=== PATIENT | female | born 1945 | race Caucasian/White ===

== ENCOUNTER 2018-08-25 12:33 | Inpatient (IN) ==
--- NOTE | 2018-08-25 13:16 | EKG Report ---
Test Performed on : 08/25/2018 1:00:56 PM Test Reason : ams Blood Pressure : / mmHG Vent. Rate : 096 BPM Atrial Rate : 096 BPM P-R Int : 148 ms QRS Dur : 084 ms QT Int : 348 ms P-R-T Axes : 084 055 068 degrees QTc Int : 439 ms Normal sinus rhythm. with sinus arrhythmia. Normal ECG When compared with ECG of 10-JUL-2017 10:34, No significant change was found Unconfirmed Result
[2018-08-25 13:26] LABS: INR 0.82
[2018-08-25 13:27] LABS: PTT 25.8 Seconds (22.3-41.8)
[2018-08-25 13:30] LABS: BASO# 0.04 X1000 (0.0-0.2); BASO% 0.5 % (0.0-0.8); EOS% 1.2 % (0.0-10.0); HEMATOCRIT 32.4 % (37.0-47.0); HEMOGLOBIN 9.1 g/dL (12.0-16.0); LYMPH# 1.18 X1000 (1.2-3.4); LYMPH% 13.7 % (20.5-51.1); MCH 23.8 PG (27-31); MCHC 28.1 g/dL (33-37); MCV 84.6 FL (81-99); MONO# 0.62 X1000 (0.11-0.59); MONO% 7.2 % (1.7-9.3); MPV 8.3 FL (7.4-10.4); NEUT# 6.69 X1000 (1.4-6.5); NEUT% 77.4 % (42.2-75.2); PLT 364 X1000 (130-400); RBC 3.83 XMIL (4.2-5.4); RDW 17.3 % (11.5-14.5); WBC 8.63 X1000 (4.8-10.8)
[2018-08-25 13:39] LABS: ALLEN TEST NO; BE 21.4 mmoll (-3.0-3.0); BLOOD TYPE ARTERIAL; HCO3-(ACT) 41.5 mmoll (20.0-26.0); O2(CT) 13.2 mL/dL (15.0-23.0); O2HB 92.1 % (95.0-99.0); PO2(98.6) 73 mmHg (60-100); SAMPLE BLOOD; SAO2 94.5 % (95.0-100.0); THB 10.1 g/dL (11.5-17.4); pH(98.6) 7.25 (7.35-7.45)
[2018-08-25 13:40] LABS: MODALITY CANNULA; PCO2(98.6) 121 mmHg (35-45)
[2018-08-25 13:40] LABS: ESTIMATED GFR > 60
[2018-08-25 13:41] LABS: AGAP 6; ALB/GLOB RATIO 1.4; ALBUMIN 3.4 g/dL (3.5-5.0); ALKALINE PHOSPHATASE 71 U/L (32-104); BUN 4 mg/dL (8-22); CALCIUM 9.4 mg/dL (8.8-10.2); CHLORIDE 88 mmol/L (98-107); CK PROFILE 24 U/L (24-173); COSMO 273; CREATININE 0.3 mg/dL (0.5-0.9); GLUCOSE 114 mg/dL (70-104); GOT 26 U/L (10-30); GPT 14 U/L (10-36); SODIUM 138 mmol/L (136-145); TCO2 44 mmol/L (25-35); TOTAL PROTEIN 5.9 g/dL (6.3-8.3)
[2018-08-25 13:43] LABS: BILIRUBIN URINE NEGATIVE (NEGATIVE); BLOOD URINE SMALL (NEGATIVE); COLOR ORANGE; GLUCOSE URINE NEGATIVE (NEGATIVE); KETONE URINE 10 mg/dL (NEGATIVE); LEUKOCYTES URINE SMALL (NEGATIVE); NITRITE URINE NEGATIVE (NEGATIVE); PH URINE 7.5; PROTEIN URINE TRACE mg/dL (NEGATIVE); SP GRAVITY URINE 1.002; TURBIDITY URINE HAZY (CLEAR); URINE SOURCE CATH; UROBILINOGEN URINE NORMAL (NORMAL)
[2018-08-25 13:51] LABS: UR EPITHELIAL CELLS >10 /HPF (<10); URINE BACTERIA 1+ /HPF; URINE RBC <10 /HPF (<10); URINE WBC <10 /HPF (<10)
--- NOTE | 2018-08-25 14:25 | Diag Imaging Result Doc PS360 ---
EXAM: CT HEAD W/O CONTRAST 08/25/2018 HISTORY: Head injury TECHNIQUE: This exam was performed using automated exposure control, adjustment of mA or kV according to patient size, and/or use of iterative reconstruction technique. COMMENT: There is no evidence of mass effect, bleed, or abnormal extra-axial fluid collection, and there are no previous studies available for comparison. There is persistence the metopic suture. The calvarium is intact. The visualized paranasal sinuses are clear. IMPRESSION: No evidence of acute intracranial disease. Electronically signed by Shelton Robbins 08/25/2018 2:23 PM
--- NOTE | 2018-08-25 14:44 | Diag Imaging Result Doc PS360 ---
EXAM: CHEST-PORTABLE 08/25/2018 HISTORY: ams TECHNIQUE: AP portable at 1431 COMMENT: there is blunting of the left costophrenic angle laterally which was not the case on 08/17/2017. IMPRESSION: Atelectasis versus pleural fluid on the left. Electronically signed by Shelton Robbins 08/25/2018 2:41 PM
[2018-08-25 14:47] LABS: URINE CASTS NONE SEEN; URINE CRYSTALS NONE SEEN; URINE SMALL ROUND CELLS NONE SEEN; URINE YEAST PRESENT
[2018-08-25] MEDS ORDERED: SOLU-MEDROL IV ONE (16:04)
[2018-08-25] MEDS ORDERED: ZOFRAN IV PRN (16:04)
[2018-08-25] MEDS ORDERED: TYLENOL PO PRN (16:04)
[2018-08-25] MEDS ORDERED: DUONEB (A & A) INH ONE (16:10)
[2018-08-25] MEDS ORDERED: NARCAN IV ONE (16:55)
[2018-08-25 16:56] LABS: ALLEN TEST NO; BE 27.2 mmoll (-3.0-3.0); BLOOD TYPE ARTERIAL; HCO3-(ACT) 46.1 mmoll (20.0-26.0); METHB 0.5 % (0.0-1.5); O2(CT) 12.4 mL/dL (15.0-23.0); O2HB 93.8 % (95.0-99.0); PO2(98.6) 74 mmHg (60-100); SAMPLE BLOOD; SAO2 95.8 % (95.0-100.0); SRATE 20 BPM; THB 9.3 g/dL (11.5-17.4); pH(98.6) 7.32 (7.35-7.45)
[2018-08-25 16:57] LABS: MODALITY BI PAP; PCO2(98.6) 112 mmHg (35-45)
[2018-08-25] MEDS ORDERED: LEVAQUIN 750 MG in NS 150 ML IV ONE (17:00)
--- NOTE | 2018-08-25 17:48 | PROVIDER DOCUMENTATION ---
This chart was entered by Ana Roy Scribe, acting as scribe for John Mendoza CRNP. HPI-Neurological Disorder - General Chief Complaint: Altered Mental Status Stated Complaint: AMS Time Seen by Provider: 08/25/18 13:39 Source: EMS Allergies/Adverse Reactions: Patient Allergies Allergy/AdvReac Type Severity Reaction Status Date / Time No Known Allergies Allergy Verified 07/10/17 11:05 Home Medications: Home Medication List Medication Instructions Recorded Confirmed Last Taken Type Azithromycin [Zithromax Z-Negro] 250 mg PO DIRECTED #1 pkg 07/10/17 Unknown Rx Methylprednisolone [Medrol Dosepak] 4 mg PO DIRECTED #1 pkg 07/10/17 Unknown Rx Promethazine [Phenergan] 25 mg PO Q6H PRN PRN #20 tab 08/18/17 Unknown Rx - History of Present Illness-Neuro Nature of Presenting Problem: Patient is a 73 year old female who presents to the ED via EMS with altered mental status. EMS states skilled nursing staff noticed the AMS this morning. Patient only responsive to painful stimuli. Severity: reports: mild Onset/Duration: reports: this morning Timing: reports: still present Context: reports: other (AMS) Character of Altered Mental Status: reports: decreased responsiveness Any recent trauma/injury?: reports: none New weakness or altered sensation location:: reports: none Associated Symptoms: reports: denies symptoms Similar Symptoms Previously?: No Recently seen or treated by another doctor?: No Review of Systems - Adult - REVIEW OF SYSTEMS - ADULT ROS:: unobtainable per condition Constitutional: reports: no symptoms reported Eyes: reports: no symptoms reported Ears, Nose, Mouth & Throat: reports: no symptoms reported Cardiovascular: reports: no symptoms reported Respiratory: reports: see HPI Gastrointestinal: reports: no symptoms reported Genitourinary: reports: no symptoms reported Musculoskeletal: reports: no symptoms reported Integumentary: reports: no symptoms reported Neurological: reports: see HPI, other (unresponsiveness) Psychiatric: reports: no symptoms reported Endocrine: reports: no symptoms reported Hematologic/Lymphatic: reports: no symptoms reported Allergic/Immunologic: reports: no symptoms reported All Other Systems: Reviewed and Negative Past History - Adult - PAST MEDICAL HISTORY-ADULT Review of Records: reports: Old Records Reviewed, Nursing Assessment Review, Medications Reviewed, Social history reviewed & non-contributory. Major Childhood Illnesses: reports: denies history Cardiovascular: reports: HTN Respiratory: reports: COPD Gastrointestinal: reports: denies history Obstetrical/Gynecological: reports: denies history Genitourinary: reports: kidney disease Musculoskeletal: reports: chronic pain (back) Neurological: reports: denies history Psychiatric: reports: denies history Endocrine/Immune: reports: denies history Other Conditions: reports: denies history - PRIOR SURGERIES/PROCEDURES Surgical/Procedure History: reports: hysterectomy, BTL - IMMUNIZATION STATUS Childhood Immunizations: See Nurse Assessment Flu Vaccine: See Nurse Assessment - FAMILY HISTORY Family History: reviewed, not pertinent - SOCIAL HISTORY Smoking: cigarettes, less than 1 pack/day Provider spent 3-5 mins advising pt. on dangers of tobacco.: Discussed manners to quit use, and f/u contacts for add'l counseling. Substance Use: denies Living Situation: care facility (SNF) Physical Exam- Neurological - Physical Exam-Neuro Initial Vital Signs Reviewed: Yes General Appearance: obtunded, other (response to painful stimuli) Eye Exam: bilateral eye: normal inspection, PERRL HENMT: normocephalic/atraumatic Head Injury: no evidence of injury Neck: supple, normal inspection Respiratory: chest non-tender, no accessory muscle use, decreased breath sounds (bilateral) Cardiovascular: normal peripheral pulses, regular rate, rhythm, no gallop, no murmur, other (2+ pitting edema bilateral lower extremities) Abdominal Exam: normal bowel sounds, non tender, soft Extremity: non-tender, other (pitting edema to bilateral lower extremities) 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 negative: abnormal eye position, facial asymmetry, facial droop Motor/Sensory: other (unable to assess per patient's condition) Integumentary: normal color, normal turgor, warm/dry. negative: cyanosis, diaphoresis, jaundice, mottled, pallor Psych/Mental Status: other (Pt non verbal at time of exam, only responds to painful stimuli. Pt will open eyes intermittently.) Progress - PLAN OF CARE/RESULTS Progress/Plan/Lab Results: Vital Signs - 8 hr 08/25/18 12:47 08/25/18 13:02 08/25/18 13:23 Temperature 97.5 F L Pulse Rate 102 H 99 H 104 H Respiratory Rate 18 18 Blood Pressure 155/83 144/75 140/70 O2 Sat by Pulse Oximetry 89 L 96 95 08/25/18 14:02 08/25/18 14:32 08/25/18 15:02 Temperature Pulse Rate 93 H 98 H 98 H Respiratory Rate Blood Pressure 125/62 148/59 129/72 O2 Sat by Pulse Oximetry 98 100 100 08/25/18 15:13 08/25/18 15:32 08/25/18 16:02 Temperature Pulse Rate 101 H 96 H 95 H Respiratory Rate 18 18 20 Blood Pressure 127/58 137/62 O2 Sat by Pulse Oximetry 100 100 100 08/25/18 16:40 08/25/18 17:02 Temperature Pulse Rate 95 H 99 H Respiratory Rate 20 22 Blood Pressure 130/74 O2 Sat by Pulse Oximetry 98 Laboratory Results - last 24 hr 08/25/18 08/25/18 08/25/18 12:55 12:55 12:55 WBC 8.63 RBC 3.83 L Hgb 9.1 L Hct 32.4 L MCV 84.6 MCH 23.8 L MCHC 28.1 L RDW Std Deviation 17.3 H Plt Count 364 MPV 8.3 Neut % (Auto) 77.4 H Lymph % (Auto) 13.7 L Dewitt % (Auto) 7.2 Eos % (Auto) 1.2 Baso % (Auto) 0.5 Neut # (Auto) 6.69 H Lymph # (Auto) 1.18 L Dewitt # (Auto) 0.62 H Eos # (Auto) 0.10 Baso # (Auto) 0.04 PT INR PTT (Actin FS) Specimen Type Sample Site pH pCO2 pO2 HCO3 Base Excess Oxyhemoglobin ABG O2 Sat (Calculated) ABG O2 Saturation ABG Carboxyhemoglobin ABG Methemoglobin Elvis Test A-a O2 Difference Total Hemoglobin Lactate Liter Flow Blood Gas Modality Spontaneous Rate FiO2 % Inspiratory BiPAP Expiratory BiPAP Sodium 138 Potassium 4.0 Chloride 88 L Carbon Dioxide 44 H Anion Gap 6 BUN 4 L Creatinine 0.3 L Estimated GFR/1.73 m2 > 60 BUN/Creatinine Ratio 13 Glucose 114 H Calculated Osmolality 273 Calcium 9.4 Total Bilirubin 0.20 AST 26 ALT 14 Alkaline Phosphatase 71 Ammonia Creatine Kinase 24 Troponin T Isn-E-Hepdqrdiaow Pept Total Protein 5.9 L Albumin 3.4 L Globulin 2.5 Albumin/Globulin Ratio 1.4 Plasma Lactate 0.4 L Urine Source Urine Color Urine Turbidity Urine pH Ur Specific [place] Urine Protein Ur Glucose (Stick) Ur Ketones (Stick) Urine Blood Urine Nitrite Urine Bilirubin Urobilinogen Dipstick Urine Leukocytes Urine WBC (Auto) Urine RBC (Auto) U Epithel Cells (Auto) Urine Bacteria (Auto) Urine Crystals Small Round Cells Urine Casts Urine Yeast-like Cells 08/25/18 08/25/18 08/25/18 12:55 12:55 12:55 WBC RBC Hgb Hct MCV MCH MCHC RDW Std Deviation Plt Count MPV Neut % (Auto) Lymph % (Auto) Dewitt % (Auto) Eos % (Auto) Baso % (Auto) Neut # (Auto) Lymph # (Auto) Dewitt # (Auto) Eos # (Auto) Baso # (Auto) PT 12.0 INR 0.82 PTT (Actin FS) 25.8 Specimen Type Sample Site pH pCO2 pO2 HCO3 Base Excess Oxyhemoglobin ABG O2 Sat (Calculated) ABG O2 Saturation ABG Carboxyhemoglobin ABG Methemoglobin Elvis Test A-a O2 Difference Total Hemoglobin Lactate Liter Flow Blood Gas Modality Spontaneous Rate FiO2 % Inspiratory BiPAP Expiratory BiPAP Sodium Potassium Chloride Carbon Dioxide Anion Gap BUN Creatinine Estimated GFR/1.73 m2 BUN/Creatinine Ratio Glucose Calculated Osmolality Calcium Total Bilirubin AST ALT Alkaline Phosphatase Ammonia Creatine Kinase Troponin T < 0.010 Emc-H-Qruelklnpdi Pept 298 Total Protein Albumin Globulin Albumin/Globulin Ratio Plasma Lactate Urine Source Urine Color Urine Turbidity Urine pH Ur Specific [place] Urine Protein Ur Glucose (Stick) Ur Ketones (Stick) Urine Blood Urine Nitrite Urine Bilirubin Urobilinogen Dipstick Urine Leukocytes Urine WBC (Auto) Urine RBC (Auto) U Epithel Cells (Auto) Urine Bacteria (Auto) Urine Crystals Small Round Cells Urine Casts Urine Yeast-like Cells 08/25/18 08/25/18 08/25/18 13:23 13:30 14:49 WBC RBC Hgb Hct MCV MCH MCHC RDW Std Deviation Plt Count MPV Neut % (Auto) Lymph % (Auto) Dewitt % (Auto) Eos % (Auto) Baso % (Auto) Neut # (Auto) Lymph # (Auto) Dewitt # (Auto) Eos # (Auto) Baso # (Auto) PT INR PTT (Actin FS) Specimen Type ARTERIAL Sample Site R BRACHIAL pH 7.25 L pCO2 121 H* pO2 73 HCO3 41.5 H Base Excess 21.4 H Oxyhemoglobin 92.1 L ABG O2 Sat (Calculated) 13.2 L ABG O2 Saturation 94.5 L ABG Carboxyhemoglobin 1.60 ABG Methemoglobin 1.0 Elvis Test NO A-a O2 Difference -10.0 Total Hemoglobin 10.1 L Lactate 0.60 Liter Flow 3.0 Blood Gas Modality CANNULA Spontaneous Rate FiO2 % 30.0 Inspiratory BiPAP Expiratory BiPAP Sodium Potassium Chloride Carbon Dioxide Anion Gap BUN Creatinine Estimated GFR/1.73 m2 BUN/Creatinine Ratio Glucose Calculated Osmolality Calcium Total Bilirubin AST ALT Alkaline Phosphatase Ammonia 57 H Creatine Kinase Troponin T Dcc-Z-Calperjnhga Pept Total Protein Albumin Globulin Albumin/Globulin Ratio Plasma Lactate Urine Source CATH Urine Color ORANGE Urine Turbidity HAZY Urine pH 7.5 Ur Specific [place] 1.002 Urine Protein TRACE A Ur Glucose (Stick) NEGATIVE Ur Ketones (Stick) 10 A Urine Blood SMALL A Urine Nitrite NEGATIVE Urine Bilirubin NEGATIVE Urobilinogen Dipstick NORMAL Urine Leukocytes SMALL A Urine WBC (Auto) <10 Urine RBC (Auto) <10 U Epithel Cells (Auto) >10 A Urine Bacteria (Auto) 1+ Urine Crystals NONE SEEN Small Round Cells NONE SEEN Urine Casts NONE SEEN Urine Yeast-like Cells PRESENT 08/25/18 16:50 WBC RBC Hgb Hct MCV MCH MCHC RDW Std Deviation Plt Count MPV Neut % (Auto) Lymph % (Auto) Dewitt % (Auto) Eos % (Auto) Baso % (Auto) Neut # (Auto) Lymph # (Auto) Dewitt # (Auto) Eos # (Auto) Baso # (Auto) PT INR PTT (Actin FS) Specimen Type ARTERIAL Sample Site R BRACHIAL pH 7.32 L pCO2 112 H* pO2 74 HCO3 46.1 H Base Excess 27.2 H Oxyhemoglobin 93.8 L ABG O2 Sat (Calculated) 12.4 L ABG O2 Saturation 95.8 ABG Carboxyhemoglobin 1.60 ABG Methemoglobin 0.5 Elvis Test NO A-a O2 Difference 143.0 Total Hemoglobin 9.3 L Lactate 0.50 Liter Flow 15.0 Blood Gas Modality BI PAP Spontaneous Rate 20 FiO2 % 50.0 Inspiratory BiPAP 20.0 Expiratory BiPAP 5.0 Sodium Potassium Chloride Carbon Dioxide Anion Gap BUN Creatinine Estimated GFR/1.73 m2 BUN/Creatinine Ratio Glucose Calculated Osmolality Calcium Total Bilirubin AST ALT Alkaline Phosphatase Ammonia Creatine Kinase Troponin T Jkb-H-Vjtjbrfgkjw Pept Total Protein Albumin Globulin Albumin/Globulin Ratio Plasma Lactate Urine Source Urine Color Urine Turbidity Urine pH Ur Specific [place] Urine Protein Ur Glucose (Stick) Ur Ketones (Stick) Urine Blood Urine Nitrite Urine Bilirubin Urobilinogen Dipstick Urine Leukocytes Urine WBC (Auto) Urine RBC (Auto) U Epithel Cells (Auto) Urine Bacteria (Auto) Urine Crystals Small Round Cells Urine Casts Urine Yeast-like Cells Orders Category Date Time Status Admit [facility] Routine AdmDCTranf 08/25/18 16:04 Active Activity - Up with Assistance ORDERED Care 08/25/18 17:45 Active Cardiac Monitoring DIRECTED Care 08/25/18 12:51 Active Finger Stick Blood Sugar (ED) DIRECTED Care 08/25/18 12:51 Active [place] Cath Insertion ORDERED Care 08/25/18 12:53 Active Intake and Output-Strict ORDERED Care 08/25/18 17:45 Active Nursing- Assist w/ IS as order ORDERED Care 08/25/18 17:45 Active Nursing- MD Consult Request ROUTINE Care 08/25/18 16:05 Active Oxygen Therapy- ED Nursing DIRECTED Care 08/25/18 12:51 Active Saline Loc NOW Care 08/25/18 12:51 Active Turn, Cough and Deep Breathe Q4HR.AWAKE Care 08/25/18 17:45 Active Update & Confirm Home Medicati ROUTINE Care 08/25/18 16:04 Active Vital Signs Order Q1H Care 08/25/18 17:45 Active Z-Document. for Tele Applied ORDERED Care 08/25/18 17:45 Active Palliative Care Consult [OM.CSS] Routine Cons 08/25/18 16:04 Active Physician/Provider Consults Routine Cons 08/25/18 16:04 Ordered NPO Diet 08/25/18 16:04 Active CHEST-PORTABLE [RAD] Stat Exams 08/25/18 12:[address] HEAD W/O CONTRAST [CT] Stat Exams 08/25/18 14:10 Completed ABG [RESP] Routine Lab 08/25/18 13:30 Completed ABG [RESP] Routine Lab 08/25/18 16:50 Completed ABG [RESP] Routine Lab 08/26/18 06:00 Uncollected AMMONIA [CHEM] Stat Lab 08/25/18 14:49 Completed BNP [PRO B-NATRIURETIC PEPTIDE] Stat Lab 08/25/18 12:55 Completed CBC WITH DIFF [HEME] Routine Lab 08/26/18 06:00 Ordered CBC WITH ELECTRONIC DIFF [HEME] Stat Lab 08/25/18 12:55 Completed CK PROFILE [SP CHEM] Stat Lab 08/25/18 12:55 Completed COMPREHENSIVE METABOLIC PANEL [CHEM] Routine Lab 08/26/18 06:00 Ordered COMPREHENSIVE METABOLIC PANEL [CHEM] Stat Lab 08/25/18 12:55 Completed LACTATE, PLASMA [CHEM] Stat Lab 08/25/18 12:55 Completed PROTIME WITH INR [COAG] Stat Lab 08/25/18 12:55 Completed PTT [COAG] Stat Lab 08/25/18 12:55 Completed SPUTUM CULTURE WITH GRAM STAIN [RM] Routine Lab 08/25/18 16:04 Uncollected TROPONIN T Stat Lab 08/25/18 12:55 Completed URINALYSIS [URINALYSIS] Stat Lab 08/25/18 13:23 Completed URINE MANUAL MICROSCOPIC [URINALYSIS] Stat Lab 08/25/18 13:23 Completed Acetaminophen [Tylenol] Med 08/25/18 16:04 Active 650 mg PO Q4-6H PRN PRN Albuterol 2.5MG/Ipratrop 0.5MG [Duoneb (A & A)] Med 08/25/18 16:10 Discontinued 3 ml INH NOW ONE Budesonide [Pulmicort] Med 08/25/18 19:30 Active 0.5 mg INH RTBID Enoxaparin [Lovenox] Med 08/26/18 09:00 Active 40 mg SUBQ Q24H Ipratropium Alpine Neb [Atrovent Neb] Med 08/25/18 19:30 Active 0.5 mg INH RTQ4H Levalbuterol Neb [Xopenex Neb] Med 08/25/18 19:30 Active 1.25 mg INH RTQ4H Levofloxacin 750 mg/D5w [Levaquin 750 mg/D5w] Med 08/26/18 17:00 Active 750 mg in 150 ml IV Q24H Levofloxacin [Levaquin] 750 mg Med 08/25/18 17:00 Active 0.9% Sodium Chloride Inj [Ns] 150 ml IV NOW Methylprednisolone Sod Succ [Solu-Medrol] Med 08/25/18 16:04 Discontinued 125 mg IV NOW ONE Methylprednisolone Sod Succ [Solu-Medrol] Med 08/25/18 22:00 Discontinued 60 mg IV Q6H Naloxone [Narcan] Med 08/25/18 16:55 Discontinued 1 mg IV NOW ONE Ondansetron [Zofran] Med 08/25/18 16:04 Active 4 mg IV Q4H PRN PRN Prednisone Med 08/26/18 09:00 Active 40 mg PO DAILY Aerosol Treatments Routine Ot 08/25/18 16:04 Completed Aerosol Treatments Routine Ot 08/25/18 16:11 Completed Aerosol Treatments Stat Ot 08/25/18 16:11 Completed Altered Mental Status Stat Ot 08/25/18 12:51 Ordered BIPAP Stat [facility] 08/25/18 14:12 Active Incentive Spirometer Q4HR.AWAKE Ot 08/25/18 21:00 Ordered Incentive Spirometer Q4HR.AWAKE [facility] 08/26/18 01:00 Ordered Incentive Spirometer Q4HR.AWAKE [facility] 08/26/18 05:00 Ordered Incentive Spirometer Q4HR.AWAKE [facility] 08/26/18 09:00 Ordered Incentive Spirometer Q4HR.AWAKE Ot 08/26/18 13:00 Ordered Incentive Spirometer Q4HR.AWAKE [facility] 08/26/18 17:00 Ordered Oxygen Device Routine [facility] 08/25/18 17:45 Active Peak Flow BID [facility] 08/25/18 21:00 Ordered Peak Flow BID [facility] 08/26/18 09:00 Ordered Pulse Oximetry Routine Ot 08/25/18 16:04 Completed Telemetry [OM.EQ] Routine Ot 08/25/18 17:45 Active EKG [EKG] Stat Ther 08/25/18 12:51 Draft Transfer/Admit Order [TRANSFER] Routine Transfer 08/25/18 15:50 Completed Discussed case with Dr. Mathews at 1417 who states he will evaluate pt. Instructed me to order bipap. Spoke with daughter who states pt was hospitalized at [facility] for 3 weeks for hypercapnea and discharged to [facility] with trilogy and home O2 3.5-4 L/min. Family members spoke with pt this morning and she was altered then. Since became responsive to painful stimuli only. Unable to perform NIH stroke scale due to unresponsiveness. Dr. Mathews at bedside. Spoke with ANN Jarrett NP who accepted admission. Result Diagrams: 08/25/18 12:55 08/25/18 12:55 - REASSESSMENT Reassessment #1 Status: unchanged (Pt now on bipap, mental status unchanged since previous assessment.) Reassessment #2 Time Reassessed: 16:01 Status: other (Dr. Mathews assessed the patient and agrees with John's decision to admit patient.) - EKG 1 Time of EKG reading by physician:: 13:00 EKG Read and Signed by:: Gurjit Mathews EKG Interpretation (*Must complete 3 of following elements*): Normal Rate: 96 Rhythm: normal sinus rhythm with sinus arrhythmia [place]: normal VT Interval: normal Comments: normal ECG - XRAY 1 XRAY Study: Chest Impression: See EMR Report (EXAM: CHEST-PORTABLE 08/25/2018 HISTORY: ams TECHNIQUE: AP portable at 1431 COMMENT: there is blunting of the left costophrenic angle laterally which was not the case on 08/17/2017. IMPRESSION : Atelectasis versus pleural fluid on the left. Electronically signed by Shelton Robbins 08/25/2018 2:41 PM 08/25/18 1441 Interpreting Physician: Shelton Robbins MD Dictated Date/Time: 08/25/18 1441 cc: Gurjit Mathews MD; Korina Porter) - CT/MRI 1 CT Study: Head Impression: See EMR Report ( EXAM: CT HEAD W/O CONTRAST 08/25/2018 HISTORY: Head injury TECHNIQUE: This exam was performed using automated exposure control, adjustment of mA or kV according to patient size, and/or use of iterative reconstruction technique. COMMENT: There is no evidence of mass effect, bleed, or abnormal extra-axial fluid collection, and there are no previous studies available for comparison. There is persistence the metopic suture. The calvarium is intact. The visualized paranasal sinuses are clear. IMPRESSION: No evidence of acute intracranial disease. Electronically signed by Shelton Robbins 08/25/2018 2:23 PM 08/25/18 1423 Interpreting Physician: Shelton Robbins MD Dictated Date/Time: 08/25/18 1422 cc: Gurjit Mathews MD; Korina Porter) - CONSULTS/PCP/HOSPITALIST Notification #1 *Consult/PCP/Hospitalist*: ANN Jarrett Time Discussed: 15:42 Consult Disposition: Admit Departure - Departure Date of Disposition Decision: 08/25/18 Time of Disposition Decision: 14:00 DIAGNOSIS: Hypercarbia COPD (chronic obstructive pulmonary disease) Qualifiers: COPD type: unspecified COPD Qualified Code(s): J44.9 - Chronic obstructive pulmonary disease, unspecified Anemia Qualifiers: Anemia type: unspecified type Qualified Code(s): D64.9 - Anemia, unspecified Disposition: ADMITTED INPATIENT 09 Certified Medical Emergency: Emergent Condition: Fair - Critical Care Note This patient required my direct & personal management of CC.: No Attestation - Physician/ BA Attestation Patient care was provided by Advanced Practice Provider:: Yes Advanced Practice Provider:: John Mendoza Advanced Practice Provider documentation review:: The Mid-level provider documentation, treatment plan and medical decision making was reviewed by the physician who agrees with all treatment and medical decision making by the MLP. The physician spent face to face time with patient:: Yes (Dr. Mathews) Advanced Practice Provider documentation review:: Supervising physician onsite and consulted in the evaluation and care of this patient. The physician did have a face to face encounter with the patient. - NIH Stroke Scale LOC Questions (ask month and age): 2-Both Incorrect This chart was documented by the indicated scribe, (Ana Roy Scribe) and accurately reflects the services I performed and decisions made by , John Mendoza CRNP, as attested by the provider's signature.
--- NOTE | 2018-08-25 18:29 | HISTORY AND PHYSICAL ---
PRIMARY CARE PROVIDER: Dr. Matt Alexis at [facility]. CHIEF COMPLAINT: Found unresponsive. HISTORY OF PRESENT ILLNESS: Ms. Christy Mathews is a 73-year-old female with a medical history of COPD, anxiety and hypertension, who apparently, per information obtained from the daughter by nursing staff (as no family is at the bedside, and the patient was still very lethargic) wears 3.5 to 4 L of oxygen at home, along with Trelegy. She was admitted around 3 weeks ago to [facility] for COPD exacerbation and was discharged to [facility], but they had failed to reorder BiPAP or Trelegy for her. So on Thursday when she was discharged, she had 2 L of oxygen but no CPAP, BiPAP or Trelegy. Some time today she was found unresponsive. She presented with a pH of 7.2 and a pCO2 of 121 and was immediately started on BiPAP. She has since started wakening and follows some simple commands, but is lethargic. X-ray does not show any pneumonia at this time, so we are going to go ahead and treat her for a COPD exacerbation and antibiotic coverage per COPD protocol. Will also transfer to the ICU. PAST MEDICAL HISTORY: This is information obtained through [facility]'s paperwork. 1. COPD. 2. Anxiety 3. Hypertension. 4. Osteoarthritis. 5. Recent vaginitis. PAST SURGICAL HISTORY: Unable to obtain. SOCIAL HISTORY: There is a history of tobacco use. Unknown if it is still current. No other history obtained, other than that she was recently discharged to [facility] for rehab from [facility]. Daughter is currently not at the bedside. FAMILY HISTORY: Unable to obtain. ALLERGIES: No known drug allergies. HOME MEDICATIONS: Currently unverified. REVIEW OF SYSTEMS: Unable to obtain. PHYSICAL EXAMINATION: VITAL SIGNS: Temperature 97.5, heart rate 95, respiratory rate 20, blood pressure 137/62, O2 saturation 100% on BiPAP. GENERAL: Ms. Christy Mathews is a 73-year-old female. She is currently very lethargic and only follows some very simple commands when she is stimulated enough. HEENT: Atraumatic, normocephalic. Pupils are equal and reactive but sluggish. She does not stay awake long enough to assess extraocular movements. Mucous membranes are moist NECK: Trachea midline. CARDIOVASCULAR S1 and S2, tachycardic rate and rhythm. No rubs, gallops or murmurs. She has 1+ lower extremity edema, +2 dorsalis and radial pulses. Negative for JVD or carotid bruits. PULMONARY: Very decreased in the bases. Shallow inspirations. She is not tachypneic. There is no work of breathing. Tolerating BiPAP. GI: Soft, nontender, nondistended. Positive bowel sounds x4. EXTREMITIES: Too lethargic to move all extremities. She will wiggle her feet to command, but otherwise she is just too lethargic. NEUROLOGIC: Again, lethargic. Nonverbal at this moment, and only follows some simple commands such as wiggling her toes, and she attempted to give a thumbs-up. SKIN: Warm, dry and intact but pale. LABORATORY DATA: White blood cells 8000, hemoglobin 9, hematocrit 32, platelet count 364. INR 0.82. PTT is 25.8. ABGs on 3 liters nasal cannula: pH of 7.25, pCO2 of 121, pO2 of 73, bicarb of 41, base excess of 21. Saturation 94%. Lactate 0.6. Sodium 138, potassium 4.0, BUN 4, creatinine 0.3, glucose 114. Calcium 9.4, bilirubin 0.20, AST 26, ALT 14, ammonia 57. CK 24, troponin less than 0.01, proBNP 298. Albumin 3.4. Serum lactate is 0.4. Urinalysis: Trace protein, 10 ketones, small blood, small leukocytes, 1+ bacteria, and there is some yeast present. IMAGING: Head CT: No evidence of acute findings. Chest x-ray: Atelectasis versus pleural fluid on the left. EKG: Normal sinus rhythm, rate 96, QTc 439. ASSESSMENT/PLAN: 1. Unresponsive with metabolic encephalopathy, likely secondary to extreme CO2 retention. She is starting to wake a little more with the decrease in her CO2 level since BiPAP has been added. 2. Chronic obstructive pulmonary disease exacerbation with CO2 over 100. Currently it is 121. She has been on BiPAP. Nebulizers have been added, and we will consult Dr. Puentes for assistance with management. Also started her on IV steroids and Levaquin for prophylactic coverage. 3. Anxiety. 4. Hypertension. Will just monitor it for now. Nothing by mouth at this time. 5. Osteoarthritis. 6. Recent vaginitis and was on Diflucan. It looks like per the records that were sent over from [facility] that she was on the Diflucan, and she had taken at least 1 dose. The urine does show some yeast, so we may have to add something IV possibly if she does not wake up enough for oral intake. 7. Deep venous thrombosis prophylaxis with Lovenox. 8. History of tobacco abuse. It is unclear if this is recent or current versus remote. Dictated by SINCERE Anderson for Jamarcus Kirby MD cc: SINCERE Anderson MD I agree with most components of history, physical, assessment and plan. A separate addendum has been dictated. MTDD
--- NOTE | 2018-08-25 18:37 | HISTORY AND PHYSICAL ---
ADDENDUM: This is an addendum to history and physical dictated by the nurse practitioner. I agree with most components of history, assessment, physical examination and plan. In brief, Ms Mathews is a 73-year-old lady who is admitted for acute encephalopathy. I called the patient's daughter and obtained further history. Apparently, Ms. Mathews was in [facility] for about 20 days for respiratory failure, the details of which are not known. I have requested medical records. She was discharged to rehab. At rehab she was found unresponsive today. She has not been having any fevers, chills or increasing cough as per the daughter. At the time of my evaluation, the patient was very drowsy but arousable to painful stimuli, and then would start screaming. I gave her a dose of Narcan, following which I was told that the patient perked up and started talking about taking the BiPAP mask off, and she was more alert and active. PHYSICAL EXAMINATION: VITAL SIGNS: Temperature of 97.5 degrees, pulse 106 per minute, respiratory rate 18, blood pressure 101/77. She was saturating 100% on BiPAP. Settings were changed to 14 , 8, 30%. GENERAL: She was drowsy, but arousable. She did have very low respiratory rate on my evaluation. Her air entry seemed equal bilaterally without any wheeze, rhonchi or crackles. CARDIOVASCULAR: S1, S2 was normal, without any murmur, rub or gallop. ABDOMEN: Soft and nontender. She did have bilateral lower extremity edema. LABORATORY DATA: Her labs were significant for no leukocytosis, normocytic anemia. Normal platelet count. Hypercarbic respiratory failure with pCO2 of 120, pH of 7.25 on admission, which was improving. She did have normal kidney function and hypochloremia. Her lactate was normal. Urinalysis was unremarkable. ASSESSMENT: 1. Acute hypercarbic respiratory failure. 2. H/o chronic hypercarbic respiratory failure on home Trilogy 2. Acute encephalopathy because of acute hypercarbic respiratory failure. 3. Likely opioid overdose, as the patient perked up after naloxone dose. Home medication reconciliation is pending. 4. Acute exacerbation of chronic obstructive pulmonary disease could not be ruled out due to left lower lobe pneumonia PLAN: The patient will be kept on BiPAP. She will be kept NPO. Repeat ABG will be obtained tomorrow morning. We will continue her on albuterol/ipratropium nebulization. We will give her levofloxacin for suspected left lower lobe pneumonia. I will also order procalcitonin to guide antibiotic therapy, as I do not have any recent imaging. It is possible that the effusion is since [facility]. I have requested the records. I will give her steroid for acute COPD exacerbation. DISPOSITION: Considering her altered mental status, I will admit the patient to ICU to closely monitor her respiratory status. I called the patient's daughter who I assume is a surrogate decision maker and informed her about the patient's course, and I answered all of her questions. >30 minutes of critical care time was spent in taking care of this patient. cc: Jamarcus Kirby MD MTDCristian
[2018-08-25] MEDS: ATROVENT NEB INH SCH ×2 (19:25→23:32)
[2018-08-25] MEDS: PULMICORT INH SCH (19:25)
[2018-08-25] MEDS: XOPENEX NEB INH SCH ×2 (19:25→23:32)
--- NOTE | 2018-08-25 20:56 | PULMONOLOGY CONSULTATION ---
DATE: 08/25/2018 REQUESTING PHYSICIAN: Dr. Kirby. REASON FOR CONSULTATION: Respiratory failure. HISTORY OF PRESENT ILLNESS: Ms. Mathews is a 73-year-old white female with end-stage COPD who was recently in [facility] due to breathing difficulties. By her daughter's report, she was discharged to the rehab facility with a Trilogy. Unfortunately, it was not reordered at the rehab facility by daughter's report and therefore she has not been using it. The patient was found unresponsive and brought to the emergency room. She did improve with some Narcan. But her initial arterial blood gas revealed a pH of 7.25, pCO2 of 121, and a PO2 of 73 on 3 L per nasal cannula. This is marginally improved with initiation of BiPAP. PAST MEDICAL HISTORY: Problem list: 1. 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 2. Hypertension. 3. Anxiety disorder. 4. History of osteoarthritis. SOCIAL HISTORY: Patient is currently in the rehab facility, although it is not clear how much rehab potential she will have. FAMILY HISTORY: Currently unknown. REVIEW OF SYSTEMS: Cannot be obtained. PHYSICAL EXAMINATION: General: Reveals a well-developed, well-nourished white female, whose eyes are open. She will track the examiner during the examination. She is slow to follow commands. OBJECTIVE: Vital Signs: Blood pressure 107/58, heart rate 98, respiratory rate 18, oxygen saturation 98%. HEENT: Pupils are equal and reactive. Oropharynx is clear. Neck: Supple. Chest: Reveals markedly diminished breath sounds bilaterally. Cardiac: S1, S2. Abdomen: Soft, without hepatosplenomegaly. Extremities: Without edema. LABORATORIES: Chest x-ray reveals hyperinflation with some slight blunting of the left costophrenic angle. CT scan of the brain reveals no evidence of acute injury. Arterial blood gas on BiPAP: pH 7.32, pCO2 of 112, PO2 of 74, which is probably approaching her baseline as far as the pCO2 is concerned. Sodium 138, potassium 4.0, chloride 88, bicarbonate 44, BUN 4, creatinine 0.3. IMPRESSION: A 73-year-old with apparent end-stage chronic obstructive pulmonary disease who has had acute hypoxemic respiratory failure and acute hypercapnic respiratory failure with encephalopathy after she has been without her Trilogy. I suspect that she has simply had respiratory decompensation leading to changes in mental status. She has had some limited benzodiazepine and some limited pain medication, which may have also tipped her over the edge. But if she has not had her Trilogy for several days, then it could be that she has not had an adequate sleep in the last 48 to 72 hours, further contributing to her change in mental status. The negative CT scan is encouraging. Review of her previous blood gases indicates her pCO2 in June 2017 was normal. It is a little unusual that she has progressed to this degree of CO2 retention over one year. I will check TSH tomorrow to ensure she does not have a component of hypothyroidism. Her current medications do not appear to be enough to significantly change her ventilatory drive. RECOMMENDATIONS: 1. Reinitiate Trilogy. She will definitely need this device at the time of discharge. 2. Obtain records from recent hospitalization at [facility]. 3. Check TSH level tomorrow. 4. Agree with current antibiotic/steroid dosing. cc: Phillip Puentes MD
[2018-08-25] MEDS ORDERED: SOLU-MEDROL IV SCH (22:00)
[2018-08-25] MEDS ORDERED: BLISTEX MEDICATED BERRY LIP BALM TOP PRN (23:24)
[2018-08-26 00:28] LABS: ESTIMATED GFR > 60
[2018-08-26 00:33] LABS: AGAP 8; BUN 6 mg/dL (8-22); CALCIUM 9.7 mg/dL (8.8-10.2); CHLORIDE 87 mmol/L (98-107); COSMO 276; CREATININE 0.3 mg/dL (0.5-0.9); GLUCOSE 139 mg/dL (70-104); POTASSIUM 4.1 mmol/L (3.5-5.1); SODIUM 138 mmol/L (136-145); TCO2 43 mmol/L (25-35)
[2018-08-26] MEDS: NICODERM PATCH TD SCH (02:56)
[2018-08-26] MEDS: XOPENEX NEB INH SCH ×6 (03:20→22:58)
[2018-08-26] MEDS: ATROVENT NEB INH SCH ×6 (03:20→22:58)
[2018-08-26 04:56] LABS: ALLEN TEST YES; BE 23.7 mmoll (-3.0-3.0); BLOOD TYPE ARTERIAL; HCO3-(ACT) 43.4 mmoll (20.0-26.0); METHB 0.9 % (0.0-1.5); O2(CT) 12.1 mL/dL (15.0-23.0); O2HB 97.5 % (95.0-99.0); PCO2(98.6) 35 mmHg (35-45); PO2(98.6) 177 mmHg (60-100); SAMPLE BLOOD; SAO2 99.2 % (95.0-100.0); THB 8.5 g/dL (11.5-17.4)
[2018-08-26 04:57] LABS: MODALITY BI PAP; pH(98.6) 7.72 (7.35-7.45)
[2018-08-26 05:49] LABS: ESTIMATED GFR > 60
[2018-08-26 05:53] LABS: AGAP 12; ALB/GLOB RATIO 1.1; ALBUMIN 2.9 g/dL (3.5-5.0); ALKALINE PHOSPHATASE 58 U/L (32-104); BUN 8 mg/dL (8-22); CALCIUM 9.3 mg/dL (8.8-10.2); CHLORIDE 89 mmol/L (98-107); COSMO 275; CREATININE 0.3 mg/dL (0.5-0.9); GLUCOSE 119 mg/dL (70-104); GOT 13 U/L (10-30); GPT 10 U/L (10-36); POTASSIUM 3.7 mmol/L (3.5-5.1); SODIUM 138 mmol/L (136-145); TCO2 37 mmol/L (25-35); TOTAL BILIRUBIN 0.21 mg/dL (0.20-1.00); TOTAL PROTEIN 5.6 g/dL (6.3-8.3)
[2018-08-26 05:55] LABS: BASO# 0.01 X1000 (0.0-0.2); BASO% 0.3 % (0.0-0.8); HEMATOCRIT 29.7 % (37.0-47.0); HEMOGLOBIN 8.3 g/dL (12.0-16.0); LYMPH# 0.48 X1000 (1.2-3.4); LYMPH% 12.4 % (20.5-51.1); MCHC 27.9 g/dL (33-37); MCV 82.3 FL (81-99); MONO# 0.05 X1000 (0.11-0.59); MONO% 1.3 % (1.7-9.3); MPV 8.4 FL (7.4-10.4); NEUT# 3.34 X1000 (1.4-6.5); PLT 452 X1000 (130-400); RBC 3.61 XMIL (4.2-5.4); RDW 17.3 % (11.5-14.5); WBC 3.88 X1000 (4.8-10.8)
--- NOTE | 2018-08-26 07:03 | Diag Imaging Result Doc PS360 ---
EXAM: CHEST-PORTABLE 08/26/2018 HISTORY: Acute Resp Failure TECHNIQUE: AP portable at 0233 hours COMMENT: There is improvement in the blunting of the left costophrenic angle seen on 08/25/2018. Otherwise there has been no appreciable change. IMPRESSION: Improved left lower lobe atelectasis. Electronically signed by Shelton Robbins 08/26/2018 7:01 AM
--- NOTE | 2018-08-26 07:18 | EKG Report ---
Test Performed on : 08/25/2018 11:55:09 PM Test Reason : Run of v-tach on monitor per ICU nurse Blood Pressure : / mmHG Vent. Rate : 109 BPM Atrial Rate : 109 BPM P-R Int : 128 ms QRS Dur : 078 ms QT Int : 330 ms P-R-T Axes : 083 069 081 degrees QTc Int : 444 ms Sinus tachycardia. with premature atrial complexes. Otherwise normal ECG When compared with ECG of 25-AUG-2018 13:00, (Unconfirmed) premature atrial complexes. are now present Confirmed by Loren BROWN, Lane Luna ([id number]) on 08/26/2018 7:19:45 AM
[2018-08-26] MEDS: PULMICORT INH SCH ×2 (07:32→19:54)
[2018-08-26] MEDS ORDERED: NORCO-5 PO PRN (08:24)
[2018-08-26] MEDS: LOVENOX SUBQ SCH (08:39)
[2018-08-26 08:59] LABS: HEMOGLOBIN A1C 4.9 % (4.8-6.0)
[2018-08-26] MEDS ORDERED: KLONOPIN PO SCH (09:00)
[2018-08-26] MEDS: PREDNISONE PO SCH (09:04)
--- NOTE | 2018-08-26 09:14 | PROGRESS NOTE ---
DATE: 08/26/2018 SUBJECTIVE: The patient is lying comfortably in bed. She seems to be very anxious and hungry. She is completely alert and oriented x3. She is following commands. No focal weakness. As per the patient, she stopped using the Trilogy machine because it was complicated to set up the oxygen and use the machine. I explained to her in detail that she cannot stop using the Trilogy machine. She came in with severe CO2 retention and hypoxia. That seems to be much better, and like I said, she is oriented x3. She has been asking for her pain medication and anxiety medication. I will restart dose, but a lower dose. I do not want the patient to have a benzodiazepine withdrawal. TSH level is normal. OBJECTIVE: Vital Signs: Temperature 99 degrees, pulse 113, respiratory rate on the monitor 28, blood pressure 145/90, oxygen saturation 98 on a Venturi mask. HEENT: Head normocephalic. No trauma. PERRLA. Neck: Supple. No JVD. Central trachea. Cardiovascular: RRR. Chest: Decreased breath sounds globally. She is not complaining of shortness of breath at this moment, just some discomfort. No wheezing. Extremities: No edema. No clubbing. No cyanosis. Neurological: The patient is alert. She is oriented x3. She looks really anxious. LABORATORY DATA: WBC 3.8, hemoglobin 8.3, hematocrit 29.7, platelets 452,000. Sodium 138, potassium 3.7, chloride 99, bicarbonate 37, BUN 8, creatinine 0.3, glucose 119, calcium 9.3, albumin 2.9. ASSESSMENT AND PLAN: 1. Metabolic encephalopathy upon admission, resolved, likely secondary to extreme carbon dioxide retention. Now, she is on a Ventimask and she is completely alert and oriented x3. Will continue with the same management. 2. End-stage chronic obstructive pulmonary disease exacerbation with CO2 retention and hypoxemia. As per the patient, she uses a Trilogy machine at home, but she stopped using it because it is hard for her to set up the oxygen and use the machine. I explained to the patient that she cannot stop using the machine due to her current condition. We will continue with the same management for now. Pulmonary Department on board. 3. Anxiety. I have placed this patient on a lower dose of her anxiety medication and pain medication. We will monitor. She seems to be very anxious at this moment. 4. Hypertension, stable. Continue to monitor. 5. Deep vein thrombosis prophylaxis with Lovenox. 6. History of tobacco use. As per the patient, she stopped smoking. Will continue with daily education. 7. Hypoxemic and hypercarbic respiratory failure, likely secondary to end-stage chronic obstructive pulmonary disease, aware. This seems to be getting better. Will continue with the same management. Pulmonary on board. CRITICAL CARE TIME: 35 minutes. cc: Miguel Angel Andujar MD
[2018-08-26 12:47] LABS: ALLEN TEST YES; BE 24.9 mmoll (-3.0-3.0); BLOOD TYPE ARTERIAL; O2HB 95.2 % (95.0-99.0); PO2(98.6) 74 mmHg (60-100); SAMPLE BLOOD; SAO2 97.1 % (95.0-100.0); THB 7.4 g/dL (11.5-17.4)
[2018-08-26 12:54] LABS: MODALITY VENTIMASK; PCO2(98.6) 65 mmHg (35-45)
[2018-08-26 12:55] LABS: HCO3-(ACT) 44.4 mmoll (20.0-26.0)
[2018-08-26] MEDS: NORCO-7.5 PO PRN (14:59)
--- NOTE | 2018-08-26 15:08 | PULMONOLOGY PROGRESS NOTE ---
DATE: 08/26/2018 SUBJECTIVE: The patient was awake this morning. She is more somnolent now. She was on the BiPAP last evening. She was alkalemic this morning. OBJECTIVE: Vital Signs: The patient's maximum temperature in the last 24 hours was 99.8 degrees. Blood pressure 115/57, heart rate 105, respiratory rate 26, oxygen saturation 94% on a Venturi mask. HEENT: Pupils are equal and reactive. Oropharynx appears clear. Neck: Supple. Chest: Revealed diminished breath sounds bilaterally. Cardiac Examination: S1-S2. Abdomen: Soft. Extremities: Reveal trace edema. IMPRESSION: A 73-year-old with: 1. End-stage chronic obstructive pulmonary disease. 2. Chronic hypoxemic and chronic hypercapnic respiratory failure. 3. Admission to the hospital with acute hypoxemic and acute hypercapnic respiratory failure. 4. Need for chronic ventilatory support with Trilogy. She has improved with her Trilogy overnight. RECOMMENDATION: 1. Cycle Trilogy/BiPAP device. 2. Minimize pain medicines and benzodiazepines. 3. Consider palliative care consult. The patient has end-stage disease. cc: Phillip Puentes MD
[2018-08-26] MEDS: LEVAQUIN 750 MG/D5W 750 MG/150 ML IVPB IV SCH (16:00)
[2018-08-26] MEDS: KLONOPIN PO SCH (21:56)
[2018-08-27] MEDS: NORCO-7.5 PO PRN ×4 (00:53→23:22)
[2018-08-27] MEDS: NICODERM PATCH TD SCH (02:15)
[2018-08-27] MEDS: XOPENEX NEB INH SCH ×6 (03:20→23:27)
[2018-08-27] MEDS: ATROVENT NEB INH SCH ×6 (03:20→23:27)
[2018-08-27 04:51] LABS: ALLEN TEST YES; BE 21.7 mmoll (-3.0-3.0); BLOOD TYPE ARTERIAL; HCO3-(ACT) 41.9 mmoll (20.0-26.0); METHB 0.4 % (0.0-1.5); O2(CT) 12.1 mL/dL (15.0-23.0); PCO2(98.6) 49 mmHg (35-45); PO2(98.6) 194 mmHg (60-100); SAMPLE BLOOD; SAO2 99.2 % (95.0-100.0); THB 8.4 g/dL (11.5-17.4)
[2018-08-27 04:52] LABS: MODALITY BI PAP
[2018-08-27 04:53] LABS: pH(98.6) 7.58 (7.35-7.45)
[2018-08-27 05:43] LABS: BASO# 0.01 X1000 (0.0-0.2); BASO% 0.1 % (0.0-0.8); HEMATOCRIT 28.5 % (37.0-47.0); HEMOGLOBIN 8.3 g/dL (12.0-16.0); IMM GRAN# 0.02 X1000 (0.0-0.04); IMM GRAN% 0.2 % (0.0-0.5); LYMPH# 1.71 X1000 (1.2-3.4); LYMPH% 19.1 % (20.5-51.1); MCH 23.1 PG (27-31); MCHC 29.1 g/dL (33-37); MCV 79.2 FL (81-99); MONO# 0.81 X1000 (0.11-0.59); MONO% 9.1 % (1.7-9.3); MPV 8.6 FL (7.4-10.4); NEUT# 6.39 X1000 (1.4-6.5); NEUT% 71.5 % (42.2-75.2); PLT 540 X1000 (130-400); RDW 18.2 % (11.5-14.5); WBC 8.94 X1000 (4.8-10.8)
[2018-08-27 05:46] LABS: AGAP 11; ALB/GLOB RATIO 1.2; ALBUMIN 3.2 g/dL (3.5-5.0); ALKALINE PHOSPHATASE 54 U/L (32-104); BUN 9 mg/dL (8-22); CALCIUM 9.5 mg/dL (8.8-10.2); CHLORIDE 88 mmol/L (98-107); COSMO 270; CREATININE 0.4 mg/dL (0.5-0.9); ESTIMATED GFR > 60; GLUCOSE 94 mg/dL (70-104); GOT 11 U/L (10-30); GPT 9 U/L (10-36); POTASSIUM 3.1 mmol/L (3.5-5.1); SODIUM 136 mmol/L (136-145); TCO2 37 mmol/L (25-35); TOTAL BILIRUBIN 0.25 mg/dL (0.20-1.00); TOTAL PROTEIN 5.8 g/dL (6.3-8.3)
[2018-08-27] MEDS ORDERED: KLOR-CON PO ONE (06:05)
[2018-08-27] MEDS ORDERED: MORPHINE IV PRN (06:49)
--- NOTE | 2018-08-27 07:26 | Diag Imaging Result Doc PS360 ---
CHEST-PORTABLE - 08/27/2018 INDICATION: dyspnea COMPARISON: 08/26/2018 FINDINGS: The lungs are normally expanded and clear. Heart size and mediastinal contours are normal. No pneumothorax or pleural effusion. IMPRESSION: Negative exam. Electronically signed by Nelson Chavez 08/27/2018 7:24 AM
--- NOTE | 2018-08-27 07:39 | PROGRESS NOTE ---
DATE: 08/27/2018 SUBJECTIVE: The patient is lying comfortably in bed, she is still looking a little bit anxious but compared with yesterday, she looks better. She has been placed already on a diet. She is still complaining of some pain so I will put her on morphine. Yesterday, the Palliative Care team talked to the patient and the family, it looks like this patient wants to go home with hospice and comfort measures, I talked to the patient today and she corroborated that information, so I will wait until everything is set up for this patient so I can send her home. OBJECTIVE: Vital Signs: Temperature 97.5 degrees, pulse 104, respiratory rate 36, blood pressure 153/70, oxygen saturation 90 on the BiPAP machine. HEENT: Head normocephalic. No trauma. PERRLA. Neck: Supple. No JVD. No masses. Central trachea. Cardiovascular: Regular rate and rhythm. Chest: Decreased breath sounds globally with some crepitus, mostly at the bases. Abdomen: Soft, nontender, nondistended. No hepatosplenomegaly. Extremities: No edema. No clubbing. No cyanosis. Neurological: The patient is alert. She is oriented. She looks a little bit anxious but compared with yesterday, she seems to be better. She moves all 4 extremities but she is weak. LABORATORY DATA: WBC 8.9, hemoglobin 8.3, hematocrit 28.5, platelets 540,000. pH 7.5, pCO2 49. Sodium 136, potassium 3.1, chloride 88, bicarbonate 37, BUN 9, creatinine 0.4, glucose 94, calcium 9.5. Albumin 3.2. ASSESSMENT AND PLAN: 1. Metabolic encephalopathy upon admission, resolved, likely secondary to extreme CO2 retention, now she is better. She has been cycling the BiPAP machine and the Ventimask. The plan is to send this patient home with hospice as soon as everything is set up at home. 2. End-stage chronic obstructive pulmonary disease exacerbation with CO2 retention and hypoxemia. As per the patient, she uses at Trilogy machine at home but she stopped using it because it is hard for her to set up the oxygen and use the machine. Upon discharge, she will need to continue with the Trilogy machine. 3. Anxiety. Continue with home medications. She seems to be better. 4. Hypertension, stable. 5. Deep venous thrombosis prophylaxis with Lovenox. 6. Hypoxemic and hypercapnic respiratory failure, likely secondary to end-stage chronic obstructive pulmonary disease, aware. Her lab work is better. We will continue to monitor. Pulmonary on board. 7. History of tobacco use. As per the patient, she already stopped smoking. We will continue with daily education. cc: Miguel Angel Andujar MD
[2018-08-27] MEDS: KLONOPIN PO SCH ×2 (08:06→21:29)
[2018-08-27] MEDS: LOVENOX SUBQ SCH (08:07)
[2018-08-27] MEDS: PREDNISONE PO SCH (08:07)
[2018-08-27] MEDS: PULMICORT INH SCH ×2 (09:46→19:55)
[2018-08-27] MEDS: LEVAQUIN 750 MG/D5W 750 MG/150 ML IVPB IV SCH (19:59)
[2018-08-28] MEDS: NICODERM PATCH TD SCH (03:14)
[2018-08-28] MEDS: XOPENEX NEB INH SCH ×6 (03:35→23:10)
[2018-08-28] MEDS: ATROVENT NEB INH SCH ×6 (03:35→23:10)
[2018-08-28 06:24] LABS: BASO# 0.01 X1000 (0.0-0.2); BASO% 0.1 % (0.0-0.8); HEMATOCRIT 28.9 % (37.0-47.0); HEMOGLOBIN 8.4 g/dL (12.0-16.0); LYMPH# 1.31 X1000 (1.2-3.4); LYMPH% 18.4 % (20.5-51.1); MCH 23.1 PG (27-31); MCHC 29.1 g/dL (33-37); MCV 79.4 FL (81-99); MONO# 0.61 X1000 (0.11-0.59); MONO% 8.6 % (1.7-9.3); MPV 8.6 FL (7.4-10.4); NEUT# 5.19 X1000 (1.4-6.5); NEUT% 72.9 % (42.2-75.2); PLT 547 X1000 (130-400); RBC 3.64 XMIL (4.2-5.4); RDW 18.6 % (11.5-14.5); WBC 7.12 X1000 (4.8-10.8)
[2018-08-28] MEDS: NORCO-7.5 PO PRN ×3 (06:26→20:32)
[2018-08-28 06:56] LABS: AGAP 11; BUN 5 mg/dL (8-22); CALCIUM 8.8 mg/dL (8.8-10.2); CHLORIDE 92 mmol/L (98-107); COSMO 272; CREATININE 0.4 mg/dL (0.5-0.9); ESTIMATED GFR > 60; GLUCOSE 82 mg/dL (70-104); POTASSIUM 2.8 mmol/L (3.5-5.1); SODIUM 138 mmol/L (136-145); TCO2 35 mmol/L (25-35)
[2018-08-28] MEDS: PULMICORT INH SCH ×2 (07:28→19:15)
--- NOTE | 2018-08-28 08:20 | Diag Imaging Result Doc PS360 ---
EXAM: CHEST-PORTABLE INDICATION: dyspnea TECHNIQUE: One view COMPARISON: 08/27/2018 FINDINGS: The lungs are grossly clear. There is no discrete pleural fluid collection or pneumothorax. The cardiomediastinal silhouette and central vasculature are grossly unremarkable. IMPRESSION: No evidence of acute pathology by plain radiograph. Electronically signed by Reagan Jones 08/28/2018 8:17 AM
[2018-08-28] MEDS: KLONOPIN PO SCH ×2 (09:12→20:32)
[2018-08-28] MEDS: PREDNISONE PO SCH (09:12)
[2018-08-28] MEDS: LOVENOX SUBQ SCH (09:13)
--- NOTE | 2018-08-28 12:31 | PROGRESS NOTE ---
DATE: 08/28/2018 SUBJECTIVE: This patient is lying comfortably in bed. She is not complaining of shortness of breath or anxiety today. Plan is to send this patient home with hospice. Once everything is set up, she will be discharged. They are preparing everything at home for her. As per the patient, everything is going to be better in 1 or 2 days. OBJECTIVE: Vital Signs: Temperature 99.2 degrees, pulse 103, respiratory rate 20, blood pressure 145/60, and oxygen saturation 99 on 2 L of nasal cannula. HEENT: Head normocephalic. No trauma. PERRLA. Neck: Supple. No JVD. No masses. Central trachea. Cardiovascular: RRR. Chest: Decreased breath sounds globally with some crepitus mostly at the bases. Prolonged expiratory phase. No wheezing. Abdomen: Soft, nontender, and nondistended. No hepatosplenomegaly. Extremities: No edema. No clubbing. No cyanosis. Neurological: The patient is alert. She is oriented x3. She looks better today. She moves all 4 extremities, but she is weak. LABORATORY: WBC 7.1, hemoglobin 8.4, hematocrit 28.9, and platelets 547,000. Sodium 138, potassium 2.8, chloride 190, chloride 92, bicarbonate 35, BUN 5, and creatinine 0.4. Glucose 82 and calcium 8.8. ASSESSMENT AND PLAN: 1. Metabolic encephalopathy upon admission, resolved likely secondary to CO2 retention. 2. End stage COPD exacerbation with CO2 retention and hypoxemia. As per the patient, she uses a trilogy machine at home but she stopped using it because it is hard for her to her to set up the oxygen and use the machine. Upon discharge, I have recommended to continue with the treatment. 3. Anxiety. She looks better today. Continue with same management. 4. Hypertension stable. 5. Deep vein thrombosis prophylaxis with Lovenox. 6. Hypoxemic and hypercapnic respiratory failure likely secondary to end-stage COPD. Aware. WBC is normal today. 7. History of tobacco use. I will continue with daily cessation education as per the patient, she already stopped smoking. 8. Hypokalemia, I will replace the potassium. 9. Overall, this patient looks better. Plan is to send this patient home with hospice. They are setting up everything for her. I do believe tomorrow or Thursday, she can be discharged home. I was about to remove the Johnston catheter but she refused. She states that she wants to keep it. I am not quite sure if she wants to be discharged with the Johnston catheter in place. We will discuss that with the patient later. cc: Miguel Angel Andujar MD
[2018-08-28] MEDS: KLOR-CON PO SCH ×2 (14:03→20:32)
[2018-08-28] MEDS: LEVAQUIN 750 MG/D5W 750 MG/150 ML IVPB IV SCH (17:53)
[2018-08-29] MEDS: NICODERM PATCH TD SCH (00:57)
[2018-08-29] MEDS: XOPENEX NEB INH SCH ×6 (03:10→23:00)
[2018-08-29] MEDS: ATROVENT NEB INH SCH ×6 (03:10→23:00)
[2018-08-29] MEDS: NORCO-7.5 PO PRN ×3 (06:18→23:24)
[2018-08-29 06:25] LABS: BASO# 0.01 X1000 (0.0-0.2); BASO% 0.2 % (0.0-0.8); EOS# 0.01 X1000 (0.0-0.7); EOS% 0.2 % (0.0-10.0); HEMOGLOBIN 8.2 g/dL (12.0-16.0); IMM GRAN# 0.02 X1000 (0.0-0.04); IMM GRAN% 0.3 % (0.0-0.5); LYMPH# 1.43 X1000 (1.2-3.4); LYMPH% 23.5 % (20.5-51.1); MCH 22.8 PG (27-31); MCHC 28.3 g/dL (33-37); MCV 80.8 FL (81-99); MONO% 9.9 % (1.7-9.3); MPV 8.7 FL (7.4-10.4); NEUT# 4.02 X1000 (1.4-6.5); NEUT% 65.9 % (42.2-75.2); PLT 643 X1000 (130-400); RBC 3.59 XMIL (4.2-5.4); RDW 18.7 % (11.5-14.5); WBC 6.09 X1000 (4.8-10.8)
[2018-08-29 06:42] LABS: AGAP 7; BUN 5 mg/dL (8-22); CALCIUM 9.2 mg/dL (8.8-10.2); CHLORIDE 96 mmol/L (98-107); COSMO 271; CREATININE 0.4 mg/dL (0.5-0.9); ESTIMATED GFR > 60; GLUCOSE 98 mg/dL (70-104); SODIUM 137 mmol/L (136-145); TCO2 34 mmol/L (25-35)
[2018-08-29] MEDS: PULMICORT INH SCH ×2 (07:38→19:10)
[2018-08-29] MEDS: PREDNISONE PO SCH (08:38)
[2018-08-29] MEDS: LOVENOX SUBQ SCH (08:38)
[2018-08-29] MEDS: KLONOPIN PO SCH ×2 (08:38→21:45)
[2018-08-29] MEDS: LACTULOSE PO PRN (13:46)
--- NOTE | 2018-08-29 14:12 | PROGRESS NOTE ---
DATE: 08/29/2018 SUBJECTIVE: Resting comfortable in bed. OBJECTIVE: Vital signs: Temperature 97.8 degrees, pulse 94, respiratory 18, blood pressure 125/59, oxygen saturation 94%. HEENT: She is atraumatic, normocephalic. Cardiovascular: S1, S2. Respiratory: Has evidence of good air entry bilaterally. Abdomen: Soft, nontender, no masses felt. Extremities: No evidence of edema. Central nervous system: No obvious focal deficits noted. LABS: WBC 6.09, hematocrit is 29 with a platelet count of 643,000, sodium is 137, potassium 4.0, chloride 96, bicarb is 34, BUN is 5, creatinine 0.4. ASSESSMENT AND PLAN: 1. Chronic obstructive pulmonary disease exacerbation with chronic respiratory failure. Use BiPAP as needed. Maintain patient on supplemental oxygen. Maintain patient on nebulized bronchodilators, steroids as well as antibiotics. 2. Hypokalemic corrected. 3. Anxiety disorder. Continue current treatment. Patient is on Klonopin 1 mg p.o. twice a day. 4. Hypertension. Blood pressure seem fairly controlled. Patient is not on any antihypertensive at this time, will continue to follow blood pressure closely. 5. Tobacco use history. Patient will need to quit smoking cigarettes. DISPOSITION: Plan is for patient to be sent home with hospice. cc: Manuel Ugalde MD
[2018-08-29] MEDS: LEVAQUIN 750 MG/D5W 750 MG/150 ML IVPB IV SCH (17:09)
[2018-08-30] MEDS: NICODERM PATCH TD SCH (02:00)
[2018-08-30] MEDS: XOPENEX NEB INH SCH ×4 (03:15→15:42)
[2018-08-30] MEDS: ATROVENT NEB INH SCH ×4 (03:15→15:42)
[2018-08-30] MEDS: LACTULOSE PO PRN (06:59)
[2018-08-30] MEDS: NORCO-7.5 PO PRN ×2 (06:59→16:38)
[2018-08-30] MEDS: PULMICORT INH SCH (07:35)
[2018-08-30] MEDS ORDERED: CALMOSEPTINE OINTMENT TOP PRN (09:25)
[2018-08-30] MEDS: LOVENOX SUBQ SCH (09:49)
[2018-08-30] MEDS: PREDNISONE PO SCH (09:49)
[2018-08-30] MEDS: KLONOPIN PO SCH (09:50)
--- NOTE | 2018-08-30 14:45 | PROGRESS NOTE ---
DATE: 08/30/2018 SUBJECTIVE: Patient was seen, comfortable in bed. OBJECTIVE: Vital signs: Temperature 97.9 degrees, pulse 105, respiratory rate is 20, blood pressure 151/80, oxygen saturation is 94%. HEENT: Atraumatic, normocephalic. Cardiovascular: S1, S2. Respiratory system: Has evidence of good air entry bilaterally. Abdomen: Soft, nontender. No masses felt. Extremities: No evidence of edema. Central nervous system: No obvious focal deficit noted. LABORATORY DATA: None. ASSESSMENT AND PLAN: 1. Chronic obstructive pulmonary disease (COPD) exacerbation with chronic respiratory failure. Use BiPAP as needed. Maintain patient on supplemental oxygen. Continue nebulized bronchodilators, steroids, as well as antibiotics. 2. Hypertension. Start Norvasc 5 mg p.o. once a day. 3. Anxiety disorder. Continue current treatment. 4. Tobacco use history. Continue nicotine patch. 5. Deep vein thrombosis (DVT) prophylaxis. Lovenox. 6. Gastrointestinal (GI) prophylaxis. PPI. DISPOSITION: The patient will be going home with home health services. The patient could have been discharged, but she needed some medical equipment taken care of before going back home. cc: Manuel Ugalde MD
[2018-08-30 15:26] VITALS: BP 131/87
[2018-08-30] MEDS: LEVAQUIN 750 MG/D5W 750 MG/150 ML IVPB IV SCH (16:38)
--- NOTE | 2018-08-30 18:44 | PULMONOLOGY PROGRESS NOTE ---
DATE: 08/30/2018 SUBJECTIVE: The patient is awake, alert and conversant. She has been using her BiPAP at night. She is without specific complaints. OBJECTIVE: Vital Signs: Blood pressure 151/80, heart rate 105, respiratory rate 20, oxygen saturation 94%. HEENT: Pupils are equal and reactive. Oropharynx is clear. Neck: Supple. Chest: Reveals prolonged expiratory phase. Cardiac: S1, S2. Abdomen: Soft, without hepatosplenomegaly. Extremities: Reveal trace edema. LABORATORIES: No new chemistries. No new CBC. No new arterial blood gas. No new chest x-ray. IMPRESSION: A 73-year-old with: 1. End-stage chronic obstructive pulmonary disease. 2. Chronic hypoxemic and hypercapnic respiratory failure. 3. Admission to the hospital with acute hypoxemic and hypercapnic respiratory failure, after failing to wear Trilogy. RECOMMENDATIONS: 1. The patient is a candidate for discharge home or back to the rehab facility. 2. The patient must minimize pain medicine and benzodiazepines. 3. The patient will require Trilogy each night. She should not go a single night without using a BiPAP or Trilogy device. She reports her Trilogy is at home. If the patient is discharged to the rehab facility, she must have the Trilogy available on the night of discharge. 4. Consider outpatient hospice or palliative care consult. Patient has end-stage disease. cc: Phillip Puentes MD
[2018-08-31] MEDS ORDERED: PROTONIX PO SCH (07:00)
--- NOTE | 2018-08-31 09:06 | DISCHARGE SUMMARY ---
ADMISSION DATE: 08/25/2018 DISCHARGE DATE: 08/30/2018 PRINCIPAL DIAGNOSIS: Acute hypercapnic respiratory failure. SECONDARY DIAGNOSES: 1. Chronic respiratory failure, on home Trilogy. 2. Acute encephalopathy, result of acute hypercapnic respiratory failure. 3. Chronic obstructive pulmonary disease exacerbation. 4. Tobacco use history. 5. Hypokalemia. 6. Hypertension. 7. Anxiety disorder. DISCHARGE MEDICATIONS: Include the following: Ventolin HFA 2 puffs 4 times a day, amlodipine 5 mg p.o. daily, cyclobenzaprine 10 mg p.o. every 12 hours, Cymbalta 30 mg p.o. daily, fluconazole 100 mg daily as directed, Klonopin 1 mg p.o. every 12 hours. CONSULTATIONS DONE DURING THIS HOSPITAL STAY: Dr. Phillip Puentes with pulmonology. SPECIAL PROCEDURES DONE DURING THIS HOSPITAL STAY: Head CT on 08/25/2018. HOSPITAL COURSE: Ms. Christy Mathews is a 73-year-old female who was admitted for acute encephalopathy. The patient was found to have acute hypercapnic respiratory failure and her encephalopathy was thought to be the result of the acute hypercapnic respiratory failure secondary to a COPD exacerbation. The patient was maintained on nebulized bronchodilators, steroids, as well as antibiotics. She was seen by the pulmonary team during the course of the hospital stay. She does have a history of chronic hypercapnic respiratory failure, on home Trilogy. The patient seems to have done well during the course of the hospital stay. PHYSICAL EXAMINATION: Vital Signs: During my evaluation today, vital signs as follows, temperature 97.9 degrees, pulse 105, respiratory rate is 20, blood pressure 151/80, oxygen saturation is 94%. HEENT: Atraumatic, normocephalic. Cardiovascular System: S1 and S2. Respiratory System: Has evidence of good air entry bilaterally. Abdomen: Soft, nontender. No masses felt. Extremities: No evidence of edema. Central Nervous System: No obvious focal deficit noted. PLAN: The patient will be discharged home with home health services. cc: Manuel Ugalde MD
== END 2018-08-30 19:31 | disposition hospice, home (50) | DRG 189 ==
LOC: SUPCPDRO → ED 12:33 → SUATTDRO 17:29 → EDIPHOLD 17:29 → ICU 20:08 → 4N 08-27 15:24
PROVIDERS: ATTEND Internal Medicine
CPT/HCPCS: 51702; 70450; 71010; 71045; 80048; 80053; 81001; 82140; 82550; 82805; 82948; 83036; 83605; 83735; 83880; 84145; 84443; 84484; 85025; 85610; 85730; 93005; 93010; 94640; 94660; 94761; 94799; 96365; 96366; 96375; 99285; A9270; J1650; J1956; J2310; J2930; J7506; J7512; XXXXX

== ENCOUNTER 2019-02-23 20:17 | Inpatient (IN) ==
[2019-02-23] MEDS ORDERED: SOLU-MEDROL IV ONE (21:00)
[2019-02-23] MEDS ORDERED: DUONEB (A & A) INH STA (21:00)
--- NOTE | 2019-02-23 21:09 | PROVIDER DOCUMENTATION ---
HPI-Respiratory General - General Chief Complaint: Altered Mental Status Stated Complaint: ams Time Seen by Provider: 02/23/19 20:45 Source: EMS notes reviewed, old records Allergies/Adverse Reactions: Patient Allergies Allergy/AdvReac Type Severity Reaction Status Date / Time meperidine [From Demerol] Allergy Unknown Verified 08/25/18 18:33 Home Medications: Home Medication List Medication Instructions Recorded Confirmed Last Taken Type Albuterol Sulfate Inhaler 2 puff INH [id number] 08/25/18 08/25/18 08/25/18 History [Ventolin Hfa] Amlodipine [Norvasc] 5 mg PO DAILY 08/25/18 08/25/18 08/25/18 History Cyclobenzaprine [Flexeril] 10 mg PO Q12HR PRN 08/25/18 08/25/18 08/22/18 History Duloxetine [Cymbalta] 30 mg PO DAILY 08/25/18 08/25/18 08/25/18 History Fluconazole [Diflucan] 100 mg PO DAILY 08/25/18 08/25/18 08/24/18 History Hydrocodone/Acetaminophen [[place] 1 each PO Q6HR PRN 08/25/18 08/25/18 08/25/18 History 7.5-325 Tablet] Meloxicam 15 mg PO QAM 08/25/18 08/25/18 08/25/18 History Ondansetron HCl [Zofran] 4 mg PO Q6H PRN PRN 08/25/18 08/25/18 08/25/18 History Clonazepam 1 mg PO Q12HR 30 Days #60 mg NS 08/30/18 08/25/18 08/22/18 Rx 1mg Clonazepam 1 mg PO Q8HR PRN 30 Days #30 mg NS 08/30/18 08/25/18 08/24/18 Rx - History of Present Illness-Resp Nature of Presenting Problem: [id number] presents to the ER via EMS with c/o AMS. Once placed in the room it was noted that the patient's o2 sats were 68% on 3L NC. No family is present. The patient is unable to give any history at the present time. Onset/Duration: reports: unsure Review of Systems - Adult - REVIEW OF SYSTEMS - ADULT Constitutional: reports: no symptoms reported Eyes: reports: no symptoms reported Ears, Nose, Mouth & Throat: reports: no symptoms reported Cardiovascular: reports: no symptoms reported Respiratory: reports: no symptoms reported Gastrointestinal: reports: no symptoms reported Genitourinary: reports: no symptoms reported Musculoskeletal: reports: no symptoms reported Integumentary: reports: no symptoms reported Neurological: reports: no symptoms reported Psychiatric: reports: no symptoms reported Endocrine: reports: no symptoms reported Hematologic/Lymphatic: reports: no symptoms reported Allergic/Immunologic: reports: no symptoms reported All Other Systems: Reviewed and Negative Past History - Adult - PAST MEDICAL HISTORY-ADULT Review of Records: reports: Old Records Reviewed, Nursing Assessment Review, Medications Reviewed, Social history reviewed & non-contributory. Major Childhood Illnesses: reports: denies history Cardiovascular: reports: HTN Respiratory: reports: COPD Gastrointestinal: reports: denies history Obstetrical/Gynecological: reports: denies history Genitourinary: reports: kidney disease Musculoskeletal: reports: chronic pain (back) Neurological: reports: denies history Psychiatric: reports: denies history Endocrine/Immune: reports: denies history Other Conditions: reports: denies history - PRIOR SURGERIES/PROCEDURES Surgical/Procedure History: reports: hysterectomy, BTL - IMMUNIZATION STATUS Childhood Immunizations: See Nurse Assessment Flu Vaccine: See Nurse Assessment - FAMILY HISTORY Family History: reviewed, not pertinent Physical Exam-General - PHYSICAL EXAM-ADULT Initial Vital Signs Reviewed: Yes - CONSTITUTIONAL General Appearance: moderate distress, obtunded - EYES Eyes: PERRL/EOMI, pink conjunctivae - HEAD, EARS, NOSE, MOUTH & THROAT HENMT: normocephalic/atraumatic, pharynx normal - NECK Neck: non-tender, full range of motion, supple, normal inspection - RESPIRATORY Respiratory: respiratory distress, decreased breath sounds. negative: crackles, rhonchi, wheezing - CARDIOVASCULAR Cardiovascular: normal peripheral pulses, regular rate, rhythm - GASTROINTESTINAL (ABDOMEN) Abdominal Exam: normal bowel sounds, non tender, soft - MUSCULOSKELETAL Back Exam: normal inspection Extremity: non-tender, no calf tenderness, normal capillary refill Peripheral Pulses: radial (R): 2+, radial (L): 2+, dorsalis-pedis (R): 2+, dorsalis-pedis (L): 2+ - SKIN Integumentary: normal color, normal turgor, warm/dry - NEUROLOGIC Neurologic: other (oriented to person only). negative: aphasia, facial droop - PSYCHIATRIC Psych/Mental Status: other (mostly non-verbal for exam, may be due to resp distress) Progress - PLAN OF CARE/RESULTS Progress/Plan/Lab Results: Vital Signs - 8 hr 02/23/19 20:48 02/23/19 20:49 02/23/19 20:52 Pulse Rate Respiratory Rate Blood Pressure 94/67 O2 Sat by Pulse Oximetry 72 L 71 L 02/23/19 20:55 02/23/19 21:00 02/23/19 21:10 Pulse Rate 90 89 Respiratory Rate 16 Blood Pressure O2 Sat by Pulse Oximetry 89 L 93 L 100 02/23/19 21:20 02/23/19 21:30 02/23/19 21:40 Pulse Rate Respiratory Rate Blood Pressure O2 Sat by Pulse Oximetry 100 99 100 02/23/19 21:50 02/23/19 22:00 02/23/19 22:10 Pulse Rate Respiratory Rate Blood Pressure O2 Sat by Pulse Oximetry 100 100 100 02/23/19 22:20 02/23/19 22:30 02/23/19 22:31 Pulse Rate Respiratory Rate Blood Pressure 67/42 O2 Sat by Pulse Oximetry 100 98 98 02/23/19 22:32 02/23/19 22:37 02/23/19 22:39 Pulse Rate 93 H Respiratory Rate 23 Blood Pressure 60/44 88/50 O2 Sat by Pulse Oximetry 99 99 100 02/23/19 22:40 02/23/19 22:49 02/23/19 22:50 Pulse Rate 103 H 101 H 94 H Respiratory Rate 20 21 17 Blood Pressure 138/84 O2 Sat by Pulse Oximetry 99 98 97 02/23/19 23:00 02/23/19 23:02 02/23/19 23:10 Pulse Rate 97 H 96 H 96 H Respiratory Rate 25 H 19 17 Blood Pressure 122/74 O2 Sat by Pulse Oximetry 93 L 95 93 L 02/23/19 23:16 02/23/19 23:20 02/23/19 23:21 Pulse Rate 96 H 95 H 95 H Respiratory Rate 23 16 16 Blood Pressure 97/65 113/76 O2 Sat by Pulse Oximetry 95 95 94 L 02/23/19 23:30 02/23/19 23:31 02/23/19 23:40 Pulse Rate 102 H 100 H 101 H Respiratory Rate 22 20 30 H Blood Pressure 122/74 O2 Sat by Pulse Oximetry 97 91 L 02/23/19 23:41 Pulse Rate 100 H Respiratory Rate 19 Blood Pressure 109/88 O2 Sat by Pulse Oximetry Laboratory Results - last 24 hr 02/23/19 02/23/19 02/23/19 21:09 21:09 21:09 WBC 6.92 RBC 5.45 H Hgb 13.9 Hct 46.1 MCV 84.6 MCH 25.5 L MCHC 30.2 L RDW Std Deviation 16.7 H Plt Count 426 H MPV 9.5 Immature Gran % (Auto) 0.9 H Neut % (Auto) 77.7 H Lymph % (Auto) 13.6 L [place] % (Auto) 7.7 Eos % (Auto) 0.0 Baso % (Auto) 0.1 Immature Gran # (Auto) 0.06 H Neut # (Auto) 5.38 Lymph # (Auto) 0.94 L [place] # (Auto) 0.53 Eos # (Auto) 0.00 Baso # (Auto) 0.01 D-Dimer, Quantitative Specimen Type Sample Site pH pCO2 pO2 HCO3 Base Excess Oxyhemoglobin ABG O2 Sat (Calculated) ABG O2 Saturation ABG Carboxyhemoglobin ABG Methemoglobin Elvis Test A-a O2 Difference Total Hemoglobin Lactate Liter Flow Blood Gas Modality FiO2 % Sodium 133 L Potassium 4.2 Chloride 81 L Carbon Dioxide 41 H Anion Gap 11 BUN 8 Creatinine 0.5 Estimated GFR/1.73 m2 > 60 BUN/Creatinine Ratio 16 Glucose 132 H POC Glucose Calculated Osmolality 267 Calcium 9.5 Total Bilirubin 0.21 AST 24 ALT 13 Alkaline Phosphatase 61 Creatine Kinase 53 Troponin T Total Protein 6.9 Albumin 3.8 Globulin 3.1 Albumin/Globulin Ratio 1.2 Plasma Lactate Urine Source Urine Color Urine Turbidity Urine pH Ur Specific [place] Urine Protein Ur Glucose (Stick) Ur Ketones (Stick) Urine Blood Urine Nitrite Urine Bilirubin Urobilinogen Dipstick Urine Leukocytes Urine WBC (Auto) Urine RBC (Auto) U Epithel Cells (Auto) Urine Bacteria (Auto) Urine Crystals Small Round Cells Urine Casts Urine Yeast-like Cells Urine Opiates Screen Ur Oxycodone Screen Ur Methadone, Qual Ur Barbiturates Screen Ur Phencyclidine Scrn Ur Amphetamines Screen U Benzodiazepines Scrn Urine Cocaine Screen U Cannabinoids Screen 02/23/19 02/23/19 02/23/19 21:09 21:09 21:09 WBC RBC Hgb Hct MCV MCH MCHC RDW Std Deviation Plt Count MPV Immature Gran % (Auto) Neut % (Auto) Lymph % (Auto) [place] % (Auto) Eos % (Auto) Baso % (Auto) Immature Gran # (Auto) Neut # (Auto) Lymph # (Auto) [place] # (Auto) Eos # (Auto) Baso # (Auto) D-Dimer, Quantitative < 0.27 Specimen Type Sample Site pH pCO2 pO2 HCO3 Base Excess Oxyhemoglobin ABG O2 Sat (Calculated) ABG O2 Saturation ABG Carboxyhemoglobin ABG Methemoglobin Elvis Test A-a O2 Difference Total Hemoglobin Lactate Liter Flow Blood Gas Modality FiO2 % Sodium Potassium Chloride Carbon Dioxide Anion Gap BUN Creatinine Estimated GFR/1.73 m2 BUN/Creatinine Ratio Glucose POC Glucose Calculated Osmolality Calcium Total Bilirubin AST ALT Alkaline Phosphatase Creatine Kinase Troponin T 0.174 H Total Protein Albumin Globulin Albumin/Globulin Ratio Plasma Lactate 1.0 Urine Source Urine Color Urine Turbidity Urine pH Ur Specific [place] Urine Protein Ur Glucose (Stick) Ur Ketones (Stick) Urine Blood Urine Nitrite Urine Bilirubin Urobilinogen Dipstick Urine Leukocytes Urine WBC (Auto) Urine RBC (Auto) U Epithel Cells (Auto) Urine Bacteria (Auto) Urine Crystals Small Round Cells Urine Casts Urine Yeast-like Cells Urine Opiates Screen Ur Oxycodone Screen Ur Methadone, Qual Ur Barbiturates Screen Ur Phencyclidine Scrn Ur Amphetamines Screen U Benzodiazepines Scrn Urine Cocaine Screen U Cannabinoids Screen 02/23/19 02/23/19 02/23/19 22:03 22:26 22:55 WBC RBC Hgb Hct MCV MCH MCHC RDW Std Deviation Plt Count MPV Immature Gran % (Auto) Neut % (Auto) Lymph % (Auto) [place] % (Auto) Eos % (Auto) Baso % (Auto) Immature Gran # (Auto) Neut # (Auto) Lymph # (Auto) [place] # (Auto) Eos # (Auto) Baso # (Auto) D-Dimer, Quantitative Specimen Type ARTERIAL Sample Site R RADIAL pH 7.35 pCO2 84 H* pO2 185 H HCO3 37.6 H Base Excess 16.4 H Oxyhemoglobin 92.2 L ABG O2 Sat (Calculated) 17.9 ABG O2 Saturation 98.0 ABG Carboxyhemoglobin 4.50 H ABG Methemoglobin 1.4 Elvis Test YES A-a O2 Difference 423.0 Total Hemoglobin 13.5 Lactate 0.80 Liter Flow 15.0 Blood Gas Modality NRB FiO2 % 100.0 Sodium Potassium Chloride Carbon Dioxide Anion Gap BUN Creatinine Estimated GFR/1.73 m2 BUN/Creatinine Ratio Glucose POC Glucose 129 H Calculated Osmolality Calcium Total Bilirubin AST ALT Alkaline Phosphatase Creatine Kinase Troponin T Total Protein Albumin Globulin Albumin/Globulin Ratio Plasma Lactate Urine Source CATH Urine Color YELLOW Urine Turbidity HAZY Urine pH 5.5 Ur Specific [place] 1.022 Urine Protein 50 A Ur Glucose (Stick) NEGATIVE Ur Ketones (Stick) NEGATIVE Urine Blood TRACE A Urine Nitrite NEGATIVE Urine Bilirubin NEGATIVE Urobilinogen Dipstick NORMAL Urine Leukocytes NEGATIVE Urine WBC (Auto) <10 Urine RBC (Auto) 20-40 A U Epithel Cells (Auto) <10 Urine Bacteria (Auto) NEGATIVE Urine Crystals NONE SEEN Small Round Cells NONE SEEN Urine Casts NONE SEEN Urine Yeast-like Cells PRESENT Urine Opiates Screen Ur Oxycodone Screen Ur Methadone, Qual Ur Barbiturates Screen Ur Phencyclidine Scrn Ur Amphetamines Screen U Benzodiazepines Scrn Urine Cocaine Screen U Cannabinoids Screen 02/23/19 22:55 WBC RBC Hgb Hct MCV MCH MCHC RDW Std Deviation Plt Count MPV Immature Gran % (Auto) Neut % (Auto) Lymph % (Auto) [place] % (Auto) Eos % (Auto) Baso % (Auto) Immature Gran # (Auto) Neut # (Auto) Lymph # (Auto) [place] # (Auto) Eos # (Auto) Baso # (Auto) D-Dimer, Quantitative Specimen Type Sample Site pH pCO2 pO2 HCO3 Base Excess Oxyhemoglobin ABG O2 Sat (Calculated) ABG O2 Saturation ABG Carboxyhemoglobin ABG Methemoglobin Elvis Test A-a O2 Difference Total Hemoglobin Lactate Liter Flow Blood Gas Modality FiO2 % Sodium Potassium Chloride Carbon Dioxide Anion Gap BUN Creatinine Estimated GFR/1.73 m2 BUN/Creatinine Ratio Glucose POC Glucose Calculated Osmolality Calcium Total Bilirubin AST ALT Alkaline Phosphatase Creatine Kinase Troponin T Total Protein Albumin Globulin Albumin/Globulin Ratio Plasma Lactate Urine Source Urine Color Urine Turbidity Urine pH Ur Specific [place] Urine Protein Ur Glucose (Stick) Ur Ketones (Stick) Urine Blood Urine Nitrite Urine Bilirubin Urobilinogen Dipstick Urine Leukocytes Urine WBC (Auto) Urine RBC (Auto) U Epithel Cells (Auto) Urine Bacteria (Auto) Urine Crystals Small Round Cells Urine Casts Urine Yeast-like Cells Urine Opiates Screen PRESUMPTIVE POSITIVE A Ur Oxycodone Screen NONE DETECTED Ur Methadone, Qual NONE DETECTED Ur Barbiturates Screen NONE DETECTED Ur Phencyclidine Scrn NONE DETECTED Ur Amphetamines Screen NONE DETECTED U Benzodiazepines Scrn PRESUMPTIVE POSITIVE A Urine Cocaine Screen NONE DETECTED U Cannabinoids Screen PRESUMPTIVE POSITIVE A Orders Category Date Time Status Saline Loc NOW Care 02/23/19 21:00 Active CHEST-1 VIEW [RAD] Stat Exams 02/23/19 20:46 Completed ABG [RESP] Routine Lab 02/23/19 22:03 Completed BLOOD CULTURE [BLDCUL] Stat Lab 02/23/19 21:09 Results CBC WITH ELECTRONIC DIFF [HEME] Stat Lab 02/23/19 21:09 Completed CK PROFILE [SP CHEM] Stat Lab 02/23/19 21:09 Completed COMPREHENSIVE METABOLIC PANEL [CHEM] Stat Lab 02/23/19 21:09 Completed D-DIMER [COAG] Stat Lab 02/23/19 21:09 Completed LACTATE, PLASMA [CHEM] Stat Lab 02/23/19 21:09 Completed TROPONIN T Stat Lab 02/23/19 21:09 Completed URINALYSIS W/POSS RFLX CULT [URINALYSIS] Stat Lab 02/23/19 22:55 Completed URINE DRUG SCREEN Stat Lab 02/23/19 22:55 Completed URINE MANUAL MICROSCOPIC [URINALYSIS] Stat Lab 02/23/19 22:55 Completed 0.9% Sodium Chloride Inj [Ns] 1,000 ml Med 02/23/19 22:36 Discontinued .ROUTE As directed 0.9% Sodium Chloride Inj [Ns] 1,000 ml Med 02/23/19 22:36 Discontinued IV 999 mls/hr 0.9% Sodium Chloride Inj [Ns] 1,000 ml Med 02/23/19 22:37 Discontinued IV 999 mls/hr Albuterol 2.5MG/Ipratrop 0.5MG [Duoneb (A & A)] Med 02/23/19 21:00 Discontinued 3 ml INH NOW STA Methylprednisolone Sod Succ [Solu-Medrol] Med 02/23/19 21:00 Discontinued 125 mg IV NOW ONE Naloxone [Narcan] Med 02/23/19 23:14 Discontinued 0.4 mg IV NOW ONE Aerosol Treatments Routine Oth 02/23/19 21:01 Completed Aerosol Treatments Stat Oth 02/23/19 21:01 Completed EKG [EKG] Stat Ther 02/23/19 21:04 Ordered Result Diagrams: 02/23/19 21:09 02/23/19 21:09 - REASSESSMENT Reassessment #1 Time Reassessed: 21:26 (on nebs, O2 sat improved, however patient is somnolent. ABG ordered) Reassessment #2 Time Reassessed: 22:41 Status: worsening Reassessment Comment: B/P has declined, pt is now on Bipap - XRAY 1 XRAY Study: Chest Impression: Normal (FINDINGS: The lungs are well expanded. The left hemidiaphragm is elevated. The heart is not enlarged. The vessels are not distended. There are no infiltrates. No effusion identified. IMPRESSION: Negative exam.), See EMR Report - CONSULTS/PCP/HOSPITALIST Notification #1 *Consult/PCP/Hospitalist*: Dr Fisher Time Discussed: 10:45 Reason/Comments: COPD exacerbation, resp distress Consult Disposition: Admit Departure - Departure Date of Disposition Decision: 02/23/19 Time of Disposition Decision: 23:54 DIAGNOSIS: Hypercarbia COPD (chronic obstructive pulmonary disease) Qualifiers: COPD type: unspecified COPD Qualified Code(s): J44.9 - Chronic obstructive pulmonary disease, unspecified Disposition: ADMITTED INPATIENT 09 Certified Medical Emergency: Emergent Condition: Critical Additional Freetext Instructions: ED Follow Up Instructions: You have been treated by a care provider in the Emergency Department. These instructions are being provided to you so you can have an understanding of how to care for yourself upon discharge. [facility], you are responsible for making arrangements for follow-up care by a physician of your choice. Take all prescribed medications as directed. Return to the Emergency Department immediately for any new or worsening symptoms. You may call the Physician Referral phone number at [phone] to obtain a list of Physicians who are taking new patients. Referrals and Follow-Ups: Korina Porter CRNP [Primary Care Provider] - - Critical Care Note This patient required my direct & personal management of CC.: Yes Total Time (mins): 60 Critical Care Statement: This patient required my direct personal management to treat or rule out processes, the absence of which, could potentiallly result in sudden, clinically significant life or limb threatening deterioration. Attestation - Physician/ BA Attestation Patient care was provided by Advanced Practice Provider:: Yes Advanced Practice Provider:: Louie Brock Advanced Practice Provider documentation review:: The Mid-level provider documentation, treatment plan and medical decision making was reviewed by the physician who agrees with all treatment and medical decision making by the MLP. The physician spent face to face time with patient:: Yes (Dr Ness) Advanced Practice Provider documentation review:: Supervising physician onsite and consulted in the evaluation and care of this patient. The physician did have a face to face encounter with the patient.
--- NOTE | 2019-02-23 21:42 | Diag Imaging Result Doc PS360 ---
EXAM: CHEST-1 VIEW HISTORY: AMS TECHNIQUE: Chest single view COMPARISON: 12/20/2018 FINDINGS: The lungs are well expanded. The left hemidiaphragm is elevated. The heart is not enlarged. The vessels are not distended. There are no infiltrates. No effusion identified. IMPRESSION: Negative exam. Electronically signed by Ross Ha 02/23/2019 9:40 PM
[2019-02-23 21:51] LABS: BASO# 0.01 X1000 (0.0-0.2); BASO% 0.1 % (0.0-0.8); HEMATOCRIT 46.1 % (37.0-47.0); HEMOGLOBIN 13.9 g/dL (12.0-16.0); IMM GRAN# 0.06 X1000 (0.0-0.04); IMM GRAN% 0.9 % (0.0-0.5); LYMPH# 0.94 X1000 (1.2-3.4); LYMPH% 13.6 % (20.5-51.1); MCH 25.5 PG (27-31); MCHC 30.2 g/dL (33-37); MCV 84.6 FL (81-99); MONO# 0.53 X1000 (0.11-0.59); MONO% 7.7 % (1.7-9.3); MPV 9.5 FL (7.4-10.4); NEUT# 5.38 X1000 (1.4-6.5); NEUT% 77.7 % (42.2-75.2); PLT 426 X1000 (130-400); RBC 5.45 XMIL (4.2-5.4); RDW 16.7 % (11.5-14.5); WBC 6.92 X1000 (4.8-10.8)
[2019-02-23 22:14] LABS: ALLEN TEST YES; BE 16.4 mmoll (-3.0-3.0); BLOOD TYPE ARTERIAL; HCO3-(ACT) 37.6 mmoll (20.0-26.0); METHB 1.4 % (0.0-1.5); O2(CT) 17.9 mL/dL (15.0-23.0); O2HB 92.2 % (95.0-99.0); PO2(98.6) 185 mmHg (60-100); SAMPLE BLOOD; THB 13.5 g/dL (11.5-17.4); pH(98.6) 7.35 (7.35-7.45)
[2019-02-23 22:15] LABS: MODALITY NRB; PCO2(98.6) 84 mmHg (35-45)
[2019-02-23] MEDS ORDERED: NS 1,000 ML IV ONE ×2 (22:36→22:37)
[2019-02-23] MEDS ORDERED: NS 1,000 ML ONE (22:36)
[2019-02-23 22:41] LABS: ESTIMATED GFR > 60
[2019-02-23 22:42] LABS: AGAP 11; ALB/GLOB RATIO 1.2; ALBUMIN 3.8 g/dL (3.5-5.0); ALKALINE PHOSPHATASE 61 U/L (32-104); BUN 8 mg/dL (8-22); CALCIUM 9.5 mg/dL (8.8-10.2); CHLORIDE 81 mmol/L (98-107); COSMO 267; CREATININE 0.5 mg/dL (0.5-0.9); GLUCOSE 132 mg/dL (70-104); GOT 24 U/L (10-30); GPT 13 U/L (10-36); POTASSIUM 4.2 mmol/L (3.5-5.1); SODIUM 133 mmol/L (136-145); TCO2 41 mmol/L (25-35); TOTAL BILIRUBIN 0.21 mg/dL (0.20-1.00); TOTAL PROTEIN 6.9 g/dL (6.3-8.3)
[2019-02-23 23:04] LABS: URINE SOURCE CATH
[2019-02-23] MEDS ORDERED: NARCAN IV ONE (23:14)
[2019-02-23 23:15] LABS: BILIRUBIN URINE NEGATIVE (NEGATIVE); BLOOD URINE TRACE (NEGATIVE); COLOR YELLOW; GLUCOSE URINE NEGATIVE (NEGATIVE); KETONE URINE NEGATIVE (NEGATIVE); LEUKOCYTES URINE NEGATIVE (NEGATIVE); NITRITE URINE NEGATIVE (NEGATIVE); PH URINE 5.5; PROTEIN URINE 50 mg/dL (NEGATIVE); SP GRAVITY URINE 1.022; TURBIDITY URINE HAZY (CLEAR); UROBILINOGEN URINE NORMAL (NORMAL)
[2019-02-23 23:19] LABS: UR EPITHELIAL CELLS <10 /HPF (<10); URINE BACTERIA NEGATIVE /HPF; URINE RBC 20-40 /HPF (<10); URINE WBC <10 /HPF (<10)
[2019-02-23 23:28] LABS: URINE CASTS NONE SEEN; URINE CRYSTALS NONE SEEN; URINE SMALL ROUND CELLS NONE SEEN; URINE YEAST PRESENT
[2019-02-23 23:43] LABS: UR AMPHETAMINES QUAL NONE DETECTED (NONE DETECT); UR BARBITUATES QUAL NONE DETECTED (NONE DETECT); UR BENZODIAZEPIN QUAL PRESUMPTIVE POSITIVE (NONE DETECT); UR CANNABINOIDS QUAL PRESUMPTIVE POSITIVE (NONE DETECT); UR COCAINE QUAL NONE DETECTED (NONE DETECT); UR METHADONE QUAL NONE DETECTED (NONE DETECT); UR OPIATES QUAL PRESUMPTIVE POSITIVE (NONE DETECT); UR OXYCODONE QUAL NONE DETECTED (NONE DETECT); UR PCP QUAL NONE DETECTED (NONE DETECT)
--- NOTE | 2019-02-24 00:17 | EKG Report ---
Test Performed on : 02/23/2019 10:42:26 PM Test Reason : SOB Blood Pressure : / mmHG Vent. Rate : 093 BPM Atrial Rate : 093 BPM P-R Int : 150 ms QRS Dur : 082 ms QT Int : 358 ms P-R-T Axes : 078 069 072 degrees QTc Int : 445 ms Normal sinus rhythm. Nonspecific T wave abnormality Abnormal ECG When compared with ECG of 25-AUG-2018 23:55, premature atrial complexes. are no longer present T wave inversion now evident in Anterior leads Unconfirmed Result
--- NOTE | 2019-02-24 02:24 | HISTORY AND PHYSICAL ---
PRIMARY CARE PHYSICIAN: Unknown. CHIEF COMPLAINT: Altered mental status. HISTORY OF PRESENTING ILLNESS: A 73-year-old female with a history of COPD and chronic respiratory failure, hypertension, who was brought to the emergency department due to patient being altered. She previously had similar admission due to having respiratory failure and hypercapnia. She was evaluated in the ER, she was found to be hypercapnic, and also in respiratory story failure. She was put on BiPAP. She had some improvement. The patient also seems to be on opioids, and she was given Narcan and she improved more. Due to her presenting symptoms, it was thought that she would require admission for further management. The patient cannot answer any questions due to being altered, however, she is arousable and most of the history is obtained from previous records. PAST MEDICAL HISTORY: Includes COPD, chronic respiratory failure, hypertension. PAST SURGICAL HISTORY: Unknown. ALLERGIES: Meperidine. CURRENT MEDICATIONS: Include albuterol inhaler 2 puffs 4 times daily, Norvasc 5 mg p.o. daily, clonazepam 1 mg p.o. q.8 hours, Cymbalta 30 mg p.o. daily, [place] 7.5 one p.o. q.6 hours. SOCIAL HISTORY: Suspect she is still a smoker. No history of alcohol or illicit drug use. FAMILY HISTORY: Unknown. REVIEW OF SYSTEMS: Unable to obtain. PHYSICAL EXAMINATION: The patient is currently on a BiPAP. VITAL SIGNS: Temperature 97.9 degrees, pulse 90, respirations 16, blood pressure is 138/84. HEENT: Atraumatic, normocephalic. NECK: No masses. CHEST: Rhonchi. CARDIOVASCULAR: Regular rate and rhythm. ABDOMEN: Soft. Positive bowel sounds. EXTREMITIES: No edema. NEUROLOGIC: Patient is arousable to verbal and tactile stimuli. GENITOURINARY: No bladder distention. SKIN: Warm. LABORATORIES AND STUDIES: Sodium 133, potassium 4.2, chloride 81, CO2 is 41, BUN is 8, creatinine 0.5. Glucose 132. Blood gases shows pH 7.35, pCO2 of 84. WBC 6.92, hemoglobin 13.9, hematocrit 46.1, platelets 426. Chest x-ray is negative. ASSESSMENT: A 73-year-old female with a history of chronic obstructive pulmonary disease, chronic respiratory failure, hypertension, who is, apparently, was on a Trilogy machine, was brought to the emergency department due to patient being altered. She was found to have hypercapnia and she was put on BiPAP. She will require ICU admission for further management. 1. Altered mental status/encephalopathy. 2. Acute on chronic hypercapnic respiratory failure. 3. Chronic obstructive pulmonary disease exacerbation. 4. Elevated troponin. 5. Hypertension. PLAN: 1. We will admit patient to ICU. 2. Continue with neuro checks. 3. Continue patient on BiPAP. 4. We will consult Pulmonary. 5. Continue duo nebs, IV Solu-Medrol. 6. We will continue to trend her troponin's and consult Cardiology. 7. Monitor blood pressure closely. 8. We will put patient on DVT prophylaxis with Lovenox and SCD. 9. We will continue to follow and reassess, make further recommendations based on patient's clinical course. cc: Chad Fisher MD
[2019-02-24 02:47] LABS: BASO# 0.01 X1000 (0.0-0.2); BASO% 0.1 % (0.0-0.8); EOS# 0.04 X1000 (0.0-0.7); EOS% 0.6 % (0.0-10.0); HEMATOCRIT 39.1 % (37.0-47.0); IMM GRAN# 0.05 X1000 (0.0-0.04); IMM GRAN% 0.7 % (0.0-0.5); LYMPH# 0.23 X1000 (1.2-3.4); LYMPH% 3.3 % (20.5-51.1); MCH 26.1 PG (27-31); MCHC 30.7 g/dL (33-37); MCV 85.2 FL (81-99); MONO# 0.03 X1000 (0.11-0.59); MONO% 0.4 % (1.7-9.3); MPV 9.8 FL (7.4-10.4); NEUT# 6.69 X1000 (1.4-6.5); NEUT% 94.9 % (42.2-75.2); PLT 240 X1000 (130-400); RBC 4.59 XMIL (4.2-5.4); RDW 16.7 % (11.5-14.5); WBC 7.05 X1000 (4.8-10.8)
[2019-02-24 02:49] LABS: INR 1.02; PROTIME 13.5 Seconds (11.0-16.0)
[2019-02-24 02:50] LABS: PTT 26.8 Seconds (22.3-41.8)
[2019-02-24 03:09] LABS: AGAP 8; ALB/GLOB RATIO 1.5; ALBUMIN 3.2 g/dL (3.5-5.0); ALKALINE PHOSPHATASE 51 U/L (32-104); BUN 7 mg/dL (8-22); CHLORIDE 92 mmol/L (98-107); CK PROFILE 40 U/L (24-173); COSMO 268; CREATININE 0.3 mg/dL (0.5-0.9); ESTIMATED GFR > 60; GLUCOSE 122 mg/dL (70-104); GOT 18 U/L (10-30); GPT 9 U/L (10-36); POTASSIUM 4.2 mmol/L (3.5-5.1); SODIUM 134 mmol/L (136-145); TCO2 34 mmol/L (25-35); TOTAL BILIRUBIN 0.16 mg/dL (0.20-1.00); TOTAL PROTEIN 5.4 g/dL (6.3-8.3)
[2019-02-24] MEDS: DUONEB (A & A) INH SCH ×3 (03:52→11:14)
[2019-02-24 04:52] LABS: BLOOD TYPE ARTERIAL; SAMPLE BLOOD; pH(98.6) 7.43 (7.35-7.45)
[2019-02-24 04:53] LABS: HCO3-(ACT) 36.2 mmoll (20.0-26.0); PCO2(98.6) 55 mmHg (35-45); PO2(98.6) 150 mmHg (60-100)
[2019-02-24 04:54] LABS: MODALITY BI PAP; THB 11.9 g/dL (11.5-17.4)
[2019-02-24 04:55] LABS: ALLEN TEST YES
[2019-02-24] MEDS: SOLU-MEDROL IV SCH ×3 (06:36→22:19)
[2019-02-24] MEDS: PROTONIX IV SCH (14:11)
[2019-02-24] MEDS: SODIUM CHLORIDE 0.9% INJ SCH (14:11)
--- NOTE | 2019-02-24 14:50 | EKG Report ---
Test Performed on : 02/24/2019 2:00:41 PM Test Reason : elevated trops Blood Pressure : / mmHG Vent. Rate : 121 BPM Atrial Rate : 121 BPM P-R Int : 162 ms QRS Dur : 070 ms QT Int : 296 ms P-R-T Axes : 081 079 088 degrees QTc Int : 420 ms Sinus tachycardia. Septal infarct , age undetermined Abnormal ECG When compared with ECG of 23-FEB-2019 22:42, (Unconfirmed) Septal infarct is now present Confirmed by Cat Merino MD ([id number]) on 02/25/2019 6:19:36 AM
--- NOTE | 2019-02-24 14:51 | PROGRESS NOTE ---
DATE: 02/24/2019 SUBJECTIVE: She is more awake today, but she is a bit confused still. She is very tachycardic, though. In any case, the patient overall improved. OBJECTIVE: Pulse rate 115, respiratory rate 22, blood pressure 148/80, temperature 99.3 degrees. Cardiovascular: Regular rate and rhythm. Pulmonary: Bilateral breath sounds clear to auscultation. I did not appreciate wheezing. No rales. Diminished breath sounds throughout. Gastrointestinal: Soft, nontender, nondistended. Bowel sounds are positive. LABORATORY DATA: White count is 7, hemoglobin 12, hematocrit 39, platelets 242,000. PH 7.43, pCO2 of 55, PO2 of 150. PROBLEM LIST: 1. Acute hypoxic respiratory failure, a not quite clear source. She is getting COPD treatment. There is not a clear infectious source. Her x-ray is negative. I agree with steroids, breathing treatments. I am going to change her to Xopenex just because she is tachycardic, and I am going to institute maybe some low-dose Cardizem because she is generally tachycardic. 2. Elevated troponins. May just be from demand ischemia versus a true non-STEMI. The EKG does not show any acute changes. Cardiology has been consulted. Echo has been ordered. We will continue to follow. 3. Altered mentation. May be multifactorial. Likely yesterday was due to hypercapnia, but that is improved so we will continue to follow. I am going to get a CT angiogram of the pulmonary artery since she has a troponin that is elevated. It would be more likely she has a pulmonary event/pulmonary vascular event than a [id number] DC, but we will continue to follow. Continue to monitor in the ICU. cc: Yaakov Thomas MD
[2019-02-24] MEDS: XOPENEX NEB INH SCH ×2 (15:59→21:38)
--- NOTE | 2019-02-24 16:09 | Diag Imaging Result Doc PS360 ---
EXAM: CT ANGIOGRM PULMONARY ARTERIES HISTORY: chest pain TECHNIQUE: CT chest with intravenous contrast. Pulmonary arterial protocol with MIP images. COMPARISON: None. FINDINGS: There is normal opacification of the main pulmonary arteries and their proximal branches. Questionable small filling defect within one of the branches posteriorly in the right lower lobe. No thoracic aortic aneurysm or dissection. No cardiomegaly. No enlarged lymph nodes. No pleural effusions. No consolidation. IMPRESSION: Questionable tiny filling defect in the right lower lobe which may simply be a motion artifact. There is no other evidence of pulmonary emboli. This exam was performed using automated exposure control, adjustment of mA or kV according to patient size, and/or use of iterative reconstruction technique. Electronically signed by Ross Ha 02/24/2019 4:06 PM
[2019-02-24] MEDS: ASPIRIN EC PO SCH (20:11)
[2019-02-24] MEDS: NICODERM PATCH TD SCH (23:07)
--- NOTE | 2019-02-24 23:18 | CONSULTATION ---
DATE OF CONSULTATION: 02/24/2019 IMPRESSION: 1. Very mild nonspecific elevation of troponin, without chest pain or acute change on electrocardiogram, in setting of acute hypercapnic respiratory failure. Suspect elevated troponin more likely a secondary event, possibly related to right ventricular strain. 2. Chronic obstructive pulmonary disease. 3. Substance abuse with marijuana. 4. Chronic pain disorder with patient taking hydrocodone on a regular basis for chronic back disorder. 5. Anxiety disorder, with patient taking clonazepam on a regular basis. 6. Hypertension. RECOMMENDATIONS: 1. Echocardiography. 2. Once the patient has improved from a respiratory standpoint, it would be reasonable to pursue screening for coronary disease with stress myocardial perfusion imaging (Lexiscan sestamibi study ). This would be most reasonable to pursue as an outpatient. HISTORY: This 73-year-old white female with past history of significant COPD and hypertension was brought to the emergency room with altered mental status. She has been found to have hypercapnic respiratory failure. She is not able to give much history on presentation, and is somewhat sketchy about the details leading to her hospitalization. She admits to smoking marijuana. She has little recall of what went on leading to her hospitalization. She is not aware of any previous cardiac problems. She does relate an occasional "twinge" of left chest discomfort, which she further characterizes as a fleeting left chest discomfort. She does not describe anything that sounds like angina. PAST MEDICAL HISTORY: 1. Significant COPD. 2. Hypertension. 3. Chronic cigarette use. 4. Anxiety disorder. 5. Chronic back disorder with chronic back pain. ALLERGIES: She is allergic or intolerant to meperidine. MEDICATIONS: Prior to admission as listed. SOCIAL HISTORY: She has history of chronic ongoing cigarette use. She also smokes marijuana. FAMILY HISTORY: Negative for premature coronary disease. REVIEW OF SYSTEMS: Pulmonary noteworthy for some cough and shortness of breath. Gastrointestinal noncontributory. Constitutional noncontributory. The remainder of review of systems negative/noncontributory, with 14 total systems reviewed. PHYSICAL EXAMINATION: An overweight older white female in no distress on supplemental oxygen per nasal cannula. Blood pressure 159/64, heart rate 120, with ECG showing sinus tachycardia. Oxygen saturation 95% to 98%. HEENT exam: Extraocular movements appear intact. Mucous membranes are moist. Neck is supple. No jugular venous distention. There are no carotid bruits. Chest is clear to auscultation bilaterally. Cardiac exam reveals a regular rate and rhythm without appreciable murmur or gallop. There is trace bilateral pretibial edema. Neurologic exam reveals her to be awake and responsive. Speech is fluent. She moves all 4 extremities equally well. DIAGNOSTIC DATA: Twelve-lead EKG demonstrates normal sinus rhythm and very mild nonspecific T- wave abnormality. Chest x-ray is reviewed and demonstrates no acute infiltrates. Chest CT angiography reports no new definite pulmonary emboli. There was some reported questionable tiny filling defect in the right lower lobe, which was thought to possibly be motion artifact. LABORATORY DATA: Includes white blood cell count 7.05, hematocrit 39.1, hemoglobin 12.0, platelet count 240,000. Pro time 13.5, INR 1.02, PTT 26.8. D-dimer less than 0.27. Initial arterial blood gas showed a pH of 7.35, pCO2 of 84, pO2 of 185 on 100% nonrebreather oxygen. Followup arterial blood gas pH 7.43, pCO2 of 55, pO2 of 150 on BiPAP at 40%. Sodium 134, potassium 4.2, chloride 92, carbon dioxide 34, BUN 7, creatinine 0.3, glucose 122. Initial troponin 0.174, with followup troponins 0.076, 0.073, and 0.075. Initial CPK 53, followup CPK 40. cc: Lamont Cook MD
--- NOTE | 2019-02-24 23:46 | CONSULTATION ---
DATE OF CONSULTATION: 02/24/2019 REQUESTING PROVIDER: Dr. Chad Fisher. REASON FOR CONSULTATION: Respiratory failure. HISTORY OF PRESENT ILLNESS: This is a 73-year-old female with a medical history of endstage COPD, hypertension, anxiety disorder and osteoarthritis. She presented to the ER last night via EMS with altered mental status. She was initially noted in the ER with severe hypoxia. Initial lab in the ER revealed pCO2 of 84, sodium 133, chloride 81, carbon dioxide 41. Troponin T 0.174. Drug screen showed positive to opioid, benzodiazepine and cannabinoids. She has been admitted to ICU for further evaluation and management. The patient currently is lying in bed with moderate respiratory distress. She is on Ventimask with FIO2 of 50%. She pulls the mask off at times for some cough spells. She reports she coughs up with something, but all I see on the tissue is saliva-type drainage. She has pursed-lip breathing most of the time during my assessment, with increased work of breathing but no accessory muscle use. She reported that she has some intermittent chest pain and palpitation, a little discomfort with urination, a little bit of constipation, sore throat for several days and staying in bed at home most of the time recently. She reports she has no fever or chills, noticeable weight change, diarrhea, headache or wheezing. The patient does show disoriented with time. She states that her daughter in a car accident last week, but the patient's son at the bedside states that his sister actually 3 weeks ago. PAST MEDICAL HISTORY: 1. Endstage COPD with chronic hypoxemic and hypercapnic respiratory failure. She is on Trilogy at home, but she reported she is not using Trilogy as directed. When I ask her if she tolerated the Trilogy, she says yes. 2. Hypertension. 3. Anxiety disorder. 4. Osteoarthritis. FAMILY HISTORY: Unknown. SOCIAL HISTORY: The patient is lives at home with her daughter and her son. She is able to walk with a walker, but she reported she was staying in bed most of the time recently. She is a smoker. She reported that she already cut smoking a lot recently because of her respirations, but she is still smoking occasionally. She has no history of alcohol or illicit drug use. Drug screen showed she also used marijuana. ALLERGIES: Meperidine. REVIEW OF SYSTEMS: A 10-point review of systems was conducted and the pertinence is listed within the HPI, otherwise noncontributory. PHYSICAL EXAMINATION: Vital signs: Temperature 98.4, blood pressure 132/80, pulse rate 116, respiratory rate 27. Oxygen saturation 98% on BiPAP with FIO2 of 50% and pressure 20/8.General: Well developed, well nourished, on a Ventimask with FIO2 of 50% in moderate respiratory distress. Depressed with tearful at times. HEENT: Atraumatic, normocephalic. Trachea midline. Mucosa pink and moist. Respiratory: Pursed-lip breathing with increased work of breathing, but no accessory muscle use. Symmetrical excursion. Auscultation reveals markedly diminished breathing sounds bilaterally, with mild occasional expiratory wheezing in bilateral upper lobes. Cardiovascular: Regular rate and rhythm with sinus tachycardia. Gastrointestinal: Soft, nontender, nondistended. Normoactive bowel sounds in all 4 quadrants. Extremities: No pedal edema. No cyanosis. No clubbing. Dorsalis pedis 2+ bilaterally. Neurologic: Alert and oriented x2 with disorientation to time. Anxious. Depressive. Speech fluent. Follows commands. LABORATORY DATA: White blood cells 7.05, hemoglobin 12.0, hematocrit 39.1, platelets 240,000. Sodium 134, potassium 4.2, chloride 92, carbon dioxide 34, BUN 7, creatinine 0.3, glucose 122. ABG pH 7.43, pCO2 is 55, pO2 is 150, HCO3 is 36.2, base excess 12.0. DIAGNOSTIC DATA: CT angiogram pulmonary arterials showed questionable tiny filling defect in the right lower lobe, which may simply be motion artifact. No other evidence of pulmonary emboli. ASSESSMENT: This is a 73-year-old female with a medical history of endstage chronic obstructive pulmonary disease, with chronic hypoxemic and hypercapnic respiratory failure, hypertension, anxiety and osteoarthritis. She has been admitted to the intensive care unit since yesterday with altered mental status, [id number] hypercapnic hypoxemic respiratory failure and elevated troponin. 1. Bsjwm-sv-[id number] hypoxemic and hypercapnic respiratory failure, requiring bilevel positive airway pressure initially, currently tolerates Ventimask with FIO2 of 50%. 2. Altered mental status, likely secondary to acute hypercapnic and hypoxemic respiratory failure. 3. Chronic obstructive pulmonary disease exacerbation. 4. Elevated troponin. PLAN: 1. Continue supplemental oxygen and BiPAP at bedtime and as needed. 2. Continue steroid and bronchodilators. Consider to start antibiotics. 3. Follow up with ABG, CBC, BMP, proBNP, blood culture and troponin T series. 4. Dr. Cook, the medical oncology physician, is on board. 5. Continue GI and DVT prophylaxis. 6. Further recommendations pending hospital course. Thank you for the courtesy of this consult. Dictated by SINCERE Brantley for Olya Reed MD cc: SINCERE Brantley MD [facility]
[2019-02-25] MEDS: APRESOLINE IV PRN ×2 (04:12→11:07)
[2019-02-25 04:33] LABS: ALLEN TEST YES; BE 8.7 mmoll (-3.0-3.0); BLOOD TYPE ARTERIAL; HCO3-(ACT) 31.4 mmoll (20.0-26.0); METHB 0.7 % (0.0-1.5); O2(CT) 14.8 mL/dL (15.0-23.0); SAMPLE BLOOD; SAO2 88.1 % (95.0-100.0); THB 12.3 g/dL (11.5-17.4)
[2019-02-25 04:34] LABS: PCO2(98.6) 57 mmHg (35-45)
[2019-02-25 04:35] LABS: MODALITY CANNULA; PO2(98.6) 45 mmHg (60-100)
[2019-02-25] MEDS ORDERED: ATIVAN IV ONE (05:34)
[2019-02-25 06:23] LABS: EOS# 0.07 X1000 (0.0-0.7); EOS% 1.4 % (0.0-10.0); HEMATOCRIT 39.2 % (37.0-47.0); HEMOGLOBIN 12.4 g/dL (12.0-16.0); LYMPH# 0.57 X1000 (1.2-3.4); LYMPH% 11.6 % (20.5-51.1); MCH 25.7 PG (27-31); MCHC 31.6 g/dL (33-37); MCV 81.3 FL (81-99); MONO# 0.18 X1000 (0.11-0.59); MONO% 3.7 % (1.7-9.3); MPV 11.4 FL (7.4-10.4); NEUT% 83.3 % (42.2-75.2); PLT 217 X1000 (130-400); RBC 4.82 XMIL (4.2-5.4); RDW 17.8 % (11.5-14.5); WBC 4.92 X1000 (4.8-10.8)
[2019-02-25 06:52] LABS: AGAP 14; BUN 5 mg/dL (8-22); CALCIUM 9.3 mg/dL (8.8-10.2); CHLORIDE 86 mmol/L (98-107); COSMO 257; CREATININE 0.4 mg/dL (0.5-0.9); ESTIMATED GFR > 60; GLUCOSE 110 mg/dL (70-104); SODIUM 129 mmol/L (136-145); TCO2 29 mmol/L (25-35)
[2019-02-25] MEDS ORDERED: NORVASC PO SCH (09:00)
[2019-02-25] MEDS ORDERED: CARDIZEM IV ONE (09:20)
[2019-02-25] MEDS ORDERED: NS NEB INH SCH (09:30)
[2019-02-25] MEDS: ASPIRIN EC PO SCH (09:44)
[2019-02-25] MEDS: CYMBALTA PO SCH (09:44)
[2019-02-25] MEDS: LOVENOX SUBQ SCH (09:45)
[2019-02-25] MEDS: FERROUS SULFATE PO SCH (09:45)
[2019-02-25] MEDS: CARDIZEM PO SCH ×3 (09:45→20:30)
[2019-02-25] MEDS: NICODERM PATCH TD SCH (09:46)
--- NOTE | 2019-02-25 09:49 | Diag Imaging Result Doc PS360 ---
CHEST-PORTABLE - 02/25/2019 INDICATION: interstitial edema, hypoxia COMPARISON: 02/23/2019 FINDINGS: Lung volumes are much improved. There is probably COPD. There is some patchy infiltrate or atelectasis in the lung bases. Heart size and pulmonary vascularity are grossly normal. No significant pleural effusion. IMPRESSION: Mild patchy infiltrate or atelectasis in the lung bases, nonspecific. Electronically signed by Nelson Chavez 02/25/2019 9:46 AM
[2019-02-25] MEDS ORDERED: ATROVENT NEB INH SCH (10:00)
[2019-02-25] MEDS: MORPHINE IV PRN (11:30)
[2019-02-25] MEDS ORDERED: CATAPRES PO PRN (11:43)
[2019-02-25] MEDS: XOPENEX NEB INH SCH ×4 (11:46→23:22)
--- NOTE | 2019-02-25 12:35 | PROGRESS NOTE ---
DATE: 02/25/2019 SUBJECTIVE: Patient has very increasing dyspnea, increasing shortness of breath. No major complaints. OBJECTIVE: Vital signs: Heart rate is 130, respiratory rate of 27, blood pressure 177/83, heart rate of 130s in tach. Temperature of 98.9 degrees. Cardiovascular: Regular rate and rhythm. Pulmonary: Bilateral breath sounds clear to auscultation, diminished throughout. No wheezing. Gastrointestinal: Soft, nontender, nondistended. Bowel sounds are positive. LABORATORY DATA: White count 4, hemoglobin and hematocrit 12 and 39, platelets 217,000. pH 7.4, pCO2 57, PaO2 45. Sodium is down to 129. ProBNP is 3436 with a troponin of 0.1. PROBLEM LIST: 1. Acute hypoxic and hypercapnic respiratory failure. She is progressing somewhat, ]she is decompensating, and I feel like she is at high risk for intubation. She is on BiPAP. We will continue to monitor. Pulmonary is following. IV steroids got stopped so I am going to resume them. I am also going to put her on some Lasix. She has interstitial infiltrates, so that could be related, but a CT does not show infiltrates, lungs are clear, purely a chronic obstructive pulmonary disease exacerbation, so we will continue treatment. 2. Elevated troponin which may be a demand ischemia type picture. I am still waiting on the echocardiogram and she will need myocardial perfusion imaging prior to discharge to rule out cardiac disease, but we will continue to follow. Continue DVT and GI prophylaxis. 3. Encephalopathy is multifactorial, most likely related to hypercapnia but could be hypoxia as well. We will monitor to monitor. Prognosis is guarded. I have discussed the case with Dr. Reed. We will see how things look. cc: Yaakov Thomas MD [facility]
[2019-02-25] MEDS: PROTONIX IV SCH (12:48)
[2019-02-25] MEDS: SODIUM CHLORIDE 0.9% INJ SCH (12:48)
[2019-02-25] MEDS: SOLU-MEDROL IV SCH ×2 (12:48→17:07)
[2019-02-25] MEDS: LASIX IV SCH (12:49)
[2019-02-25] MEDS: ROCEPHIN 1 GM in NS 50 ML IV SCH (12:49)
[2019-02-25] MEDS: ATROVENT NEB INH SCH ×3 (15:46→23:22)
--- NOTE | 2019-02-25 19:08 | ECHO REPORT ---
ORDER DATE: 02/25/2019 MEASUREMENTS: 1. Septal thickness 0.8/ 2. Left ventricular internal diameter diastole 4. 3. Posterior wall thickness 0.8. 4. Aortic root 3.5. 5. Left atrium 3.5. SUMMARY: 1. Technically difficult study due to limited acoustic window quality. 2. Aortic valve is trileaflet and opens normally on 2-dimensional images. Peak gradient across aortic valve is 10 to 15 mmHg. Mitral and tricuspid valves are without gross structural abnormality. Pulmonic valves not well demonstrated. Aortic root is normal size. 3. Normal left ventricle dimensions demonstrated. Estimated left ejection fraction appears to be at least 70%. No regional wall motion is evident. Left atrium is normal size. Mild to moderate right ventricular enlargement is demonstrated with reduced right ventricular systolic function. The right atrium is [id number] enlarged. 4. No pericardial effusion. 5. Appearance of inferior vena cava suggests normal central venous pressure. CONCLUSIONS: 1. Technically difficult study. 2. No significant valvular abnormality evident. 3. Estimated left ejection fraction at least 70% without wall motion abnormality evident. 4. Right-sided chamber enlargement with reduced right ventricular systolic function. cc: MD Avis Soria PA
--- NOTE | 2019-02-25 20:20 | CARDIOLOGY PROGRESS NOTE ---
DATE: 02/25/2019 SUBJECTIVE: The patient is currently on BiPAP with supplemental oxygen and has increased respiratory rate. She seems a bit confused. She denies shortness of breath, despite increased respiratory rate. OBJECTIVE: Blood pressure 136/71, heart rate 120 with ECG monitor showing sinus tachycardia. Oxygen saturation 94%. There is no significant jugular venous distention.Chest: Clear to auscultation anteriorly. Cardiac: Regular tachycardia without appreciable murmur or gallop. There is no evidence of edema. LABORATORY AND DIAGNOSTIC DATA: Includes a white blood cell count of 4.92, hematocrit 39.2, hemoglobin 12.4, platelet count 217,000. Arterial blood gas with a pH of 7.4, pCO2 of 57, PO2 of 45. Sodium 129, potassium 4.0, chloride 86, carbon dioxide 29, BUN 5, creatinine 0.4, glucose 110. Echocardiography demonstrates estimated left ejection fraction of at least 70%, without wall motion abnormality evident on a technically difficult study. Right-sided chamber enlargement demonstrated. IMPRESSION: 1. Mild nonspecific elevation of troponin without angina or acute change on ECG. I suspect given clinical picture, this is most likely related to respiratory failure. 2. Hypercapnic respiratory failure, probably related to severe chronic obstructive pulmonary disease. 3. Substance abuse. 4. Chronic pain disorder, requiring chronic narcotics. 5. Anxiety disorder. 6. Hypertension. RECOMMENDATIONS: 1. Continue to treat for COPD exacerbation with possible pulmonary infectious process as you are doing. 2. Continue supportive care. Ultimately, once patient improves from a respiratory standpoint, screening for coronary disease might be pursued. This might prove hazardous if pursued prior to complete improvement in her respiratory status and she presently appears to have considerable room for further improvement. cc: Lamont Cook MD
[2019-02-26] MEDS: LASIX IV SCH ×2 (00:47→10:53)
[2019-02-26] MEDS: SOLU-MEDROL IV SCH ×5 (00:47→23:31)
[2019-02-26] MEDS: MORPHINE IV PRN ×2 (02:09→21:21)
[2019-02-26] MEDS: CARDIZEM PO SCH ×4 (02:10→20:00)
[2019-02-26] MEDS: ATROVENT NEB INH SCH ×6 (03:38→23:01)
[2019-02-26 04:30] LABS: ALLEN TEST YES; BE 16.3 mmoll (-3.0-3.0); BLOOD TYPE ARTERIAL; HCO3-(ACT) 37.6 mmoll (20.0-26.0); METHB 0.7 % (0.0-1.5); O2(CT) 17.2 mL/dL (15.0-23.0); O2HB 94.6 % (95.0-99.0); PO2(98.6) 66 mmHg (60-100); SAMPLE BLOOD; SAO2 96.4 % (95.0-100.0); THB 12.9 g/dL (11.5-17.4)
[2019-02-26 04:31] LABS: MODALITY BI PAP; PCO2(98.6) 54 mmHg (35-45)
[2019-02-26 06:23] LABS: ESTIMATED GFR > 60
[2019-02-26 06:25] LABS: AGAP 20; BUN 5 mg/dL (8-22); CALCIUM 9.1 mg/dL (8.8-10.2); CHLORIDE 78 mmol/L (98-107); COSMO 258; CREATININE 0.3 mg/dL (0.5-0.9); GLUCOSE 133 mg/dL (70-104); POTASSIUM 3.6 mmol/L (3.5-5.1); SODIUM 129 mmol/L (136-145); TCO2 31 mmol/L (25-35)
--- NOTE | 2019-02-26 07:52 | Diag Imaging Result Doc PS360 ---
EXAM: CHEST-PORTABLE INDICATION: dyspnea TECHNIQUE: One view COMPARISON: 02/25/2019 FINDINGS: The mild opacity at both lung bases has improved to near resolution. No new consolidation is identified. Cardiac silhouette is stable. IMPRESSION: Interval improvement. Electronically signed by Reagan Jones 02/26/2019 7:50 AM
[2019-02-26] MEDS: XOPENEX NEB INH SCH ×5 (08:05→23:02)
[2019-02-26] MEDS: NICODERM PATCH TD SCH (08:45)
[2019-02-26] MEDS: LOVENOX SUBQ SCH (08:45)
[2019-02-26] MEDS: ASPIRIN EC PO SCH (08:45)
[2019-02-26] MEDS: FERROUS SULFATE PO SCH (08:46)
[2019-02-26] MEDS: CYMBALTA PO SCH (08:46)
[2019-02-26 10:16] LABS: HEMATOCRIT 39.6 % (37.0-47.0); HEMOGLOBIN 12.9 g/dL (12.0-16.0); LYMPH# 0.27 X1000 (1.2-3.4); LYMPH% 7.8 % (20.5-51.1); MCH 25.7 PG (27-31); MCHC 32.6 g/dL (33-37); MONO# 0.12 X1000 (0.11-0.59); MONO% 3.4 % (1.7-9.3); MPV 9.8 FL (7.4-10.4); NEUT# 3.09 X1000 (1.4-6.5); NEUT% 88.8 % (42.2-75.2); PLT 406 X1000 (130-400); RBC 5.01 XMIL (4.2-5.4); RDW 18.8 % (11.5-14.5); WBC 3.48 X1000 (4.8-10.8)
[2019-02-26] MEDS: ROCEPHIN 1 GM in NS 50 ML IV SCH (10:52)
[2019-02-26 11:01] LABS: EOS 2 % (1-10); LYMPHS 8 % (21-51); SEGS 90 % (42-75)
--- NOTE | 2019-02-26 11:31 | Extremity Venous Study ---
PROCEDURE NAME: Venous U/S Bilateral Legs - 02/25/2019 REQUESTING PHYSICIAN: Olya Reed MD. INDUSTRIAL WORKERS: Katelyn. INDICATIONS: Edema. EQUIPMENT: [employer] Vivid E9 ultrasound system with a 9LD transducer. FINDINGS: Images of the bilateral lower extremity venous systems were obtained in both sagittal and transverse planes. Doppler was used to evaluate veins for spontaneity, phasicity, respiratory excursion, and digital augmentation. RESULTS: Normal venous compression and normal venous flow. The patient is on BiPAP, which may limit the interpretative ability of the study, but there is no obvious superficial or deep venous thrombosis noted. INTERPRETATION: Essentially normal bilateral lower extremity venous study. cc: MD Olya Milton MD
--- NOTE | 2019-02-26 13:01 | PROGRESS NOTE ---
DATE: 02/26/2019 SUBJECTIVE: Patient has no major complaints. She looks like she is breathing a little easier today, but she is on BiPAP. OBJECTIVE: Vital Signs: Note temperature 99.3 degrees, heart rate is still in the 120s, respiratory rate 20s to 30s, blood pressure 142/88, satting 96% on 35% FiO2. I think she was on high-flow, but now she is back on BiPAP. Cardiovascular: She is tachy, but regular. Pulmonary: Diminished throughout, but no wheezes, no rales. GI: Soft, nontender, nondistended. Bowel sounds are positive. LABORATORY DATA: White count is 3, hemoglobin and hematocrit 12 and 39, platelets 406. A pH 7.5, pCO2 54, PaO2 66%; she is on 30% BiPAP. Sodium still low at 129. X-RAYS: Chest x-ray today shows interstitial infiltrates at the bases are resolved. Echo showed normal EF of 70% and she had right ventricular enlargement and right ventricular systolic dysfunction. PROBLEM LIST: 1. Acute hypoxic and respiratory failure related to chronic obstructive pulmonary disease and likely cor pulmonale. She is still struggling from my standpoint, although somewhat improved from yesterday. She is on BiPAP. Pulmonary is following. We will continue intravenous steroids. We will continue intravenous Lasix. Follow and try to optimize treatment for cor pulmonale. 2. Elevated troponin which may be related to a demand ischemia issue related to her right-sided heart strain and right ventricular dysfunction. Cardiology is following, but really she is not stable enough for any further testing at this time to rule out any ischemic heart disease. We will continue to follow. 3. Encephalopathy. Basically, that is resolved. I think she is pretty much at her baseline. 4. Hypertension. We will continue to adjust medications. I am escalating her doses of Cardizem just because she has got significant tachycardia. DISPOSITION: Condition is still guarded. We discussed about intubation. Initially she said no she did not want intubation, but then she said she would have to think about it if it came down to that point. We discussed that in this setting with significant COPD she has a 50 pack-year history of smoking. There was a solid chance that we would not be able to get her off the ventilator if we did put her on the ventilator, but at this point she wants to continue treatment. We will get a palliative care consult, although that is not going to be available until next week and continue supportive care. Disposition as described. We will continue to monitor in the ICU. cc: Yaakov Thomas MD
[2019-02-26] MEDS: PROTONIX IV SCH (13:32)
[2019-02-26] MEDS: SODIUM CHLORIDE 0.9% INJ SCH (13:32)
[2019-02-27] MEDS: CARDIZEM PO SCH ×4 (01:53→19:04)
[2019-02-27] MEDS: ATROVENT NEB INH SCH ×6 (02:55→23:30)
[2019-02-27] MEDS: SOLU-MEDROL IV SCH ×4 (04:06→23:08)
[2019-02-27 04:20] LABS: ALLEN TEST YES; BE 20.3 mmoll (-3.0-3.0); BLOOD TYPE ARTERIAL; HCO3-(ACT) 40.7 mmoll (20.0-26.0); O2(CT) 17.2 mL/dL (15.0-23.0); PO2(98.6) 68 mmHg (60-100); SAMPLE BLOOD; SAO2 96.2 % (95.0-100.0); pH(98.6) 7.52 (7.35-7.45)
[2019-02-27 04:22] LABS: MODALITY BI PAP; PCO2(98.6) 57 mmHg (35-45)
[2019-02-27 05:48] LABS: HEMATOCRIT 37.5 % (37.0-47.0); HEMOGLOBIN 12.4 g/dL (12.0-16.0); MCH 25.6 PG (27-31); MCHC 33.1 g/dL (33-37); MCV 77.3 FL (81-99); NEUT% 86.5 % (42.2-75.2); PLT 334 X1000 (130-400); RBC 4.85 XMIL (4.2-5.4); RDW 18.7 % (11.5-14.5); WBC 3.35 X1000 (4.8-10.8)
[2019-02-27 05:49] LABS: LYMPH# 0.24 X1000 (1.2-3.4); LYMPH% 7.2 % (20.5-51.1); MONO# 0.21 X1000 (0.11-0.59); MONO% 6.3 % (1.7-9.3)
[2019-02-27 06:30] LABS: AGAP 16; BUN 5 mg/dL (8-22); CALCIUM 9.3 mg/dL (8.8-10.2); CHLORIDE 76 mmol/L (98-107); COSMO 258; CREATININE 0.2 mg/dL (0.5-0.9); ESTIMATED GFR > 60; GLUCOSE 129 mg/dL (70-104); MAGNESIUM 1.7 mg/dL (1.5-2.7); SODIUM 129 mmol/L (136-145); TCO2 37 mmol/L (25-35)
[2019-02-27 06:32] LABS: POTASSIUM 2.5 mmol/L (3.5-5.1)
[2019-02-27] MEDS ORDERED: POTASSIUM CHLORIDE 20% LIQUID PO ONE (06:48)
[2019-02-27] MEDS ORDERED: POTASSIUM CHLORIDE 20 MEQ/SWI 20 MEQ/100 ML IVPB IV SCH (07:00)
[2019-02-27] MEDS ORDERED: NS 250 ML ONE (08:04)
--- NOTE | 2019-02-27 08:06 | Diag Imaging Result Doc PS360 ---
EXAM: CHEST-PORTABLE INDICATION: dyspnea TECHNIQUE: One view COMPARISON: 02/26/2019 FINDINGS: The very mild opacities at the lung bases are essentially stable. No new consolidations are identified. Cardiac silhouette is stable. IMPRESSION: Stable chest. Electronically signed by Reagan Jones 02/27/2019 8:04 AM
[2019-02-27] MEDS: XOPENEX NEB INH SCH ×5 (08:11→23:30)
[2019-02-27 08:16] LABS: LYMPHS 8 % (21-51); MONO 10 % (1-9); SEGS 82 % (42-75)
[2019-02-27] MEDS ORDERED: KLOR-CON PO ONE (08:42)
[2019-02-27] MEDS ORDERED: POTASSIUM CHLORIDE 40 MEQ in NS 500 ML IV SCH (08:45)
[2019-02-27] MEDS: MORPHINE IV PRN (08:54)
[2019-02-27] MEDS: LASIX IV SCH (08:55)
[2019-02-27] MEDS: LOVENOX SUBQ SCH (08:55)
[2019-02-27] MEDS: ASPIRIN EC PO SCH (08:55)
[2019-02-27] MEDS: CYMBALTA PO SCH (08:55)
[2019-02-27] MEDS: FERROUS SULFATE PO SCH (08:55)
[2019-02-27] MEDS: NICODERM PATCH TD SCH (08:55)
[2019-02-27] MEDS: ROCEPHIN 1 GM in NS 50 ML IV SCH (12:07)
[2019-02-27] MEDS: SODIUM CHLORIDE 0.9% INJ SCH (13:05)
[2019-02-27] MEDS: PROTONIX IV SCH (13:06)
[2019-02-27] MEDS: ZOFRAN IV PRN ×3 (13:59→23:08)
--- NOTE | 2019-02-27 14:01 | PROGRESS NOTE ---
DATE: 02/27/2019 SUBJECTIVE: The patient has no major complaints. OBJECTIVE: Vital signs: Blood pressure is 153/94, heart rate of 105, respiratory rate of 26, 95% on high-flow, temp was 99.6 degrees. Cardiovascular: Regular rate and rhythm. Pulmonary: Diminished throughout. She is not wheezing, but I feel like she is still fairly tight. GI: Soft, nontender, nondistended. Bowel sounds are positive. LABORATORY DATA: White count is 3.3, hemoglobin and hematocrit are 12 and 37, platelets 337,000. The pH is 7.52, pCO2 is 57, PaO2 is 68. Sodium is 129, potassium 2.5, BUN and creatinine of 5 and 0.2. PROBLEM LIST: 1. Acute hypoxic and hypercapnic respiratory failure due to end-stage chronic obstructive pulmonary disease. Her FEV1 in September and reviewed with Dr. Reed is 27% predicted, so poor prognosis generally speaking. I am still very concerned she will progress to require mechanical ventilation, which we are going to follow at this point. 2. Elevated troponin related to demand ischemia. Cor pulmonale. Continue to monitor. I am going to probably cut back on diuretic at this point. I do not think she has got a lot of volume onboard right now. 3. Encephalopathy. She seems to be doing better from that standpoint. 4. Hypertension. Blood pressure and heart rate improved. 5. Disposition. Pending her clinical status. Prognosis still very poor and guarded. 1. Hypokalemia we will continue to supplement. Check magnesium levels and follow. Appreciate consultants' assistance cc: Yaakov Thomas MD
[2019-02-27 18:02] LABS: AGAP 10; BUN 10 mg/dL (8-22); CALCIUM 9.2 mg/dL (8.8-10.2); CHLORIDE 80 mmol/L (98-107); COSMO 252; CREATININE 0.3 mg/dL (0.5-0.9); GLUCOSE 123 mg/dL (70-104); POTASSIUM 4.3 mmol/L (3.5-5.1); SODIUM 125 mmol/L (136-145); TCO2 35 mmol/L (25-35)
[2019-02-27] MEDS ORDERED: NS 500 ML IV ONE (21:28)
[2019-02-28] MEDS ORDERED: SODIUM CHLORIDE 0.9% INJ ONE (00:32)
[2019-02-28] MEDS ORDERED: PHENERGAN IV ONE (00:32)
[2019-02-28] MEDS: CARDIZEM PO SCH ×4 (02:17→20:05)
[2019-02-28] MEDS: ATROVENT NEB INH SCH ×6 (03:14→23:11)
[2019-02-28] MEDS: SOLU-MEDROL IV SCH ×4 (05:12→23:58)
[2019-02-28 05:42] LABS: BLOOD TYPE ARTERIAL; PCO2(98.6) 31 mmHg (35-45); PO2(98.6) 77 mmHg (60-100); SAMPLE BLOOD; pH(98.6) 7.38 (7.35-7.45)
[2019-02-28 05:43] LABS: ALLEN TEST YES; BE -6.1 mmoll (-3.0-3.0); HCO3-(ACT) 20.2 mmoll (20.0-26.0); METHB 0.6 % (0.0-1.5); O2(CT) 11.3 mL/dL (15.0-23.0); O2HB 95.8 % (95.0-99.0); SAO2 98.5 % (95.0-100.0); THB 8.3 g/dL (11.5-17.4)
[2019-02-28 05:44] LABS: MODALITY BI PAP
[2019-02-28 06:31] LABS: EOS# 0.16 X1000 (0.0-0.7); EOS% 2.2 % (0.0-10.0); HEMATOCRIT 38.6 % (37.0-47.0); HEMOGLOBIN 12.4 g/dL (12.0-16.0); LYMPH# 0.22 X1000 (1.2-3.4); MCH 25.8 PG (27-31); MCHC 32.1 g/dL (33-37); MCV 80.4 FL (81-99); MONO# 0.31 X1000 (0.11-0.59); MONO% 4.2 % (1.7-9.3); MPV 10.9 FL (7.4-10.4); NEUT# 6.72 X1000 (1.4-6.5); NEUT% 90.6 % (42.2-75.2); PLT 309 X1000 (130-400); RDW 18.7 % (11.5-14.5); WBC 7.41 X1000 (4.8-10.8)
[2019-02-28] MEDS: XOPENEX NEB INH SCH ×5 (07:28→23:11)
[2019-02-28 07:36] LABS: BANDS 2 % (0-1); HYPOCHROM 1+; MONO 4 % (1-9); SEGS 94 % (42-75)
--- NOTE | 2019-02-28 08:06 | Diag Imaging Result Doc PS360 ---
EXAM: CHEST-PORTABLE INDICATION: dyspnea TECHNIQUE: One view COMPARISON: 02/27/2019 FINDINGS: The opacity at the right lung base has grossly resolved and there has been improvement of the opacity at the left lung base. This probably represents atelectasis that has improved. No new consolidation is identified. Cardiac silhouette is stable. IMPRESSION: Interval improvement as described. Electronically signed by Reagan Jones 02/28/2019 8:04 AM
[2019-02-28] MEDS: CYMBALTA PO SCH (08:25)
[2019-02-28] MEDS: LASIX IV SCH (08:25)
[2019-02-28] MEDS: LOVENOX SUBQ SCH (08:25)
[2019-02-28] MEDS: FERROUS SULFATE PO SCH (08:25)
[2019-02-28] MEDS: NICODERM PATCH TD SCH (08:25)
[2019-02-28] MEDS: ASPIRIN EC PO SCH (08:25)
[2019-02-28] MEDS: MORPHINE IV PRN ×2 (09:42→20:48)
[2019-02-28] MEDS: ROCEPHIN 1 GM in NS 50 ML IV SCH (11:21)
[2019-02-28] MEDS ORDERED: NACL 3% 200 ML IV ONE (11:55)
--- NOTE | 2019-02-28 13:04 | PULMONOLOGY PROGRESS NOTE ---
DATE: 02/28/2019 SUBJECTIVE: The patient is awake, alert, and conversant. She reports she "had difficulty with all the medicines yesterday." She is without specific complaints today. OBJECTIVE: Vital Signs: The patient has been afebrile over the last 24 hours. Heart rate 101, blood pressure 140/71, respiratory rate 23, oxygen saturation 99% on high-flow nasal cannula. HEENT: Pupils are equal and reactive. Oropharynx appears clear. Neck: Supple. Chest: Reveals markedly diminished breath sounds bilaterally with prolonged expiratory phase. Cardiac: S1 and S2. Abdomen: Soft. Extremities: Without edema. LABORATORIES: Chest x-ray reveals decreasing infiltrates at the right base. White blood count 7.41, hemoglobin 12.4, platelet count 309,000. Arterial blood gas reveals pH of 7.38, pCO2 of 31, PO2 of 77. Sodium 125, potassium 4.3, chloride 100, bicarbonate 35, BUN is 10, creatinine 0.3. IMPRESSION: A 73 year old with: 1. Acute on chronic hypoxemic respiratory failure. 2. Chronic hypercapnic respiratory failure. 3. Pneumonia with radiographic improvement. 4. Encephalopathy. 5. Cardiac demand ischemia with elevation in troponin. 6. Ongoing tobacco use at the time of admission. RECOMMENDATIONS: 1. Continue to cycle BiPAP at bedtime and p.r.n. 2. Continue current bronchodilator regimen. 3. Gentle diuresis as tolerated. 4. Encourage smoking cessation. 5. Continue antibiotic regimen. cc: Phillip Puentes MD
--- NOTE | 2019-02-28 14:30 | PROGRESS NOTE ---
DATE: 02/28/2019 SUBJECTIVE: The patient has no major complaints. Her breathing seems a little less labored. She is still somewhat tachypneic though. Tachycardia is improved. Blood pressure is improved. OBJECTIVE: Vital Signs: Temperature 98.4 degrees, heart rate 96, respiratory rate 30, blood pressure 130/87. Cardiovascular: Regular rate and rhythm. Pulmonary: Diminished throughout. Gastrointestinal: Soft, nontender, nondistended. Bowel sounds are positive. LABORATORY DATA: Her laboratory data was stable. White count 7, hemoglobin and hematocrit of 12 and 38, platelets
[2019-02-28 15:42] LABS: AGAP 10; BUN 11 mg/dL (8-22); CALCIUM 8.8 mg/dL (8.8-10.2); CHLORIDE 82 mmol/L (98-107); COSMO 255; CREATININE 0.4 mg/dL (0.5-0.9); ESTIMATED GFR > 60; GLUCOSE 113 mg/dL (70-104); SODIUM 127 mmol/L (136-145); TCO2 35 mmol/L (25-35)
[2019-02-28 19:00] LABS: ESTIMATED GFR > 60
[2019-02-28 19:02] LABS: AGAP 6; BUN 11 mg/dL (8-22); CALCIUM 8.7 mg/dL (8.8-10.2); CHLORIDE 83 mmol/L (98-107); COSMO 254; CREATININE 0.3 mg/dL (0.5-0.9); GLUCOSE 119 mg/dL (70-104); POTASSIUM 3.7 mmol/L (3.5-5.1); SODIUM 126 mmol/L (136-145); TCO2 37 mmol/L (25-35)
[2019-03-01] MEDS: CARDIZEM PO SCH ×4 (01:32→20:27)
[2019-03-01] MEDS: ATROVENT NEB INH SCH ×6 (03:05→22:56)
[2019-03-01 04:22] LABS: ALLEN TEST YES; BE 14.2 mmoll (-3.0-3.0); BLOOD TYPE ARTERIAL; METHB 1.1 % (0.0-1.5); O2(CT) 17.6 mL/dL (15.0-23.0); O2HB 96.2 % (95.0-99.0); PO2(98.6) 140 mmHg (60-100); SAMPLE BLOOD; SAO2 98.3 % (95.0-100.0); THB 12.8 g/dL (11.5-17.4)
[2019-03-01 04:25] LABS: MODALITY HIGH FLOW NASAL CAN; PCO2(98.6) 68 mmHg (35-45)
[2019-03-01] MEDS: SOLU-MEDROL IV SCH ×4 (06:25→23:17)
[2019-03-01] MEDS: PROTONIX PO SCH (06:25)
[2019-03-01 07:00] LABS: EOS# 0.01 X1000 (0.0-0.7); EOS% 0.1 % (0.0-10.0); HEMATOCRIT 38.4 % (37.0-47.0); HEMOGLOBIN 12.1 g/dL (12.0-16.0); LYMPH# 0.29 X1000 (1.2-3.4); LYMPH% 4.1 % (20.5-51.1); MCH 25.9 PG (27-31); MCHC 31.5 g/dL (33-37); MCV 82.1 FL (81-99); MONO# 0.27 X1000 (0.11-0.59); MONO% 3.8 % (1.7-9.3); MPV 10.7 FL (7.4-10.4); NEUT# 6.51 X1000 (1.4-6.5); PLT 324 X1000 (130-400); RBC 4.68 XMIL (4.2-5.4); RDW 18.2 % (11.5-14.5); WBC 7.08 X1000 (4.8-10.8)
[2019-03-01 07:04] LABS: ESTIMATED GFR > 60
[2019-03-01 07:07] LABS: AGAP 11; BUN 10 mg/dL (8-22); CALCIUM 9.2 mg/dL (8.8-10.2); CHLORIDE 82 mmol/L (98-107); COSMO 256; CREATININE 0.3 mg/dL (0.5-0.9); GLUCOSE 103 mg/dL (70-104); SODIUM 128 mmol/L (136-145); TCO2 35 mmol/L (25-35)
[2019-03-01] MEDS: LOVENOX SUBQ SCH (07:59)
[2019-03-01] MEDS: FERROUS SULFATE PO SCH (07:59)
[2019-03-01] MEDS: ASPIRIN EC PO SCH (07:59)
[2019-03-01] MEDS: CYMBALTA PO SCH (07:59)
[2019-03-01] MEDS: LASIX IV SCH (07:59)
[2019-03-01] MEDS: NICODERM PATCH TD SCH (07:59)
[2019-03-01] MEDS: XOPENEX NEB INH SCH ×5 (08:11→22:56)
[2019-03-01 08:24] LABS: BANDS 4 % (0-1); LYMPHS 4 % (21-51); MONO 2 % (1-9); SEGS 90 % (42-75)
[2019-03-01] MEDS ORDERED: SAMSCA PO ONE (09:21)
[2019-03-01] MEDS ORDERED: MIRALAX PO PRN (10:12)
[2019-03-01] MEDS: MORPHINE IV PRN ×2 (10:57→19:48)
[2019-03-01] MEDS: ROCEPHIN 1 GM in NS 50 ML IV SCH (11:20)
--- NOTE | 2019-03-01 11:45 | PROGRESS NOTE ---
DATE: 03/01/2019 SUBJECTIVE: The patient seems like she is more comfortable, not breathing as heavily, but apparently last night she had an episode where she de-satted. She had to be put back on the BiPAP, and she now has stabilized back to high-flow O2, but she is up to 50%. OBJECTIVE: Vital Signs: Heart rate is 105 respiratory rate of 27, temperature afebrile, blood pressure 136/91. Cardiovascular: Regular rate and rhythm. Pulmonary: Bilateral breath sounds. Clear to auscultation. GI: Soft, nontender, nondistended. Bowel sounds were positive. LABORATORY DATA: White count is 7, hemoglobin and hematocrit 12 and 38, platelets 324. A pH 7.4, pCO2 68, PaO2 140; that is on 50% which that is up from 30% yesterday, but her PaO2 has come up significantly. Sodium is up to 128. Urine osmoles are high at 434, but urine sodium is less than 10. PROBLEM LIST: 1. Acute hypoxic and hypercapnic respiratory failure due to chronic obstructive pulmonary disease exacerbation. We will continue to wean as tolerated. Obviously, have had a setback. She is still at risk for decompensation, although she is not struggling today like she has been in the last several days. So, hopefully we can continue to wean oxygen and trend in a positive direction. 2. Elevated troponin due to demand ischemia. She will need a cardiac workup when stable, but that is still most likely several days off unfortunately. 3. Hyponatremia may be related to diuretics, chronic lung disease. She did improve with 3% saline; just kind of have to watch her. I am going to hold her diuretics. We will give her a dose of Samsca today that will help with some aquaresis and follow. 4. Chronic obstructive pulmonary disease exacerbation. Continue antibiotics, steroids and follow. She does not clearly have pneumonia. Repeat her chest x-ray tomorrow. DISPOSITION: Her condition is still guarded unless she makes a decision about full DNR status, which she has not, and we will have to follow her closely because she may require intubation if she decompensates much further. I did put in a Palliative Care consult on her, I believe, or we will just to meet for goals of care. cc: Yaakov Thomas MD
[2019-03-01 14:16] LABS: AGAP 9; BUN 11 mg/dL (8-22); CHLORIDE 80 mmol/L (98-107); COSMO 258; CREATININE 0.4 mg/dL (0.5-0.9); ESTIMATED GFR > 60; GLUCOSE 162 mg/dL (70-104); POTASSIUM 3.7 mmol/L (3.5-5.1); SODIUM 127 mmol/L (136-145); TCO2 38 mmol/L (25-35)
[2019-03-01] MEDS: ZOFRAN IV PRN (20:26)
[2019-03-02] MEDS: CARDIZEM PO SCH ×4 (01:47→20:39)
[2019-03-02] MEDS: ATROVENT NEB INH SCH ×6 (03:42→23:30)
[2019-03-02 04:40] LABS: BLOOD TYPE ARTERIAL; SAMPLE BLOOD
[2019-03-02 04:41] LABS: ALLEN TEST YES; BE 19.9 mmoll (-3.0-3.0); HCO3-(ACT) 40.4 mmoll (20.0-26.0); O2(CT) 17.5 mL/dL (15.0-23.0); O2HB 95.3 % (95.0-99.0); PO2(98.6) 80 mmHg (60-100); SAO2 97.4 % (95.0-100.0); pH(98.6) 7.42 (7.35-7.45)
[2019-03-02 04:43] LABS: MODALITY BI PAP; PCO2(98.6) 75 mmHg (35-45)
[2019-03-02 05:41] LABS: HEMATOCRIT 38.9 % (37.0-47.0); HEMOGLOBIN 12.4 g/dL (12.0-16.0); LYMPH# 0.18 X1000 (1.2-3.4); LYMPH% 2.8 % (20.5-51.1); MCH 25.8 PG (27-31); MCHC 31.9 g/dL (33-37); MONO# 0.21 X1000 (0.11-0.59); MONO% 3.3 % (1.7-9.3); MPV 10.2 FL (7.4-10.4); NEUT# 5.97 X1000 (1.4-6.5); NEUT% 93.9 % (42.2-75.2); PLT 335 X1000 (130-400); RDW 18.3 % (11.5-14.5); WBC 6.36 X1000 (4.8-10.8)
[2019-03-02 05:47] LABS: ESTIMATED GFR > 60
[2019-03-02] MEDS: SOLU-MEDROL IV SCH ×3 (05:47→21:07)
[2019-03-02] MEDS: PROTONIX PO SCH (06:07)
[2019-03-02 06:34] LABS: AGAP 7; BUN 10 mg/dL (8-22); CALCIUM 9.1 mg/dL (8.8-10.2); CHLORIDE 83 mmol/L (98-107); COSMO 262; CREATININE 0.3 mg/dL (0.5-0.9); GLUCOSE 136 mg/dL (70-104); POTASSIUM 3.8 mmol/L (3.5-5.1); SODIUM 130 mmol/L (136-145); TCO2 40 mmol/L (25-35)
--- NOTE | 2019-03-02 06:51 | Diag Imaging Result Doc PS360 ---
CHEST-PORTABLE - 03/02/2019 INDICATION: dyspnea COMPARISON: None FINDINGS: The lungs are normally expanded and clear. Heart size and mediastinal contours are normal. No pneumothorax or pleural effusion. IMPRESSION: Negative exam. Electronically signed by Nelson Chavez 03/02/2019 6:48 AM
[2019-03-02 06:56] LABS: LYMPHS 3 % (21-51); MONO 6 % (1-9); SEGS 91 % (42-75)
[2019-03-02] MEDS: XOPENEX NEB INH SCH ×5 (08:03→23:30)
[2019-03-02] MEDS: NICODERM PATCH TD SCH (08:56)
[2019-03-02] MEDS: CYMBALTA PO SCH (08:56)
[2019-03-02] MEDS: FERROUS SULFATE PO SCH (08:56)
[2019-03-02] MEDS: ASPIRIN EC PO SCH (08:56)
[2019-03-02] MEDS: LOVENOX SUBQ SCH (08:56)
[2019-03-02] MEDS ORDERED: SAMSCA PO ONE (09:36)
[2019-03-02] MEDS ORDERED: LACTULOSE PO PRN (09:49)
[2019-03-02] MEDS ORDERED: FLEXERIL PO ONE (09:50)
[2019-03-02] MEDS: MIRALAX PO SCH (10:33)
--- NOTE | 2019-03-02 10:34 | PROGRESS NOTE ---
DATE: 03/02/2019 SUBJECTIVE: The patient is not working as hard to breathe today. She looks better. OBJECTIVE: Blood pressure 174/93, heart rate of 101, respiratory rate 21, and temperature 99 degrees. She is about 89 to 92% on her 40%.Cardiovascular: Regular rate and rhythm. Pulmonary: Diminished breath sounds at the bases, but overall doing okay. No wheezing. Still limited air movement throughout. GI: Soft, nontender, and nondistended. Bowel sounds are positive. LABORATORY DATA: White count 6, hemoglobin and hematocrit 12 and 38, and platelets 335,000, pH 7.42, pCO2 75, PaO2 80, sodium 130, and creatinine is 0.3. Chest x-ray is clear. PROBLEM LIST: 1. Acute hypoxic and hypercapnic respiratory failure due to severe COPD exacerbation. She is on BiPAP and high-flow O2 intermittently. This is the best I have seen her since she has been here. She is not struggling as much. She is still very tenuous, but I think hopefully we are over the hump as far as that is concerned. Pulmonary is following. This is not going to be a very quick process, but we will continue to follow. 2. Elevated troponin due to demand ischemia. We will get cardiac workup when she is stable. 3. Hyponatremia, possibly due to diuretics. Samsca improved her sodium somewhat. We will get another dose of Samsca and follow. 4. Severe COPD exacerbation. Continue antibiotic steroids. There is no clear pneumonia. I am going to decrease her steroids just a little bit and follow. DISPOSITION: This is going to be a slow process. We may need to consider LTAC as an option. Initiate a bowel regimen as well. cc: Yaakov Thomas MD
[2019-03-02] MEDS: ROCEPHIN 1 GM in NS 50 ML IV SCH (12:20)
[2019-03-02] MEDS: MORPHINE IV PRN (20:37)
[2019-03-03] MEDS: MORPHINE IV PRN ×3 (01:48→20:40)
[2019-03-03] MEDS: CARDIZEM PO SCH ×4 (01:58→20:39)
[2019-03-03] MEDS: ATROVENT NEB INH SCH ×5 (04:02→19:15)
[2019-03-03 04:59] LABS: ALLEN TEST YES; BE 20.5 mmoll (-3.0-3.0); BLOOD TYPE ARTERIAL; HCO3-(ACT) 40.9 mmoll (20.0-26.0); METHB 1.2 % (0.0-1.5); O2(CT) 17.6 mL/dL (15.0-23.0); PO2(98.6) 87 mmHg (60-100); SAMPLE BLOOD; SAO2 97.4 % (95.0-100.0); SRATE 16 BPM; THB 13.1 g/dL (11.5-17.4); pH(98.6) 7.44 (7.35-7.45)
[2019-03-03 05:02] LABS: MODALITY BI PAP; PCO2(98.6) 72 mmHg (35-45)
[2019-03-03 05:53] LABS: EOS# 0.01 X1000 (0.0-0.7); EOS% 0.1 % (0.0-10.0); HEMATOCRIT 38.8 % (37.0-47.0); HEMOGLOBIN 12.6 g/dL (12.0-16.0); IMM GRAN# 0.04 X1000 (0.0-0.04); IMM GRAN% 0.4 % (0.0-0.5); LYMPH# 0.28 X1000 (1.2-3.4); LYMPH% 3.1 % (20.5-51.1); MCHC 32.5 g/dL (33-37); MCV 80.2 FL (81-99); MONO# 0.29 X1000 (0.11-0.59); MONO% 3.2 % (1.7-9.3); MPV 9.9 FL (7.4-10.4); NEUT# 8.41 X1000 (1.4-6.5); NEUT% 93.2 % (42.2-75.2); PLT 341 X1000 (130-400); RBC 4.84 XMIL (4.2-5.4); RDW 18.6 % (11.5-14.5); WBC 9.03 X1000 (4.8-10.8)
[2019-03-03 06:00] LABS: ESTIMATED GFR > 60
[2019-03-03 06:18] LABS: AGAP 8; BUN 11 mg/dL (8-22); CALCIUM 8.9 mg/dL (8.8-10.2); CHLORIDE 82 mmol/L (98-107); COSMO 261; CREATININE 0.3 mg/dL (0.5-0.9); GLUCOSE 139 mg/dL (70-104); POTASSIUM 3.9 mmol/L (3.5-5.1); SODIUM 129 mmol/L (136-145); TCO2 39 mmol/L (25-35)
[2019-03-03 06:36] LABS: LYMPHS 4 % (21-51); MONO 3 % (1-9); SEGS 93 % (42-75)
--- NOTE | 2019-03-03 07:02 | PROGRESS NOTE ---
DATE: 03/03/2019 SUBJECTIVE: Ms. Mathews says she is breathing a little better. She has the BiPAP on. She appears to be comfortable. OBJECTIVE: She has remained afebrile. Temperature 96.8 degrees, pulse 82, respirations 16, and blood pressure 139/99. HEENT: Pupils are equal and round. Lungs: Clear in all lung monterroso anterolateral Cardiovascular: Regular rhythm and rate without murmur or S3. Abdomen: Soft. Skin: Warm and dry. Urine output was 4 L really. LABORATORY DATA: Labs from this morning, white count 9030, hematocrit is 38, hemoglobin 12, and platelet count 341,000. Electrolytes are pending. Electrolytes from yesterday show sodium was 130, had been coming up. Potassium 3.8, chloride 83, BUN 10, and creatinine 0.3. Blood sugars 103, 162 and 136. Chest x-ray this morning, lung monterroso appear clear. Expanded lung monterroso consistent with COPD. I do not see any definite infiltrates. ASSESSMENT AND PLAN: 1. Acute hypoxic and hypercapnic respiratory failure due to severe COPD exacerbation. She is on BiPAP and has a high-flow O2 on BiPAP right now, but her air and gas exchange seem to be getting better. Hopefully, she will continue to show improvement. Pulmonary is following and continue present pulmonary toilet and bronchodilators. 2. Elevated troponin due to demand ischemia. Cardiology involved. 3. Hyponatremia due to her diuretics, and this seems to be improving slowly. They did give her a dose of Samsca. I think she has had a couple doses of Samsca. 4. Severe chronic obstructive pulmonary disease exacerbation. There is no clear pneumonia. She is on antibiotics. We will continue those for now. REVIEW OF ORDERS: She is on Cardizem 60 mg q.6 hours, aspirin 81 mg a day, Catapres 0.1 mg t.i.d. p.r.n., Cymbalta 30 mg p.o. daily, Flexeril 10 mg a day, ferrous sulfate 325 mg a day, Xopenex nebulizer 0.63 mg inhalation q.4 hours, methylprednisone 60 mg IV q.8. We will cut that down to 40 mg q.8. She is on a NicoDerm patch 21 mg a day, Protonix 40 mg a day, MiraLAX 17 g daily, Rocephin 1 g IV q.24 hours. She got a dose of Samsca yesterday 15 mg. cc: Elvis Aj MD
[2019-03-03] MEDS: SOLU-MEDROL IV SCH ×4 (07:06→21:19)
[2019-03-03] MEDS: PROTONIX PO SCH (07:07)
--- NOTE | 2019-03-03 07:20 | Diag Imaging Result Doc PS360 ---
EXAM: CHEST-PORTABLE INDICATION: dyspnea TECHNIQUE: One view COMPARISON: 03/02/2019 FINDINGS: The lungs are grossly clear. There is no discrete pleural fluid collection or pneumothorax. The cardiomediastinal silhouette and central vasculature are grossly unremarkable. IMPRESSION: Stable chest with no definite acute pathology. Electronically signed by Reagan Jones 03/03/2019 7:17 AM
[2019-03-03] MEDS: XOPENEX NEB INH SCH ×4 (08:03→19:15)
[2019-03-03] MEDS: MIRALAX PO SCH (08:44)
[2019-03-03] MEDS: NICODERM PATCH TD SCH (08:44)
[2019-03-03] MEDS: LOVENOX SUBQ SCH (08:44)
[2019-03-03] MEDS: ASPIRIN EC PO SCH (08:44)
[2019-03-03] MEDS: CYMBALTA PO SCH (08:44)
[2019-03-03] MEDS: FERROUS SULFATE PO SCH (08:44)
[2019-03-03] MEDS: ZOFRAN IV PRN (11:48)
[2019-03-03] MEDS: ROCEPHIN 1 GM in NS 50 ML IV SCH (12:10)
[2019-03-03] MEDS: NS 1,000 ML IV SCH (14:15)
[2019-03-04] MEDS: XOPENEX NEB INH SCH ×7 (00:13→22:57)
[2019-03-04] MEDS: ATROVENT NEB INH SCH ×8 (00:14→22:57)
[2019-03-04] MEDS: NS 1,000 ML IV SCH ×3 (02:25→14:30)
[2019-03-04] MEDS: MORPHINE IV PRN ×4 (02:42→22:20)
[2019-03-04] MEDS: CARDIZEM PO SCH ×4 (02:45→21:00)
[2019-03-04 04:54] LABS: ALLEN TEST YES; BLOOD TYPE ARTERIAL; HCO3-(ACT) 36.6 mmoll (20.0-26.0); METHB 1.2 % (0.0-1.5); O2(CT) 17.9 mL/dL (15.0-23.0); O2HB 95.7 % (95.0-99.0); PO2(98.6) 95 mmHg (60-100); SAMPLE BLOOD; SAO2 98.1 % (95.0-100.0); THB 13.2 g/dL (11.5-17.4); pH(98.6) 7.44 (7.35-7.45)
[2019-03-04 04:55] LABS: MODALITY BI PAP; PCO2(98.6) 62 mmHg (35-45)
[2019-03-04 06:09] LABS: HEMATOCRIT 39.3 % (37.0-47.0); HEMOGLOBIN 12.5 g/dL (12.0-16.0); IMM GRAN# 0.07 X1000 (0.0-0.04); IMM GRAN% 0.7 % (0.0-0.5); LYMPH# 0.33 X1000 (1.2-3.4); LYMPH% 3.3 % (20.5-51.1); MCH 25.4 PG (27-31); MCHC 31.8 g/dL (33-37); MCV 79.9 FL (81-99); MONO# 0.37 X1000 (0.11-0.59); MONO% 3.7 % (1.7-9.3); MPV 10.1 FL (7.4-10.4); NEUT# 9.34 X1000 (1.4-6.5); NEUT% 92.3 % (42.2-75.2); PLT 364 X1000 (130-400); RBC 4.92 XMIL (4.2-5.4); RDW 18.7 % (11.5-14.5); WBC 10.11 X1000 (4.8-10.8)
[2019-03-04] MEDS: SOLU-MEDROL IV SCH ×4 (06:34→22:22)
[2019-03-04] MEDS: PROTONIX PO SCH (06:35)
--- NOTE | 2019-03-04 07:19 | Diag Imaging Result Doc PS360 ---
EXAM: CHEST-PORTABLE INDICATION: dyspnea TECHNIQUE: One view COMPARISON: 03/03/2019 FINDINGS: The lungs are grossly clear. There is no discrete pleural fluid collection or pneumothorax. The cardiomediastinal silhouette and central vasculature are grossly unremarkable. IMPRESSION: No evidence of acute pathology by plain radiograph. Electronically signed by Reagan Jones 03/04/2019 7:17 AM
[2019-03-04] MEDS: FERROUS SULFATE PO SCH (08:31)
[2019-03-04] MEDS: ASPIRIN EC PO SCH (08:31)
[2019-03-04] MEDS: CYMBALTA PO SCH (08:31)
[2019-03-04] MEDS: NICODERM PATCH TD SCH (08:31)
[2019-03-04] MEDS: MIRALAX PO SCH (08:31)
[2019-03-04] MEDS: LOVENOX SUBQ SCH (08:31)
[2019-03-04] MEDS: ROCEPHIN 1 GM in NS 50 ML IV SCH (12:10)
[2019-03-04] MEDS ORDERED: LASIX IV ONE (14:51)
[2019-03-04] MEDS: ZOFRAN IV PRN (15:11)
--- NOTE | 2019-03-04 20:25 | PROGRESS NOTE ---
DATE: 03/04/2019 SUBJECTIVE: The patient denies having any acute issues this morning and feels well. She does have generalized weakness. PHYSICAL EXAMINATION: Vital Signs: Temperature 98.7 degrees, pulse 99 per minute, respiratory rate 19 per minute, blood pressure 150/88, pulse oximetry 90% on 40% of oxygen. Cardiovascular: First and second heart sounds are audible without any murmurs. Regular tachycardia is noted. Respiratory: Bilateral lung air entry is moderately decreased, but there are no rales or rhonchi present on auscultation. Gastrointestinal: Abdomen is soft and nontender. Normal bowel sounds are present. DIAGNOSTIC DATA: CBC is nondiagnostic and chemistry from yesterday showed a sodium level of 129. Rest of the chemistry is nondiagnostic. IMPRESSION: 1. Acute hypoxemic hypercarbic respiratory failure with chronic obstructive pulmonary disease exacerbation. 2. Hyponatremia. 3. Troponin elevation secondary to demand ischemia secondary to respiratory failure. PLAN: 1. We will continue with broad-spectrum antibiotics and systemic steroids along with bronchodilators. 2. She will be continued on diltiazem 60 mg every 6 hours. That has been keeping her heart rate under control. 3. We will also continue with pantoprazole for gastrointestinal prophylaxis and monitor her electrolytes. 4. I believe her condition is gradually getting better, but she will need physical therapy once she is out of the intensive care unit. cc: Mahad Shannon MD
--- NOTE | 2019-03-04 22:05 | PULMONOLOGY PROGRESS NOTE ---
DATE: 03/04/2019 SUBJECTIVE: The patient is awake, alert, and conversant. She reports she is eating some of her meal, but that the food is "not that good." OBJECTIVE: Vital signs: The patient has been afebrile for the last 24 hours. Blood pressure 149/94, heart rate 92, respiratory rate 22, oxygen saturation 91%. HEENT: Pupils are equal and reactive. Oropharynx appears clear. Neck: Supple. Chest: Reveals prolonged expiratory phase. Cardiac: S1, S2. Abdomen: Soft. Extremities: Reveal trace edema. LABORATORIES: Chest x-ray reveals hyperinflation, but no evidence of acute disease. White blood count 10.1, hemoglobin 12.5, platelet count 364,000. Arterial blood gas, pH 7.44, pCO2 of 62, pO2 of 95 on BiPAP. IMPRESSION: A 73-year-old with 1. Acute on chronic hypoxemic respiratory failure. 2. Chronic hypercapnic respiratory failure. 3. Pneumonia with continued radiographic improvement. 4. Encephalopathy which has resolved. 5. Ongoing tobacco use at the time of admission. RECOMMENDATIONS: 1. Continue to cycle BiPAP at bedtime and p.r.n. 2. Continue bronchodilator regimen. 3. Continue antibiotic regimen. 4. Smoking cessation. 5. Okay for transfer to the floor. The patient appears to be at her baseline. cc: Phillip Puentes MD
[2019-03-05] MEDS: CARDIZEM PO SCH ×4 (02:50→21:59)
[2019-03-05 04:35] LABS: ALLEN TEST YES; BE 17.1 mmoll (-3.0-3.0); BLOOD TYPE ARTERIAL; HCO3-(ACT) 38.2 mmoll (20.0-26.0); METHB 0.9 % (0.0-1.5); O2(CT) 18.1 mL/dL (15.0-23.0); O2HB 95.7 % (95.0-99.0); PO2(98.6) 85 mmHg (60-100); SAMPLE BLOOD; THB 13.4 g/dL (11.5-17.4); pH(98.6) 7.49 (7.35-7.45)
[2019-03-05 04:37] LABS: MODALITY BI PAP; PCO2(98.6) 57 mmHg (35-45)
[2019-03-05] MEDS: ATROVENT NEB INH SCH ×6 (04:43→23:20)
[2019-03-05] MEDS: SOLU-MEDROL IV SCH ×3 (05:49→21:59)
[2019-03-05] MEDS: PROTONIX PO SCH ×2 (05:50→06:26)
[2019-03-05 06:34] LABS: HEMATOCRIT 39.1 % (37.0-47.0); HEMOGLOBIN 12.9 g/dL (12.0-16.0); IMM GRAN# 0.05 X1000 (0.0-0.04); IMM GRAN% 0.5 % (0.0-0.5); LYMPH# 0.41 X1000 (1.2-3.4); LYMPH% 4.2 % (20.5-51.1); MCH 25.9 PG (27-31); MCV 78.5 FL (81-99); MONO% 4.1 % (1.7-9.3); MPV 9.7 FL (7.4-10.4); NEUT# 8.91 X1000 (1.4-6.5); NEUT% 91.2 % (42.2-75.2); PLT 378 X1000 (130-400); RBC 4.98 XMIL (4.2-5.4); RDW 18.8 % (11.5-14.5); WBC 9.77 X1000 (4.8-10.8)
[2019-03-05 06:36] LABS: ESTIMATED GFR > 60
[2019-03-05 06:44] LABS: AGAP 13; ALB/GLOB RATIO 1.9; ALBUMIN 3.5 g/dL (3.5-5.0); ALKALINE PHOSPHATASE 35 U/L (32-104); BUN 13 mg/dL (8-22); CALCIUM 8.5 mg/dL (8.8-10.2); CHLORIDE 81 mmol/L (98-107); COSMO 256; CREATININE 0.2 mg/dL (0.5-0.9); GLUCOSE 115 mg/dL (70-104); GOT 20 U/L (10-30); GPT 18 U/L (10-36); POTASSIUM 3.9 mmol/L (3.5-5.1); SODIUM 127 mmol/L (136-145); TCO2 33 mmol/L (25-35); TOTAL BILIRUBIN 0.39 mg/dL (0.20-1.00); TOTAL PROTEIN 5.3 g/dL (6.3-8.3)
[2019-03-05] MEDS: XOPENEX NEB INH SCH ×5 (07:44→23:20)
--- NOTE | 2019-03-05 08:58 | Diag Imaging Result Doc PS360 ---
CHEST-PORTABLE - 03/05/2019 INDICATION: dyspnea COMPARISON: 03/04/2019 FINDINGS: The lungs are clear. Heart size is normal. No pneumothorax or pleural effusion. IMPRESSION: Negative exam. Electronically signed by Nelson Chavez 03/05/2019 8:56 AM
[2019-03-05] MEDS: CYMBALTA PO SCH (09:12)
[2019-03-05] MEDS: NICODERM PATCH TD SCH (09:12)
[2019-03-05] MEDS: FERROUS SULFATE PO SCH (09:13)
[2019-03-05] MEDS: MIRALAX PO SCH ×2 (09:13→21:59)
[2019-03-05] MEDS: LOVENOX SUBQ SCH (09:13)
[2019-03-05] MEDS: ASPIRIN EC PO SCH (09:13)
[2019-03-05] MEDS: ROCEPHIN 1 GM in NS 50 ML IV SCH (12:08)
[2019-03-05] MEDS: MORPHINE IV PRN (16:11)
--- NOTE | 2019-03-05 20:47 | PROGRESS NOTE ---
DATE: 03/05/2019 SUBJECTIVE: The patient is resting comfortably in bed. She states that she did not sleep well last night. She states that she wants to be moved to a regular room. OBJECTIVE: Vital Signs: Temperature 97.6 degrees, blood pressure 145/93, heart rate 103, respirations 18, O2 saturation is 98% on high-flow oxygen. Urine output 2.1L, intake 2.2 L. General: This is a chronically ill-appearing, elderly female, lying in bed in no acute distress. Heart: S1, S2 normal. Regular rate and rhythm. Lungs: Equal air entry bilaterally. Diminished breath sounds at the bases. Abdomen: Positive bowel sounds. Soft, nontender, nondistended. Extremities: No edema. No cyanosis. Neurologic: The patient is alert and oriented x4. LABORATORY: White blood cell count 9.7, hemoglobin 12, hematocrit 39, platelets 378,000. ABG, pH of 7.49, pCO2 of 57, PO2 of 85. Sodium 127, potassium 3.9, chloride 81, CO2 of 33, BUN 13, creatinine 0.2, glucose is 115. ASSESSMENT AND PLAN: 1. Acute on chronic hypoxemic and hypercapnic respiratory failure. Continue to treat the underlying pneumonia. 2. Pneumonia. Continue with antibiotic therapy. 3. Chronic obstructive pulmonary disease exacerbation. Continue on IV steroids, bronchodilator therapy, and supplemental oxygen. 4. Tobacco dependence. The patient has been counseled about smoking cessation. Continue on the NicoDerm patch. 5. Hypertension. Continue on Cardizem. 6. Constipation. We will start the patient on scheduled laxative therapy. 7. Deep vein thrombosis prophylaxis. Continue on Lovenox. cc: Angie Kincaid MD
--- NOTE | 2019-03-05 21:15 | PULMONOLOGY PROGRESS NOTE ---
DATE: 03/05/2019 SUBJECTIVE: The patient is awake, alert, and conversant. She reports her shortness of breath has diminished. OBJECTIVE: The patient has been afebrile for the last 24 hours. Blood pressure 147/64, heart rate 92, respiratory rate 18, oxygen saturation 95%. HEENT: Pupils are equal and reactive. Oropharynx appears clear. Neck: Supple. Chest: Good air entry bilaterally with prolonged expiratory phase. Cardiac: S1-S2. Abdomen: Soft. Extremities: Without edema. LABORATORY AND DIAGNOSTIC DATA: Arterial blood gas reveals a pH 7.49, pCO2 of 57, pO2 of 85. Chest x-ray reveals no evidence of acute disease. Sodium 127, potassium 3.9, chloride 81, bicarbonate 33, BUN 13, creatinine 0.2. White blood count 9.7, hemoglobin 12.9, platelet count 378,000. IMPRESSION: A 73-year-old with: 1. Acute on chronic hypoxemic respiratory failure. 2. Chronic hypercapnic respiratory failure. 3. Pneumonia with radiographic resolution. 4. Ongoing tobacco use. RECOMMENDATIONS: 1. Anticipate transfer to the floor today. 2. Continue to cycle BiPAP at bedtime and p.r.n. 3. Encourage smoking cessation. 4. Continue antibiotic regimen. cc: Phillip Puentes MD
[2019-03-05] MEDS: DULCOLAX PR SCH (21:59)
[2019-03-05] MEDS: LACTULOSE PO SCH (21:59)
[2019-03-06] MEDS: CARDIZEM PO SCH ×4 (01:39→21:48)
[2019-03-06] MEDS: ATROVENT NEB INH SCH ×6 (04:43→19:10)
[2019-03-06] MEDS: PROTONIX PO SCH (06:14)
[2019-03-06] MEDS: SOLU-MEDROL IV SCH ×3 (06:14→21:48)
[2019-03-06 07:06] LABS: ESTIMATED GFR > 60; HEMATOCRIT 40.5 % (37.0-47.0); HEMOGLOBIN 13.5 g/dL (12.0-16.0); MCH 26.2 PG (27-31); MCHC 33.3 g/dL (33-37); MCV 78.6 FL (81-99); MPV 9.5 FL (7.4-10.4); RBC 5.15 XMIL (4.2-5.4); RDW 19.2 % (11.5-14.5); WBC 23.19 X1000 (4.8-10.8)
[2019-03-06 07:13] LABS: AGAP 10; BUN 11 mg/dL (8-22); CALCIUM 8.8 mg/dL (8.8-10.2); CHLORIDE 81 mmol/L (98-107); COSMO 251; CREATININE 0.2 mg/dL (0.5-0.9); GLUCOSE 134 mg/dL (70-104); POTASSIUM 3.7 mmol/L (3.5-5.1); SODIUM 124 mmol/L (136-145); TCO2 33 mmol/L (25-35)
[2019-03-06] MEDS: XOPENEX NEB INH SCH ×5 (08:22→19:09)
[2019-03-06] MEDS: NS 1,000 ML IV SCH ×2 (08:47→21:47)
[2019-03-06] MEDS: NICODERM PATCH TD SCH (08:47)
[2019-03-06] MEDS: ASPIRIN EC PO SCH (08:47)
[2019-03-06] MEDS: NORVASC PO SCH ×2 (08:47→21:48)
[2019-03-06] MEDS: LOVENOX SUBQ SCH (08:48)
[2019-03-06] MEDS: LACTULOSE PO SCH ×2 (08:48→21:49)
[2019-03-06] MEDS: FLEXERIL PO PRN (08:48)
[2019-03-06] MEDS: ZOFRAN IV PRN (08:48)
[2019-03-06] MEDS: FERROUS SULFATE PO SCH (08:48)
[2019-03-06] MEDS: MIRALAX PO SCH ×3 (08:49→21:49)
[2019-03-06] MEDS: CYMBALTA PO SCH (08:49)
[2019-03-06] MEDS ORDERED: COMPAZINE IV ONE (12:07)
[2019-03-06] MEDS: ROCEPHIN 1 GM in NS 50 ML IV SCH (14:01)
--- NOTE | 2019-03-06 15:41 | PULMONOLOGY PROGRESS NOTE ---
DATE: 03/06/2019 SUBJECTIVE: The patient is awake and alert. She reports her oxygen became transiently disconnected this morning, and she had significant dyspnea and panic. She is recovering now. OBJECTIVE: Vital signs: The patient has been afebrile over the last 24 hours. Blood pressure is 173/74, heart rate 90, respiratory rate 17, oxygen saturation 95% on high-flow O2. HEENT: Pupils are equal and reactive. Oropharynx appears clear. Neck: Supple. Chest: Reveals diminished breath sounds bilaterally. Cardiac: Distant heart sounds. Normal S1, normal S2. Abdomen: Soft. Extremities: Without edema. LABORATORIES: Sodium 124, potassium 3.7, chloride 81, bicarbonate 33, BUN 11, creatinine 0.2. White blood count 23,000, hemoglobin 13.5, platelet count 428,000. IMPRESSION: A 73-year-old with: 1. Acute on chronic hypoxemic respiratory failure. 2. Chronic hypercapnic respiratory failure. 3. Pneumonia with radiographic resolution. She has a new leukocytosis today. 4. Ongoing tobacco use. DISCUSSION: A 73 year old with problems outlined above. She has relatively severe chronic obstructive pulmonary disease. It is not clear that she will significantly improved from this juncture. Palliative Care consult may be a consideration. PLAN: 1. Follow-up chest x-ray tomorrow. 2. Continue to cycle BiPAP at bedtime and p.r.n. 3. Encourage smoking cessation. cc: Phillip Puentes MD
--- NOTE | 2019-03-06 16:22 | Diag Imaging Result Doc PS360 ---
ABDOMEN FLAT/UPRIGHT - 03/06/2019 INDICATION: constipation COMPARISON: None FINDINGS: There is severe constipation with rectal stool impaction. There is severe gaseous distention of the transverse colon, nonspecific. No definite free air. IMPRESSION: Severe constipation with severe rectal stool impaction. Nonspecific distention of the transverse colon. Electronically signed by Nelson Chavez 03/06/2019 4:20 PM
--- NOTE | 2019-03-06 18:05 | PROGRESS NOTE ---
DATE: 03/06/2019 SUBJECTIVE: The patient states that she feels nauseous today and could not eat her breakfast. OBJECTIVE: Vital Signs: Temperature 98.1 degrees, blood pressure 165/65, heart rate 98, respirations 17, O2 saturation is 97% on high-flow oxygen. Intake 280. Output 1,000. General: This is a chronically ill-appearing, elderly female lying in bed, in no acute distress. Heart: S1, S2 normal. Regular rate and rhythm. Lungs: Diminished breath sounds bilaterally. No wheezing. No rales. Abdomen: Positive bowel sounds. Soft, nontender, nondistended. Extremities: No edema. No cyanosis. Neurologic: The patient is alert and oriented x4. LABS: White blood cell count 23, hemoglobin 13, hematocrit 40, platelets 428,000. Sodium 124, potassium 3.7, chloride 81, CO2 33, BUN 11, creatinine 0.2, glucose 134. Abdominal x-ray shows severe constipation with severe rectal stool impaction. ASSESSMENT AND PLAN: 1. Acute on chronic hypoxemic and hypercapnic respiratory failure. Unchanged. Continue with the current treatment regimen. 2. Pneumonia. Continue with antibiotics and bronchodilator therapy. 3. Chronic obstructive pulmonary disease exacerbation. Continue on IV steroids bronchodilator therapy and supplemental oxygen. 4. Severe constipation with rectal impaction. Continue with laxative therapy. The nurses will disimpacted the patient. 5. Hypertension. Continue on Cardizem. 6. Hyponatremia. We will start the patient on gentle IV fluid hydration and monitor the sodium. 7. Gastroesophageal reflux disease. Continue on Protonix. 8. Situational depression. Continue on Cymbalta. 9. Deep vein thrombosis prophylaxis. Continue on Lovenox. cc: Angie Kincaid MD MTDD
[2019-03-06] MEDS: DULCOLAX PR SCH (21:49)
[2019-03-07] MEDS: ATROVENT NEB INH SCH ×7 (00:59→22:21)
[2019-03-07] MEDS: XOPENEX NEB INH SCH ×6 (00:59→22:56)
[2019-03-07] MEDS: CARDIZEM PO SCH ×4 (03:48→21:23)
[2019-03-07 05:45] LABS: HEMATOCRIT 37.8 % (37.0-47.0); HEMOGLOBIN 12.6 g/dL (12.0-16.0); MCH 26.3 PG (27-31); MCHC 33.3 g/dL (33-37); MCV 78.8 FL (81-99); RBC 4.8 XMIL (4.2-5.4); RDW 19.1 % (11.5-14.5); WBC 19.41 X1000 (4.8-10.8)
[2019-03-07 06:03] LABS: ESTIMATED GFR > 60
[2019-03-07 06:14] LABS: SODIUM 126 mmol/L (136-145)
[2019-03-07 06:15] LABS: AGAP 8; BUN 6 mg/dL (8-22); CALCIUM 8.1 mg/dL (8.8-10.2); CHLORIDE 84 mmol/L (98-107); COSMO 251; CREATININE 0.2 mg/dL (0.5-0.9); GLUCOSE 95 mg/dL (70-104); POTASSIUM 3.3 mmol/L (3.5-5.1); TCO2 34 mmol/L (25-35)
[2019-03-07] MEDS: SOLU-MEDROL IV SCH ×4 (06:19→23:57)
[2019-03-07 06:40] LABS: PROTIME 13.3 Seconds (11.0-16.0)
--- NOTE | 2019-03-07 07:04 | Diag Imaging Result Doc PS360 ---
CHEST-PORTABLE - 03/07/2019 INDICATION: abnormal exam COMPARISON: 03/05/2019 FINDINGS: Stable hyperexpanded lungs compatible with COPD. The lungs are clear. Heart size is normal. No pneumothorax or pleural effusion. IMPRESSION: COPD. Electronically signed by Nelson Chavez 03/07/2019 7:02 AM
[2019-03-07] MEDS: MIRALAX PO SCH ×3 (08:40→21:23)
[2019-03-07] MEDS: LACTULOSE PO SCH ×2 (08:40→21:23)
[2019-03-07] MEDS ORDERED: NS 250 ML ONE (08:41)
[2019-03-07] MEDS: NORVASC PO SCH ×2 (08:41→21:23)
[2019-03-07] MEDS: PROTONIX PO SCH (08:41)
[2019-03-07] MEDS: ASPIRIN EC PO SCH (08:41)
[2019-03-07] MEDS: CYMBALTA PO SCH (08:41)
[2019-03-07] MEDS: LOVENOX SUBQ SCH ×3 (08:42→19:02)
[2019-03-07] MEDS: NICODERM PATCH TD SCH (08:42)
[2019-03-07] MEDS: FERROUS SULFATE PO SCH (08:42)
[2019-03-07 08:44] LABS: BLOOD TYPE ARTERIAL; SAMPLE BLOOD
[2019-03-07 08:45] LABS: ALLEN TEST YES; BE 12.2 mmoll (-3.0-3.0); HCO3-(ACT) 34.4 mmoll (20.0-26.0); METHB 0.9 % (0.0-1.5); O2HB 96.6 % (95.0-99.0); PO2(98.6) 102 mmHg (60-100); SAO2 98.8 % (95.0-100.0); THB 13.2 g/dL (11.5-17.4); pH(98.6) 7.44 (7.35-7.45)
[2019-03-07 08:49] LABS: MODALITY HIGH FLOW NASAL CAN; PCO2(98.6) 57 mmHg (35-45)
[2019-03-07] MEDS ORDERED: POTASSIUM CHLORIDE 20% LIQUID PO ONE (09:00)
[2019-03-07] MEDS: NS 1,000 ML IV SCH ×3 (09:39→23:57)
--- NOTE | 2019-03-07 09:50 | Diag Imaging Result Doc PS360 ---
ABDOMEN FLAT/UPRIGHT - 03/07/2019 INDICATION: constipation COMPARISON: 03/06/2019 FINDINGS: There is stable fecal impaction of the distal colon and probably the rectum. Stable severe gaseous distention of mainly the transverse colon. No definite free air. IMPRESSION: Severe constipation. Severe nonspecific gaseous distention of the transverse colon. No change from prior. Electronically signed by Nelson Chavez 03/07/2019 9:47 AM
--- NOTE | 2019-03-07 10:36 | PROGRESS NOTE ---
DATE: 03/07/2019 SUBJECTIVE: The patient states that she feels horrible today. She had two bowel movements early this morning. She continues to complain of shortness of breath. OBJECTIVE: Vital Signs: Temperature 98.1 degrees, blood pressure 152/88, heart rate 91, respirations 18, O2 saturation 97% on high-flow oxygen. Intake 581, output 1.5 L. General: This is a chronically ill-appearing, elderly female, lying in bed in no acute distress. Heart: S1, S2 normal. Tachycardic. Lungs: Diminished breath sounds bilaterally. No wheezing. No rales. Abdomen: Positive bowel sounds. Soft, nontender, nondistended. Extremities: No edema. No cyanosis. Neurologic: The patient is alert and oriented x4. No focal neurologic deficits noted. LABORATORY DATA: White blood cell count 19, hemoglobin 12, hematocrit 37, platelets 354,000. INR 1. PH 7.4, pCO2 of 57, PO2 of 102, bicarb 34. Sodium 126, potassium 3.3, chloride 84, CO2 of 34, BUN 6, creatinine 0.2, glucose 95. IMAGING PROCEDURES: 1. Chest x-ray shows COPD. 2. Abdominal x-ray shows severe constipation and fecal impaction of the distal colon and rectum. ASSESSMENT AND PLAN: 1. Acute on chronic hypoxemic and hypercapnic respiratory failure. Unchanged. The patient remains on high-flow oxygen. Continue with the current treatment regimen. 2. Chronic obstructive pulmonary disease exacerbation. Continue on intravenous steroids, antibiotics, and bronchodilator therapy. 3. Severe constipation with rectal impaction. The patient is having stool around the impaction. The nurses were unable to reach the impaction. Will consult Gastroenterology. 4. Hypertension. Continue on Cardizem. 5. Situational depression. Continue on Celexa. 6. Hyponatremia. Slightly improved. Continue with gentle intravenous fluid hydration, and monitor the sodium. 7. Gastroesophageal reflux disease. Continue on Protonix. 8. Deep vein thrombosis prophylaxis. Continue on Lovenox. cc: Angie Kincaid MD MTDD
[2019-03-07] MEDS ORDERED: GOLYTELY PO ONE (14:00)
[2019-03-07] MEDS: ROCEPHIN 1 GM in NS 50 ML IV SCH (14:06)
--- NOTE | 2019-03-07 17:57 | GASTROENTEROLOGY CONSULTATION ---
DATE: 03/07/2019 ATTENDING PHYSICIAN: Angie Kincaid MD PRIMARY CARE PHYSICIAN: SINCERE Staley REASON FOR CONSULTATION: Constipation and fecal impaction. HISTORY OF PRESENT ILLNESS: Ms. Mathews is a 73-year-old female who was admitted on 02/24/2019 for altered mental status. She was diagnosed with acute on chronic hypercapnic respiratory failure, COPD exacerbation, elevated troponins and hypertension. During the course of admission, she was noted to have worsening constipation with minimal improvement with oral laxatives. Her abdominal x-ray was done on 03/07, which showed evidence of stable fecal impaction of distal colon and probably the rectum and stable severe gaseous distention of mainly the transverse colon. No definite free air was noted. Gastroenterology consulted for further management. PAST MEDICAL HISTORY: COPD, chronic respiratory failure, hypertension and chronic constipation. PAST SURGICAL HISTORY: Unknown. ALLERGIES: Meperidine. SOCIAL HISTORY: She is a chronic smoker. No history of alcohol or illicit drug abuse. FAMILY HISTORY: Unknown. REVIEW OF SYSTEMS: The patient does have shortness of breath, which is improving. She denies any chest pain. She denies any nausea or vomiting. She does complain of abdominal discomfort. She complains of constipation. She does have arthritis. She denies any current neurological complaints although on admission she had altered mental status which is improved. MEDICATIONS IN THE HOSPITAL: 1. Dulcolax, Cardizem, DuoNeb inhaler, Norvasc, aspirin 81 mg every day. Catapres, Flexeril, Cymbalta, Lovenox 40 mg subcutaneous daily, ferrous sulfate once daily. Atrovent nebulizer, lactulose b.i.d., Xopenex inhaler every 4 hours. Solu-Medrol 40 mg IV q.8 hours. 2. Morphine 2 mg IV every 4 hours, NicoDerm patch 21 mg transdermal daily. Zofran, Protonix once daily. MiraLAX b.i.d. Ceftriaxone once daily, potassium repletion. 3. She is on clear liquid diet and Boost supplementation. PHYSICAL EXAMINATION: Vital signs: Temperature 98.1 degrees, pulse of 92, respiratory rate 20, blood pressure of 152/88, saturating 99% on 40% FiO2. Body weight of 140 pounds, BMI 23.3 kg/m2. General: Thinly built, lying in bed, in no acute distress. HEENT: No pallor. No icterus. Nasal cannula in place. Neck: Supple. Abdomen: Protuberant. Mild distention noted. Mild discomfort in the periumbilical region. No rebound or guarding. Extremities: No cyanosis, clubbing. Neurologic: She is alert, awake, oriented x3. LABORATORY DATA: Hemoglobin and hematocrit is 12.6 and 37.8, white count of 19.41. Platelet count 254,000. INR 1, PT of 13.3, ABG showing pH of 7.44, pCO2 57, PO2 102. This is on high-flow nasal cannula at 40% FiO2. Sodium 122, potassium 3.3, chloride of 84, bicarbonate 34, anion gap of 8, BUN of 6, creatinine 0.2, glucose of 95, calcium is 8.1. Blood culture x2 negative 02/18/2019. Imaging as described in HPI. IMPRESSION AND PLAN: 1. Fecal impaction and severe constipation. In this regard, we will continue on MiraLAX twice daily and lactulose 30 mL twice daily. We will start on soapsuds enema twice now and give her repeat soapsuds twice daily for 3 days. If the patient's symptoms do not resolve then we may have to start her on GoLYTELY bowel prep. 2. Acute on chronic hypoxic and hypercapnic respiratory failure. She continues on high-flow oxygen. Continue on current treatment plan per the primary team. 3. Chronic obstructive pulmonary disease exacerbation. She is on IV steroids, antibiotics and bronchodilator therapy. 4. Hypertension being managed by primary care team. 5. Depression. She is on Celexa. 6. Electrolyte imbalance. This is being managed by primary team. 7. Reflux disease. She is on Protonix. 8. Tobacco abuse. Patient counseled to quit smoking completely. 9. Once the patient's bowel start to move then we can advance her diet as tolerated per the primary team. 10. We will check abdominal x-ray in the morning to see the results further. Recommendations to follow pending the hospital course. The above plans discussed with the patient and all questions answered. Please call us with any further questions. cc: MD Angie Tucker MD MTDD
[2019-03-07] MEDS: DULCOLAX PR SCH (21:23)
[2019-03-08] MEDS: CARDIZEM PO SCH ×4 (03:43→20:24)
[2019-03-08] MEDS: ATROVENT NEB INH SCH ×6 (03:49→23:43)
[2019-03-08] MEDS: SOLU-MEDROL IV SCH ×3 (06:10→23:15)
[2019-03-08] MEDS: PROTONIX PO SCH (06:10)
[2019-03-08 06:24] LABS: HEMATOCRIT 36.6 % (37.0-47.0); HEMOGLOBIN 11.8 g/dL (12.0-16.0); MCH 26.3 PG (27-31); MCHC 32.2 g/dL (33-37); MCV 81.5 FL (81-99); MPV 9.2 FL (7.4-10.4); RBC 4.49 XMIL (4.2-5.4); RDW 19.3 % (11.5-14.5); WBC 15.95 X1000 (4.8-10.8)
[2019-03-08 07:16] LABS: AGAP 10; BUN 5 mg/dL (8-22); CALCIUM 8.2 mg/dL (8.8-10.2); CHLORIDE 93 mmol/L (98-107); COSMO 262; CREATININE 0.2 mg/dL (0.5-0.9); ESTIMATED GFR > 60; GLUCOSE 128 mg/dL (70-104); MAGNESIUM 2.1 mg/dL (1.5-2.7); PHOSPHORUS 2.9 mg/dL (2.7-4.5); SODIUM 131 mmol/L (136-145); TCO2 28 mmol/L (25-35)
[2019-03-08 07:55] LABS: POTASSIUM 4.2 mmol/L (3.5-5.1)
[2019-03-08] MEDS: XOPENEX NEB INH SCH ×5 (08:15→23:43)
[2019-03-08] MEDS: LOVENOX SUBQ SCH (08:34)
[2019-03-08] MEDS: NICODERM PATCH TD SCH (08:34)
[2019-03-08] MEDS: NORVASC PO SCH ×2 (08:34→20:24)
[2019-03-08] MEDS: MIRALAX PO SCH ×2 (08:34→20:24)
[2019-03-08] MEDS: LACTULOSE PO SCH ×2 (08:34→10:05)
[2019-03-08] MEDS: ASPIRIN EC PO SCH (08:34)
[2019-03-08] MEDS: FERROUS SULFATE PO SCH (08:34)
[2019-03-08] MEDS: CYMBALTA PO SCH (08:35)
[2019-03-08] MEDS: ROCEPHIN 1 GM in NS 50 ML IV SCH ×2 (11:45→13:01)
[2019-03-08] MEDS: NS 1,000 ML IV SCH ×2 (12:57→14:37)
[2019-03-08] MEDS: MYCOSTATIN SUSP PO SCH ×3 (14:04→20:25)
--- NOTE | 2019-03-08 14:18 | PROVIDER PROGRESS NOTE ---
Progress Note S: Patient reports abdominal bloating and discomfort with taking lactulose and golytely. She has not had any vomiting. No urge to defecate or abdominal pain. Per RN, she has not been able to hold soap praveen enemas. O: Last Vital Signs Temp 98.4 F 03/08/19 11:15 Pulse 86 03/08/19 11:15 Resp 17 03/08/19 11:15 BP 146/65 03/08/19 11:15 Pulse Ox 88 L 03/08/19 11:15 Height 5 ft 5 in Weight 141 lb 8 oz GEN: awake, alert, NAD HEENT: high flow nasal cannula in place, anicteric, EOMI NECK: supple, no JVD PULM: increased WOB, no wheezing CV: RRR, no murmurs ABD: mildly distended, tympanic, hypoactive BS, NT EXT: mild edema NEURO: nonfocal RECTAL: dark brown paste-like stool in rectum, scant amount, no stool ball in rectal vault LABS: 03/08/19 03/08/19 05:32 05:32 WBC 15.95 H Hgb 11.8 L Plt Count 322 Sodium 131 L Potassium 4.2 D Chloride 93 L Carbon Dioxide 28 BUN 5 L Creatinine 0.2 L Glucose 128 H Calcium 8.2 L Phosphorus 2.9 Magnesium 2.1 ABDOMEN FLAT/UPRIGHT - 03/07/2019 INDICATION: constipation COMPARISON: 03/06/2019 FINDINGS: There is stable fecal impaction of the distal colon and probably the rectum. Stable severe gaseous distention of mainly the transverse colon. No definite free air. IMPRESSION: Severe constipation. Severe nonspecific gaseous distention of the transverse colon. No change from prior. A/P: Ms. Christy Mathews is a 73 year old woman who presented with acute on chronic hypoxic and hypercapneic respiratory distress 2/2 COPD exacerbation. GI consulted for constipation with fecal impaction. Minimal improvement with lactulose, bisacodyl sup, miralax, and soap praveen enemas. She has not tolerated golytely. # Fecal impaction - full liquid diet as tolerated - stop lactulose and golytely - switch enemas to mineral oil and increase frequency to TID - continue Miralax 17gm BID - start senna BID - avoid narcotics, correct metabolic derangements # Anemia: no overt bleeding # COPD: mgmt per primary # GERD: on PPI Will follow with you. Please call with questions.
[2019-03-08] MEDS: FLEET MINERAL OIL ENEMA PR SCH ×3 (14:51→21:45)
[2019-03-08] MEDS: MORPHINE IV PRN (15:04)
--- NOTE | 2019-03-08 18:46 | PROGRESS NOTE ---
DATE: 03/08/2019 SUBJECTIVE: Ms. Mathews is frustrated. She refused physical therapy. She has refused some of her medications. She does not like the fact she is on full liquids. She does not feel like she is constipated and feels like they are not doing much for her. Her breathing seems to be better. OBJECTIVE: Vital signs: Temperature 98.3 degrees, pulse 86, respirations 19, blood pressure 147/62. HEENT: Pupils are equal and round. Lungs: Clear in all lung [place]. Cardiovascular: Regular rhythm and rate without murmur or S3. Abdomen: Soft. Skin: Warm and dry. Urine output is 2500 mL. ASSESSMENT AND PLAN: 1. Acute on chronic hypoxemic hypercapnic respiratory failure. The patient remains on high-flow oxygen. Continue current treatment regimen. 2. Chronic obstructive pulmonary disease exacerbation. Continue intravenous steroids, antibiotic, bronchodilator therapy. 3. Severe constipation, rectal impaction. The patient is having stool around the impaction and so continue to try and resolve this. 4. Hypertension. The patient is on Cardizem. 5. Situational depression. 6. Hyponatremia, which is improved. Continue present IV hydration. 7. Gastroesophageal reflux disease, on Protonix. 8. Weakness. She is refusing physical therapy. We need to try and get her up out of bed. She is on high-flow nasal flow. She wants to go back to [facility]. Reviewed orders. I do not see any change. On review of her laboratory, her white count has come down a bit to 15,950, hematocrit 36, hemoglobin 11, platelets 322,000. Sodium 131, potassium 4.2, chloride 91, BUN 5, creatinine 0.2, magnesium is 2.1. cc: Elvis Aj MD
[2019-03-08] MEDS: SENOKOT PO SCH (20:25)
[2019-03-08] MEDS: FLEXERIL PO PRN (20:25)
[2019-03-09] MEDS: CARDIZEM PO SCH ×4 (01:39→21:20)
[2019-03-09] MEDS: NS 1,000 ML IV SCH ×3 (01:40→16:37)
[2019-03-09] MEDS: XOPENEX NEB INH SCH ×6 (03:21→23:19)
[2019-03-09] MEDS: ATROVENT NEB INH SCH ×6 (03:22→23:19)
[2019-03-09] MEDS: MORPHINE IV PRN ×2 (04:04→12:36)
[2019-03-09] MEDS: PROTONIX PO SCH (06:23)
[2019-03-09] MEDS: SOLU-MEDROL IV SCH ×3 (06:23→22:34)
[2019-03-09] MEDS: FERROUS SULFATE PO SCH (09:36)
[2019-03-09] MEDS: MYCOSTATIN SUSP PO SCH ×4 (09:36→21:23)
[2019-03-09] MEDS: MIRALAX PO SCH ×2 (09:36→21:23)
[2019-03-09] MEDS: ASPIRIN EC PO SCH (09:36)
[2019-03-09] MEDS: NORVASC PO SCH ×2 (09:37→21:19)
[2019-03-09] MEDS: SENOKOT PO SCH ×2 (09:37→21:20)
[2019-03-09] MEDS: LOVENOX SUBQ SCH (09:38)
[2019-03-09] MEDS: NICODERM PATCH TD SCH (09:38)
[2019-03-09] MEDS: FLEET MINERAL OIL ENEMA PR SCH ×3 (09:49→21:24)
[2019-03-09] MEDS: CYMBALTA PO SCH (09:49)
[2019-03-09] MEDS: REGLAN IV SCH ×2 (11:13→18:14)
--- NOTE | 2019-03-09 13:49 | Diag Imaging Result Doc PS360 ---
EXAM: CHEST-PORTABLE 03/09/2019 HISTORY: copd, pneumonia TECHNIQUE: AP upright portable at 1337 COMMENT: There is probable COPD. There is no definite evidence of acute cardiac or pulmonary disease. There is a PICC line on the right with its tip just above the right atrium. Compared to 03/07/2019 the inspiration is slightly less optimal and the film is in a more lordotic projection. Otherwise are has been no appreciable change. IMPRESSION: COPD. Electronically signed by Shelton Robbins 03/09/2019 1:47 PM
--- NOTE | 2019-03-09 13:52 | PROGRESS NOTE ---
DATE: 03/09/2019 SUBJECTIVE: Ms. Mathews was sleeping, easy to arouse. She says that her breathing may be a little better. She is still pretty weak. She has not had a bowel movement. OBJECTIVE: Vital signs: Temperature 97.5, pulse 82, respirations 20, blood pressure 135/62. HEENT: Pupils are equal and round. Lungs: Clear in all lung [place]. Cardiovascular exam: Regular rhythm and rate without murmur or S3. Abdomen: Soft. Skin: Warm and dry. No pedal edema. Urine output was 1 L. ASSESSMENT AND PLAN: 1. [id number] hypoxemic hypercapnic respiratory failure. The patient remains on high-flow oxygen. Continue current treatment, and she is on the BiPAP at present. 2. Chronic obstructive pulmonary disease with exacerbation. Continue IV steroids and broad antibiotics and bronchodilator therapy. 3. Severe constipation, rectal impaction, has not had a bowel movement. Continue to give her MiraLAX with some prune juice. 4. Hypertension on Cardizem. 5. Situational depression. 6. Hyponatremia, which is improved with IV hydration. 7. Gastroesophageal reflux on Protonix. 8. Weakness. Continue to encourage physical therapy. They have talked to her about comfort care and hospice care. REVIEW OF HER ORDERS: On Cardizem 60 mg q.6 hours, Norvasc 2.5 mg b.i.d., aspirin 81 mg a day, Catapres 0.1 mg p.o. t.i.d. p.r.n., Flexeril 10 mg daily, Cymbalta 30 mg daily, Lovenox 40 mg subcutaneously daily, ferrous sulfate 325 mg a day, Xopenex inhalation q.4 hours p.r.n., methylprednisone 40 mg IV q.8, Reglan 10 mg IV q.8, nicotine patch 21 mg daily, normal saline at 75 mL/hour, Protonix 40 mg daily, and ceftriaxone 1 g IV q.24 hours. Will check another chest x- ray in the morning. cc: Elvis Aj MD
[2019-03-09] MEDS: ROCEPHIN 1 GM in NS 50 ML IV SCH (14:16)
[2019-03-09] MEDS: FLEXERIL PO PRN (16:37)
[2019-03-09] MEDS ORDERED: BLISTEX MEDICATED BERRY LIP BALM TOP PRN (17:26)
--- NOTE | 2019-03-09 22:01 | PROVIDER PROGRESS NOTE ---
Progress Note S: No acute overnight events. Afebrile. No N/V. She is tolerating full liquids. Minimal liquid stools. Increased SOB. Increased bowel distension. O: Last Vital Signs Temp 97.1 F L 03/10/19 04:00 Pulse 88 03/10/19 04:00 Resp 28 H 03/10/19 04:00 BP 145/58 03/10/19 04:00 Pulse Ox 94 L 03/10/19 04:00 Height 5 ft 5 in Weight 141 lb 6 oz GEN: awake, alert, NAD HEENT: high flow nasal cannula in place, anicteric, EOMI NECK: supple, no JVD PULM: increased WOB, breathing with perched lips, no wheezing CV: RRR, no murmurs ABD: distended, tympanic, hypoactive BS, NT EXT: mild edema NEURO: nonfocal RECTAL: dark brown paste-like stool in rectum, scant amount, no stool ball in rectal vault LABS: None A/P: Ms. Christy Mathews is a 73 year old woman who presented with acute on chronic hypoxic and hypercapneic respiratory distress 2/2 COPD exacerbation. GI consulted for constipation with fecal impaction. Her abdomen is more distended today but nontender. I suspect she may need endoscopic evaluation with sigmoidoscopy however she has increased WOB and hypoxia. I would want to optimize her from a respiratory status before considering this. Will start reglan 10mg IV TI. # Fecal impaction - full liquid diet as tolerated - continue mineral enemas TID - continue Miralax 17gm BID - on senna BID - start reglan 10mg IV TID - avoid narcotics, correct metabolic derangements # Anemia: no overt bleeding # COPD: mgmt per primary # GERD: on PPI Will follow with you. Please call with questions.
[2019-03-10] MEDS: ZOFRAN IV PRN (01:08)
[2019-03-10] MEDS: CARDIZEM PO SCH ×4 (01:08→20:41)
[2019-03-10] MEDS: REGLAN IV SCH ×4 (01:08→18:10)
[2019-03-10] MEDS: ATROVENT NEB INH SCH ×6 (03:45→23:13)
[2019-03-10] MEDS: SOLU-MEDROL IV SCH ×4 (05:14→22:06)
[2019-03-10] MEDS: PROTONIX PO SCH ×2 (05:14→06:03)
[2019-03-10] MEDS: NS 1,000 ML IV SCH ×2 (05:14→18:10)
[2019-03-10] MEDS: XOPENEX NEB INH SCH ×5 (07:54→23:13)
[2019-03-10] MEDS: NORVASC PO SCH ×2 (08:50→20:40)
[2019-03-10] MEDS: MIRALAX PO SCH ×2 (08:50→20:41)
[2019-03-10] MEDS: MYCOSTATIN SUSP PO SCH ×4 (08:51→20:40)
[2019-03-10] MEDS: LOVENOX SUBQ SCH (08:51)
[2019-03-10] MEDS: ASPIRIN EC PO SCH (08:51)
[2019-03-10] MEDS: CYMBALTA PO SCH (08:51)
[2019-03-10] MEDS: SENOKOT PO SCH ×2 (08:51→20:41)
[2019-03-10] MEDS: NICODERM PATCH TD SCH (08:51)
[2019-03-10] MEDS: FERROUS SULFATE PO SCH (08:51)
[2019-03-10] MEDS: FLEET MINERAL OIL ENEMA PR SCH ×3 (08:51→21:15)
[2019-03-10] MEDS ORDERED: CALMOSEPTINE OINTMENT TOP PRN (09:15)
--- NOTE | 2019-03-10 10:25 | Diag Imaging Result Doc PS360 ---
EXAM: KUB ABDOMEN - 03/10/2019 HISTORY: evaluate for constipation or obstruction TECHNIQUE: Portable AP spine abdomen COMPARISON: 03/07/2019 FINDINGS: There is increased gas at the upper abdomen compared to prior. This may relate to increased gaseous distention of the transverse colon. Although this is not an upright view, the possibility of free intraperitoneal air is not excluded. There are no other significant interval changes identified. IMPRESSION: Increased gas at upper abdomen compared to prior. While this could relate to increased gaseous distention of the transverse colon, the possibility of free intraperitoneal air cannot be excluded. Correlation with lateral decubitus abdominal radiograph or CT abdomen/pelvis is recommended. Electronically signed by Chemo Brown 03/10/2019 10:22 AM
--- NOTE | 2019-03-10 13:10 | PROGRESS NOTE ---
DATE: 03/10/2019 SUBJECTIVE: Ms. Mathews says she is still hurting, uncomfortable, but she was resting pretty well. Yesterday was sleeping several times, and so continues to be able to rest. OBJECTIVE: Vital Signs: Her temperature is 97.8 degrees, pulse 98, respirations 18, blood pressure 150/55. Eyes: Pupils are equal. Lungs: Clear in all lung [place] anterolateral. Cardiovascular exam: Regular rhythm and rate without murmur or S3. Abdomen: Soft. Skin: Warm and dry. LABS: Her white count is still elevated at 15,000; back on the it was 15,950, hematocrit 36, hemoglobin 11, platelet count 322,000. Chemistries: Sodium was 131, potassium 4.2, chloride 93, bicarbonate 28. BUN 5, creatinine 0.2. X-RAYS: Abdominal x-ray: Increased gas in the upper abdomen compared to prior film, and this could be increased gaseous distention of the transverse colon, possible some free intraperitoneal air. ASSESSMENT AND PLAN: 1. Fecal impaction. Liquid diet as tolerated. We tried mineral enemas, but they are really to no effect. He is also on oral MiraLAX twice a day and Senna twice a day. So, Surgery is going to be asked to evaluate, but she still appears to have high impaction. 2. Acute on chronic hypoxemic hypercapnic respiratory failure. Remains on high-flow oxygen. 3. Chronic obstructive pulmonary disease exacerbation. She is on intravenous steroids and bronchodilators. 4. Hypertension on Cardizem. 5. Situational depression. 6. Hyponatremia, which has been corrected. I think we probably ought to check some more blood work today. I believe Surgery was going to evaluate as well. cc: Elvis Aj MD
--- NOTE | 2019-03-10 13:44 | Diag Imaging Result Doc PS360 ---
CT ABDOMEN/PELVIS W/O CONTRAST - 03/10/2019 INDICATION: eval for free air COMPARISON: None FINDINGS: There is significant peritoneal free air. There is severe constipation throughout the entire colon. There are trace bilateral pleural effusions. No infiltrates in the lung bases. The heart size is normal. There is significant bilateral flank edema. There is trace pelvic free fluid. No renal stones or urinary obstruction. Moderate vascular disease. There is a Johnston catheter in the urinary bladder. Uterus is absent. The rectum is normal. There are moderate degenerative changes of the spine. No acute or suspicious bony lesion. IMPRESSION: Extensive peritoneal free air. Severe diffuse constipation. This exam was performed using automated exposure control, adjustment of mA or kV according to patient size, and/or use of iterative reconstruction technique Electronically signed by Nelson Chavez 03/10/2019 1:42 PM
--- NOTE | 2019-03-10 14:09 | EKG Report ---
Test Performed on : 03/10/2019 2:01:52 PM Test Reason : rhythm change Blood Pressure : / mmHG Vent. Rate : 093 BPM Atrial Rate : 093 BPM P-R Int : 118 ms QRS Dur : 080 ms QT Int : 340 ms P-R-T Axes : 000 080 091 degrees QTc Int : 422 ms Normal sinus rhythm. Nonspecific T wave abnormality Abnormal ECG When compared with ECG of 24-FEB-2019 14:00, Criteria for Septal infarct are no longer present Confirmed by Richy BROWN, Sunny Luna ([id number]) on 03/10/2019 6:02:48 PM
[2019-03-10] MEDS ORDERED: SUFENTA ONE (14:25)
[2019-03-10] MEDS: ROCEPHIN 1 GM in NS 50 ML IV SCH (14:27)
[2019-03-10] MEDS ORDERED: STERILE WATER INJ. ONE (14:44)
[2019-03-10] MEDS ORDERED: NORCURON ONE ×2 (14:44→16:08)
[2019-03-10] MEDS ORDERED: ALBUMIN 25% ONE ×2 (15:00→16:15)
[2019-03-10] MEDS ORDERED: NEO-SYNEPHRINE ONE (15:03)
[2019-03-10] MEDS ORDERED: ZOFRAN ONE (16:34)
[2019-03-10] MEDS ORDERED: DECADRON ONE (16:34)
[2019-03-10] MEDS ORDERED: VENTOLIN HFA ONE (16:46)
[2019-03-10] MEDS ORDERED: VERSED ONE (16:52)
--- NOTE | 2019-03-10 17:38 | GASTROENTEROLOGY PROGRESS NOTE ---
DATE: 03/10/2019 SUBJECTIVE: Patient resting in bed. She is complaining of worsening abdominal pain. Abdominal x- ray showed evidence of increased gas in the upper abdomen compared to prior. There was a question of a possibility of free intraperitoneal air on the abdominal x-ray. There was also evidence of increased gaseous distention of transverse colon. We will order a CT scan and Surgery consult. OBJECTIVE: Vital signs: Temperature 97.8 degrees, pulse rate of 98, respiratory rate 18, blood pressure 150/55, saturating 95% on high-flow oxygen. Body weight of 141 pounds 6 ounces. BMI 23.5 kg/m2. General Appearance: Moderately built, well-nourished, lying in bed in no acute distress. HEENT: Positive pallor. No icterus. There is high-flow nasal cannula in place. Neck: Supple. Abdomen: Distended. Discomfort in the periumbilical region. No rebound. No guarding. Extremities: No cyanosis or clubbing. Neurologic: Neuro-calderon, she is alert, awake, oriented x3. LABS: Hemoglobin and hematocrit 11.8 and 36.6, white count of 15.95, platelet count of 322. Sodium 139, potassium 4.2, chloride 93, bicarbonate of 28, anion gap of 10. BUN of 5, creatinine 0.2. Blood glucose of 115, calcium is 8.2. X-RAYS: Abdominal x-ray discussed in HPI. IMPRESSION/PLAN: 1. Worsening abdominal distention and abdominal x-ray showing possibility of increased gaseous distention of the transverse colon, with a question of possibility of free intraperitoneal air. In this regard, we will call Surgery consult. We will obtain a CT scan of the abdomen and pelvis. We will hold off on the enemas and oral medications for now until we have the report of CT scan back. 2. Anemia, mild. Continue to watch for now. 3. Chronic obstructive pulmonary disease. Continue to manage by primary care team. 4. Gastroesophageal reflux disease. She is on proton pump inhibitors. 5. Chronic hypoxic and hypercapnic respiratory failure secondary to chronic obstructive pulmonary disease. Aware. 6. Severe constipation and fecal impaction. Aware. If the CT scan is negative for any free intraperitoneal air, then we may have to resume her MiraLAX and enemas. 7. We need to avoid narcotics. Further recommendations pending the hospital course. The above plans discussed with the patient and the nursing staff, and all questions answered. Please call us with any further questions. cc: MD Elvis Tucker MD Anna M. Dumas, CRNP MTDD
[2019-03-10 18:17] LABS: BLOOD TYPE ARTERIAL; SAMPLE BLOOD
[2019-03-10 18:18] LABS: ALLEN TEST NO; HCO3-(ACT) 27.3 mmoll (20.0-26.0); METHB 0.8 % (0.0-1.5); MODALITY VENTILATOR; O2HB 97.3 % (95.0-99.0); PCO2(98.6) 43 mmHg (35-45); PO2(98.6) 397 mmHg (60-100); SAO2 98.9 % (95.0-100.0); SRATE 12 BPM; THB 10.2 g/dL (11.5-17.4); TVOL 500 mL; pH(98.6) 7.42 (7.35-7.45)
--- NOTE | 2019-03-10 18:44 | GENERAL SURGERY CONSULTATION ---
DATE: 03/10/2019 REQUESTING PHYSICIAN: Dr. Dyer. REASON FOR CONSULTATION: Possible free air. HISTORY OF PRESENT ILLNESS: A 73-year-old female who was admitted for altered mental status back on 02/24/2019, who has had constipation and fecal impaction through the course of admission. This had been worsening. There was an x-ray this morning that showed the possibility of free air. She is complaining of abdominal pain. GI has seen her and asked for the General Surgery consultation. PAST MEDICAL HISTORY: 1. COPD. 2. Hypertension. 3. Chronic constipation. PAST SURGICAL HISTORY: Unknown. ALLERGIES: Meropenem, meperidine. MEDICATIONS: MAR reviewed. SOCIAL HISTORY: Chronic smoker. FAMILY HISTORY: Reviewed with the patient and noncontributory. REVIEW OF SYSTEMS: A full 14 systems were reviewed and negative except as specified in HPI. PHYSICAL EXAMINATION: Vital signs: The patient is currently afebrile. Her vital signs are stable. General exam: Uncomfortable female, looks stated age.HEENT: Normocephalic, atraumatic. Pupils equal, round, reactive to light. Mucous membranes moist. Oropharynx benign. Neck supple. Trachea midline. Cardiovascular: Regular rate and rhythm. Lungs grossly clear. The patient is on supplemental oxygen. Abdomen is soft, distended. Tender to palpation. Some peritoneal signs. Extremities: Moves all extremities. Neurologic: Grossly intact. Skin: No signs of jaundice. Vascular: All extremities perfused. LABORATORY DATA: White blood count 15, hematocrit 36, platelet count 322,000. Sodium is 131, potassium 4.2. DIAGNOSTIC DATA: Abdominal film reviewed. CT scan pending. ASSESSMENT AND PLAN: A 73-year-old female with possible free air. Free air: At this time the patient does have pretty significant tenderness. We will get a CT scan, given the possibility this could just be colonic distention. We will follow up results. Discussed with the patient that she may need exploratory laparotomy. We will make further recommendations once CT scan is done. cc: Pierre Collins MD
--- NOTE | 2019-03-10 19:04 | Diag Imaging Result Doc PS360 ---
CHEST-PORTABLE - 03/10/2019 INDICATION: ET tube placement COMPARISON: 03/09/2019 FINDINGS: There is an endotracheal tube in good position at T4. Stable right PICC line. The lungs are clear and the heart size is normal. IMPRESSION: Good endotracheal tube placement. Electronically signed by Nelson Chavez 03/10/2019 7:02 PM
[2019-03-10] MEDS: DIPRIVAN 1% 1,000 MG/100 ML BOTTLE IV SCH ×2 (19:13→23:57)
[2019-03-10 20:34] LABS: HEMATOCRIT 30.1 % (37.0-47.0); HEMOGLOBIN 9.9 g/dL (12.0-16.0)
[2019-03-10 20:57] LABS: AGAP 8; ALB/GLOB RATIO 1.6; ALBUMIN 2.1 g/dL (3.5-5.0); ALKALINE PHOSPHATASE 23 U/L (32-104); BUN 6 mg/dL (8-22); CALCIUM 7.4 mg/dL (8.8-10.2); CHLORIDE 96 mmol/L (98-107); COSMO 263; CREATININE 0.1 mg/dL (0.5-0.9); ESTIMATED GFR > 60; GLUCOSE 184 mg/dL (70-104); GOT 18 U/L (10-30); GPT 20 U/L (10-36); MAGNESIUM 1.5 mg/dL (1.5-2.7); POTASSIUM 3.3 mmol/L (3.5-5.1); SODIUM 130 mmol/L (136-145); TCO2 26 mmol/L (25-35); TOTAL BILIRUBIN 0.39 mg/dL (0.20-1.00); TOTAL PROTEIN 3.4 g/dL (6.3-8.3)
--- NOTE | 2019-03-10 22:02 | OPERATIVE NOTE ---
PROCEDURE DATE: 03/10/2019 PREOPERATIVE DIAGNOSIS: Free intraabdominal air. POSTOPERATIVE DIAGNOSIS: Perforated cecum with sigmoid stricture. PROCEDURE: Open total abdominal colectomy with end-ileostomy. SURGEON: Dr. Pierre Collins. SLITTER SCORER CUT OFF OPERATOR: Dr. Wolfe. Dr. Wolfe assisted with the entirety of the case. His presence was crucial to completion of the case. FINDINGS: Sigmoid stricture and perforated colon with significant fecal contamination intraabdominally. COMPLICATIONS: None at the time of this dictation. ESTIMATED BLOOD LOSS: 100 mL. SPECIMENS REMOVED: Colon. DRAINS: 19-Persian. BRIEF HISTORY: A 73-year-old female with multiple medical comorbidities, presenting with altered mental status. She had continued decline in abdominal pain. She had a CT scan that showed free air. She was taken emergently to the operating room. We discussed with her the risks, benefits, and alternatives of the procedure. There was no family available at the time of consent. DESCRIPTION OF PROCEDURE: After informed consent was obtained, the patient was brought to the operative theater, transferred to the operative table, and placed in supine position. General endotracheal anesthesia was then performed without complication. A formal time-out was then performed, confirming patient and procedure. All were in agreement. At that time, attention was given to the abdomen. We made a standard midline incision into the abdomen. Upon entry into the abdomen, we encountered a huge thakkar of air consistent with perforated viscus. There was a large amount of fecal contamination intraabdominally. We quickly found the area of perforation in the cecum. We whip-stitched it closed with a silk stitch. We then evaluated the abdomen in entirety. There appeared to be also a stricture down in the sigmoid colon, likely causing this issue. We elected to do a total abdominal colectomy. We did this by taking a stapler across the terminal ileum and then using a LigaSure, after mobilizing the white line of Toldt, both sides, and mobilizing the splenic flexure, we took down the colon down to the rectum, then using the stapler across the rectum. We did have to divide the colon in half to ease retraction and movement, but removed the colon out entirely. We used the LigaSure for the mesentery. Again, there appeared to be a stricture with caliber and the diameter of the colon changed approximately 50% down to sigmoid and the rectum, which likely was causing obstruction. Once we had removed the colon, we irrigated out fully until the suctioned fluid was clear. We made a hole in the abdominal wall to the border of the rectus and the right lower quadrant for the terminal ileum from ileostomy. We then placed a drain from the left lower quadrant down to the pelvis. We secured it in place. We then closed the fascia with a running looped PDS, starting on either side. We then closed the skin with carly loosely. We then matured the ostomy by Brooking the ileostomy with 3-0 silk with good results. We placed a sterile dressing. The patient remains critical and will be transferred to the ICU. cc: Pierre Collins MD
[2019-03-10] MEDS ORDERED: NS 250 ML IV ONE (22:52)
[2019-03-10 23:15] LABS: HEMATOCRIT 27.4 % (37.0-47.0); HEMOGLOBIN 8.9 g/dL (12.0-16.0)
[2019-03-11] MEDS: REGLAN IV SCH ×3 (02:20→18:32)
[2019-03-11] MEDS: CARDIZEM PO SCH (02:20)
[2019-03-11] MEDS: ATROVENT NEB INH SCH ×6 (03:02→23:36)
[2019-03-11] MEDS: NS 1,000 ML IV SCH ×3 (04:26→23:55)
[2019-03-11 04:38] LABS: ALLEN TEST YES; BE 3.3 mmoll (-3.0-3.0); BLOOD TYPE ARTERIAL; HCO3-(ACT) 27.5 mmoll (20.0-26.0); METHB 1.8 % (0.0-1.5); O2(CT) 13.5 mL/dL (15.0-23.0); O2HB 95.8 % (95.0-99.0); PCO2(98.6) 34 mmHg (35-45); PO2(98.6) 175 mmHg (60-100); SAMPLE BLOOD; SAO2 98.7 % (95.0-100.0); SRATE 18 BPM; THB 9.7 g/dL (11.5-17.4); TVOL 500 mL
[2019-03-11 04:39] LABS: MODALITY VENTILATOR
[2019-03-11] MEDS ORDERED: VANCOMYCIN 1,600 MG in NS 250 ML IV ONE (05:00)
[2019-03-11 05:21] LABS: EOS# 0.03 X1000 (0.0-0.7); EOS% 0.1 % (0.0-10.0); HEMATOCRIT 27.8 % (37.0-47.0); HEMOGLOBIN 9.2 g/dL (12.0-16.0); IMM GRAN# 0.07 X1000 (0.0-0.04); IMM GRAN% 0.3 % (0.0-0.5); LYMPH# 0.24 X1000 (1.2-3.4); MCH 26.2 PG (27-31); MCHC 33.1 g/dL (33-37); MCV 79.2 FL (81-99); MONO# 0.29 X1000 (0.11-0.59); MONO% 1.3 % (1.7-9.3); MPV 9.6 FL (7.4-10.4); NEUT% 97.3 % (42.2-75.2); PLT 192 X1000 (130-400); RBC 3.51 XMIL (4.2-5.4); RDW 19.3 % (11.5-14.5); WBC 23.03 X1000 (4.8-10.8)
[2019-03-11 05:56] LABS: AGAP 5; BUN 6 mg/dL (8-22); CALCIUM 7.2 mg/dL (8.8-10.2); CHLORIDE 96 mmol/L (98-107); COSMO 258; CREATININE 0.1 mg/dL (0.5-0.9); ESTIMATED GFR > 60; GLUCOSE 160 mg/dL (70-104); POTASSIUM 3.1 mmol/L (3.5-5.1); SODIUM 128 mmol/L (136-145); TCO2 27 mmol/L (25-35)
[2019-03-11] MEDS: PROTONIX PO SCH (06:29)
[2019-03-11] MEDS: SOLU-MEDROL IV SCH ×3 (06:29→23:55)
[2019-03-11] MEDS: DIPRIVAN 1% 1,000 MG/100 ML BOTTLE IV SCH ×4 (06:30→22:12)
--- NOTE | 2019-03-11 07:08 | Diag Imaging Result Doc PS360 ---
EXAM: CHEST-PORTABLE 03/11/2019 HISTORY: Ventilator protocol TECHNIQUE: AP portable at 0526 COMMENT: There is an endotracheal tube with its tip approximately 4 cm above the mario. There is a right-sided PICC line with its tip just above the right atrium. There is COPD. There is minimal opacification in the right lower lobe which was not present at the time the previous study of 03/10/2019. Some of this may be due to overlying breast tissue. IMPRESSION: Questionable right lower lobe pneumonia. COPD. Electronically signed by Shelton Robbins 03/11/2019 7:06 AM
[2019-03-11 07:40] LABS: BANDS 8 % (0-1); BASO 1 % (0-1); LYMPHS 2 % (21-51); SEGS 89 % (42-75)
[2019-03-11] MEDS: XOPENEX NEB INH SCH ×5 (07:53→23:35)
[2019-03-11] MEDS ORDERED: VANCOMYCIN IV PER PHARMACY MISC SCH (09:00)
[2019-03-11] MEDS: LOVENOX SUBQ SCH (09:55)
[2019-03-11] MEDS: NICODERM PATCH TD SCH (11:31)
--- NOTE | 2019-03-11 12:13 | GENERAL SURGERY PROGRESS NOTE ---
DATE: 03/11/2019 SUBJECTIVE: Patient seems to be doing okay. She is still intubated. Nursing staff reports no major issues. OBJECTIVE: Vital Signs: Patient is currently afebrile. Her vital signs are stable. General: No acute distress, sedated on the ventilator. Cardiovascular: Regular rate and rhythm. Lungs: Grossly clear, but referred airway noises. Abdomen: Soft. Ileostomy appears viable. Incision with some drainage. FARNAZ drain with serosanguineous output. LABORATORY: Reviewed. ASSESSMENT/PLAN: A 73-year-old female postoperative day #1 from total abdominal colectomy. Postoperative state. At this time continue supportive care. We will keep her on antibiotics. She did come back with significant stool in her abdomen, so we will need to keep her on antibiotics. She is on vancomycin and Rocephin currently. We will defer her respiratory status to Pulmonary. cc: Pierre Collins MD
[2019-03-11] MEDS: ROCEPHIN 1 GM in NS 50 ML IV SCH (15:00)
[2019-03-12] MEDS: REGLAN IV SCH (01:32)
[2019-03-12] MEDS: DIPRIVAN 1% 1,000 MG/100 ML BOTTLE IV SCH ×4 (01:32→12:55)
[2019-03-12] MEDS: ATROVENT NEB INH SCH ×6 (03:30→23:40)
[2019-03-12] MEDS: VANCOMYCIN 1 GM/NS 1 GM/250 ML IVPB IV SCH (04:25)
[2019-03-12 04:47] LABS: BE 2.4 mmoll (-3.0-3.0); BLOOD TYPE ARTERIAL; HCO3-(ACT) 26.8 mmoll (20.0-26.0); PCO2(98.6) 37 mmHg (35-45); PO2(98.6) 193 mmHg (60-100); SAMPLE BLOOD; SAO2 98.8 % (95.0-100.0); THB 8.2 g/dL (11.5-17.4); pH(98.6) 7.46 (7.35-7.45)
[2019-03-12 04:48] LABS: ALLEN TEST YES; METHB 1.3 % (0.0-1.5); O2(CT) 11.6 mL/dL (15.0-23.0); O2HB 96.6 % (95.0-99.0); SRATE 12 BPM; TVOL 500 mL
[2019-03-12 04:49] LABS: MODALITY VENTILATOR
[2019-03-12 07:50] LABS: AGAP 11; BUN 7 mg/dL (8-22); CALCIUM 7.3 mg/dL (8.8-10.2); CHLORIDE 100 mmol/L (98-107); COSMO 269; CREATININE 0.2 mg/dL (0.5-0.9); ESTIMATED GFR > 60; GLUCOSE 119 mg/dL (70-104); POTASSIUM 3.1 mmol/L (3.5-5.1); SODIUM 135 mmol/L (136-145); TCO2 24 mmol/L (25-35)
[2019-03-12] MEDS: XOPENEX NEB INH SCH ×5 (08:29→23:40)
--- NOTE | 2019-03-12 08:37 | Diag Imaging Result Doc PS360 ---
EXAM: CHEST-PORTABLE INDICATION: Ventilator protocol TECHNIQUE: One view COMPARISON: 03/11/2019 FINDINGS: Support tubes and lines are in stable positions. There has been interval development of a small left pleural effusion. The right lower lobe opacity seen previously has grossly resolved and probably represented overlying breast tissue. No new consolidation is identified. Cardiac silhouette is stable. IMPRESSION: Interval development of a small left pleural effusion and gross resolution of the minimal opacity at the right lung base. Electronically signed by Reagan Jones 03/12/2019 8:34 AM
[2019-03-12 08:42] LABS: HEMATOCRIT 22.3 % (37.0-47.0); HEMOGLOBIN 7.3 g/dL (12.0-16.0); MCH 25.9 PG (27-31); MCHC 32.7 g/dL (33-37); MCV 79.1 FL (81-99); MPV 9.4 FL (7.4-10.4); RBC 2.82 XMIL (4.2-5.4); RDW 19.5 % (11.5-14.5); WBC 18.87 X1000 (4.8-10.8)
[2019-03-12] MEDS ORDERED: OFIRMEV 1000 MG/ISOTONIC SOLN 1,000 MG/100 ML BOTTLE IV PRN (09:01)
--- NOTE | 2019-03-12 09:54 | PROGRESS NOTE ---
DATE: 03/11/2019 SUBJECTIVE: The patient appears to be comfortable. OBJECTIVE: Vital Signs: Lungs: Clear in all lung monterroso. Cardiovascular: Regular rhythm and rate without murmur or S3. Abdomen: Soft. No bowel sounds at this time. no rash or pedalor edema. ASSESSMENT/PLAN: 1. Status post total colectomy, ruptured appendix. Continue broad-spectrum antibiotics and supportive care. 2. Chronic obstructive pulmonary disease. Continue her supplementary O2 and bronchodilators. 3. General weakness and deconditioning. 4. Obesity. 5. She was having trouble with obstipation and had free air, so went for surgery yesterday. cc: Elvis Aj MD [facility]ITALCristian
[2019-03-12] MEDS: NICODERM PATCH TD SCH (10:10)
--- NOTE | 2019-03-12 11:01 | GASTROENTEROLOGY PROGRESS NOTE ---
DATE: 03/12/2019 SUBJECTIVE: The patient underwent open total abdominal colectomy with ileostomy with Dr. Colilns on 03/10/2019 fro cecum perforation and sigmoid stricture with no complications. She is currently intubated and sedated in the ICU. OBJECTIVE: Vital signs: Afebrile. T-max is a 100.6 degrees, heart rate of 113, respiratory rate 16, blood pressure 114/72, O2 saturation 100% on 40% FiO2. General: The patient is intubated and sedated. HEENT: NG tube and T tube in place. Neck: Supple. No JVD. Lungs: Lungs are mechanically ventilated with vented breath sounds bilaterally. Cardiac: Tachycardic, regular. Abdomen: Midline incision clean though with saturated dressing. Hypoactive bowel sounds. Right lower quadrant ileostomy noted. Extremities: No edema, clubbing, or cyanosis. Neurologic: Intubated and sedated. LABS: White count of 23.0, hemoglobin 9.2. Sodium 128, potassium 3.1, chloride 96, BUN of 6, creatinine 0.1. IMAGING: Chest x-ray shows question right lower lobe pneumonia and COPD. ASSESSMENT AND PLAN: Ms. Christy Mathews is a 73-year-old woman admitted with acute on chronic hypoxic and hypercapnic respiratory distress secondary to COPD exacerbation as well as constipation with fecal impaction. Her course was complicated by colonic obstruction with cecal perforation. She is postoperative day 1 from a total open abdominal colectomy with end ileostomy and probable pneumonia. Her labs are notable for leukocytosis, anemia, hyponatremia, hypokalemia. NG tube in place and suctioning clear fluids. She is currently on steroids with methylprednisolone 40 mg q.12, antiemetics, ceftriaxone and vancomycin. We will follow up her gross pathology from recent surgery. Surgery is managing her postoperative status. She is currently n.p.o. We will follow with you. Please call with any questions or concerns.
[2019-03-12] MEDS ORDERED: SOLU-MEDROL IV SCH ×2 (12:00→12:15)
[2019-03-12] MEDS: NS 1,000 ML IV SCH (12:53)
--- NOTE | 2019-03-12 13:20 | PROGRESS NOTE ---
DATE: 03/12/2019 SUBJECTIVE: Ms. Mathews is appears comfortable. We are about to try an extubation or weaning trial. Still some bloody discharge from her Reuben-Christine and the colostomy bag as well. OBJECTIVE: Vital signs: Temp 98.3 degrees, pulse 100, respirations 17, blood pressure 137/74. HEENT: Pupils are equal and round. Lungs: Lungs are clear in all lung monterroso. Cardiovascular: Regular rhythm and rate without murmur or S3. Abdomen: Abdomen is soft. Skin: Skin is warm and dry. Urine output: 1900 mL. DIAGNOSTIC DATA: X-ray from today with interval developed a small left pleural effusion, gross resolution of the minimal opacity in the right lung base. ASSESSMENT AND PLAN: 1. Admitted with acute on chronic hypoxemic respiratory distress secondary to chronic obstructive pulmonary disease exacerbation. 2. Constipation, fecal impaction. Course complicated by colonic obstructions, cecal perforation. Postoperative day number 1 from total abdominal colectomy and ileostomy. NG tube placement. 3. Probable pneumonia, so continue present measures. 4. Reviewed orders. Continue present orders. Lab showed white count has come down from 22,000 to 18,000. Electrolytes and liver functions look good. cc: Elvis Aj MD
--- NOTE | 2019-03-12 14:37 | GENERAL SURGERY PROGRESS NOTE ---
DATE: 03/12/2019 SUBJECTIVE: She is 2 days after total abdominal colectomy with end-ileostomy. This morning she remains intubated. Her heart rate is 101, blood pressure 141/.66 she has bilateral breath sounds. Chest x-ray shows a small left pleural effusion. A pH 7.46, pCO2 37, PO2 193 on 40% FiO2 and PEEP of 5, rate of 12. Her stoma was viable. She is having serous fluid out her drain. Intake 2245; output 1220. Urine output appears adequate. LABORATORY: White count is 18,900, hemoglobin 7.3, hematocrit 22.3. Potassium 3.1. ASSESSMENT: Her hemoglobin has dropped down some, possibly from dilutional effect. Hopefully, she will be ready for extubation. Recommendations would be to continue to monitor hemoglobin. Hopefully, she will progress towards extubation. I do not think we have to address her nutrition just yet. We will repeat her hemoglobin tomorrow. cc: Gurjit Estrada MD
[2019-03-12] MEDS: ROCEPHIN 1 GM in NS 50 ML IV SCH (15:02)
[2019-03-12] MEDS: HALDOL IV PRN ×2 (15:15→22:20)
[2019-03-12 16:04] LABS: ALLEN TEST YES; BE 2.8 mmoll (-3.0-3.0); BLOOD TYPE ARTERIAL; HCO3-(ACT) 27.1 mmoll (20.0-26.0); METHB 1.6 % (0.0-1.5); O2HB 95.9 % (95.0-99.0); PCO2(98.6) 40 mmHg (35-45); PO2(98.6) 127 mmHg (60-100); SAMPLE BLOOD; SAO2 98.5 % (95.0-100.0); THB 8.7 g/dL (11.5-17.4); pH(98.6) 7.44 (7.35-7.45)
[2019-03-12 16:07] LABS: MODALITY VENTILATOR
[2019-03-13] MEDS: ATROVENT NEB INH SCH ×6 (03:34→23:35)
[2019-03-13] MEDS: NS 1,000 ML IV SCH ×2 (04:23→16:48)
[2019-03-13 04:34] LABS: ALLEN TEST YES; BE -0.2 mmoll (-3.0-3.0); BLOOD TYPE ARTERIAL; HCO3-(ACT) 24.7 mmoll (20.0-26.0); METHB 1.6 % (0.0-1.5); O2(CT) 12.3 mL/dL (15.0-23.0); O2HB 92.6 % (95.0-99.0); PO2(98.6) 75 mmHg (60-100); SAMPLE BLOOD; SAO2 95.8 % (95.0-100.0); THB 9.4 g/dL (11.5-17.4); pH(98.6) 7.29 (7.35-7.45)
[2019-03-13 04:35] LABS: MODALITY COOL AEROSOL; PCO2(98.6) 56 mmHg (35-45)
[2019-03-13] MEDS: VANCOMYCIN 1 GM/NS 1 GM/250 ML IVPB IV SCH (05:45)
[2019-03-13 06:37] LABS: HEMATOCRIT 26.5 % (37.0-47.0); HEMOGLOBIN 8.3 g/dL (12.0-16.0); MCH 25.9 PG (27-31); MCHC 31.3 g/dL (33-37); MCV 82.6 FL (81-99); MPV 9.6 FL (7.4-10.4); RBC 3.21 XMIL (4.2-5.4); RDW 20.1 % (11.5-14.5); WBC 27.44 X1000 (4.8-10.8)
[2019-03-13 06:50] LABS: AGAP 10; BUN 8 mg/dL (8-22); CALCIUM 7.5 mg/dL (8.8-10.2); CHLORIDE 101 mmol/L (98-107); COSMO 273; CREATININE 0.2 mg/dL (0.5-0.9); ESTIMATED GFR > 60; GLUCOSE 117 mg/dL (70-104); POTASSIUM 3.1 mmol/L (3.5-5.1); SODIUM 137 mmol/L (136-145); TCO2 26 mmol/L (25-35)
[2019-03-13] MEDS: XOPENEX NEB INH SCH ×5 (07:44→23:35)
[2019-03-13] MEDS: MUCOMYST 20% INH SCH ×2 (07:45→19:54)
--- NOTE | 2019-03-13 08:43 | Diag Imaging Result Doc PS360 ---
EXAM: CHEST-PORTABLE INDICATION: Ventilator protocol TECHNIQUE: One view COMPARISON: 03/12/2019 FINDINGS: The patient appears to have been extubated during the interval. The PICC line and NG tube are in stable positions. The small left pleural effusion is stable. No new consolidation is identified. Cardiac silhouette is stable. IMPRESSION: Apparent interval extubation. Stable chest, otherwise. Electronically signed by Reagan Jones 03/13/2019 8:41 AM
[2019-03-13] MEDS: NICODERM PATCH TD SCH (10:13)
--- NOTE | 2019-03-13 10:36 | PROGRESS NOTE ---
DATE: 03/13/2019 SUBJECTIVE: Ms. Mathews is extubated. She is on BiPAP at this time and she is communicating. She would like to have more for her pain, but she is still pretty lethargic and just got extubated. I explained I want to be real careful with not sedating her. She did mention she would like to go to [place] because her daughter was in [facility]. I told her that we could not transfer her and that she would not be accepted over there. We need to finish up here at [facility]. OBJECTIVE: Temperature 97.2 degrees, pulse 125, respirations 24 and blood pressure 152/108. Pupils are equal round.Lungs: Clear in all lung monterroso. Cardiovascular: Regular rhythm and rate without murmur or S3. Urine output is good at 4500 mL. Making stool in the colostomy. The FARNAZ drain still with some blood-tinged drainage. IMAGING: Chest x-ray: She has been extubated. PICC line and NG tube in stable positions. She has small left pleural effusion which is stable. ASSESSMENT AND PLAN: 1. Admitted with acute on chronic hypoxemic respiratory distress secondary to chronic obstructive pulmonary disease exacerbation. 2. Constipation, fecal impaction, and she ended up having a cecal perforation and had a colectomy performed. FARNAZ drain and she has a colostomy which is making stool and seems to be improving. 3. Probable pneumonia, which is improved. Air and gas exchange is improved. She is off the ventilator. 4. Review of Labs: White count today still high at 27,440, hematocrit is 26, hemoglobin is 8, platelet count is 127,000. Chemistry: Sodium 137, potassium 3.1, chloride 101, BUN is 8, creatinine 0.2, albumin 2.1, total protein 3.4. PLAN: 1. Continue current antibiotics. She is improving. 2. Respiratory status is improving. 3. I think we can probably stop the methylprednisone, try not to give her any more sedation. cc: Elvis Aj MD
--- NOTE | 2019-03-13 11:10 | GENERAL SURGERY PROGRESS NOTE ---
DATE: 03/13/2019 She is afebrile, heart rate is 116, blood pressure 146/81. She is now extubated, on CPAP. Intake yesterday of 2322, output 2505. Her ileostomy is viable. Her drain is putting out serous fluid with 805 mL recorded yesterday. Laboratory shows a white count of 27,000, hemoglobin 8.3, hematocrit 26.5. With her extubation, her pH is down to 7.29, pCO2 up to 56. Potassium is 3.1. ASSESSMENT: Her hemoglobin has come up today. She continues to receive supportive care. No new recommendations are offered. cc: Gurjit Estrada MD
[2019-03-13] MEDS ORDERED: SOLU-MEDROL IV SCH (12:00)
[2019-03-13] MEDS: ROCEPHIN 1 GM in NS 50 ML IV SCH (14:45)
[2019-03-14] MEDS: ATROVENT NEB INH SCH ×6 (03:50→23:17)
[2019-03-14 04:37] LABS: ALLEN TEST YES; BE -6.9 mmoll (-3.0-3.0); BLOOD TYPE ARTERIAL; HCO3-(ACT) 19.6 mmoll (20.0-26.0); METHB 1.2 % (0.0-1.5); O2(CT) 11.3 mL/dL (15.0-23.0); O2HB 96.7 % (95.0-99.0); PCO2(98.6) 50 mmHg (35-45); PO2(98.6) 179 mmHg (60-100); SAMPLE BLOOD; SAO2 99.9 % (95.0-100.0); pH(98.6) 7.22 (7.35-7.45)
[2019-03-14 04:38] LABS: MODALITY BI PAP
--- NOTE | 2019-03-14 05:53 | Diag Imaging Result Doc PS360 ---
EXAM: CHEST-PORTABLE HISTORY: Ventilator protocol TECHNIQUE: Portable chest single view COMPARISON: 03/13/2019 FINDINGS: The lungs are well expanded except for small amount of atelectasis in the left lung base. This is slightly less pronounced. Small left pleural effusion. No cardiomegaly. No consolidation. No change in the right-sided PICC line or nasogastric tube. IMPRESSION: Slight interval improvement. Electronically signed by Ross Ha 03/14/2019 5:51 AM
[2019-03-14] MEDS: NS 1,000 ML IV SCH ×2 (06:10→21:12)
[2019-03-14] MEDS ORDERED: SODIUM BICARBONATE 8.4% IV PUSH ONE (06:12)
--- NOTE | 2019-03-14 07:07 | GENERAL SURGERY PROGRESS NOTE ---
DATE: 03/14/2019 SUBJECTIVE: The patient says she is having trouble breathing and short of breath. She does have a BiPAP on. Discussed the case with nurse taking care of her. OBJECTIVE: Vital Signs: The patient is afebrile, pulse 128, respiratory rate 28, blood pressure 152/83. General: Awake, female who looks stated age. Cardiovascular: Tachycardic. Lungs: Tachypneic with some referred airway noises. Abdomen: Soft. Mild distention. Ostomy appliance functioning. FARNAZ drain with serosanguineous output. LABORATORY DATA: ABG reviewed. She has a metabolic acidosis, and looks like she is trying to compensate with metabolic acidosis, although her pCO2 is still somewhat high, so there may be a mixed respiratory acidosis with this. ASSESSMENT AND PLAN: A 73-year-old female, currently postoperative day #4 from total abdominal colectomy for perforated cecum. Postoperative state. At this time, the patient remains critical. I am concerned that she might tire out trying to breathe as fast as she is breathing. Will need to monitor her closely. May need to even consider giving her an amp of bicarbonate. Will defer to Pulmonary. From a surgical point of view, she is having return of bowel function, but until her respiratory status improves, will try to hold off on any kind of significant intake in case she needs to be reintubated. cc: Pierre Collins MD
[2019-03-14 07:36] LABS: AGAP 11; BUN 7 mg/dL (8-22); CALCIUM 7.4 mg/dL (8.8-10.2); CHLORIDE 105 mmol/L (98-107); COSMO 277; CREATININE 0.1 mg/dL (0.5-0.9); ESTIMATED GFR > 60; GLUCOSE 61 mg/dL (70-104); POTASSIUM 2.6 mmol/L (3.5-5.1); SODIUM 141 mmol/L (136-145); TCO2 25 mmol/L (25-35)
[2019-03-14] MEDS: XOPENEX NEB INH SCH ×5 (07:55→23:18)
[2019-03-14] MEDS: MUCOMYST 20% INH SCH ×2 (07:56→19:16)
[2019-03-14 08:59] LABS: HEMATOCRIT 26.9 % (37.0-47.0); HEMOGLOBIN 8.4 g/dL (12.0-16.0); MCH 26.2 PG (27-31); MCHC 31.2 g/dL (33-37); MCV 83.8 FL (81-99); MPV 9.2 FL (7.4-10.4); RBC 3.21 XMIL (4.2-5.4); RDW 19.7 % (11.5-14.5); WBC 18.28 X1000 (4.8-10.8)
[2019-03-14] MEDS: VANCOMYCIN 1 GM/NS 1 GM/250 ML IVPB IV SCH ×2 (09:21→21:12)
[2019-03-14] MEDS: NICODERM PATCH TD SCH (09:21)
[2019-03-14] MEDS: POTASSIUM CHLORIDE 40 MEQ/SWI 40 MEQ/100 ML IVPB IV PRN ×2 (10:06→17:19)
[2019-03-14] MEDS: OFIRMEV 1000 MG/ISOTONIC SOLN 1,000 MG/100 ML BOTTLE IV PRN ×2 (10:53→22:05)
[2019-03-14 13:36] LABS: ALLEN TEST YES; BE 5.4 mmoll (-3.0-3.0); BLOOD TYPE ARTERIAL; HCO3-(ACT) 29.2 mmoll (20.0-26.0); METHB 0.6 % (0.0-1.5); O2(CT) 11.1 mL/dL (15.0-23.0); O2HB 96.4 % (95.0-99.0); PCO2(98.6) 47 mmHg (35-45); PO2(98.6) 87 mmHg (60-100); SAMPLE BLOOD; SAO2 98.4 % (95.0-100.0); SRATE 14 BPM; THB 8.1 g/dL (11.5-17.4); pH(98.6) 7.42 (7.35-7.45)
[2019-03-14 13:37] LABS: MODALITY BI PAP
[2019-03-14] MEDS: ROCEPHIN 1 GM in NS 50 ML IV SCH (14:51)
--- NOTE | 2019-03-14 16:15 | PROGRESS NOTE ---
DATE: 03/14/2019 Mrs. Mathews appears to be breathing comfortably. She is very weak. She does not feel she is doing very well and she is very weak and has hard time talking especially with her nonrebreather. Her temperature 99 degrees, pulse 111, respirations 24, blood pressure 107/66. Pupils are equal and round. Lungs are clear in all lung monterroso. Cardiovascular. Regular rhythm, rate without murmur or S3. Urine output was 3500 mL. ASSESSMENT AND PLAN: 1. The patient remains critical. This is postoperative day #4 total abdominal colectomy for perforated cecum. She has underlying chronic obstructive pulmonary disease and obstructive apnea and she still has a significant acidosis. Her chest x-ray shows slight improvement, lungs are well expanded except for small amount of atelectasis in left lung base. 2. She is admitted with acute on chronic hypoxemic respiratory failure secondary to chronic obstructive pulmonary disease and obstructive apnea. 3. Probable pneumonia which we are treating and this looks like it is improving. 4. Reviewing her lab white count still elevated, although it is coming down white count 18,280, hematocrit is 26, hemoglobin 8.4, platelet count 107,000. Chemistries sodium 141, potassium 2.6, chloride 105, bicarb 25, BUN 7, creatinine 0.1 and good urine output. Her calcium is a little low but compensated for her low albumin it appears to be appropriate so her bicarb is at 25. cc: Elvis Aj MD
[2019-03-15] MEDS: POTASSIUM CHLORIDE 40 MEQ/SWI 40 MEQ/100 ML IVPB IV PRN (00:59)
[2019-03-15] MEDS: ATROVENT NEB INH SCH ×6 (03:17→23:30)
[2019-03-15 04:12] LABS: ALLEN TEST YES; BE 6.6 mmoll (-3.0-3.0); BLOOD TYPE ARTERIAL; HCO3-(ACT) 30.1 mmoll (20.0-26.0); METHB 0.8 % (0.0-1.5); O2(CT) 11.1 mL/dL (15.0-23.0); O2HB 96.4 % (95.0-99.0); PCO2(98.6) 49 mmHg (35-45); PO2(98.6) 109 mmHg (60-100); SAMPLE BLOOD; SAO2 98.8 % (95.0-100.0); pH(98.6) 7.42 (7.35-7.45)
[2019-03-15 04:13] LABS: MODALITY COOL AEROSOL
[2019-03-15 05:17] LABS: HEMOGLOBIN 7.7 g/dL (12.0-16.0); MCH 25.8 PG (27-31); MCHC 30.8 g/dL (33-37); MCV 83.9 FL (81-99); MPV 9.7 FL (7.4-10.4); RBC 2.98 XMIL (4.2-5.4); RDW 20.2 % (11.5-14.5); WBC 13.02 X1000 (4.8-10.8)
[2019-03-15 05:18] LABS: AGAP 14; BUN 6 mg/dL (8-22); CALCIUM 7.7 mg/dL (8.8-10.2); CHLORIDE 112 mmol/L (98-107); COSMO 301; CREATININE 0.2 mg/dL (0.5-0.9); ESTIMATED GFR > 60; GLUCOSE 62 mg/dL (70-104); POTASSIUM 3.7 mmol/L (3.5-5.1); SODIUM 154 mmol/L (136-145); TCO2 28 mmol/L (25-35)
[2019-03-15] MEDS: MORPHINE IV PRN ×6 (06:28→23:49)
--- NOTE | 2019-03-15 07:17 | Diag Imaging Result Doc PS360 ---
EXAM: CHEST-PORTABLE INDICATION: Ventilator protocol TECHNIQUE: One view COMPARISON: 03/14/2019 FINDINGS: Support tubes and lines are in stable positions. There is evidence of a small pleural effusion and adjacent atelectasis at the left lung base. This is essentially stable. No new consolidation is appreciated. Cardiac silhouette is stable. IMPRESSION: Stable chest. Electronically signed by Reagan Jones 03/15/2019 7:15 AM
[2019-03-15] MEDS: XOPENEX NEB INH SCH ×5 (07:43→23:30)
[2019-03-15] MEDS: MUCOMYST 20% INH SCH ×2 (07:44→19:26)
[2019-03-15] MEDS: D5W 1,000 ML IV SCH ×2 (08:49→23:39)
[2019-03-15] MEDS: SODIUM CHLORIDE 0.9% INJ SCH (08:49)
[2019-03-15] MEDS: PROTONIX IV SCH (08:49)
[2019-03-15] MEDS: VANCOMYCIN 1 GM/NS 1 GM/250 ML IVPB IV SCH (08:49)
[2019-03-15] MEDS: NICODERM PATCH TD SCH (08:50)
[2019-03-15] MEDS ORDERED: LASIX IV ONE (09:50)
[2019-03-15 10:41] LABS: ALBUMIN 2.2 g/dL (3.5-5.0); PREALBUMIN 7.3 mg/dL (20-40)
[2019-03-15] MEDS: ALBUMIN 25% IV SCH (10:48)
--- NOTE | 2019-03-15 11:26 | GENERAL SURGERY PROGRESS NOTE ---
DATE: 03/15/2019 SUBJECTIVE: The patient seems to be doing okay. Her respiratory status is improved. She does report some abdominal pain, but otherwise is doing okay. Nursing staff reports no major issues besides her blood pressure being slightly high. OBJECTIVE: Vital Signs: Patient is currently afebrile. Pulse 105, respiratory rate 32, blood pressure 182/85. General exam: No acute distress. Cardiovascular: Regular rate and rhythm. Lungs: Some coarse sounds noted bilaterally. Abdomen: Soft, appropriately tender. Ostomy is viable, has some drainage. ASSESSMENT/PLAN: A 73-year-old female, currently postoperative day #5 from total abdominal colectomy for perforated cecum. 1. Postoperative state: At this time, the patient seems to be doing better. Her respiratory status has improved. We will get nutrition series to start tube feeds, and we will continue to monitor. We will put her on some IV pain medicine. She also is going to be started on Protonix. She has sequential compression devices on. And I will start her on heparin today. cc: Pierre Collins MD
--- NOTE | 2019-03-15 11:34 | PROGRESS NOTE ---
DATE: 03/15/2019 SUBJECTIVE: This morning, Ms. Mathews refers to be doing fairly okay. No new complaints. Per the nursing staff, the output from the ostomy seems to be fairly reduced and she is having mild difficulty breathing and she has not been on any nutrition. OBJECTIVE: Current Vital signs: Blood pressure is 182/85, pulse of 105, respirations 32, temperature 97.3 degrees. The patient was saturating 98% on a face mask. General: Ms. Mathews is a 73-year-old elderly female. She is in bed, in mild distress. HEENT: Mucosa is pink and moist. Anicteric. Acyanotic. Neck: Supple. Chest: Air entry is bilaterally reduced. There is some diffuse crackles and wheezing in both lung monterroso. Cardiovascular: Regular rate and rhythm. Abdomen: Soft. There is an ostomy on the right side of the abdominal wall. The ostomy bag has some dark fecal material. The surgical wound is currently covered with sterile dressing. There is a lot of edema on the lateral aspect of the abdominal wall. Extremities: About 3+ pedal edema. Central nervous system: Patient is awake, alert, and follows basic commands. LABORATORY DATA: WBC is 13.02, hemoglobin is 7.7, platelet count of 89,000. Chemistry is also reviewed. Sodium is 157, potassium is 3.7, chloride is 112. IMAGING STUDIES: Include a chest x-ray, shows stable chest, no new findings. CURRENT MEDICATIONS: Have all been reviewed and no changes. ASSESSMENT: 1. The patient is status post total abdominal colectomy with end-ileostomy. 2. Perforated cecum. This led to the total colectomy on 03/10/2019. Patient is day 5 postop. 3. Acute on chronic hypoxemic respiratory failure. Patient continues using the cycles between Venturi mask and BiPAP. 4. Chronic hypercarbic respiratory failure. 5. Abnormal electrolytes including hypernatremia and hyperchloremia. We have changed the fluids. 6. Fluid overload manifested by 3+ pedal edema and some fluid on the lateral aspect of the abdominal wall. I think part of it could be extreme hypoalbuminemia from poor nutritional status. We are going to infuse the patient albumin today and also get her Lasix. 7. Normocytic anemia. Patient is being grouped and crossmatch. PLAN: In general, I think Ms. Mathews continues to be critical sick. She still has a very risky respiratory status which I think she still needs to be in the ICU to have close monitoring. We are going to start her on tube feedings today. We will get her some D5W to correct the hypernatremia. She has also been started on Lasix and albumin. We will re-evaluate her in the morning and make changes accordingly. cc: John Carrizales MD
[2019-03-15] MEDS: HEPARIN SUBQ SCH ×2 (13:00→20:25)
[2019-03-15] MEDS: ROCEPHIN 1 GM in NS 50 ML IV SCH (13:01)
[2019-03-15] MEDS: VANCOMYCIN 1,400 MG in NS 250 ML IV SCH (20:24)
--- NOTE | 2019-03-15 22:56 | PROVIDER PROGRESS NOTE ---
Progress Note S: O: Last Vital Signs Temp 97.6 F 03/15/19 20:00 Pulse 111 H 03/15/19 22:01 Resp 22 03/15/19 22:01 BP 166/97 03/15/19 22:01 Pulse Ox 93 L 03/15/19 22:01 Height 5 ft 5 in Weight 150 lb 9.6 oz LABS 03/15/19 03/15/19 04:00 04:00 WBC 13.02 H Hgb 7.7 L Plt Count 89 L Sodium 154 H Potassium 3.7 Chloride 112 H Carbon Dioxide 28 Anion Gap 14 BUN 6 L Creatinine 0.2 L EXAM: CHEST-PORTABLE INDICATION: Ventilator protocol TECHNIQUE: One view COMPARISON: 03/14/2019 FINDINGS: Support tubes and lines are in stable positions. There is evidence of a small pleural effusion and adjacent atelectasis at the left lung base. This is essentially stable. No new consolidation is appreciated. Cardiac silhouette is stable. IMPRESSION: Stable chest.
[2019-03-16] MEDS: ATROVENT NEB INH SCH ×6 (03:30→23:27)
[2019-03-16 04:41] LABS: ALLEN TEST YES; BE 18.3 mmoll (-3.0-3.0); BLOOD TYPE ARTERIAL; HCO3-(ACT) 39.2 mmoll (20.0-26.0); METHB 0.8 % (0.0-1.5); O2(CT) 9.6 mL/dL (15.0-23.0); O2HB 97.1 % (95.0-99.0); PCO2(98.6) 46 mmHg (35-45); PO2(98.6) 143 mmHg (60-100); SAMPLE BLOOD; SAO2 98.9 % (95.0-100.0); THB 6.8 g/dL (11.5-17.4)
[2019-03-16 04:43] LABS: MODALITY BI PAP; pH(98.6) 7.57 (7.35-7.45)
[2019-03-16] MEDS: HEPARIN SUBQ SCH (06:02)
[2019-03-16 07:06] LABS: AGAP 7; BUN 3 mg/dL (8-22); CALCIUM 7.9 mg/dL (8.8-10.2); CHLORIDE 102 mmol/L (98-107); COSMO 297; CREATININE 0.2 mg/dL (0.5-0.9); ESTIMATED GFR > 60; GLUCOSE 209 mg/dL (70-104); SODIUM 148 mmol/L (136-145); TCO2 39 mmol/L (25-35)
--- NOTE | 2019-03-16 07:27 | Diag Imaging Result Doc PS360 ---
EXAM: CHEST-PORTABLE HISTORY: Ventilator protocol TECHNIQUE: Portable chest single view COMPARISON: 03/15/2019 FINDINGS: No change in the right-sided PICC line or nasogastric tube. There is a small left pleural effusion with basilar atelectasis. The lungs are hyperexpanded. The pulmonary vessels are small. No cardiomegaly. Mild increased markings in the right apex and left base. IMPRESSION: No interval improvement. Electronically signed by Ross Ha 03/16/2019 7:25 AM
[2019-03-16] MEDS: MORPHINE IV PRN ×6 (07:34→23:01)
[2019-03-16] MEDS: XOPENEX NEB INH SCH ×5 (07:54→23:27)
[2019-03-16 07:55] LABS: POTASSIUM 2.5 mmol/L (3.5-5.1)
[2019-03-16] MEDS: MUCOMYST 20% INH SCH ×2 (07:55→19:37)
[2019-03-16 08:05] LABS: HEMATOCRIT 22.6 % (37.0-47.0); HEMOGLOBIN 6.9 g/dL (12.0-16.0); MCH 26.4 PG (27-31); MCHC 30.5 g/dL (33-37); MCV 86.6 FL (81-99); MPV 9.4 FL (7.4-10.4); PLT 43 X1000 (130-400); RBC 2.61 XMIL (4.2-5.4); RDW 19.4 % (11.5-14.5); WBC 9.83 X1000 (4.8-10.8)
[2019-03-16] MEDS ORDERED: POTASSIUM CHLORIDE 40 MEQ/SWI 40 MEQ/100 ML IVPB IV ONE (08:19)
[2019-03-16] MEDS ORDERED: MAGNESIUM SULFATE 2 GM/S.W.I. 2 GM/50 ML IVPB IV ONE (08:23)
[2019-03-16] MEDS: ALBUMIN 25% IV SCH (08:31)
[2019-03-16] MEDS: LASIX IV SCH (08:31)
[2019-03-16] MEDS: PROTONIX IV SCH (08:31)
[2019-03-16] MEDS: SODIUM CHLORIDE 0.9% INJ SCH (08:31)
[2019-03-16] MEDS: NICODERM PATCH TD SCH (08:32)
[2019-03-16] MEDS: OFIRMEV 1000 MG/ISOTONIC SOLN 1,000 MG/100 ML BOTTLE IV PRN (08:41)
[2019-03-16] MEDS: POTASSIUM CHLORIDE 20 MEQ/SWI 20 MEQ/100 ML IVPB IV SCH ×2 (09:18→10:57)
[2019-03-16 09:23] LABS: RETIC% 0.7 % (0.8-2.1); RETIC-HE 33.4 PG (28.2-36.6)
[2019-03-16 09:44] LABS: INR 1.13; PROTIME 14.6 Seconds (11.0-16.0)
--- NOTE | 2019-03-16 09:44 | GENERAL SURGERY PROGRESS NOTE ---
DATE: 03/16/2019 SUBJECTIVE: Patient seems to be doing okay. She says she is feeling a little bit better. OBJECTIVE: Patient is currently afebrile. Her vital signs have been stable. She does have a low- grade tachycardia. General exam: No acute distress. Cardiovascular some mild tachycardia. Lungs some coarse sounds noted. Abdomen soft. Ileostomy functioning. She is tolerating her tube feeds. LABORATORY: ABG reviewed from this morning. ASSESSMENT AND PLAN: A 73-year-old female, currently postoperative day #6 from total abdominal colectomy for perforation. 1. Postoperative state. At this time, she seems to be doing okay. Her respiratory status seems to be stabilizing. 2. We got her on tube feeds appreciate dietitian's assistance. 3. We will continue to monitor her. cc: Pierre Collins MD
[2019-03-16 09:45] LABS: IRON SATURATION 21 %; TIBC 106 ug/dL; TOTAL IRON 22 ug/dL (49-151); UNBOUND IRON 84 ug/dL (112-346)
[2019-03-16] MEDS: ARIXTRA SUBQ SCH (10:08)
[2019-03-16] MEDS ORDERED: NS 500 ML IV ONE (10:09)
[2019-03-16 10:10] LABS: BANDS 6 % (0-1); EOS 6 % (1-10); LYMPHS 2 % (21-51); SEGS 86 % (42-75)
--- NOTE | 2019-03-16 10:44 | PROGRESS NOTE ---
DATE: 03/16/2019 SUBJECTIVE: This morning, Ms. Mathews is on the BiPAP. She refers to be doing a little better. Per the nursing staff, she was complaining of a lot of pain earlier on and was given something for pain. OBJECTIVE: Currently, her blood pressure is 121/56, pulse of 110, respirations are 20, temperature is 100.0 degrees. General Examination: Ms. Mathews is a 73-year-old, female. She is in bed, in mild respiratory distress. HEENT: Mucosa is pink and moist. Anicteric. Acyanotic. Neck is supple. Chest: Air entry is bilaterally reduced with some crackles in the posterior lung monterroso. Cardiovascular is irregularly irregular. Slightly tachycardic. No murmurs. Abdomen is soft. There is an ostomy on the right side of the abdominal wall. There is also a FARNAZ drain on the left side. The midline surgical wound is affronted with clips. There is a distal area where there is some exudation. Extremities: About 2+ pedal edema. TRAFFIC ANALYSIS TECHNICIAN: The patient is awake. Will follow basic commands. Laboratory Data: WBC is down to 9.83, hemoglobin is 6.9, platelet count of 43,000. Potassium is 2.8, sodium is down to 148, bicarb is 39. Iron studies seem to suggest no deficiency. ASSESSMENT: 1. Acute abdomen secondary to perforated cecum. The patient is status post total abdominal colectomy with end ileostomy. Today is day 6 postop. 2. Acute on chronic hypoxemic respiratory failure. Patient continues to cycle between Venturi mask and BiPAP. She is currently on the BiPAP. 3. Electrolyte abnormalities. We will continue to address these. 4. Fluid overload. The patient is still on Lasix with albumin. 5. Normocytic anemia with hemoglobin down to 6.9. The patient is also remarkably thrombocytopenic with an absolute percent reticulocyte count of 0.3 which is indicative of hypoproliferative bone marrow state. This is either from mineral/vitamin deficiencies or the antibiotic side effects, or ongoing bone marrow suppression from infection. The patient is on antimicrobial therapy. We are going to transfuse her 2 units of packed red blood cells. I have discontinued the heparin. We will use Arixtra for deep venous thrombosis prophylaxis. 6. Atrial fibrillation on the monitor. We will get an electrocardiogram 12 lead and start the patient on a beta antwan for now. cc: John Carrizales MD
[2019-03-16 10:50] LABS: FERRITIN 266 ng/mL (13-150)
[2019-03-16] MEDS: LOPRESSOR PO SCH ×3 (10:56→21:32)
[2019-03-16] MEDS: VANCOMYCIN 1,400 MG in NS 250 ML IV SCH ×2 (11:18→20:29)
[2019-03-16] MEDS: FOLIC ACID PO SCH ×2 (11:31→21:33)
--- NOTE | 2019-03-16 11:31 | EKG Report ---
Test Performed on : 03/16/2019 10:51:31 AM Test Reason : Afib Blood Pressure : / mmHG Vent. Rate : 120 BPM Atrial Rate : 120 BPM P-R Int : 168 ms QRS Dur : 102 ms QT Int : 344 ms P-R-T Axes : 000 016 -32 degrees QTc Int : 486 ms Sinus tachycardia. with premature supraventricular complexes. Abnormal ECG When compared with ECG of 10-MAR-2019 14:01, Artifact is present (muscle tremor?) in all leads except II Confirmed by Richy BROWN, Sunny Luna ([id number]) on 03/16/2019 10:33:14 PM
[2019-03-16] MEDS: ROCEPHIN 1 GM in NS 50 ML IV SCH (13:59)
[2019-03-16] MEDS: POTASSIUM CHLORIDE 40 MEQ/SWI 40 MEQ/100 ML IVPB IV PRN (17:06)
[2019-03-17] MEDS: POTASSIUM CHLORIDE 40 MEQ/SWI 40 MEQ/100 ML IVPB IV PRN (00:21)
[2019-03-17] MEDS: MORPHINE IV PRN ×8 (01:12→22:59)
[2019-03-17] MEDS: ATROVENT NEB INH SCH ×6 (03:32→23:42)
[2019-03-17 04:38] LABS: ALLEN TEST YES; BE 17.8 mmoll (-3.0-3.0); BLOOD TYPE ARTERIAL; HCO3-(ACT) 38.7 mmoll (20.0-26.0); METHB 1.2 % (0.0-1.5); O2(CT) 14.5 mL/dL (15.0-23.0); O2HB 90.5 % (95.0-99.0); PCO2(98.6) 47 mmHg (35-45); PO2(98.6) 53 mmHg (60-100); SAMPLE BLOOD; SAO2 93.4 % (95.0-100.0); THB 11.4 g/dL (11.5-17.4)
[2019-03-17 04:40] LABS: MODALITY COOL AEROSOL; pH(98.6) 7.56 (7.35-7.45)
[2019-03-17] MEDS: LOPRESSOR PO SCH ×4 (04:44→22:54)
[2019-03-17 07:03] LABS: AGAP 7; BUN 7 mg/dL (8-22); CALCIUM 7.8 mg/dL (8.8-10.2); CHLORIDE 98 mmol/L (98-107); COSMO 279; CREATININE 0.2 mg/dL (0.5-0.9); ESTIMATED GFR > 60; GLUCOSE 131 mg/dL (70-104); POTASSIUM 3.4 mmol/L (3.5-5.1); SODIUM 140 mmol/L (136-145); TCO2 35 mmol/L (25-35)
--- NOTE | 2019-03-17 07:19 | Diag Imaging Result Doc PS360 ---
EXAM: CHEST-PORTABLE 03/17/2019 HISTORY: Ventilator protocol TECHNIQUE: AP portable at 0515 COMMENT: There is an NG tube with its tip below the diaphragm. There is opacification of retrocardiac portion of the left lower lobe. There is a pleural effusion on the left. There are patchy alveolar opacities in the right upper lobe. These findings were also present on 03/16/2019. There is a PICC line with its tip in the superior vena cava just above the right atrium. IMPRESSION: Left lower lobe pneumonia versus atelectasis. Right upper lobe pneumonia. Left pleural effusion. Electronically signed by Shelton Robbins 03/17/2019 7:17 AM
[2019-03-17] MEDS: XOPENEX NEB INH SCH ×5 (07:52→23:42)
[2019-03-17] MEDS: MUCOMYST 20% INH SCH ×2 (07:52→19:33)
[2019-03-17] MEDS: VANCOMYCIN 1,400 MG in NS 250 ML IV SCH (08:27)
[2019-03-17] MEDS: FOLIC ACID PO SCH ×2 (08:28→20:09)
[2019-03-17] MEDS: LASIX IV SCH (08:28)
[2019-03-17] MEDS: PROTONIX IV SCH (08:28)
[2019-03-17] MEDS: ALBUMIN 25% IV SCH (08:28)
[2019-03-17] MEDS: ARIXTRA SUBQ SCH (08:28)
[2019-03-17] MEDS: SODIUM CHLORIDE 0.9% INJ SCH (08:28)
[2019-03-17] MEDS: NICODERM PATCH TD SCH (08:29)
[2019-03-17 08:46] LABS: HEMATOCRIT 32.5 % (37.0-47.0); HEMOGLOBIN 10.6 g/dL (12.0-16.0); MCH 27.9 PG (27-31); MCHC 32.6 g/dL (33-37); MCV 85.5 FL (81-99); MPV 10.2 FL (7.4-10.4); PLT 29 X1000 (130-400); RDW 16.9 % (11.5-14.5)
[2019-03-17] MEDS ORDERED: KLOR-CON PO ONE (09:13)
[2019-03-17] MEDS ORDERED: POTASSIUM CHLORIDE 20% LIQUID PO ONE (09:20)
[2019-03-17 09:31] LABS: BANDS 8 % (0-1); EOS 1 % (1-10); LYMPHS 6 % (21-51); MONO 2 % (1-9); SEGS 80 % (42-75)
[2019-03-17 09:33] LABS: WBC 6.06 X1000 (4.8-10.8)
--- NOTE | 2019-03-17 10:41 | GENERAL SURGERY PROGRESS NOTE ---
DATE: 03/17/2019 SUBJECTIVE: The patient seems to be doing about the same. She says she is hurting all over, but seems to be doing okay. Hemodynamically, she has been stable. OBJECTIVE: Vital Signs: The patient is currently afebrile. Her vital signs have been stable. General: No acute distress. Resting. Cardiovascular: Regular rate and rhythm. Lungs: Some coarse sounds noted. Abdomen: Soft. Ileostomy is functioning. FARNAZ drain with serosanguineous output. Incision with some drainage, but it looks serous. Abdomen is appropriately tender. LABORATORY DATA: ABG reviewed. ASSESSMENT AND PLAN: A 73-year-old female, currently postoperative day #7 from total abdominal colectomy for perforation. Postoperative state. At this time, the patient's respiratory status is the main thing that seems to be holding her in the intensive care unit, but I think it is stabilizing. She is on tube feeds, and she is having some ileostomy output. Will continue to monitor. I appreciate dietitian's help. If it is okay for her to have some ice chips, and will put ice chips and water in. Once she is deemed medically stable to go to the floor or the [facility], will have her transferred if okay with the hospitalist. cc: Pierre Collins MD
--- NOTE | 2019-03-17 11:42 | PROGRESS NOTE ---
DATE: 03/17/2019 SUBJECTIVE: This morning, Ms. Mathews refers to be doing a lot better. She has been on just the Venturi mask since early on today. OBJECTIVE: Vital signs: Blood pressure is 152/73, pulse of 96, temperature is 99.5 degrees. General: Ms. Mathews is a 73-year-old female. She is in bed. She is not in any distress. HEENT: Mucosa is pink and moist. Anicteric. Acyanotic. Neck: Supple. No JVD. Chest: Air entry is bilaterally reduced. There are still a few crackles in the posterior lung monterroso. Cardiovascular: Regular rate and rhythm with occasional extrasystolic beats. Abdomen: Soft, minimally distended. There is an ostomy on the right side of the abdominal wall. There is also a FARNAZ drain on the left. The midline surgical wound is affronted with clips. There is still some area of exudation. Extremities: About 2+ pedal edema. SASH STICKER: Patient is awake, alert and oriented. LABORATORY DATA: WBC is 6.06, hemoglobin is 10.6, platelet count of 29. Sodium is 140, potassium is 3.4, chloride 98, bicarbonate is 35. So far, the culture from the abdominal surgical site is growing gram-negative vidhi. The patient's current antimicrobials include ceftriaxone for 20 days, vancomycin since the , so today is day 6 on that. Patient's I's and O's: Urine output was 1825. She is currently negative balance of 1788. The patient's current weight is 147 from 157 about 3 days ago; that is a 10 pound weight loss. DIAGNOSTIC STUDIES: A chest x-ray this morning continues to show left lower lobe pneumonia versus atelectasis, right upper lobe pneumonia and the left pleural effusion. ASSESSMENT: 1. Acute abdomen secondary to perforated septum. The patient is status post total abdominal colectomy with end ileostomy. Today is day 6 postoperative. 2. Acute on chronic hypoxemic respiratory failure. Patient is currently on Venturi mask cycle between that and BiPAP. 3. Multifocal pneumonia. The patient is on antimicrobial coverage. Today is day 7 on the vancomycin. 4. Fluid overload partly due to fluid resuscitation and hypoalbuminemia. This has significantly improved with Lasix and albumin. 5. Normocytic anemia. Hemoglobin was down to 6.9 yesterday. The patient was transfused 2 packed red blood cells. She is now up to 10.6. 6. Severe thrombocytopenia. The patient is not showing any signs of bleeding. Her D-dimers and coagulation panel yesterday were all within normal range, except for the D- dimer. I think this is due to bone marrow suppression from the acute infection/acute critical care illness. The patient is also remarkably folate deficient, so we will continue to replace this. 7. Cardiac arrhythmia. Patient seems to be in sinus but with multiple premature ventricular complexes every now and. We thought she did have atrial fibrillation yesterday on the monitor, but 12 leads showed normal sinus rhythm with multiple premature ventricular complexes. 8. Gram-negative vidhi surgical wound infection. We are still pending the identification and sensitivity. The patient is on ceftriaxone. We will continue with that for this purpose. PLAN: So, in general, Ms. Mathews seems to be looking a lot better. She was more engaging, more conversational today, less short of breath. Her volume status seems to be improving. Her albumin and Lasix have been discontinued by Pulmonary Medicine. She continues to tolerate her tube feedings, and I have been made to understand that surgery has started her on ice chips and sips of water. We are going to continue with the current antimicrobial coverage. We are pending the ID and sensitivity of the gram-negative vidhi on the culture from the abdomen. cc: John Carrizales MD [facility]
--- NOTE | 2019-03-17 12:49 | PROGRESS NOTE ---
DATE: 03/16/2019 SUBJECTIVE: Ms. Christy Mathews was lying in the bed, alert and oriented x3, and she denied any nausea, vomiting, but c/o of abdominal pain. OBJECTIVE: Vital signs: Temperature is 99.5, heart rate is 91, respirations 19, blood pressure is 155/81, oxygen saturation is 96% on BiPAP machine. General appearance: This patient was lying in the bed, alert and oriented x3. She has an oxygen mask on her face and in no acute distress. HEENT: Pale conjunctivae. No icterus. PERRLA. Neck: Supple. Lungs: Diminished breath sounds with crackles and wheezes heard in the anterior and posterior monterroso. Cardiovascular: Regular rate and rhythm, S1, S2 heard on auscultation. No rubs, murmurs, or gallops heard. Abdomen: Soft, tender, ostomy draining with brown stools, midline incision dressing intact, FARNAZ drain on the left lower abdomen. Extremities: no cyanosis or clubbing but has 3+ edema in the lower extremities and generalized edema in the upper extremities with dressing on the hands due to weeping wounds. Neurologic: Alert and oriented x3. LABORATORY: WBC is 6.06, RBC is 3.80, hemoglobin 10.6, hematocrit 32.5, platelet count is 29,000. Blood gases: pH is 7.56, pCO2 is 47, O2 is 53, sodium bicarbonate is 38.7. Her sodium is 140, potassium is 3.4, chloride is 28, carbon dioxide is 35, anion gap is 7, BUN is 7 and creatinine is 0.2. Urinalysis showed trace of protein. IMPRESSION AND PLAN: 1. Postoperative colectomy, ileocecum. 2. Chronic respiratory failure. 3. Abnormal electrolytes. 4. Fluid overload. 5. Anemia. PLAN; The plan of care for now is to continue post operative surgical care, continue with the GI prophylaxis and continue taking stool softeners p.r.n. as needed. We will continue with the plan of care as per the primary care and the surgical team. This plan was discussed with Dr. Dyer. Please call us for any further questions or concerns. Dictated by SINCERE Lacey for Henrry Dyer MD cc: Henrry Dyer MD I have seen the patient myself and discussed the above findings and plan of care with nurse practitioner. Discussed with the patient at bedside and all questions were answered. Please call us with any further questions. THERON
[2019-03-17] MEDS: ROCEPHIN 1 GM in NS 50 ML IV SCH (13:50)
[2019-03-17] MEDS: OFIRMEV 1000 MG/ISOTONIC SOLN 1,000 MG/100 ML BOTTLE IV PRN (15:16)
--- NOTE | 2019-03-17 17:41 | HEMO/ONC CONSULTATION ---
DATE: 03/17/2019 REASON FOR CONSULTATION: Severe thrombocytopenia. HISTORY OF PRESENT ILLNESS: This patient has been in the hospital for 21 days now. She originally came in to the ER with altered mental status. She was found to be hypercapnic and in respiratory failure. She was given Narcan and her altered mental status improved. Through the course of her admission she developed constipation and fecal impaction in which surgery was consulted. Exploratory laparotomy was performed which revealed a perforated cecum with sigmoid stricture. She has remained in the ICU since then. She does have an ileostomy now. Continues to have some degree of respiratory distress. She is on BiPAP at bedtime and p.r.n. currently. It is noted that her platelets were within normal range from the time of admission until the 12 of March. Since that time they have continued to trend down and are currently at 29,000. PAST MEDICAL HISTORY: Includes COPD, chronic respiratory failure, hypertension. PAST SURGICAL HISTORY: Unknown. ALLERGIES: No known drug allergies. HOME MEDICATION: Albuterol, amlodipine, Flexeril, Cymbalta, ferrous sulfate, Emerado 7.5, meloxicam, and ondansetron. SOCIAL HISTORY: Possibly still a smoker. No history of alcohol or drug use. REVIEW OF SYSTEMS: Cough and shortness of breath with abdominal pain. PHYSICAL EXAMINATION: Vital signs: Temperature 100.0, pulse rate 94, respiratory rate 25, blood pressure 143/74, O2 saturation 98% via Venturi mask at 10 L. The patient states she is in 10/10 abdominal pain. General: This is a chronically ill-appearing female. Cardiovascular: Tachycardic. Regular rate and rhythm. Respiratory: Diminished throughout. No wheezes noted. Gastrointestinal: Soft, nondistended, nontender. Positive bowel sounds. Skin: Warm, dry, and intact. HEENT: Sclerae anicteric. PERRLA. LABORATORY: WBC 6.06, hemoglobin 10.6, hematocrit 32.5, platelet count 29,000. Potassium 3.4, creatinine 0.2. B12 426, folate 7.8. ASSESSMENT: 1. Thrombocytopenia. 2. Chronic respiratory failure. 3. Postoperative s/p colon resection. 4. Normocytic anemia. PLAN: We are continuing to evaluate the patient. At this time her thrombocytopenia etiology is unclear. No evidence of DIC. Continue to replete her folic acid. Labs have been ordered. We will continue to monitor closely. Dictated by SINCERE Cordoba for Aquilino Bruno MD cc: Aquilino Bruno MD [facility]
[2019-03-18] MEDS: OFIRMEV 1000 MG/ISOTONIC SOLN 1,000 MG/100 ML BOTTLE IV PRN ×3 (01:05→16:18)
[2019-03-18] MEDS: VANCOMYCIN 1,200 MG in NS 250 ML IV SCH ×2 (02:27→13:48)
[2019-03-18] MEDS: ATROVENT NEB INH SCH ×6 (03:08→23:24)
[2019-03-18] MEDS: LOPRESSOR PO SCH ×4 (03:50→22:38)
[2019-03-18] MEDS: MORPHINE IV PRN ×6 (03:50→23:57)
[2019-03-18 04:41] LABS: ALLEN TEST YES; BE 16.6 mmoll (-3.0-3.0); BLOOD TYPE ARTERIAL; HCO3-(ACT) 37.8 mmoll (20.0-26.0); METHB 1.3 % (0.0-1.5); O2(CT) 12.2 mL/dL (15.0-23.0); O2HB 94.4 % (95.0-99.0); PO2(98.6) 74 mmHg (60-100); SAMPLE BLOOD; SAO2 97.9 % (95.0-100.0); THB 9.1 g/dL (11.5-17.4); pH(98.6) 7.51 (7.35-7.45)
[2019-03-18 04:42] LABS: MODALITY CANNULA; PCO2(98.6) 52 mmHg (35-45)
[2019-03-18 06:17] LABS: HEMATOCRIT 29.9 % (37.0-47.0); HEMOGLOBIN 9.6 g/dL (12.0-16.0); MCH 27.7 PG (27-31); MCHC 32.1 g/dL (33-37); MCV 86.4 FL (81-99); RBC 3.46 XMIL (4.2-5.4); RDW 17.5 % (11.5-14.5); WBC 5.46 X1000 (4.8-10.8)
[2019-03-18 06:36] LABS: AGAP 9; BUN 8 mg/dL (8-22); CALCIUM 8.2 mg/dL (8.8-10.2); CHLORIDE 97 mmol/L (98-107); COSMO 277; CREATININE 0.2 mg/dL (0.5-0.9); ESTIMATED GFR > 60; GLUCOSE 114 mg/dL (70-104); POTASSIUM 3.3 mmol/L (3.5-5.1); SODIUM 139 mmol/L (136-145); TCO2 33 mmol/L (25-35)
[2019-03-18] MEDS ORDERED: POTASSIUM CHLORIDE 20% LIQUID PO ONE ×3 (06:45→12:23)
--- NOTE | 2019-03-18 06:54 | GENERAL SURGERY PROGRESS NOTE ---
DATE: 03/18/2019 SUBJECTIVE: Patient seems to be doing okay. She is in better spirits. Nursing staff reports no major issues. OBJECTIVE: Vital Signs: Patient is currently afebrile. Her vital signs are stable. General: No acute distress. Cardiovascular: Regular rate and rhythm. Lungs: Grossly clear, but there are some coarse sounds noted. Abdomen: Soft. Appropriately tender. Ileostomy functioning. FARNAZ drain with serosanguineous output. LABORATORY: ABG reviewed from this morning. ASSESSMENT AND PLAN: A 73-year-old female currently postoperative day number 8 from total abdominal colectomy for cecal perforation. Postoperative state. At this time, she seems to be doing well. She has been relatively stable. Hopefully, she can get out of the ICU. She is awake and alert enough that we will try to get the nurses to do a bedside swallow evaluation. If abnormal, we will get a formal speech evaluation but, hopefully can start her on p.o. intake here soon. cc: Pierre Collins MD
--- NOTE | 2019-03-18 07:17 | Diag Imaging Result Doc PS360 ---
EXAM: CHEST-PORTABLE INDICATION: Ventilator protocol TECHNIQUE: One view COMPARISON: 03/17/2019 FINDINGS: Support tubes and lines are in stable positions. The left pleural effusion with adjacent atelectasis and/or infiltrate at the left lung base is approximately stable. The milder consolidation in the right upper lobe appears to have improved slightly. No new consolidation is identified. Cardiac silhouette is stable. IMPRESSION: Slight improvement of the mild consolidation in the right upper lobe. Stable chest, otherwise. Electronically signed by Reagan Jones 03/18/2019 7:15 AM
[2019-03-18 07:33] LABS: PLT 38 X1000 (130-400)
[2019-03-18] MEDS: MUCOMYST 20% INH SCH ×2 (07:40→19:29)
[2019-03-18] MEDS: XOPENEX NEB INH SCH ×5 (07:40→23:23)
[2019-03-18] MEDS ORDERED: LASIX IV ONE (08:05)
[2019-03-18] MEDS: PROTONIX IV SCH (08:10)
[2019-03-18] MEDS: SODIUM CHLORIDE 0.9% INJ SCH (08:10)
[2019-03-18] MEDS: NICODERM PATCH TD SCH (08:10)
[2019-03-18] MEDS: FOLIC ACID PO SCH ×2 (08:10→20:02)
[2019-03-18] MEDS ORDERED: LEVAQUIN PO SCH (09:00)
--- NOTE | 2019-03-18 11:58 | PROGRESS NOTE ---
DATE: 03/18/2019 SUBJECTIVE: This morning, Ms. Mathews refers to be doing fairly okay and no new complaints. Specifically she denies any bleeding. OBJECTIVE: Vital signs: Blood pressure is 142/82, pulse of 97, respirations 15, temperature is 99.3 degrees. The patient did have a spike of temp of about 100 yesterday. She has been running some with a low temp at 99.7 degrees. General: Ms. Mathews is a 73-year-old female. She is in bed, no distress. HEENT: Mucosa is pink and moist. Anicteric. Acyanotic. Neck: Supple. Chest: Good air entry bilaterally. A few crackles in the posterior lung monterroso. Cardiovascular: Regular rate and rhythm. No murmurs. Abdomen: Soft. There is a FARNAZ drain on the left side. There is an ostomy on the right abdominal wall. There is a midline surgical wound which is affronted with clips. The overlying dressing looks soiled with some purulence. CENTER ADMINISTRATOR: Patient is awake, alert, and oriented. Skin: Patient still has some mild edema on the lateral aspect of the abdominal wall and the upper thighs. LABORATORY DATA: WBC is 5.46, hemoglobin is 9.6, platelet count of 38,000 is getting better. Chemistry is also reviewed, potassium is 3.2. The rest of chemistry is unremarkable. The culture from the abdomen is showing Pseudomonas aeruginosa which is pansensitive. There is also another gram-negative vidhi which is still growing. ASSESSMENT: 1. Acute abdomen on presentation secondary to perforated cecum. The patient is status post colectomy with end ileostomy. Today is day 7 postop. She seems to be doing fairly okay. 2. Abdominal surgical wound infection with Pseudomonas and another gram-negative vidhi still growing. I have switched the patient's antibiotics to p.o. Levaquin. 3. Acute on chronic hypoxemic respiratory failure. The patient is currently on nasal cannula. 4. Multifocal pneumonia, improved. 5. Fluid overload secondary to fluid administration during resuscitation and hypoalbuminemia. The patient's hydration status seems to be getting better. 6. Thrombocytopenia, presumably due to bone marrow suppression from acute infection/acute critical care illness. Platelet count seems slightly getting better. We will continue replacing folic acid. 7. Normocytic anemia. The patient was transfused 2 PRBCs. H H is fairly stable. 8. Mild hypokalemia. We will replace that. PLAN: In general, I think Ms. Mathews seems to be doing fairly okay. I think that her volume status continues to show some improvement. Pneumonia is under control. There is some purulence from the surgical site which is growing Pseudomonas and another gram-negative vidhi. Antibiotics have been switched to p.o. Levaquin. The patient is still on IV vancomycin. We will plan to complete a total of 10 days for the pneumonia on that and then we will discontinue it. cc: John Carrizales MD
[2019-03-18] MEDS ORDERED: POTASSIUM PHOSPHATE 60 MEQ in NS 250 ML IV ONE (12:37)
--- NOTE | 2019-03-18 19:51 | HEMO/ONC PROGRESS NOTE ---
DATE: 03/18/2019 SUBJECTIVE: The patient is sitting up in bed this morning. She has an NG tube in. She does not appear comfortable. She states she is okay considering what she has been through. She does not have any specific complaints. OBJECTIVE: Vital Signs: Temperature 100.2, pulse rate 96, respiratory rate 18, blood pressure 119/72, O2 saturation 99% on 3 L via nasal cannula. She is in 8/10 abdominal pain. General: Elderly, ill-appearing female in no acute distress. HEENT: Sclerae are anicteric. PERRLA. Oral mucosa is pink and moist. Cardiovascular: Normal S1, S2. Regular rate and rhythm. No murmurs noted. Respiratory: Generally clear throughout, diminished in the posterior bases. Gastrointestinal: Soft, tender to light palpation. Ostomy and FARNAZ drain noted intact. Dressing in place. Extremities: She has +1 bilateral lower extremity edema. Neurological: She is awake, alert, and oriented x3. LABORATORY: WBCs 5.46, hemoglobin 9.6, hematocrit 29.9, platelet count 38,000. Reticulocyte count 0.7, magnesium 1.9. Iron 22, iron saturation 21%, ferritin 266. B12 is 426, folate 7.8. LDH 160. Chest x-ray shows slight improvement of the mild consolidation in the right upper lobe. Stable chest otherwise. ASSESSMENT: 1. Thrombocytopenia, due to peripheral destruction. 2. Chronic respiratory failure. 3. Postoperative, status post colon resection. 4. Normocytic anemia. PLAN: The patient's PF4 factor is negative. There is no evidence of DIC. We will replete the patient's iron and folate. We will continue to monitor. Transfuse the patient for platelet count less than 10,000. We will continue to monitor. Expect platelets to recover as underlying issues resolve. Dictated by SINCERE Cordoba for Aquilino Bruno MD cc: Aquilino Bruno MD [facility]
--- NOTE | 2019-03-18 21:54 | PULMONOLOGY PROGRESS NOTE ---
DATE: 03/18/2019 SUBJECTIVE: The patient is awake and alert. She is currently eating and has a slightly wet cough. OBJECTIVE: Vital Signs: Maximum temperature in the last 24 hours 100.2 degrees, heart rate 102, respiratory rate 24, blood pressure 117/59, oxygen saturation 99%. HEENT: Pupils are equal and reactive. Oropharynx appears clear. Neck: Supple. Chest: Rhonchi bilaterally. Cardiac: Regular rate. Normal S1, normal S2. Abdomen: Soft with diminished bowel sounds. Extremities: Trace edema. LABORATORIES: Chest x-ray reveals left lower lobe pneumonia with some decreased infiltrate in the right upper lobe. White blood count 5.46, hemoglobin 9.6, platelet count 38,000. Sodium 139, potassium 3.3, chloride 97, bicarbonate 33, BUN 8, creatinine 0.2. Arterial blood gas reveals a pH 7.51, pCO2 of 52, pO2 of 74. IMPRESSION: A 73-year-old with: 1. Left lower lobe pneumonia. 2. Chronic hypoxemic respiratory failure. 3. Severe chronic obstructive pulmonary disease. 4. Status post colectomy for perforation. 5. Severe deconditioning. 6. 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 RECOMMENDATIONS: 1. Continue gram-negative coverage. 2. Continue bronchial hygiene. 3. Continue oxygen for hypoxemic respiratory failure. 4. Consider n.p.o. status if she has respiratory or radiographic decline, followed by a barium swallow. 5. Aggressive phosphorus replacement. cc: Phillip Puentes MD
[2019-03-19] MEDS: MORPHINE IV PRN ×4 (02:04→17:58)
[2019-03-19] MEDS: VANCOMYCIN 1,200 MG in NS 250 ML IV SCH (02:05)
[2019-03-19] MEDS: OFIRMEV 1000 MG/ISOTONIC SOLN 1,000 MG/100 ML BOTTLE IV PRN (02:05)
[2019-03-19] MEDS: ATROVENT NEB INH SCH ×6 (03:25→23:23)
[2019-03-19 04:48] LABS: ALLEN TEST YES; BE 8.9 mmoll (-3.0-3.0); BLOOD TYPE ARTERIAL; HCO3-(ACT) 31.8 mmoll (20.0-26.0); METHB 0.7 % (0.0-1.5); O2(CT) 22.6 mL/dL (15.0-23.0); O2HB 94.7 % (95.0-99.0); PCO2(98.6) 47 mmHg (35-45); PO2(98.6) 75 mmHg (60-100); SAMPLE BLOOD; SAO2 97.3 % (95.0-100.0); pH(98.6) 7.47 (7.35-7.45)
[2019-03-19 04:49] LABS: MODALITY CANNULA
[2019-03-19] MEDS: LOPRESSOR PO SCH ×4 (05:09→22:53)
[2019-03-19 06:35] LABS: HEMATOCRIT 30.4 % (37.0-47.0); HEMOGLOBIN 9.7 g/dL (12.0-16.0); MCH 27.8 PG (27-31); MCHC 31.9 g/dL (33-37); MCV 87.1 FL (81-99); MPV 10.4 FL (7.4-10.4); RBC 3.49 XMIL (4.2-5.4); RDW 18.7 % (11.5-14.5); WBC 5.03 X1000 (4.8-10.8)
[2019-03-19] MEDS: MERREM 500 MG in NS 50 ML IV SCH ×3 (06:42→22:54)
[2019-03-19 06:53] LABS: AGAP 10; ALBUMIN 2.9 g/dL (3.5-5.0); BUN 10 mg/dL (8-22); CALCIUM 7.5 mg/dL (8.8-10.2); CHLORIDE 95 mmol/L (98-107); COSMO 272; CREATININE 0.3 mg/dL (0.5-0.9); ESTIMATED GFR > 60; GLUCOSE 108 mg/dL (70-104); MAGNESIUM 1.3 mg/dL (1.5-2.7); PHOSPHORUS 2.5 mg/dL (2.7-4.5); POTASSIUM 3.6 mmol/L (3.5-5.1); SODIUM 136 mmol/L (136-145); TCO2 31 mmol/L (25-35)
[2019-03-19] MEDS ORDERED: MAGNESIUM SULFATE 4 GM/S.W.I. 4 GM/100 ML IVPB IV ONE (07:09)
--- NOTE | 2019-03-19 07:21 | Diag Imaging Result Doc PS360 ---
EXAM: CHEST-PORTABLE 03/19/2019 HISTORY: Ventilator protocol TECHNIQUE: AP portable at 0526 COMMENT: There is bilateral pleural fluid more so on the left than the right. There is opacification in the left lower lobe behind the heart which may be slightly improved since 03/18/2019. The NG tube and PICC line on the right remain. IMPRESSION: Slightly improved atelectasis versus pneumonia on the left. Bilateral pleural effusions worse on the left the right. Electronically signed by Shelton Robbins 03/19/2019 7:19 AM
[2019-03-19] MEDS: MUCOMYST 20% INH SCH ×2 (07:39→19:30)
[2019-03-19] MEDS: XOPENEX NEB INH SCH ×5 (07:39→23:23)
[2019-03-19] MEDS ORDERED: LASIX IV ONE (07:46)
--- NOTE | 2019-03-19 08:15 | PROGRESS NOTE ---
DATE: 03/19/2019 SUBJECTIVE: This morning, Ms Mathews refers to be doing a lot better. Denies any new complaints except that she has not had enough sleep last night. OBJECTIVELY: Vital Signs: Blood pressure is 133/85, pulse of 88, respirations 25, temperature is 99.9 degrees. General: Ms. Mathews is a 73-year-old female. She is in bed, no distress. Mucosa is pink and moist. Anicteric. Acyanotic. Neck: Supple. Chest: Good air entry bilateral. No crepitations. Few crackles posteriorly. Cardiovascular: Regular rate and rhythm. No murmurs, no rubs, no gallops. Gastrointestinal: Abdomen is soft, distended but nontender. There is a FARNAZ drain on the left side. There is an ostomy on the right side. The midline surgical wound is affronted with clips. There is a distal area that is open and is still exuding some purulence. Central nervous system: Patient is awake, alert, and oriented. LABORATORY DATA: WBC is 5.03, hemoglobin is 9.7, platelet count of 38,000, the same as yesterday. Chemistry is also reviewed. Phosphorus is up to 2.5, magnesium is 1.3. All will be replaced. INTAKE AND OUTPUT: Urine output was 3900. Patient is currently negative balance of 3050. DIAGNOSTIC STUDIES: A chest x-ray this morning shows slightly improved atelectasis versus pneumonia in the left, bilateral pleural effusion worse on the left than the right. ASSESSMENT: 1. Acute abdomen on presentation secondary to perforated cecum. The patient is status post colectomy with end-ileostomy. Today is day 8. 2. Abdominal surgical wound infection with Pseudomonas aeruginosa and extended-spectrum beta- lactamase Escherichia coli. I have changed the antibiotics to meropenem and have consulted ID. 3. Acute on chronic hypoxemic respiratory failure, improved. 4. Multifocal pneumonia, improved. 5. Fluid overload manifested by pulmonary edema and peripheral edema. The patient is getting currently negative balance. We will continue with as=needed Lasix administration. 6. Thrombocytopenia, presumably due to acute infection/critical care illness. 7. Normocytic anemia. Patient is status post 2 packed red blood cells transfusion. Hemoglobin and hematocrit stable. 8. Critical hypophosphatemia due to refeeding syndrome. Electrolytes are all being replaced and this seems to be improving. PLAN: In general, today I have changed Ms Mathews's antibiotics to meropenem to cover for both the ESBL and the Pseudomonas. We are going to continue with the rest of her care in the ICU. cc: John Carrizales MD
[2019-03-19] MEDS ORDERED: POTASSIUM PHOSPHATE 40 MEQ in NS 250 ML IV ONE (08:30)
[2019-03-19] MEDS: NICODERM PATCH TD SCH (08:38)
[2019-03-19] MEDS: PROTONIX IV SCH (08:38)
[2019-03-19] MEDS: FOLIC ACID PO SCH ×2 (08:38→21:08)
--- NOTE | 2019-03-19 10:47 | GENERAL SURGERY PROGRESS NOTE ---
DATE: 03/19/2019 SUBJECTIVE: The patient reports feeling weak but overall, no new complaints. OBJECTIVE: Vital signs: She is afebrile, pulse 103, blood pressure 125/75, O2 saturation 96%. Urine output 3.5 L yesterday, NG tube 240 mL. She is tolerating clears as well as tube feeds at 40 an hour. General: She is awake and alert. No acute distress. Respiratory: No work of breathing but coarse bilateral breath sounds. Cardiovascular: Regular rate and rhythm. Gastrointestinal: Soft, nondistended. Hypoactive bowel sounds. Her incision has murky drainage. The ileostomy has good output. LABORATORY DATA: White blood cell count 5, hemoglobin 9.7. Electrolytes reviewed and notable for a phosphorus of 2.5, magnesium 1.3. ASSESSMENT AND PLAN: A 73-year-old female, status post total abdominal colectomy with end- ileostomy with perioperative pneumonia and baseline severe chronic obstructive pulmonary disease. She is very deconditioned given. Her tolerance of p.o. and good ileostomy output, we will increase her diet to full liquids and soft diet as tolerated and wean off the tube feeds. According to the nurse's notes, she has had no signs of evidence of aspiration with bedside swallow evaluation. She is on meropenem for her abdominal wound infection which has Pseudomonas and extended-spectrum beta-lactamase Escherichia coli. cc: Adelso Gandhi MD
--- NOTE | 2019-03-19 12:56 | PULMONOLOGY PROGRESS NOTE ---
DATE: 03/19/2019 SUBJECTIVE: The patient is awake and alert. She has audible rhonchi and has difficulty clearing the secretions. She has mild increased work of breathing. She is asking to be transferred to the floor so she can go home soon. OBJECTIVE: Vital Signs: Maximum temperature in the last 24 hours is 100.2 degrees, heart rate 106, respiratory rate 24, oxygen saturation 94% on nasal cannula. HEENT: Pupils are equal and reactive. Oropharynx is clear. Neck: Neck is supple. Chest: Chest reveals coarse rhonchi bilaterally with decreased breath sounds at left base. Cardiac: S1, S2. Abdomen: Abdomen is softer with diminished bowel sounds. Extremities: Without edema. LABORATORIES: Chest x-ray reveals mild improvement at the left base. White blood count 5.03, hemoglobin 9.7, platelet count 38,000. Sodium 136, potassium 3.6, chloride 95, bicarbonate 31, BUN 10, creatinine 0.3, phosphorus 2.5, magnesium 1.3. Arterial blood gas reveals pH of 7.47, pCO2 of 47, PO2 of 75. IMPRESSION: A 73-year-old with: 1. Left lower lobe pneumonia. 2. Chronic hypoxemic respiratory failure. 3. Chronic obstructive pulmonary disease. 4. Status post colectomy for colonic perforation. 5. Severe deconditioning. PLAN: 1. Continue aggressive bronchial hygiene. 2. Continue antibiotics for gram-negative coverage. 3. Continue treatment for hypoxemic respiratory failure. 4. Continue electrolyte replacement. cc: Phillip Puentes MD
[2019-03-20] MEDS: ATROVENT NEB INH SCH ×6 (03:34→23:25)
[2019-03-20] MEDS: MORPHINE IV PRN ×3 (03:38→16:35)
[2019-03-20] MEDS: LOPRESSOR PO SCH ×4 (03:38→22:28)
[2019-03-20 04:44] LABS: ALLEN TEST YES; BE 10.7 mmoll (-3.0-3.0); BLOOD TYPE ARTERIAL; HCO3-(ACT) 33.2 mmoll (20.0-26.0); METHB 1.2 % (0.0-1.5); O2(CT) 14.7 mL/dL (15.0-23.0); O2HB 93.7 % (95.0-99.0); PCO2(98.6) 45 mmHg (35-45); PO2(98.6) 66 mmHg (60-100); SAMPLE BLOOD; SAO2 96.5 % (95.0-100.0); THB 11.1 g/dL (11.5-17.4)
[2019-03-20 04:46] LABS: MODALITY CANNULA
[2019-03-20] MEDS: MERREM 500 MG in NS 50 ML IV SCH (05:30)
[2019-03-20 05:41] LABS: HEMATOCRIT 28.4 % (37.0-47.0); HEMOGLOBIN 9.2 g/dL (12.0-16.0); MCHC 32.4 g/dL (33-37); MCV 86.3 FL (81-99); MPV 10.3 FL (7.4-10.4); RBC 3.29 XMIL (4.2-5.4); RDW 18.6 % (11.5-14.5); WBC 3.88 X1000 (4.8-10.8)
[2019-03-20 06:02] LABS: AGAP 10; BUN 8 mg/dL (8-22); CALCIUM 8.1 mg/dL (8.8-10.2); CHLORIDE 95 mmol/L (98-107); COSMO 269; CREATININE 0.3 mg/dL (0.5-0.9); ESTIMATED GFR > 60; GLUCOSE 101 mg/dL (70-104); POTASSIUM 3.7 mmol/L (3.5-5.1); SODIUM 135 mmol/L (136-145); TCO2 30 mmol/L (25-35)
[2019-03-20 06:11] LABS: MAGNESIUM 2.2 mg/dL (1.5-2.7); PHOSPHORUS 2.8 mg/dL (2.7-4.5)
--- NOTE | 2019-03-20 07:03 | Diag Imaging Result Doc PS360 ---
EXAM: CHEST-PORTABLE 03/20/2019 HISTORY: Ventilator protocol TECHNIQUE: AP portable at 0516 COMMENT: There is left pleural effusion and left lower lobe atelectasis versus pneumonia. This was also present on 03/19/2019 and has not changed appreciably. There is also ill-defined opacity in the right apex which was also present previously. IMPRESSION: Right upper and left lower lobe pneumonia. Left pleural effusion. Electronically signed by Shelton Robbins 03/20/2019 7:01 AM
[2019-03-20] MEDS: SODIUM CHLORIDE 0.9% INJ SCH (08:16)
[2019-03-20] MEDS: PROTONIX IV SCH (08:16)
[2019-03-20] MEDS: FOLIC ACID PO SCH ×2 (08:17→20:41)
[2019-03-20] MEDS: NICODERM PATCH TD SCH (08:18)
[2019-03-20] MEDS ORDERED: VANCOMYCIN IV PER PHARMACY MISC SCH (08:30)
[2019-03-20] MEDS ORDERED: GAMUNEX-C 10% IV SCH ×3 (09:00)
--- NOTE | 2019-03-20 09:05 | INFECTIOUS DISEASE CONSULT REP ---
DATE: 03/20/2019 CONCLUSION: The patient is status post total abdominal colectomy with end ileostomy secondary to a perforated cecum and sigmoid stricture. 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 RECOMMENDATIONS: I agree with treating the patient with meropenem. I have increased the dose to 1 gram IV every 8 hours. Also, I have ordered IVIG infusions over the next 3 days. Finally, I have ordered a sputum culture and started vancomycin for the patient's pneumonia. DISCUSSION: The patient is status post surgery as mentioned above. The patient tell tells me that she is coughing. She is having some abdominal pain also. Her CBC shows a white count of 3880, hemoglobin 9.2, and platelet count 48,000. Creatinine is 0.3. GFR is greater than 60. Arterial blood gases show a pH of 7.5, a PO2 of 66, and a PCO2 of 45. Culture of the patient's wound is growing Pseudomonas and an extended-spectrum beta lactamase-producing Escherichia coli. Blood cultures are negative. Chest x-ray shows a right upper lobe and lower lobe pneumonia. PAST MEDICAL HISTORY/REVIEW OF SYSTEMS: HEENT: She can hear and see okay. She is not complaining of any sore mouth. Neck: No stiffness. Respiratory: The patient has a chronic cough, especially on exertion. GI: See present illness. : No dysuria or flank pain. Bones/Joints/Muscles: The patient has diffuse arthralgias, mainly in the shoulders, hips, and knees. Neurologic: No seizures. No recent loss of motor or sensory function. Integument: No rashes. 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 She has had a hysterectomy. PREVIOUS HOSPITALIZATIONS AND OPERATIONS: She has had labor and deliveries, a hysterectomy, and she told me she could not think of any others reason she had been in the hospital. MEDICAL DISEASES: Positive for chronic obstructive pulmonary disease, hypertension. 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 She smokes cigarettes, and has chronic obstructive pulmonary disease. INFECTIOUS DISEASE HISTORY: Positive for pneumonia and UTI. FAMILY HISTORY: Positive for diabetes mellitus and cancer. SOCIAL HISTORY: [place] . She has cats for pets. She lives with her daughter and son. The patient says she stopped smoking cigarettes 1 to 2 months ago. She does not drink alcoholic beverages or abuse drugs. PHYSICAL EXAMINATION: Vital Signs: Temperature is 97.8 degrees, pulse 86, respirations 17, blood pressure 107/65. The patient weighs 130 pounds. General: This is a chronically ill-appearing, elderly female. She did cough a few times while I was examining her. HEENT: She can hear my spoken words and see near objects. I did not see any white patches on her tongue. Neck: No meningismus. Lungs: There were bilateral rhonchi. Cardiovascular: Heart rate is regular. Abdomen: Soft. An ileostomy is present and is functional. The patient's incision is leaking some sanguinopurulent fluid in the lower part of the incision. Neurologic: The patient is awake. She can move her extremities. There is no tremor. Her sensation is intact to touch. Her memory as regarding her medical history seemed to be intact. Integument: No rash. Extremities: The patient has a PICC in the right arm. The PICC site is not red or tender. Thank you for the consult. cc: Kale Koo MD [facility]
[2019-03-20] MEDS: XOPENEX NEB INH SCH ×5 (09:06→23:25)
[2019-03-20] MEDS ORDERED: VANCOMYCIN 1,200 MG in NS 250 ML IV SCH (10:00)
--- NOTE | 2019-03-20 10:50 | PROGRESS NOTE ---
DATE: 03/20/2019 SUBJECTIVE: Today, Ms. Mathews refers to be doing a lot better. She was just on nasal cannular when I saw her. She denied any complaints. She still has some deep cough. OBJECTIVE: Vital signs: Blood pressure is 133/68, pulse of 83, respirations 24, temperature 97.8 degrees. General: Ms. Mathews is a 73-year-old female. She is in bed. No distress. HEENT: Mucosa is pink and moist. Anicteric. Acyanotic. Neck: Supple. Chest: Air entry is bilaterally reduced. Some crackles in the posterior lung monterroso but no wheezing. Cardiovascular: Regular rate and rhythm. No murmurs, no rubs, no gallops. GI: Abdomen is soft, minimally distended. There is a FARNAZ drain in place. There is an ostomy on the left side. Midline surgical wound is affronted clips. Less exudate than yesterday. Neurologic: Patient is awake, alert, and oriented. LABORATORY DATA: WBC is 3.88, hemoglobin is 9.7, platelet count is up to 48. Chemistry is also reviewed. The phosphorus is up to 2.8, magnesium is 2.2. ASSESSMENT: 1. Acute abdomen on presentation secondary to perforated cecum. The patient is status post total colectomy with end ileostomy. Today is day 9. 2. Abdominal surgical wound infection with Pseudomonas aeruginosa and extended spectrum beta- lactamase Escherichia coli. The patient is on antimicrobial therapy. 3. Acute on chronic hypoxemic respiratory failure, improving. 4. Multifocal pneumonia. Patient is on antimicrobial therapy. 5. Fluid overload manifested by pulmonary edema and peripheral edema, improving. 6. Thrombocytopenia presumably due to bone marrow suppression from acute infection/critical care illness. Platelet count seems to be gradually getting better. 7. Normocytic anemia. Patient is status post 2 PRBC transfusion. 8. Hypophosphatemia, improved. 9. Immunoglobulin deficiency. Patient is getting replacement. cc: John Carrizales MD
[2019-03-20] MEDS: VANCOMYCIN 1,200 MG in NS 250 ML IV SCH (11:12)
--- NOTE | 2019-03-20 13:14 | HEMO/ONC PROGRESS NOTE ---
DATE: 03/20/2019 SUBJECTIVE: Ms. Mathews is sitting up in bed this morning. She states that she does not feel well today. She cannot describe any particular symptom. She states she is ready to go home and feel better. She has a flat affect today. She denies any specific complaints. She still has some audible rhonchi when she coughs. OBJECTIVE: Vital Signs: Temperature 98.3 degrees, pulse rate 78, respiratory rate 14, blood pressure 151/72, O2 saturation 97% on nasal cannula at 2 L. She is in 0/10 pain. General: Ms. Mathews is in no acute distress. She appears depressed. HEENT: Sclerae is anicteric. PERRLA. Oral mucosa is pink and moist. Cardiovascular: Normal S1, S2. Heart rate and rhythm is regular. Respiratory: Audible crackles and rhonchi in the upper lung monterroso. Overall sounds diminished. Abdomen: Soft, minimally distended. There is a FARNAZ drain and ostomy in place. Midline surgical wound with clips. Neurological: The patient is awake, alert, and oriented x3. LABORATORY DATA: WBC 3.88, hemoglobin 9.2, hematocrit 28.4, platelet count 48,000. Serum IgG 182, slow. IgA is 90. IgM is 62. ASSESSMENT: 1. 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 2. Chronic respiratory failure. 3. Postoperative, status post colon resection. 4. Normocytic anemia. PLAN: The patient's PF4 factor is negative. There is no evidence of DIC. We will continue to replete the patient's iron and folate. Platelet count is improving. We will continue to monitor. Transfuse the patient for platelet count less than 10,000 or if she is bleeding. We continue to expect the platelets to recover as underlying issues resolve. We will continue to monitor. Dictated by SINCERE Cordoba for Aquilino Bruno MD cc: Aquilino Bruno MD [facility]
[2019-03-20] MEDS: MUCOMYST 20% INH SCH ×2 (13:21→19:32)
[2019-03-20] MEDS: MERREM 1 GM in NS 50 ML IV SCH ×2 (13:35→22:28)
--- NOTE | 2019-03-20 14:32 | PULMONOLOGY PROGRESS NOTE ---
DATE: 03/20/2019 SUBJECTIVE: The patient is awake and alert. She continues to have audible rhonchi. She reports she feels a little better today. OBJECTIVE: Vital Signs: The patient has been afebrile for the last 24 hours. Blood pressure 133/92, heart rate 87, respiratory rate 17, oxygen saturation 97%. HEENT: Pupils are equal and reactive. Oropharynx appears clear. Neck is supple. Chest reveals scattered rhonchi bilaterally. Cardiac exam S1-S2. Abdomen is soft. Extremities without edema. LABORATORIES: Chest x-ray reveals left-sided effusion and pneumonia, which has not significantly changed. Microbiology reveals no new data white blood count 3.88, hemoglobin 9.2, platelet count 48,000. Sodium 135, potassium 3.7, chloride 95, bicarbonate 30, BUN 8, creatinine 0.3. Immunoglobulin level reveals extremely severe reduction with a total IgG level of 182. IMPRESSION: 1. Left lower lobe pneumonia. 2. Chronic obstructive pulmonary disease. 3. Chronic hypoxemic respiratory failure. 4. Status post colectomy for colonic perforation. 5. Severe deconditioning. 6. Extremely severe immunoglobulin deficiency. PLAN: 1. Continue aggressive bronchial hygiene. 2. Agree with antibiotics as outlined per Dr. Kale Koo. 3. Continue bronchial hygiene. 4. Continue oxygen for hypoxemic respiratory failure. 5. Agree with immunoglobulin replacement given her extremely severe deficiency. cc: Phillip Puentes MD
--- NOTE | 2019-03-20 14:42 | GENERAL SURGERY PROGRESS NOTE ---
DATE: 03/20/2019 SUBJECTIVE: The patient has no new complaints. She is tolerating her diet without nausea or vomiting. OBJECTIVE: Vitals: She is afebrile. Vital signs are stable. General: She is awake, alert, no acute distress. GI: Soft, nondistended, hypoactive bowel sounds. The ileostomy has output. LABORATORY: White blood cell count 3.8, hemoglobin 9.2, platelet count 48,000. Electrolytes reviewed and unremarkable. ASSESSMENT AND PLAN: A 73-year-old female status post total abdominal colectomy with end ileostomy with perioperative pneumonia, chronic obstructive pulmonary disease, and overall deconditioning. We will continue her soft diet as tolerated. She remains on meropenem for her wound infection. cc: Adelso Gandhi MD
[2019-03-21] MEDS: ATROVENT NEB INH SCH ×2 (03:13→07:35)
[2019-03-21] MEDS: LOPRESSOR PO SCH ×4 (03:35→23:05)
[2019-03-21 04:35] LABS: ALLEN TEST YES; BE 9.5 mmoll (-3.0-3.0); BLOOD TYPE ARTERIAL; HCO3-(ACT) 32.3 mmoll (20.0-26.0); O2(CT) 14.8 mL/dL (15.0-23.0); O2HB 95.6 % (95.0-99.0); PCO2(98.6) 42 mmHg (35-45); PO2(98.6) 68 mmHg (60-100); SAMPLE BLOOD; pH(98.6) 7.51 (7.35-7.45)
[2019-03-21 04:36] LABS: MODALITY CANNULA
[2019-03-21] MEDS: MERREM 1 GM in NS 50 ML IV SCH ×3 (05:40→23:04)
[2019-03-21 06:17] LABS: HEMATOCRIT 26.5 % (37.0-47.0); HEMOGLOBIN 8.6 g/dL (12.0-16.0); MCH 27.5 PG (27-31); MCHC 32.5 g/dL (33-37); MCV 84.7 FL (81-99); MPV 10.8 FL (7.4-10.4); RBC 3.13 XMIL (4.2-5.4); RDW 18.2 % (11.5-14.5); WBC 2.26 X1000 (4.8-10.8)
--- NOTE | 2019-03-21 06:40 | GENERAL SURGERY PROGRESS NOTE ---
DATE: 03/21/2019 SUBJECTIVE: Patient seems to be doing about the same. OBJECTIVE: Vital Signs: Patient is currently afebrile. Her vital signs are stable. General: No acute distress. Cardiovascular: Regular rate and rhythm. Lungs: Grossly clear. Abdomen: Soft. Ileostomy is functioning. Incision with some drainage. FARNAZ drain with serosanguineous output. LABORATORY: None this morning as of yet. Reviewed ABG and it appears relatively stable. ASSESSMENT AND PLAN: A 73-year-old female postoperative day #11 from total abdominal colectomy for cecal perforation. Postoperative state. At this time surgically she seems to be doing well. She is draining from the lower aspect of her incision. It is growing Pseudomonas and Escherichia coli. This is not surprising given the gross contamination she had in her abdomen. We intentionally left her carly widely spaced for this reason. We will keep her on antibiotics. We will do Vashe wet-to- dry just to the lower aspect to try to clean up the wound a little bit. Otherwise, continue supportive care. We will keep Reuben-Christine drain in place for right now. From a surgical point of view, if okay with other providers, I think she can be transferred out of the ICU. cc: Pierre Collins MD
--- NOTE | 2019-03-21 07:00 | Diag Imaging Result Doc PS360 ---
EXAM: CHEST-PORTABLE HISTORY: Ventilator protocol TECHNIQUE: Chest single view COMPARISON: 03/20/2019 FINDINGS: The lungs are well expanded except for left basilar atelectasis. There is also small left pleural effusion. There are infiltrates in the right upper lung similar to the prior study. No change in the right-sided PICC line. Normal heart. No pulmonary edema. IMPRESSION: Stable chest. Electronically signed by Ross Ha 03/21/2019 6:58 AM
[2019-03-21 07:06] LABS: AGAP 14; BUN 6 mg/dL (8-22); CALCIUM 8.3 mg/dL (8.8-10.2); CHLORIDE 94 mmol/L (98-107); COSMO 265; CREATININE 0.2 mg/dL (0.5-0.9); ESTIMATED GFR > 60; GLUCOSE 82 mg/dL (70-104); POTASSIUM 3.5 mmol/L (3.5-5.1); SODIUM 134 mmol/L (136-145); TCO2 26 mmol/L (25-35)
[2019-03-21] MEDS: XOPENEX NEB INH SCH (07:34)
[2019-03-21] MEDS: MUCOMYST 20% INH SCH ×2 (07:35→20:01)
[2019-03-21 09:12] LABS: BASO# 0.01 X1000 (0.0-0.2); BASO% 0.4 % (0.0-0.8); EOS# 0.03 X1000 (0.0-0.7); EOS% 1.3 % (0.0-10.0); HEMATOCRIT 27.8 % (37.0-47.0); HEMOGLOBIN 8.9 g/dL (12.0-16.0); IMM GRAN# 0.03 X1000 (0.0-0.04); IMM GRAN% 1.3 % (0.0-0.5); LYMPH# 0.51 X1000 (1.2-3.4); LYMPH% 22.2 % (20.5-51.1); MCH 27.1 PG (27-31); MCV 84.5 FL (81-99); MONO# 0.26 X1000 (0.11-0.59); MONO% 11.3 % (1.7-9.3); NEUT# 1.46 X1000 (1.4-6.5); NEUT% 63.5 % (42.2-75.2); PLT 77 X1000 (130-400); RBC 3.29 XMIL (4.2-5.4); RDW 18.1 % (11.5-14.5)
[2019-03-21] MEDS: SODIUM CHLORIDE 0.9% INJ SCH (09:53)
[2019-03-21] MEDS: FOLIC ACID PO SCH ×2 (09:53→23:05)
[2019-03-21] MEDS: PROTONIX IV SCH (09:53)
[2019-03-21] MEDS: NICODERM PATCH TD SCH (09:53)
--- NOTE | 2019-03-21 11:09 | PROGRESS NOTE ---
DATE: 03/21/2019 SUBJECTIVE: This morning Ms. Mathews refers to be doing a whole lot better. Denies any new complaints. OBJECTIVE: Vital signs: Blood pressure 129/60, pulse of 87, respirations 32, and temperature 97.8 degrees. Patient is saturating 94%. General: Ms. Mathews is a 73-year-old female. She is in bed in no distress. HEENT: Mucosa is pink and moist. Anicteric. Acyanotic. Neck: Supple. Chest: Good air entry bilaterally. Few crackles posteriorly, but for most part a lot better. Cardiovascular: Regular rate and rhythm. No murmurs, no rubs, no gallops. GI: Abdomen is soft. FARNAZ drain is in place. Incision site looks remarkably clean. There is a small area of opening which is minimally exudative. Ostomy is on the left side. 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 LABORATORY DATA: 1. WBC is 2.30, hemoglobin is 8.9, and platelet count of 77,000, which is improving. Chemistry is also reviewed and unremarkable. Phosphorus is up to 2.8. 2. A chest x-ray this morning suggests some infiltrate in the right upper lobe, similar to prior. No change. ASSESSMENT: 1. Acute abdomen on presentation secondary to perforated cecum. Patient is status post a total colectomy with end ileostomy. Today is day 10. Surgery continues to follow. 2. Abdominal wall surgical wound infection with Pseudomonas aeruginosa and ESBL E. Coli. The patient is currently on meropenem. Infectious Disease is on board. 3. Acute on chronic hypoxemic respiratory failure. The patient was intubated at some point, and has been cycling between BiPAP for some time. She is currently on nasal cannula, and she seems to be doing a lot better. Pulmonary Medicine is on board. 4. Multifocal pneumonia. Patient is on meropenem and vancomycin. 5. Fluid overload improved with diuretic therapy. 6. Normocytic anemia. Patient is status post 2 PRBC transfusion. 7. Severe thrombocytopenia, presumably due to bone marrow suppression from the critical care illness and sepsis. Platelet count continues to improve. 8. Folic acid deficiency. We will continue replacing. 9. Immunoglobulin deficiency. Patient is getting replacement. 10. Critical hypophosphatemia due to refeeding syndrome improved. PLAN: In general, Ms. Mathews is a 73-year-old female who has been in the hospital for the past 25 days. Initially, she presented because of abdominal pain. Workup revealed acute abdomen. The patient underwent surgery. A total colectomy was done by Dr. Collins on 03/03/2019. Postoperatively, Ms. Mathews has had a very slow but steady progress. She has been off the ventilator. Oxygen needs have progressively been decreasing. She is now just on nasal cannula. NG tube has been removed. She is tolerating some diet. She is going to be transferred from the ICU to the medical floor. We will get physical therapy to start working actively with her. We will get her to be sitting up in the chair and continue with her management. Ms. Mathews's disposition is going to depend on the rest of the hospital course. I think depending on her physical therapy progress, she might eventually need to go to rehab. cc: John Carrizales MD MTDD
--- NOTE | 2019-03-21 11:23 | PROGRESS NOTE ---
DATE: 03/21/2019 SUBJECTIVE: Ms. Christy Mathews was lying in the bed alert and oriented x3. She denied any nausea or and vomiting, but had mild abdominal pain, and was not in any acute distress. She has an incision that has been draining. The abscess culture showed that she had Pseudomonas and E. Coli. OBJECTIVE: Vital Signs: Temperature 97.8 degrees, pulse 87, respirations are 32, blood pressure is 129/60. Oxygen saturation is 94 percent. She is on 2 L nasal cannula. The patient's weight is 130 pounds. BMI is 21.7 kg/m2. General Appearance: Patient is lying in bed, alert and oriented x3. She has nasal cannula with 2 L of oxygen running and in no acute distress. HEENT: Pale conjunctivae. No icterus. PERRLA. Equal, round, and reactive to light. Neck: Supple. Lungs: Diminished breath sounds with wheezes heard in the anterior and posterior monterroso. Cardiovascular: Regular rate and rhythm. No rubs, murmurs, or gallops heard on auscultation. Abdomen: Distended. Soft. Tender. Ostomy draining with brown stools on the right side. Midline incision dressing which has been draining. FARNAZ drain on the left lower abdomen. Extremities: No cyanosis or clubbing, but has got 3+ edema in the lower extremities and generalized edema in the upper extremities. Neurologic: Alert and oriented x3. Nonfocal. Cranial nerves 2-12 grossly intact. LABORATORY: WBC is 2.30, RBC is 3.29, hemoglobin is 8.9, and platelet count 77,000. Coagulation PT is 14.6, INR is 1.3. Blood gases with pH is 7.51, pCO2 42, PO2 is 68, HC03 is 32.3. Chemistry: Sodium 134, potassium 3.5, chloride is 94, carbon dioxide is 26, anion gap 14, BUN is 6, creatinine is 0.2, calcium is 8.3, phosphorus 2.8, and magnesium is 1.9. Urinalysis shows trace of protein and trace of RBCs. The patient is having a Johnston, and it is draining clear yellow urine. Abscess culture showed pseudomonas and E coli. Chest X ray showed stable chest. ASSESSMENT AND PLAN: 1. Postoperative s/p colectomy complicated with wound drainage. 2. Chronic respiratory failure 3. Abnormal electrolytes 4. Fluid overload 5. Anemia. PLAN; The patient is on GI soft diet. She has been tolerating her diet well. We will continue with the GI prophylaxis adn the plan of care as per the primary care and the surgical team. She is on antibiotics with vancomycin and Merrem. She gets her potassium p.r.n. This plan of care was discussed with Dr. Dyer and the patient, patient acknowldges plan of care. Please us for any further questions or concerns. Dictated by SINCERE Lacey for Henrry Dyer MD cc: Henrry Dyer MD I have seen and examined the above patient myself. I agree with the above assessment and plan of care. Please call us with any questions or concerns. THERON
[2019-03-21] MEDS: VANCOMYCIN 1,200 MG in NS 250 ML IV SCH (11:39)
--- NOTE | 2019-03-21 13:20 | HEMO/ONC PROGRESS NOTE ---
DATE: 03/21/2019 SUBJECTIVE: Ms. Mathews is sitting up in bed staring out the window very solemn. She continues to have a depressed affect. She states she is just ready for all of this to get better and get out of here. She states she does not feel that great, but can't describe any particular symptoms. She understands that she needs to continue to get IV antibiotics for her stomach infection. OBJECTIVE: Vital Signs: Temperature 97.8 degrees, pulse rate 89, respiratory rate 30, blood pressure 130/64, O2 saturation 96% on nasal cannula at 2 L and 0/10 pain. General: The patient is in no acute distress. She does appear to be depressed. HEENT: Sclerae is anicteric. PERRLA. Oral mucosa is pink and moist. Cardiovascular: Normal S1, S2. Heart rate and rhythm is regular. Respiratory: Audible crackles and rhonchi in the upper lung monterroso. Overall, sounds are diminished. Gastrointestinal: Patient's FARNAZ drain and ostomy are in place. Her abdomen remains soft. Neurological: Awake, alert, and oriented x2. LABORATORY: WBC 2.30, hemoglobin 8.9, hematocrit 27.8, and platelet count 77,000. ANC 1.46. ASSESSMENT: 1. 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 2. Chronic respiratory failure. 3. Postoperative status post colon resection. 4. Normocytic anemia. Plan: We will continue to replete the patient's iron and folate. The patient's platelet count appears to be improving. Transfuse platelets for platelet count less than 10,000 or if she is bleeding. The platelets should continue to improve as her underlying issues resolve. We will continue to follow with you. Dictated by SINCERE Cordoba for Aquilino Bruno MD cc: Aquilino Bruno MD [facility]
--- NOTE | 2019-03-21 14:57 | INFECTIOUS DISEASE PROGRESS NO ---
DATE: 03/21/2019 PRESENT ILLNESS: The patient has peritonitis secondary to a perforated cecum. 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 MEDICATIONS: The patient is on meropenem and vancomycin. This is day #1 of treatment with both of those agents. I have ordered IVIG infusions over 3 days, but unfortunately, as of this time, we only have one infusion because of a shortage of IVIG nationwide. The patient's vancomycin and meropenem are being used to treat the patient's peritonitis due to cecum perforation and pneumonia. PHYSICAL EXAMINATION: Vital Signs: Temperature is 97.4 degrees, pulse 81, respirations 30, blood pressure 141/81. General: This is an ill-appearing, elderly female. She is in no acute distress, and today she does look better than she did yesterday. HEENT: She can hear my spoken words and see near objects. She does not have any white coating on her tongue. Neck: No pain with movement of the neck. Lungs: There were bilateral rhonchi yesterday, but for today, both the right and left lung are clear. Cardiovascular: Heart rate is regular. Abdomen: Soft. The incision is functional. There is some drainage of sanguinopurulent fluid. The patient also has an ileostomy, which is functioning. Neurologic: The patient is alert. She can move her extremities. There is no tremor. Extremities: The patient has a PICC in the right arm. The site is not erythematous or draining. IMAGING AND LABORATORY DATA: Chest x-ray shows a right-sided infiltrate. The patient's CBC shows a white count of 2300, hemoglobin 8.9, and platelet count 77,000. Arterial blood gases show a pH of 7.51, a PO2 of 68, and a pCO2 of 42. Creatinine is 0.2. GFR is greater than 60. Chest x-ray shows a right-sided infiltrate. ASSESSMENT AND PLAN: The patient has peritonitis and pneumonia. I plan on continuing with the current antibiotics consisting of meropenem and vancomycin. This is day 1 of treatment with both. The patient has a severe immunoglobulin deficiency. I have ordered intravenous immunoglobulin, and hopefully we will be able to get some more of the product soon. COMORBIDITIES: The patient has chronic obstructive pulmonary disease, she has an immunoglobulin deficiency, and she is a cigarette smoker. cc: Kale Koo MD
[2019-03-21] MEDS: MORPHINE IV PRN ×2 (16:31→23:10)
[2019-03-21] MEDS: GAMUNEX-C 10% IV SCH (17:27)
[2019-03-21] MEDS: DUONEB (A & A) INH PRN ×2 (20:01→23:41)
[2019-03-22] MEDS: DUONEB (A & A) INH PRN ×3 (03:53→19:45)
[2019-03-22] MEDS: LOPRESSOR PO SCH ×3 (04:34→18:00)
[2019-03-22] MEDS: PROTONIX PO SCH ×2 (04:35→07:10)
[2019-03-22] MEDS: MERREM 1 GM in NS 50 ML IV SCH ×4 (04:46→22:02)
[2019-03-22 06:20] LABS: BASO# 0.01 X1000 (0.0-0.2); BASO% 0.4 % (0.0-0.8); EOS# 0.03 X1000 (0.0-0.7); EOS% 1.1 % (0.0-10.0); HEMATOCRIT 26.6 % (37.0-47.0); HEMOGLOBIN 8.6 g/dL (12.0-16.0); IMM GRAN# 0.04 X1000 (0.0-0.04); IMM GRAN% 1.5 % (0.0-0.5); LYMPH# 0.61 X1000 (1.2-3.4); MCH 27.1 PG (27-31); MCHC 32.3 g/dL (33-37); MCV 83.9 FL (81-99); MONO# 0.31 X1000 (0.11-0.59); MONO% 11.7 % (1.7-9.3); MPV 9.9 FL (7.4-10.4); NEUT# 1.65 X1000 (1.4-6.5); NEUT% 62.3 % (42.2-75.2); PLT 83 X1000 (130-400); RBC 3.17 XMIL (4.2-5.4); RDW 17.8 % (11.5-14.5); WBC 2.65 X1000 (4.8-10.8)
[2019-03-22 06:26] LABS: AGAP 9; BUN 5 mg/dL (8-22); CALCIUM 8.5 mg/dL (8.8-10.2); CHLORIDE 94 mmol/L (98-107); COSMO 255; CREATININE 0.4 mg/dL (0.5-0.9); ESTIMATED GFR > 60; GLUCOSE 79 mg/dL (70-104); POTASSIUM 3.3 mmol/L (3.5-5.1); SODIUM 129 mmol/L (136-145); TCO2 26 mmol/L (25-35)
[2019-03-22] MEDS: MUCOMYST 20% INH SCH ×2 (07:49→19:46)
--- NOTE | 2019-03-22 08:12 | GENERAL SURGERY PROGRESS NOTE ---
DATE: 03/22/2019 SUBJECTIVE: The patient is doing well. She was transferred out of the ICU to the floor. She seems to be doing okay. OBJECTIVE: Vital Signs: The patient is currently afebrile. Her vital signs are stable. General: No acute distress. Cardiovascular: Regular rate and rhythm. Lungs: Grossly clear. Abdomen: Soft. Dressing intact to midline incision, still with some mild drainage. FARNAZ drain with serosanguineous output. Ileostomy functioning. ASSESSMENT AND PLAN: A 73-year-old female, postoperative day #12 from total abdominal colectomy for cecal perforation. Postoperative state. At this time, she seems to be doing okay. I would like to monitor her Reuben-Christine drain for another day, and see what the output is, to consider removing it. Continue local wound care to the midline incision, and continue to monitor her closely. She seems to be doing okay with her diet, so will continue to follow. cc: Pierre Collins MD
[2019-03-22] MEDS: FOLIC ACID PO SCH ×2 (09:15→22:09)
[2019-03-22] MEDS: NICODERM PATCH TD SCH (09:15)
[2019-03-22] MEDS: MORPHINE IV PRN ×4 (09:39→22:01)
[2019-03-22] MEDS ORDERED: NS 0 ML ONE (10:11)
[2019-03-22] MEDS: VANCOMYCIN 1,200 MG in NS 250 ML IV SCH (11:48)
--- NOTE | 2019-03-22 13:01 | PROGRESS NOTE ---
DATE: 03/22/2019 SUBJECTIVE: Ms. Mathews is a 73 year old female, sitting in the bed, with no acute distress. No complaints of nausea or vomiting. She has a midline incision that has been draining and c/o of pain in the incision area. OBJECTIVE: Vital Signs: Temperature 98.5 degrees, heart rate is 91, respirations of 16, blood pressure is 139/81, she has 98% oxygen saturation on 2 L nasal cannula. Her weight is 135 pounds. BMI is 22.6 kg/m2. General Appearance: Patient is AO x 3, sitting in bed, denies nausea, vomiting but c/o abdominal pain at the midline incision area She is on oxygen 2L NC, and in no acute distress. HEENT: Pale conjunctivae. No icterus. PERRL. Neck: Supple. Lungs: Diminished breath sounds with wheezes heard in the anterior monterroso. Cardiovascular: Regular rate and rhythm. No rubs, murmurs, or gallops heard on auscultation. Abdomen: Distended, soft. Tender. Ostomy draining with brown stool on the right side. Midline incision with dressing intact. FARNAZ drain in the left lower abdomen. Has no complaints of nausea or vomiting. She is eating well. Extremities: Generalized edema. No cyanosis or clubbing noted. Neuro: AO x 3. Labs: WBCs 2.65, RBCs 3.17, hemoglobin is 8.6, hematocrit is 26.6, platelet count is 83,000. Blood gases, her pH is 7.51, pCO2 is 42, PO2 is 68, HC03 is 32.3. Chemistry: Sodium is 129, potassium is 3.3, chloride is 94, carbon dioxide is 26, anion gap is 9, BUN is 5, creatinine is 0.4, and calcium is 8.5. Imaging: Chest x-ray showed a stable chest. ASSESSMENT AND PLAN: 1. Postoperative colectomy complicated with wound drainage 2. Chronic respiratory failure 3. Abnormal electrolytes 4. Anemia 5. Fluid overload PLAN: Patient is on GI soft diet and is tolerating her diet well. We will continue with GI prophylaxis and added miralax for her bowel movements.We need to correct her metabolic derangement. She is on antibiotics, Vancomycin and Merrem. We will continue with the plan of care per primary care and the surgical team. This plan of care was discussed with Dr. Garcia and the patient. Patient verbalized understanding of the plan of care. Please call us for any further questions or concerns. Please forward this note to Dr. Garcia. Dictated by SINCERE Lacey for Abhijeet Garcia MD I have seen and examined the patient. I have reviewed the labs, imaging, and other documentation. I discussed the case with Avis aLndry DISTRIBUTION DESIGNER and agree with the findings and plan as documented. In brief, Ms. Christy Mathews is a 73 year old woman initially admitted with acute on chronic hypoxic and hypercapnic respiratory distress secondary to COPD exacerbation. Her course complicated by colonic perforation with peritonitis secondary to acute diverticulitis and resulting stricture. Reviewed gross pathology results. She is s/p ex-lap and total colectomy with end-ileostomy. She is recovering slowly. She is tolerating PO and having stool output. Recommend continuing miralax and antibiotics as per ID. Correct metabolic derangements. Post-surgical care per surgery team. Will sign off. Please call with questions. THERON
--- NOTE | 2019-03-22 15:32 | INFECTIOUS DISEASE PROGRESS NO ---
DATE: 03/22/2019 PRESENT ILLNESS: Ms. Mathews is status post open total abdominal colectomy with end ileostomy done for a perforated cecum. She has a peritonitis with Pseudomonas as well as an extended spectrum beta lactamase producing Escherichia coli growing from her abdominal culture. There is also a pneumonia as well as a profound immunoglobulin deficiency, with an IgG level of 182. MEDICATIONS: Today is day 2 of meropenem 1 g IV every 8 hours and IV vancomycin per pharmacy dosing. The patient has received 1 dose of IVIG and will hopefully get another dose today. PHYSICAL EXAMINATION: Vital Signs: Temperature is 98.4 degrees, pulse rate 88, respiratory rate 17, blood pressure 136/89. O2 saturation is 99% on 2 L nasal cannula. General: This is a chronically ill-appearing, elderly female. She is lying in bed, currently in no acute distress. HEENT: Atraumatic, normocephalic. Oral mucous membranes are pink and moist. Dentition is poor. Conjunctivae are pale. Neck: Supple. Trachea is midline. Cardiovascular: Heart rate and rhythm are regular. Normal sinus rhythm on the monitor. Respiratory: Lung sounds are clear to auscultation in the upper lobes. Diminished in the mid and bases. No work of breathing is noted. Abdomen: Soft and tender to palpation. There is a midline abdominal dressing which is clean and dry. The nurse states she has just replaced this recently, and there was some purulent drainage noted to the bottom of the incision with some green drainage noted to the top. There is also an ileostomy that does have some liquid brown stool in the bag. Neurologic: She is awake, alert, and appropriate. She is forgetful. Able to move all extremities with generalized weakness noted. There is a PICC line in place to her right upper arm. That site is without edema, erythema, or drainage. LABORATORY AND X-RAY: Today her white count is 2.65, hemoglobin 8.6, platelet count 83,000. Creatinine is 0.4. Estimated GFR is greater than 60. No imaging reports today. ASSESSMENT AND PLAN: Ms. Mathews is being treated for peritonitis and pneumonia as well as a selective IgG deficiency. The plan is to continue the vancomycin and meropenem as ordered. We will get a chest x-ray in the morning and repeat blood work. There is also an order for another dose of IV gammaglobulin once it is available. These plans have been discussed with and recommended by Dr. Koo. COMORBIDITIES: Include cigarette smoking with chronic obstructive pulmonary disease, and an immunoglobulin deficiency. Dictated by SINCERE Cole for Kale Koo MD cc: Kale Koo MD MTDD
[2019-03-22] MEDS: KLOR-CON PO SCH ×2 (15:43→18:02)
--- NOTE | 2019-03-22 16:29 | PROGRESS NOTE ---
DATE: 03/22/2019 INTERVAL HISTORY: No acute events overnight. The patient is feeling better each day and she is denying any new complaints. She denies any chest pain. Her shortness of breath is at baseline. She was able to sit at the edge of the bed, though she feels very weak. We discussed about the exam findings. Her son is at bedside. We discussed about considering discontinuing Johnston catheter. VITAL SIGNS: Temperature 98.4 degrees, pulse 88, respiratory rate 17, blood pressure 130/89, saturating 99% on 2 L nasal cannula. PHYSICAL EXAMINATION: General: She does not appear in any acute distress. HEENT: Oral cavity is moist. She has missing teeth. Lungs: Air entry bilaterally equal. No wheeze, rhonchi, or crackles. Cardiovascular: S1, S2 normal. Regular. No murmur, rub, or gallop. Abdomen: Soft. There is a midline laparotomy scar as well as ileostomy which has yellowish-green output. Active bowel sounds. Extremities: No lower extremity edema. : She has a Johnston catheter. Neurologic: She is able to raise both upper extremities above ground level. However, she is only able to raise both lower extremities slightly above ground level because of weakness. She is alert and oriented x3. LABS: Suggestive of improving pancytopenia. Electrolytes suggestive of hyponatremia, hypokalemia, hypochloremia. Her potassium is currently being repleted. ASSESSMENT: 1. Acute abdomen on presentation secondary to perforated cecum, status post total colectomy with end ileostomy on March 10, 2019. Continue diet as per surgery recommendations and physical activity as per physical therapy recommendations. I will add DVT prophylaxis since her platelet count has improved. 2. Abdominal wall surgical wound infection with Pseudomonas and extended spectrum beta-lactamase Escherichia coli. Continue intravenous meropenem as per Infectious Disease recommendations. 3. Acute on chronic hypoxic respiratory failure requiring intubation and mechanical ventilation. Continue to cycle BiPAP and nasal cannula. Pulmonology on board. The patient also has a history of chronic hypoxic respiratory failure because of end-stage COPD and uses a Trilogy machine at home. Her multifocal pneumonia is currently improved on intravenous antibiotic. I will continue intravenous vancomycin and intravenous meropenem for now. 4. Pancytopenia, likely because of critical illness-induced bone marrow suppression which is now improving. Hematology on board. We will continue to monitor her blood counts and continue to replete folic acid. 5. Others. She is getting immunoglobulin repletion. Her critical hypophosphatemia due to refeeding syndrome has improved. Her fluid volume overload improved after intravenous diuretic therapy. PLAN: I will remove Johnston catheter today. Continue physical therapy. I will consult rehab for future discharge plan. Plan of care discussed with the patient and her questions have been satisfactorily answered. cc: Jamarcus Kirby MD
[2019-03-22] MEDS ORDERED: GAMUNEX-C 10% IV SCH (18:15)
[2019-03-22] MEDS: GAMUNEX-C 10% IV SCH (18:55)
[2019-03-23] MEDS: MERREM 1 GM in NS 50 ML IV SCH ×3 (05:28→21:15)
[2019-03-23] MEDS: PROTONIX PO SCH ×2 (05:29→06:19)
[2019-03-23] MEDS: MORPHINE IV PRN ×4 (05:29→21:25)
[2019-03-23] MEDS: LOPRESSOR PO SCH ×2 (05:29→18:00)
--- NOTE | 2019-03-23 06:05 | GENERAL SURGERY PROGRESS NOTE ---
DATE: 03/23/2019 SUBJECTIVE: Patient seems to be doing okay. Tolerated a diet. OBJECTIVE: Vital Signs: Patient is currently afebrile. Her vital signs stable. General: No acute distress. Cardiovascular: Regular rhythm. Lungs: Grossly clear. Abdomen: Soft, appropriately tender. Incision with dressing intact. FARNAZ drain removed. Ileostomy functioning. ASSESSMENT AND PLAN: A 73-year-old female, currently postoperative day #13 from total abdominal colectomy for cecal perforation. Postoperative state. At this time she seems to be doing well. I removed her Reuben-Christine drain. From a surgical point of view, she seems to be stabilizing. Awaiting disposition with rehab. cc: Pierre Collins MD
--- NOTE | 2019-03-23 07:25 | Diag Imaging Result Doc PS360 ---
EXAM: CHEST-PORTABLE 03/23/2019 HISTORY: pneumonia TECHNIQUE: AP portable at 0620 COMMENT: There is a left pleural effusion which has diminished in volume since 03/21/2019. The right base is clearer than it was and the retrocardiac region of the left lower lobe has also cleared somewhat. There continues to be ill-defined opacity in the right apex. IMPRESSION: Improved left pleural effusion and basilar atelectasis versus pneumonia. Persistent right upper lobe opacity. Electronically signed by Shelton Robbins 03/23/2019 7:22 AM
[2019-03-23 07:29] LABS: HEMOGLOBIN 8.9 g/dL (12.0-16.0); MCHC 31.8 g/dL (33-37); MCV 84.8 FL (81-99); MPV 9.4 FL (7.4-10.4); RBC 3.3 XMIL (4.2-5.4); RDW 18.1 % (11.5-14.5); WBC 3.14 X1000 (4.8-10.8)
[2019-03-23 07:48] LABS: AGAP 7; BUN 4 mg/dL (8-22); CALCIUM 8.4 mg/dL (8.8-10.2); CHLORIDE 96 mmol/L (98-107); COSMO 260; CREATININE 0.3 mg/dL (0.5-0.9); ESTIMATED GFR > 60; GLUCOSE 79 mg/dL (70-104); POTASSIUM 4.2 mmol/L (3.5-5.1); SODIUM 132 mmol/L (136-145); TCO2 29 mmol/L (25-35)
[2019-03-23] MEDS: DUONEB (A & A) INH PRN ×2 (08:07→21:45)
[2019-03-23] MEDS: MUCOMYST 20% INH SCH ×2 (08:07→21:45)
[2019-03-23] MEDS: FOLIC ACID PO SCH ×2 (10:33→21:15)
[2019-03-23] MEDS: LOVENOX SUBQ SCH (10:33)
[2019-03-23] MEDS: NICODERM PATCH TD SCH (10:33)
[2019-03-23] MEDS: MIRALAX PO SCH (10:34)
--- NOTE | 2019-03-23 11:35 | INFECTIOUS DISEASE PROGRESS NO ---
DATE: 03/23/2019 PRESENT ILLNESS: The patient is status post abdominal colectomy with the formation of an ileostomy due to a perforated cecum. The patient has a resulting pseudomonas and extended spectrum beta lactamase producing E. coli peritonitis. She also has a gram-negative vidhi pneumonia. Finally, she has a profound immunoglobulin deficiency with an IgG level of only 182. MEDICATIONS: This is day 3 of treatment with meropenem and vancomycin. The patient has received her 3 doses of IVIG. PHYSICAL EXAMINATION: Vital Signs: Temperature is 98.2 degrees, pulse 86, respirations 18, blood pressure 152/66. General: This is a chronically ill-appearing, elderly female. She is lying in her bed and she is in no acute distress. Head, Eyes, Ears, Nose, and Throat: She can hear my spoken words and see near objects. She does not have any white patches on her tongue. Neck: No pain with movement. Lungs: Clear to auscultation. Cardiovascular: Heart rate is regular. Abdomen: Soft and nontender. An ileostomy is in place. The patient is draining purulent fluid, however, from her incision. Neurologic: The patient is alert. She can move her extremities. There is no tremor. Extremities: The patient has a PICC in the right arm. The site is not erythematous or tender. LAB AND X-RAY: The patient's sputum is growing a gram-negative vidhi. Chest x-ray shows a stable right upper lobe opacity and an improved bibasilar atelectasis and/or pneumonia. ASSESSMENT AND PLAN: The patient has pneumonia and peritonitis as well as an immunoglobulin deficiency, specifically of IgG. I plan to continue meropenem but I am going to stop vancomycin. COMORBIDITIES: Cigarette smoking, chronic obstructive pulmonary disease, and an immunoglobulin deficiency. cc: Kale Koo MD
[2019-03-23] MEDS ORDERED: VANCOMYCIN 1,400 MG in NS 250 ML IV SCH (12:00)
--- NOTE | 2019-03-23 16:51 | PROGRESS NOTE ---
DATE: 03/23/2019 INTERVAL HISTORY: No acute events overnight. She has been coughing. The repeat chest x-ray does suggest right upper lobe pneumonia. The sputum is growing gram-negative rods. Final report is not back yet. LTAC referral has been sent. SUBJECTIVE: Patient is feeling better. Denies any complaints. VITAL SIGNS: It is Is documented that she was on BiPAP on night. There is no mention of BiPAP on the night before that. Temperature 98.7 degrees, pulse 80, respiratory 20, blood pressure 130/61, saturating 100% on 2 L nasal cannula. PHYSICAL EXAMINATION: General: Does not appear in acute distress. She has missing teeth. Oral cavity is moist. Lungs: Air entry bilaterally equal. No wheeze, rhonchi, or crackles. Cardiovascular: S1, S2 normal. Regular. No murmur or gallop. Abdomen: Soft. Midline laparotomy scar as well as right lower quadrant ileostomy with brownish green output. The laparotomy scar is draining some secretions and the dressing is soaked. Extremities: No lower extremity edema. : She has a pubic catheter. Neurologic: She is alert and oriented x3. Input and Output: Suggest she had 3.5 L of urine output so far. LABS: Suggestive of normocytic anemia. Her BMP is essentially normal. Sputum is growing gram- negative rods. IMAGING: Chest x-ray performed today has improved left pleural effusion and persistent right upper lobe opacity. Her FARNAZ drain was removed. I will stop her vancomycin as per Infectious Disease recommendation. ASSESSMENT AND PLAN: 1. Acute abdomen secondary to perforated cecum, status post total colectomy with end ileostomy on March 10. Continue diet as per surgery recommendation. She has good ileostomy output. Continue enoxaparin for deep venous thrombosis prophylaxis. 2. Abdominal wall surgical wound infection with Pseudomonas and Extended spectrum Beta lactamase producing Escherichia coli. Continue intravenous meropenem. I will stop intravenous vancomycin as per Infectious Disease recommendation. I will appreciate Infectious Disease recommendation for long-term antibiotics. 3. Acute on chronic hypoxic respiratory failure requiring intubation and mechanical ventilation. She was extubated on 03/12/2019. Continue to cycle BiPAP and nasal cannula, intravenous meropenem for right upper lobe pneumonia. She does have history of chronic hypoxic respiratory failure, use of trilogy machine at home, as well as end-stage chronic obstructive pulmonary disease. Her multifocal pneumonia is now slowly improving. 4. Pancytopenia because of critical illness-induced bone marrow suppression, now improving. Continue to monitor blood counts and continue to replete folic acid. 5. Others: She is getting immunoglobulin repletion for IgG deficiency. Her critical hypophosphatemia due to refitting has improved and her fluid volume overload due to intravenous fluid resuscitation has improved after diuretic therapy. PLAN: Continue physical therapy. Camera Mechanic team on board and we are awaiting LTAC bed approval. Plan of care discussed with her. Her questions have been answered. cc: Jamarcus Kirby MD
[2019-03-24] MEDS: LOPRESSOR PO SCH (05:43)
[2019-03-24] MEDS: MERREM 1 GM in NS 50 ML IV SCH ×3 (05:43→22:45)
[2019-03-24] MEDS: PROTONIX PO SCH (06:00)
[2019-03-24] MEDS: MORPHINE IV PRN ×3 (06:05→14:56)
--- NOTE | 2019-03-24 06:36 | GENERAL SURGERY PROGRESS NOTE ---
DATE: 03/24/2019 Patient seems to be doing okay. No major issues. We removed her drain yesterday. She has been hemodynamically stable. She is having ostomy output and tolerated it. From a surgical point of view, once everything can be arranged for her to go to rehab place, we should be able to get her out. cc: Pierre Collins MD
[2019-03-24] MEDS: MUCOMYST 20% INH SCH ×2 (07:00→19:04)
[2019-03-24] MEDS: DUONEB (A & A) INH PRN ×2 (07:00→19:04)
[2019-03-24] MEDS: FOLIC ACID PO SCH ×2 (10:12→22:45)
[2019-03-24] MEDS: NICODERM PATCH TD SCH (10:12)
[2019-03-24] MEDS: MIRALAX PO SCH (10:13)
[2019-03-24] MEDS: LOVENOX SUBQ SCH (10:14)
[2019-03-24] MEDS ORDERED: TYLENOL PO PRN (17:31)
--- NOTE | 2019-03-24 19:07 | PROGRESS NOTE ---
DATE: 03/24/2019 INTERVAL HISTORY: No acute events overnight. SUBJECTIVE: She denies new complaints. We discussed about awaiting LTAC placement. We discussed about Pseudomonas pneumoniae and need for intravenous meropenem. I answered all of her questions. Her son is at bedside. She was able to stand up by the edge of the bed today. She was experiencing footdrop on the right side, and so she had a boot placed which is helping her. OBJECTIVE: Currently temperature 98.1 degrees, pulse 98, respiratory rate 18, blood pressure 131/56, saturating 100% on 2 L nasal cannula. Generally does not appear in any acute distress. Oral cavity is moist. Air entry bilaterally equal. No wheeze, rhonchi or crackles. S1, S2 normal. No murmur, rub or gallop. Abdomen is soft. Midline laparotomy scars with carly. She does have 2 areas where the wound is kept open and there is liquid mucoid discharge coming out from that wound which is soaking the dressing. I discussed with the nurse about changing the dressing. She does have generalized abdominal tenderness. No lower extremity edema.Neurologic: She is alert and oriented x3. Input and output suggest positive 190 mL so far today. LABORATORY DATA: No CBC or BMP today. ASSESSMENT AND PLAN: 1. Perforated cecum, status post total colectomy and end ileostomy on March 10. Continue diet. Her ileostomy is draining greenish liquid output. Continue enoxaparin for deep venous thrombosis prophylaxis. 2. Abdominal wall surgical wound infection with pseudomonas and extended-spectrum beta-lactamase producing Escherichia coli as well as Pseudomonas pneumoniae. Continue intravenous meropenem. I will appreciate Infectious Disease recommendation about duration of antibiotics. 3. [id number] hypoxic respiratory failure due to bilateral and especially right upper lobe pneumonia, as well as acute chronic obstructive pulmonary disease exacerbation requiring intubation and mechanical ventilation, status post extubation on March 12. Continue oxygenation which is her baseline and antibiotics for pneumonia. 4. Pancytopenia because of critical illness-induced bone marrow suppression is now improving. I will continue folic acid for folic acid deficiency anemia. 5. Others: She received immunoglobin for IgG deficiency. Her hypophosphatemia has resolved. 6. Disposition awaiting long-term acute care placement. Plan of care discussed with the patient and her son at bedside. Their questions have been answered. cc: Jamarcus Kirby MD
[2019-03-24] MEDS: ULTRAM PO PRN (23:02)
[2019-03-25] MEDS: LOPRESSOR PO SCH ×3 (03:59→18:35)
[2019-03-25] MEDS ORDERED: TYLENOL PO PRN (04:36)
--- NOTE | 2019-03-25 06:03 | GENERAL SURGERY PROGRESS NOTE ---
DATE: 03/25/2019 SUBJECTIVE: Patient seems to be doing well. OBJECTIVE: Vital Signs: Patient is currently afebrile. Her vital signs are stable. General: No acute distress. Cardiovascular: Regular rate and rhythm. Lungs: Grossly clear. Abdomen: Soft. Appropriately tender. Ileostomy is functioning. ASSESSMENT AND PLAN: A 73-year-old female status post total abdominal colectomy for cecal perforation. Postoperative state. At this time, she seems to be doing well. Disposition pending. Otherwise, continue current treatment. cc: Pierre Collins MD
[2019-03-25] MEDS: PROTONIX PO SCH (07:20)
[2019-03-25] MEDS: MERREM 1 GM in NS 50 ML IV SCH ×3 (07:21→22:55)
[2019-03-25 07:23] LABS: AGAP 10; BUN 3 mg/dL (8-22); CALCIUM 8.5 mg/dL (8.8-10.2); CHLORIDE 92 mmol/L (98-107); COSMO 262; CREATININE 0.3 mg/dL (0.5-0.9); ESTIMATED GFR > 60; GLUCOSE 85 mg/dL (70-104); MAGNESIUM 1.7 mg/dL (1.5-2.7); POTASSIUM 3.5 mmol/L (3.5-5.1); SODIUM 133 mmol/L (136-145); TCO2 31 mmol/L (25-35)
[2019-03-25 07:37] LABS: BASO# 0.01 X1000 (0.0-0.2); BASO% 0.3 % (0.0-0.8); EOS# 0.02 X1000 (0.0-0.7); EOS% 0.6 % (0.0-10.0); HEMATOCRIT 26.4 % (37.0-47.0); HEMOGLOBIN 8.4 g/dL (12.0-16.0); IMM GRAN# 0.04 X1000 (0.0-0.04); IMM GRAN% 1.1 % (0.0-0.5); LYMPH# 0.93 X1000 (1.2-3.4); LYMPH% 26.3 % (20.5-51.1); MCH 27.2 PG (27-31); MCHC 31.8 g/dL (33-37); MCV 85.4 FL (81-99); MONO# 0.49 X1000 (0.11-0.59); MONO% 13.8 % (1.7-9.3); MPV 9.8 FL (7.4-10.4); NEUT# 2.05 X1000 (1.4-6.5); NEUT% 57.9 % (42.2-75.2); PLT 363 X1000 (130-400); RBC 3.09 XMIL (4.2-5.4); RDW 17.6 % (11.5-14.5); WBC 3.54 X1000 (4.8-10.8)
[2019-03-25] MEDS: DUONEB (A & A) INH PRN ×3 (07:50→23:13)
[2019-03-25] MEDS: MUCOMYST 20% INH SCH ×2 (09:30→19:25)
[2019-03-25] MEDS: FOLIC ACID PO SCH ×2 (09:53→22:56)
[2019-03-25] MEDS: NICODERM PATCH TD SCH (09:53)
[2019-03-25] MEDS: MIRALAX PO SCH (09:53)
[2019-03-25] MEDS: LOVENOX SUBQ SCH (09:53)
--- NOTE | 2019-03-25 09:57 | INFECTIOUS DISEASE PROGRESS NO ---
DATE: 03/25/2019 PRESENT ILLNESS: Ms. Mathews is status post colectomy due to perforated cecum with a Pseudomonas and ESBL+ Escherichia coli peritonitis. She also has a Pseudomonas pneumonia as well as a profound immunoglobulin deficiency. The patient also has developed an oral candidiasis. MEDICATIONS: She is receiving meropenem 1 g IV every 8 hours. She has received 3 doses of IVIG on this admission. PHYSICAL EXAMINATION: Vital Signs: Temperature is 98.6 degrees, pulse rate 92, respiratory rate 20, blood pressure 134/67, O2 saturation 99% on 2 L nasal cannula. General: This is a chronically ill-appearing elderly female. She is lying in bed, currently in no acute distress. HEENT: Atraumatic, normocephalic. Oral mucous membranes are pink and moist. There are some white patches to the sides of her tongue and poor dentition. She is complaining of sores in her mouth. Conjunctivae are pale. Neck: Supple. Trachea is midline. Cardiovascular: Heart rate is regular. Respiratory: Lung sounds are clear and diminished to auscultation. No work of breathing is noted. Abdomen: Soft, round and tender to palpation with active bowel sounds. There is an ileostomy with liquid brown stool in the bag. The midline abdominal incision has a dressing which is dry and intact. Neurologic: Awake, alert, oriented and able to move around in the bed with generalized weakness noted. Integumentary: She has a PICC line to the right upper arm. The site is without edema, erythema, or drainage. LABORATORY AND X-RAY: Today her white count is 3.54, hemoglobin 8.4, platelet count 363,000. Creatinine 0.3, estimated GFR is greater than 60. Her sputum has grown a Pseudomonas aeruginosa and her abdominal culture grew an extended spectrum beta lactamase producing Escherichia coli and a Pseudomonas aeruginosa. No imaging reports today. ASSESSMENT AND PLAN: Ms. Mathews is being treated for pneumonia and peritonitis. She also has an immunoglobulin deficiency and is developing an oral candidiasis. We will continue meropenem as ordered, and will add on nystatin swish and swallow for the oral candidiasis. These plans have been discussed with and recommended by Dr. Koo. COMORBIDITIES: Comorbidities include that she is elderly with cigarette smoking, COPD and immunoglobulin deficiency. Dictated by SINCERE Cole for Kale Koo MD cc: Kale Koo MD [facility]
[2019-03-25] MEDS: MYCOSTATIN SUSP PO SCH ×3 (14:39→22:56)
[2019-03-25] MEDS: ULTRAM PO PRN (15:29)
[2019-03-25] MEDS: ZOFRAN IV PRN (18:34)
--- NOTE | 2019-03-25 20:18 | PROGRESS NOTE ---
DATE: 03/25/2019 INTERVAL HISTORY: She ate watermelon, which she did not like, and she started having some bloating and then she had episode of vomiting; however, after episode of vomiting, she was fine. She denies any complaints. We discussed about getting new chest x-ray tomorrow. We also discussed about awaiting LTAC bed availability. OBJECTIVE: Vitals: Temperature 98.1 degrees, pulse 86, respiratory rate 20, blood pressure 140/69. She is saturating 100% on 2 L nasal cannula. General: Not in acute distress. Oral cavity has some oral thrush. Respiratory: She has diminished breath sounds bilaterally because of COPD. No wheeze, rhonchi, or crackles. Cardiovascular: S1, S2 normal. No murmur, rub, or gallop. Abdomen: Soft. Midline laparotomy scar currently dressed. Active bowel sounds. Mild tenderness generalized. Extremities: No lower extremity edema. Neurologic: She is alert and oriented x3. She was able to come out of bed and sit in the chair today. Input and output positive 400 mL. LABORATORY DATA: Suggestive of leukopenia, normal normocytic anemia, normal platelet count. Acceptable range of electrolytes. MICROBIOLOGY: Sputum is growing Pseudomonas aeruginosa. ASSESSMENT AND PLAN: 1. Perforated cecum, status post total colectomy and end ileostomy on March 10, 2019. Continue diet. Ileostomy has greenish liquidy output. Continue enoxaparin for deep venous thrombosis prophylaxis. 2. Laparotomy wound infection with Pseudomonas and extended spectrum beta-lactamase producing Escherichia coli as well as Pseudomonas pneumoniae. Continue intravenous meropenem. I will appreciate Infectious Disease recommendation about duration of antibiotics. 3. Acute on chronic hypoxic respiratory failure due to multifocal bilateral pneumonia as well as acute chronic obstructive pulmonary disease exacerbation requiring intubation and mechanical ventilation, status post extubation on March 12, 2019. Continue albuterol/ipratropium nebulization, acetyl cystine, nighttime BiPAP, oxygenation and intravenous antibiotics. 4. Pancytopenia because of critical illness-induced bone marrow suppression, now improving. 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 5. Others: She received 3 doses of intravenous immunoglobulin for IgG deficiency, and her hypophosphatemia has resolved. Disposition awaiting LTAC placement. Plan of care discussed with her. Her questions have been answered. cc: Jamarcus Kirby MD
[2019-03-25] MEDS: NORCO-7.5 PO PRN (21:48)
[2019-03-26] MEDS: NORCO-7.5 PO PRN ×4 (03:47→22:13)
--- NOTE | 2019-03-26 06:18 | GENERAL SURGERY PROGRESS NOTE ---
DATE: 03/26/2019 The patient seems to be doing okay. She has been hemodynamically stable. She is having ileostomy output. She did have an episode of vomiting, but she appears to be doing okay. At this point, awaiting disposition options. Continue current treatment. cc: Pierre Collins MD
[2019-03-26] MEDS: PROTONIX PO SCH (06:39)
[2019-03-26] MEDS: MERREM 1 GM in NS 50 ML IV SCH ×3 (06:39→22:12)
[2019-03-26] MEDS: LOPRESSOR PO SCH ×2 (06:39→18:51)
--- NOTE | 2019-03-26 07:14 | Diag Imaging Result Doc PS360 ---
EXAM: CHEST-1 VIEW 03/26/2019 HISTORY: SOB TECHNIQUE: AP portable at 0603 COMMENT: There continues to be ill-defined opacity in the right upper lobe as there was on 03/23/2019. There is also some opacification of the retrocardiac portion of the left lower lobe. There is a small left pleural effusion. Overall the appearance of the chest has not changed significantly. IMPRESSION: Right upper lobe pneumonia. Atelectasis versus pneumonia left lower lobe. Left pleural effusion. Electronically signed by Shelton Robbins 03/26/2019 7:12 AM
[2019-03-26] MEDS: DUONEB (A & A) INH PRN ×5 (07:40→23:08)
[2019-03-26] MEDS: MUCOMYST 20% INH SCH ×2 (07:41→19:28)
[2019-03-26] MEDS: MYCOSTATIN SUSP PO SCH ×4 (08:51→22:13)
[2019-03-26] MEDS: MIRALAX PO SCH (08:51)
[2019-03-26] MEDS: NICODERM PATCH TD SCH (08:51)
[2019-03-26] MEDS: FOLIC ACID PO SCH ×2 (08:51→22:13)
[2019-03-26] MEDS: LOVENOX SUBQ SCH (09:00)
[2019-03-26] MEDS: ZOFRAN IV PRN (10:07)
--- NOTE | 2019-03-26 16:12 | PROGRESS NOTE ---
DATE: 03/26/2019 INTERVAL HISTORY: She has not had any more nausea and vomiting. She denies any new complaints. We discussed about possible discharge plan early next week. I answered all of her questions. She denies any chest pain, shortness of breath. We discussed about pneumonia on chest x-ray. She is currently a little sleepy. VITALS: Temperature 97.7 degrees, pulse 75, respiratory rate 16, blood pressure 126/62, saturating 100% on 2 L nasal cannula. PHYSICAL EXAMINATION: General: Does not appear in acute distress. HEENT: Oral cavity is moist. Lungs: Air entry bilaterally equal. No wheeze, rhonchi, or crackles. Cardiovascular: S1, S2 normal. No murmur, rub, or gallop. Abdomen: Soft, midline laparotomy scar. Currently dressed, not soaked. Active bowel sounds. She has a right lower quadrant ostomy with greenish output. Extremities: She does not have lower extremity edema. Neurologic: She is alert and oriented x3. LABS: There is no CBC or BMP today. ASSESSMENT AND PLAN: 1. Perforated cecum, status post total colectomy and end ileostomy on 03/10/2019. Continue diet. Ileostomy has greenish output. Surgical team to manage ileostomy carly. Continue enoxaparin for DVT prophylaxis. 2. Laparotomy wound infection with Pseudomonas and ESBL producing E. coli as well as Pseudomonas pneumonia. Continue intravenous meropenem. ID on board regarding duration of antibiotics. 3. Pancytopenia, because of critical illness-induced bone marrow suppression, now improving. 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 4. Others are acute on chronic hypoxic respiratory failure, acute chronic obstructive pulmonary disease exacerbation requiring mechanical ventilation, critical hypophosphatemia have resolved. I will continue to cycle BiPAP and nasal cannula as tolerated. She received 3 doses of intravenous IVIG for IgG deficiency. 5. Disposition. Possible LTAC early next week. Plan of care discussed with her. All questions have been answered. cc: Jamarcus Kirby MD
[2019-03-27] MEDS: NORCO-7.5 PO PRN ×4 (03:10→21:56)
[2019-03-27] MEDS: PROTONIX PO SCH (06:16)
[2019-03-27] MEDS: LOPRESSOR PO SCH ×2 (06:16→18:17)
[2019-03-27] MEDS: MERREM 1 GM in NS 50 ML IV SCH ×3 (06:16→21:55)
[2019-03-27 06:30] LABS: BASO# 0.01 X1000 (0.0-0.2); BASO% 0.3 % (0.0-0.8); EOS# 0.03 X1000 (0.0-0.7); EOS% 0.8 % (0.0-10.0); HEMATOCRIT 26.7 % (37.0-47.0); HEMOGLOBIN 8.5 g/dL (12.0-16.0); IMM GRAN# 0.04 X1000 (0.0-0.04); IMM GRAN% 1.1 % (0.0-0.5); LYMPH# 0.93 X1000 (1.2-3.4); LYMPH% 25.2 % (20.5-51.1); MCH 27.2 PG (27-31); MCHC 31.8 g/dL (33-37); MCV 85.6 FL (81-99); MONO% 13.6 % (1.7-9.3); MPV 9.2 FL (7.4-10.4); NEUT# 2.18 X1000 (1.4-6.5); PLT 504 X1000 (130-400); RBC 3.12 XMIL (4.2-5.4); RDW 17.3 % (11.5-14.5); WBC 3.69 X1000 (4.8-10.8)
--- NOTE | 2019-03-27 06:50 | GENERAL SURGERY PROGRESS NOTE ---
DATE: 03/27/2019 The patient seems to be doing okay. No major issues. At this point, she has been hemodynamically stable. She is tolerating a diet, having ileostomy output, essentially waiting for disposition. I will continue to follow. cc: Pierre Collins MD
[2019-03-27 07:14] LABS: AGAP 8; BUN 3 mg/dL (8-22); CALCIUM 8.2 mg/dL (8.8-10.2); CHLORIDE 93 mmol/L (98-107); COSMO 260; CREATININE 0.3 mg/dL (0.5-0.9); ESTIMATED GFR > 60; GLUCOSE 82 mg/dL (70-104); MAGNESIUM 1.8 mg/dL (1.5-2.7); POTASSIUM 3.7 mmol/L (3.5-5.1); SODIUM 132 mmol/L (136-145); TCO2 31 mmol/L (25-35)
[2019-03-27] MEDS: MUCOMYST 20% INH SCH ×2 (08:37→19:21)
[2019-03-27] MEDS: NICODERM PATCH TD SCH (09:51)
[2019-03-27] MEDS: MYCOSTATIN SUSP PO SCH ×4 (09:51→21:55)
[2019-03-27] MEDS: FOLIC ACID PO SCH ×2 (09:52→21:56)
[2019-03-27] MEDS: MIRALAX PO SCH (09:52)
[2019-03-27] MEDS: LOVENOX SUBQ SCH (09:52)
--- NOTE | 2019-03-27 13:56 | PROGRESS NOTE ---
DATE: 03/27/2019 INTERVAL HISTORY: No acute events. She denies any nausea, vomiting, chest pain, or shortness of breath. She has been having good output through colostomy. We discussed about possible LTAC discharge plan tomorrow. I answered all of her questions. VITALS: Currently, temperature 97.4 degrees, pulse 72, respiratory rate 17, blood pressure 120/88, saturating 100% on 3 L nasal cannula. PHYSICAL EXAMINATION: General: Does not appear in any acute distress. Oral cavity is moist. Lungs: Air entry bilaterally equal. No wheeze, rhonchi, or crackles except mild crackles in the right infrascapular region. Cardiovascular: S1, S2 normal. No murmur, rub, or gallop. Abdomen: Soft. Midline laparotomy scar which is dressed, not soaked. Right lower quadrant ileostomy. She has a brownish output. No lower extremity edema. She is alert and oriented x3. LABS: Suggestive of improving WBC, stable hemoglobin, improving platelet count. MICROBIOLOGY: No new data. IMAGING: No new data. Electrolytes are within acceptable range. ASSESSMENT AND PLAN: 1. Perforated cecum, status post total colectomy and end ileostomy on March 10. Continue diet. Ileostomy output has been adequate. Surgical team to manage ileostomy carly. Continue enoxaparin for deep venous thrombosis prophylaxis. 2. Laparotomy wound infection with pseudomonas and extended spectrum beta-lactamase Escherichia coli as well as Pseudomonas pneumoniae. Continue intravenous meropenem. Infectious disease team has been consulted again regarding recommendation for duration of antibiotics. 3. Pancytopenia because of critical illness-induced bone marrow suppression, now improving. 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 4. Her acute on chronic hypoxic respiratory failure, acute chronic obstructive pulmonary disease exacerbation requiring mechanical ventilation, critical hypophosphatemia have resolved. I will continue to cycle BiPAP and nasal cannula for her chronic hypoxic respiratory failure and chronic obstructive pulmonary disease. She uses Trilogy machine at home. She is status post 3 doses of IVIG for IgG deficiency. 5. Disposition. Possibly long-term acute care tomorrow. Plan of care discussed with her. Her questions have been answered. cc: Jamarcus Kirby MD
--- NOTE | 2019-03-27 15:03 | INFECTIOUS DISEASE PROGRESS NO ---
DATE: 03/27/2019 PRESENT ILLNESS: The patient is status post colectomy for a perforated cecum. The patient has a Pseudomonas and an extended-spectrum beta-lactamase producing E. coli peritonitis and a Pseudomonas pneumonia. The patient also has a profound immunoglobulin deficiency. MEDICATIONS: The patient has been on meropenem 1 g IV every 8 hours for 1 week. She also has received 3 separate infusions of IVIG. The patient also is receiving nystatin swish and swallow. PHYSICAL EXAMINATION: Vital Signs: Temperature is 97.4 degrees, pulse 72, respirations 17, blood pressure is 121/88. General: This is a chronically ill-appearing elderly female. She is in no acute distress. Head/eyes/ears/nose/throat: She can hear my spoken words and see near objects. She does not have any white patches on her tongue. Neck: No pain with movement of the neck. Lungs: Clear to auscultation. Cardiovascular: Heart rate is regular. Abdomen: Soft and nontender. The patient has a midline incision. There is a dressing on the incision. The dressing is intact. The patient also has an ileostomy which is functioning well. Neurologic: The patient has a PICC in the right arm. The site is not erythematous or tender. LABORATORY AND X-RAY: Chest x-ray shows a right upper lobe and right lower lobe pneumonia. The patient's CBC shows a white count of 3690, hemoglobin 8.5, platelet count 504,000. Creatinine 0.3. GFR is greater than 60. ASSESSMENT AND PLAN: Patient has pneumonia, peritonitis, oral candidiasis, and an immunoglobulin deficiency. I would suggest continuing meropenem for 2 more weeks and to continue nystatin as long as the patient is on meropenem. I will plan on repeating the patient's immunoglobulin levels in approximately 4 weeks. COMORBIDITIES: The patient is elderly. She also smokes cigarettes, and she has chronic obstructive pulmonary disease and an immunoglobulin deficiency. cc: Kale Koo MD
[2019-03-27] MEDS: DUONEB (A & A) INH PRN (19:22)
[2019-03-27] MEDS ORDERED: ATIVAN IV ONE (19:59)
[2019-03-28] MEDS: NORCO-7.5 PO PRN ×3 (03:37→15:50)
[2019-03-28] MEDS: PROTONIX PO SCH (06:54)
[2019-03-28] MEDS: MERREM 1 GM in NS 50 ML IV SCH ×2 (06:54→14:38)
[2019-03-28] MEDS: LOPRESSOR PO SCH (06:54)
--- NOTE | 2019-03-28 06:54 | GENERAL SURGERY PROGRESS NOTE ---
DATE: 03/28/2019 The patient seems to be doing about the same. At this point, essentially awaiting disposition options. She is having ostomy output. She seems to be tolerating her diet. We will follow while she is here. cc: Pierre Clolins MD
[2019-03-28] MEDS: DUONEB (A & A) INH PRN (08:02)
[2019-03-28] MEDS: MUCOMYST 20% INH SCH (08:03)
[2019-03-28] MEDS: LOVENOX SUBQ SCH (09:42)
[2019-03-28] MEDS: NICODERM PATCH TD SCH (09:42)
[2019-03-28] MEDS: MYCOSTATIN SUSP PO SCH ×2 (09:42→14:38)
[2019-03-28] MEDS: MIRALAX PO SCH (09:42)
[2019-03-28] MEDS: FOLIC ACID PO SCH (09:42)
[2019-03-28 11:59] VITALS: BP 135/57
--- NOTE | 2019-03-28 12:17 | PROGRESS NOTE ---
DATE: 03/28/2019 INTERVAL HISTORY: No acute events overnight. Patient is upset that she has been getting mechanical soft diet and wanted me to start her on a regular diet. She denies any chest pain, shortness of breath, or cough. Currently, we discussed about awaiting LTAC approval. VITALS: Temperature 98.2 degrees, pulse 81, respiratory rate 20, blood pressure 149/70, saturating 100% on 3 L nasal cannula. PHYSICAL EXAMINATION: Not in any acute distress. No pallor, cyanosis, clubbing, or icterus. She does have missing teeth. Lungs: Air entry bilaterally equal. No wheeze, rhonchi, crackles. Cardiovascular: S1, S2 normal. Regular. No murmur, rub, or gallop. Abdomen: Soft. Mild generalized tenderness, especially around laparotomy wound. Midline laparotomy wound with some carly on and there are some areas of open wound for allowing the drainage. I could see some suture material there. There is serosanguineous discharge in the open wound. Active bowel sounds. She has a right lower quadrant ileostomy with greenish-brown output. No lower extremity edema. She is alert and oriented x3. LABS: Suggestive of no new CBC or BMP today. No new microbiology or imaging. ASSESSMENT AND PLAN: In summary, Ms. Mathews has been in the hospital for almost 1 month. She had initially presented with acute encephalopathy, hypercapnic respiratory failure, and was treated for respiratory failure. Later on, she had developed free intra-abdominal air and perforated cecum with sigmoid stricture requiring abdominal colectomy with end ileostomy. She also developed pneumonia with Pseudomonas as well as abdominal wound infection. She was requiring intubation and mechanical ventilation, and intravenous antibiotics. Since then, she has improved and now breathing well on nasal cannula. Awaiting long-term acute care for wound management and antibiotics therapy. 1. Perforated cecum, status post total colectomy and ileostomy on March 10. Continue regular diet. Surgical team to manage ileostomy carly, suture that I could see. Continue enoxaparin for deep venous thrombosis prophylaxis. Laparotomy wound infection with Pseudomonas and extended-spectrum B-lactamase producing Escherichia coli, as well as Pseudomonas pneumonia. Continue intravenous meropenem for 2 more weeks, that is until April 11, as well as nystatin and local wound care according to infectious disease recommendations. She should follow up with infectious disease 4 weeks later where she will get repeat immunoglobulin levels done. 2. Pancytopenia because of critical illness-induced bone marrow suppression, now improving. Continue folic acid for folic acid deficiency. 3. Acute on chronic hypoxic respiratory failure, acute hypercapnic respiratory failure, acute chronic obstructive pulmonary disease exacerbation requiring mechanical ventilation, critical hypophosphatemia have resolved. At home, she uses a Trilogy machine. Here, she is to continue nighttime BiPAP and nasal cannula during daytime for chronic hypoxic, hypercapnic respiratory failure. She is status post 3 doses of IVIG for IgG deficiency and she should get repeat immunoglobulin levels done 4 weeks later when she sees infectious disease. 4. Disposition. Awaiting bed at long-term acute care. Plan of care discussed with her. Her questions have been answered. cc: Jamarcus Kirby MD
--- NOTE | 2019-03-28 16:25 | DISCHARGE SUMMARY ---
ADMISSION DATE: 02/24/2019 DISCHARGE DATE: DISCHARGE DISPOSITION: [place] acute [facility] in [place]. DISCHARGE CONDITION: Hemodynamically stable. She is alert, oriented x3. Breathing well on nasal cannula. She is receiving IV antibiotics. She is able to tolerate diet well. DISCHARGE DIAGNOSES: 1. Acute encephalopathy. 2. Perforated cecum. 3. Laparotomy wound infection with Pseudomonas and extended spectrum beta- lactamase Escherichia coli. 4. Acute on chronic hypoxic hypercapnic respiratory failure requiring intubation, mechanical ventilation. 5. Pseudomonas pneumonia. 6. Acute chronic obstructive pulmonary disease exacerbation. 7. Pancytopenia. 8. Critical illness-induced bone marrow suppression. 9. Critical hypophosphatemia. 10. IgG deficiency. 11. Elevated troponin . OTHER DIAGNOSIS: 1. Essential hypertension. 2. Chronic obstructive pulmonary disease. 3. Chronic hypoxic respiratory failure. DISCHARGE MEDICATIONS: 1. Intravenous meropenem 1 g every 8 hours until 04/11/2019. 2. Nystatin oral suspension swish and swallow 5 mL 4 times a day until 04/11/2019. 3. Wayne 7.5 one tablet every 6 hours as needed for abdominal pain. 4. Cyclobenzaprine 10 mg every 12 hours as needed for muscle spasm. 5. Duloxetine 30 mg daily. 6. Ferrous sulfate 325 mg daily. 7. DuoNeb 3 mL inhaled every 4 hours as needed for shortness of breath. 8. Folic acid 1 mg b.i.d. 9. Metoprolol 25 mg every 12 hours. 10. Enoxaparin 40 mg every 24 hours for DVT prophylaxis. 11. MiraLAX 17 g daily. 12. Mucomyst 20% 3 mL inhaled b.i.d. 13. Nicotine patch 40 mg daily. 14. Acetaminophen 1000 mg every 8 hours as needed for mild pain. 15. Zofran 4 mg IV every 4 hours nausea and vomiting as needed. 16. Oxygen 2 L/minute during daytime and nighttime BiPAP or Trilogy machine when asleep. VITALS: At the time of discharge temperature 97.8 degrees, pulse 76, respiratory 20, blood pressure 135/57, saturating 100% on 3 L nasal cannula. PHYSICAL EXAMINATION: General: Not in any acute distress. Oral cavity has missing teeth. Air entry bilateral equal. No wheeze or rhonchi, mild crackles right infrascapular region. S1, S2 normal. No murmur, rub, or gallop. Abdomen: Soft, midline laparotomy scar which has craly on, not soaked. There are some open wounds to allow drainage of the wound. Right lower quadrant ileostomy with brownish output. No lower extremity edema. She is alert, oriented x3. She is able to raise both upper and lower extremity above ground level. Diet at the time of discharge regular. SIGNIFICANT LABS: Her WBC 3.69, hemoglobin 8.5, platelet 504,000. Sodium 132, potassium 3.7, BUN 3, creatinine 0.3, magnesium 1.8. Significant microbiology, blood culture did not have any growth. Wound culture for abdominal laparotomy site wound has Pseudomonas aeruginosa and which was pansensitive and ESBL producing E coli which was sensitive to carbapenem. Sputum culture was growing Pseudomonas aeruginosa which was pansensitive significant. IMAGING: On presentation she had pulmonary arteriogram which had questionable tiny filling defect in the right lower lobe which was thought to be a motion artifact. There was no other evidence of pulmonary emboli. Extremity venous study did not have any lower extremity DVT. Echocardiogram had no significant valvular abnormality with ejection fraction of 70% without any regional wall motion abnormality and there was reduced right ventricular systolic function. Abdomen, pelvis CT on March 10 had extensive peritoneal free air, severe diffuse constipation . Chest x-ray on March 26 has right upper lobe pneumonia, atelectasis versus pneumonia of left lower lobe and left pleural effusion. CONSULTATION: 1. General Surgeon Dr. Pierre Collins. 2. Infectious Disease Dr. Kale Koo. 3. Gastroenterology Dr. Garcia. 4. Hematology Dr. Bruno. PROCEDURES: On 03/10/2019 patient underwent open total abdominal colectomy with end ileostomy for free intraabdominal air. HOSPITAL COURSE SUMMARY: Ms. Mathews is a 73-year-old lady who initially presented on 02/23/2019 with chief complaints of acute encephalopathy and confusion and she was found to have hypercarbic respiratory failure so she was admitted for acute chronic obstructive pulmonary disease exacerbation and acute on chronic hypoxic hypercarbic respiratory failure, pneumonia and was monitored in ICU. She was treated with nebulizer and antibiotics, IV steroids and intermittent Lasix for volume overload as well as pneumonia. On around March 10 she was noticed to have severe constipation, rectal impaction which did not get better with laxatives and a CT scan performed subsequently had detected perforation of cecum. She was immediately taken for surgery and she underwent open total colectomy and ileostomy in March 10. After that she was on ventilator and mechanical ventilation for about 3 to 4 days. Later on she developed postoperative pneumonia as well as laparotomy wound infection. She was again started on antibiotics. Her progress and recuperation throughout this had been steady but slow. Infectious Disease team was on board and they were managing her antibiotics for pneumonia as well as abdominal wound infection. Her wound couple of carly were removed by the surgical team to allow drainage which helped heal the wound better. During hospital admission she was also found to develop critical illness-induced bone marrow suppression with pancytopenia as well as severe IgG deficiency for which hematology on board and she received IVIG infusions 3 times. At the time of this dictation her pancytopenia is improving. Her thrombocytopenia has almost resolved and anemia is stable. Her WBC count is recovering. It was thought that considering her prolonged hospital course, prolonged immobilization, she had become weak and would benefit from a long-term acute care facility stay to get intravenous antibiotics which she is supposed to get for 2 weeks for pneumonia as well as laparotomy wound infection as well as physical therapy. She will be transferred to LTAC. More than 30 minutes spent discharging this patient. Plan of care was extensively discussed with patient and her son intermittently. Their questions have been answered. cc: Jamarcus Kiryb MD MTDD
== END 2019-03-28 17:21 | DRG 981 ==
LOC: SUPCPDRO → ED 20:17 → SUATTDRO 02-24 00:35 → ICU 02-24 00:35 → 2N 03-05 10:58 → ICU 03-10 16:19 → 4N 03-21 14:59
PROVIDERS: ATTEND Internal Medicine

== ENCOUNTER 2019-08-07 03:18 | Inpatient (IN) ==
[2019-08-07] MEDS ORDERED: NICODERM PATCH TD ONE (03:30)
[2019-08-07] MEDS ORDERED: SOLU-MEDROL IV ONE (03:30)
[2019-08-07] MEDS ORDERED: NS NEB INH SCH (03:30)
[2019-08-07] MEDS ORDERED: XOPENEX NEB INH ONE (03:30)
[2019-08-07] MEDS ORDERED: PULMICORT INH ONE (03:30)
--- NOTE | 2019-08-07 03:31 | PROVIDER DOCUMENTATION ---
HPI-Respiratory General - General Chief Complaint: Shortness of Breath Stated Complaint: sob Time Seen by Provider: 08/07/19 03:26 Source: patient, EMS Unable to obtain history due to:: urgency Allergies/Adverse Reactions: Patient Allergies Allergy/AdvReac Type Severity Reaction Status Date / Time No Known Allergies Allergy Verified 08/07/19 03:33 Home Medications: Home Medication List Medication Instructions Recorded Confirmed Last Taken Type Cyclobenzaprine [Flexeril] 10 mg PO Q12HR PRN 08/25/18 08/07/19 08/22/18 History Duloxetine [Cymbalta] 30 mg PO DAILY 08/25/18 08/07/19 08/25/18 History Hydrocodone/Acetaminophen [[place] 1 each PO Q6HR PRN 08/25/18 08/07/19 08/25/18 History 7.5-325 Tablet] Ferrous Sulfate [Feosol] 325 mg PO DAILY 02/24/19 08/07/19 1 Day Ago History ~02/23/19 Acetaminophen [Tylenol] 1,000 mg PO Q8H PRN PRN tab 03/28/19 08/07/19 Unknown Rx Acetylcysteine 20% [Mucomyst 20%] 3 ml INH RTBID vial 03/28/19 08/07/19 Unknown Rx Albuterol 2.5MG/Ipratrop 0.5MG 3 ml INH Q4H PRN neb 03/28/19 08/07/19 Unknown Rx [Duoneb (A & A)] Metoprolol [Lopressor] 25 mg PO Q12H tab 03/28/19 08/07/19 Unknown Rx Nicotine Patch [Nicoderm Patch] 14 mg TD DAILY patch.[id number] 03/28/19 08/07/19 Unknown Rx Clonazepam [Klonopin] 1 mg PO BID PRN 08/07/19 08/07/19 Unknown History - History of Present Illness-Resp Nature of Presenting Problem: Presents to the EC with complaints of SOB for the past few days that got worse acutely tonight. She tried giving herself a duoneb prior to EMS arrival but it didnt help. She tried putting herself on her home cpap but that wasnt helping either. When EMS got there her SpO2 was low on her home O2 of [place] of 2L. THey put her on bipap and gave her a duoneb and brought her in emergency. Limited history due to patient in resp distress. Review of Systems - Adult - REVIEW OF SYSTEMS - ADULT ROS:: limited per condition Constitutional: reports: see HPI Eyes: reports: see HPI Ears, Nose, Mouth & Throat: reports: see HPI Cardiovascular: reports: see HPI Respiratory: reports: see HPI Gastrointestinal: reports: see HPI Genitourinary: reports: see HPI Musculoskeletal: reports: see HPI Integumentary: reports: see HPI Neurological: reports: see HPI Psychiatric: reports: see HPI Endocrine: reports: see HPI Hematologic/Lymphatic: reports: see HPI Allergic/Immunologic: reports: see HPI All Other Systems: Reviewed and Negative Past History - Adult - PAST MEDICAL HISTORY-ADULT Review of Records: reports: Old Records Reviewed Major Childhood Illnesses: reports: denies history Cardiovascular: reports: HTN Respiratory: reports: COPD Gastrointestinal: reports: denies history Obstetrical/Gynecological: reports: denies history Genitourinary: reports: kidney disease Musculoskeletal: reports: chronic pain (back) Neurological: reports: denies history Psychiatric: reports: denies history Endocrine/Immune: reports: denies history Other Conditions: reports: denies history - PRIOR SURGERIES/PROCEDURES Surgical/Procedure History: reports: hysterectomy, BTL - IMMUNIZATION STATUS Childhood Immunizations: See Nurse Assessment Flu Vaccine: See Nurse Assessment - FAMILY HISTORY Family History: reviewed, not pertinent Physical Exam-General - PHYSICAL EXAM-ADULT Initial Vital Signs Reviewed: Yes - CONSTITUTIONAL General Appearance: alert, moderate distress, thin, other (chronically ill appearing) - HEAD, EARS, NOSE, MOUTH & THROAT HENMT: normocephalic/atraumatic - NECK Neck: supple, normal inspection - RESPIRATORY Respiratory: respiratory distress, decreased breath sounds (diffusely), accessory muscle use, crackles (bilateral bases), increased rate - CARDIOVASCULAR Cardiovascular: normal peripheral pulses, no murmur, tachycardia - GASTROINTESTINAL (ABDOMEN) Abdominal Exam: soft, other (ostomy in place, well healed incision on midline abdomen). negative: distended - MUSCULOSKELETAL Back Exam: normal inspection Extremity: normal inspection - SKIN Integumentary: normal color, warm/dry - NEUROLOGIC Neurologic: grossly normal - PSYCHIATRIC Psych/Mental Status: normal mood/affect, oriented x 3 - HEART Score HEART Score: History: Slightly Suspicious HEART Score: ECG: Normal HEART Score: Age: > or = 65 Years HEART Score: Risk Factors for Atherosclerotic Disease: > or = 3 Risk Factors or History of Atherosclerotic Disease HEART Score: Troponin: < or = Normal Limit Total HEART Score:: 4 Progress - PLAN OF CARE/RESULTS Progress/Plan/Lab Results: Vital Signs - 8 hr 08/07/19 03:26 08/07/19 04:10 08/07/19 04:21 Temperature 98.4 F Pulse Rate 110 H 88 105 H Respiratory Rate 24 20 18 Blood Pressure 153/74 141/89 O2 Sat by Pulse Oximetry 98 97 96 Laboratory Results - last 24 hr 08/07/19 08/07/19 08/07/19 03:27 03:37 03:37 WBC 14.50 H RBC 4.77 Hgb 12.8 Hct 42.7 MCV 89.5 MCH 26.8 L MCHC 30.0 L RDW Std Deviation 14.4 Plt Count 337 MPV 8.9 Immature Gran % (Auto) 0.2 Neut % (Auto) 81.2 H Lymph % (Auto) 10.3 L [place] % (Auto) 7.2 Eos % (Auto) 0.8 Baso % (Auto) 0.3 Immature Gran # (Auto) 0.03 Neut # (Auto) 11.77 H Lymph # (Auto) 1.50 G[place]rie # (Auto) 1.04 H Eos # (Auto) 0.12 Baso # (Auto) 0.04 PT INR PTT (Actin FS) Specimen Type ARTERIAL Sample Site L BRACHIAL pH 7.33 L pCO2 94 H* pO2 61 HCO3 39.5 H Base Excess 18.9 H Oxyhemoglobin 91.8 L ABG O2 Sat (Calculated) 16.4 ABG O2 Saturation 96.2 ABG Carboxyhemoglobin 3.90 H ABG Methemoglobin 0.7 Elvis Test YES A-a O2 Difference -29.0 Total Hemoglobin 12.7 Lactate 0.60 Liter Flow 0.0 Blood Gas Modality ROOM AIR FiO2 % 21.0 Sodium 138 Potassium 4.3 Chloride 87 L Carbon Dioxide 47 H Anion Gap 4 BUN 5 L Creatinine 0.4 L Estimated GFR/1.73 m2 > 60 BUN/Creatinine Ratio 13 Glucose 120 H Calculated Osmolality 274 Calcium 9.9 Total Bilirubin 0.20 AST 18 ALT 12 Alkaline Phosphatase 99 Troponin T High Sens Vzd-E-Lqbwgjrthrp Pept Total Protein 6.4 Albumin 3.8 Globulin 2.6 Albumin/Globulin Ratio 1.5 Plasma Lactate 08/07/19 08/07/19 08/07/19 03:37 03:37 03:37 WBC RBC Hgb Hct MCV MCH MCHC RDW Std Deviation Plt Count MPV Immature Gran % (Auto) Neut % (Auto) Lymph % (Auto) [place] % (Auto) Eos % (Auto) Baso % (Auto) Immature Gran # (Auto) Neut # (Auto) Lymph # (Auto) [place]rie # (Auto) Eos # (Auto) Baso # (Auto) PT 12.5 INR 0.93 PTT (Actin FS) 29.3 Specimen Type Sample Site pH pCO2 pO2 HCO3 Base Excess Oxyhemoglobin ABG O2 Sat (Calculated) ABG O2 Saturation ABG Carboxyhemoglobin ABG Methemoglobin Elvis Test A-a O2 Difference Total Hemoglobin Lactate Liter Flow Blood Gas Modality FiO2 % Sodium Potassium Chloride Carbon Dioxide Anion Gap BUN Creatinine Estimated GFR/1.73 m2 BUN/Creatinine Ratio Glucose Calculated Osmolality Calcium Total Bilirubin AST ALT Alkaline Phosphatase Troponin T High Sens Lbb-C-Nlggkmkeorc Pept 401 H Total Protein Albumin Globulin Albumin/Globulin Ratio Plasma Lactate 0.8 08/07/19 03:37 WBC RBC Hgb Hct MCV MCH MCHC RDW Std Deviation Plt Count MPV Immature Gran % (Auto) Neut % (Auto) Lymph % (Auto) [place] % (Auto) Eos % (Auto) Baso % (Auto) Immature Gran # (Auto) Neut # (Auto) Lymph # (Auto) G[place]rie # (Auto) Eos # (Auto) Baso # (Auto) PT INR PTT (Actin FS) Specimen Type Sample Site pH pCO2 pO2 HCO3 Base Excess Oxyhemoglobin ABG O2 Sat (Calculated) ABG O2 Saturation ABG Carboxyhemoglobin ABG Methemoglobin Elvis Test A-a O2 Difference Total Hemoglobin Lactate Liter Flow Blood Gas Modality FiO2 % Sodium Potassium Chloride Carbon Dioxide Anion Gap BUN Creatinine Estimated GFR/1.73 m2 BUN/Creatinine Ratio Glucose Calculated Osmolality Calcium Total Bilirubin AST ALT Alkaline Phosphatase Troponin T High Sens 18 Ckd-R-Autnuyrifym Pept Total Protein Albumin Globulin Albumin/Globulin Ratio Plasma Lactate Orders Category Date Time Status CHEST-PORTABLE [RAD] Stat Exams 08/07/19 03:27 Taken ABG [RESP] Routine Lab 08/07/19 03:27 Completed BLOOD CULTURE [BLDCUL] Stat Lab 08/07/19 03:37 Results CBC WITH ELECTRONIC DIFF [HEME] Stat Lab 08/07/19 03:37 Completed COMPREHENSIVE METABOLIC PANEL [CHEM] Stat Lab 08/07/19 03:37 Completed LACTATE, PLASMA [CHEM] Stat Lab 08/07/19 03:37 Completed PRO B-NATRIURETIC PEPTIDE Stat Lab 08/07/19 03:37 Completed PROTIME WITH INR [COAG] Stat Lab 08/07/19 03:37 Completed PTT [COAG] Stat Lab 08/07/19 03:37 Completed TROPONIN T HIGH SENSITIVITY Stat Lab 08/07/19 03:37 Completed URINALYSIS W/POSS RFLX CULT [URINALYSIS] Stat Lab 08/07/19 03:27 Uncollected URINE DRUG SCREEN Stat Lab 08/07/19 03:27 Uncollected Budesonide [Pulmicort] Med 08/07/19 03:30 Discontinued 1 mg INH NOW ONE Levalbuterol Neb [Xopenex Neb] Med 08/07/19 03:30 Discontinued 1.25 mg INH NOW ONE Methylprednisolone Sod Succ [Solu-Medrol] Med 08/07/19 03:30 Discontinued 125 mg IV NOW ONE Nicotine Patch [Nicoderm Patch] Med 08/07/19 03:30 Discontinued 21 mg TD NOW ONE Sodium Chloride 0.9% Neb [Ns Neb] Med 08/07/19 03:30 Active 5 ml INH DIRECTED Aerosol Treatments Routine Oth 08/07/19 03:31 Completed Aerosol Treatments Stat Oth 08/07/19 03:31 Completed BIPAP Stat Oth 08/07/19 03:27 Active EKG [EKG] Stat Ther 08/07/19 03:23 Draft Patient requiring bipap. CO2 94 but pH only 7.33. Likely compensated. WBC 14.5 but CXR not showing any acute opacity. Spoke to Dr Salguero, insulation board back tender for hosp who accepted patient for admission. Wants her covered with antibiotics. Initiated rocephin and azithro. Further orders to be placed by their team. Result Diagrams: 08/07/19 03:37 08/07/19 03:37 - EKG 1 Time of EKG reading by physician:: 04:08 EKG Read and Signed by:: Gregoria Barrientos EKG Interpretation (*Must complete 3 of following elements*): Abnormal Rate: 101 Rhythm: Sinus tachycardia [place]: normal QRS: PVC's OK Interval: normal ST Wave: normal - XRAY 1 XRAY Study: Chest (COPD, left pleural effusion) - CONSULTS/PCP/HOSPITALIST Notification #1 *Consult/PCP/Hospitalist*: Dr Salguero Time Discussed: 04:45 Consult Disposition: Admit Departure - Departure Date of Disposition Decision: 08/07/19 Time of Disposition Decision: 04:44 DIAGNOSIS: Hypercarbia, COPD (chronic obstructive pulmonary disease), Respiratory distress, Leukocytosis Disposition: ADMITTED INPATIENT 09 Certified Medical Emergency: Emergent Condition: Fair Referrals and Follow-Ups: Korina Porter CRNP [Primary Care Provider] - - Critical Care Note This patient required my direct & personal management of CC.: Yes Total Time (mins): 35 Critical Care Statement: This patient required my direct personal management to treat or rule out processes, the absence of which, could potentiallly result in sudden, clinically significant life or limb threatening deterioration. Attestation - Physician/ BA Attestation Patient care was provided by Advanced Practice Provider:: No The physician spent face to face time with patient:: Yes Advanced Practice Provider documentation review:: Supervising physician onsite and consulted in the evaluation and care of this patient. The physician did have a face to face encounter with the patient.
[2019-08-07 03:39] LABS: ALLEN TEST YES; BE 18.9 mmoll (-3.0-3.0); BLOOD TYPE ARTERIAL; HCO3-(ACT) 39.5 mmoll (20.0-26.0); METHB 0.7 % (0.0-1.5); O2(CT) 16.4 mL/dL (15.0-23.0); O2HB 91.8 % (95.0-99.0); PO2(98.6) 61 mmHg (60-100); SAMPLE BLOOD; SAO2 96.2 % (95.0-100.0); THB 12.7 g/dL (11.5-17.4); pH(98.6) 7.33 (7.35-7.45)
[2019-08-07 03:40] LABS: MODALITY ROOM AIR
[2019-08-07 03:42] LABS: PCO2(98.6) 94 mmHg (35-45)
[2019-08-07 03:49] LABS: BASO# 0.04 X1000 (0.0-0.2); BASO% 0.3 % (0.0-0.8); EOS# 0.12 X1000 (0.0-0.7); EOS% 0.8 % (0.0-10.0); HEMATOCRIT 42.7 % (37.0-47.0); HEMOGLOBIN 12.8 g/dL (12.0-16.0); IMM GRAN# 0.03 X1000 (0.0-0.04); IMM GRAN% 0.2 % (0.0-0.5); LYMPH% 10.3 % (20.5-51.1); MCH 26.8 PG (27-31); MCV 89.5 FL (81-99); MONO# 1.04 X1000 (0.11-0.59); MONO% 7.2 % (1.7-9.3); MPV 8.9 FL (7.4-10.4); NEUT# 11.77 X1000 (1.4-6.5); NEUT% 81.2 % (42.2-75.2); PLT 337 X1000 (130-400); RBC 4.77 XMIL (4.2-5.4); RDW 14.4 % (11.5-14.5)
[2019-08-07 04:07] LABS: ESTIMATED GFR > 60
[2019-08-07 04:08] LABS: INR 0.93; PROTIME 12.5 Seconds (11.0-16.0)
[2019-08-07 04:09] LABS: PTT 29.3 Seconds (22.3-41.8)
[2019-08-07 04:10] LABS: AGAP 4; ALB/GLOB RATIO 1.5; ALBUMIN 3.8 g/dL (3.5-5.0); ALKALINE PHOSPHATASE 99 U/L (32-104); BUN 5 mg/dL (8-22); CALCIUM 9.9 mg/dL (8.8-10.2); CHLORIDE 87 mmol/L (98-107); COSMO 274; CREATININE 0.4 mg/dL (0.5-0.9); GLUCOSE 120 mg/dL (70-104); GOT 18 U/L (10-30); GPT 12 U/L (10-36); POTASSIUM 4.3 mmol/L (3.5-5.1); SODIUM 138 mmol/L (136-145); TCO2 47 mmol/L (25-35); TOTAL PROTEIN 6.4 g/dL (6.3-8.3)
--- NOTE | 2019-08-07 04:30 | EKG Report ---
Test Performed on : 08/07/2019 04:06:40 AM Test Reason : sob Blood Pressure : / mmHG Vent. Rate : 101 BPM Atrial Rate : 101 BPM P-R Int : 140 ms QRS Dur : 076 ms QT Int : 324 ms P-R-T Axes : 087 072 078 degrees QTc Int : 420 ms Sinus tachycardia. with occasional premature ventricular complexes. Otherwise normal ECG When compared with ECG of 16-MAR-2019 10:51, Significant changes have occurred Unconfirmed Result
[2019-08-07] MEDS ORDERED: ROCEPHIN 500 MG in NS 50 ML IV SCH (04:45)
[2019-08-07] MEDS ORDERED: ZITHROMAX 500 MG/NS 500 MG/250 ML IVPB IV SCH (04:45)
[2019-08-07] MEDS ORDERED: MAXIPIME 2 GM/NS 2 GM/100 ML IVPB IV ONE (04:59)
--- NOTE | 2019-08-07 06:19 | HISTORY AND PHYSICAL ---
ADDENDUM Ms. Christy Mathews is a 74-year-old lady with documented COPD on home O2. Last admitted here for pseudomonal pneumonia in September 2017. Comes today with 2-day history of worsening shortness of breath and cough productive of whitish sputum, but no fever or chills. No chest pain. Exam does show significant decreased air entry both lung monterroso. She was put on BiPAP because her pCO2 was 94, pH of 7.33. Says she has marginal improvement since she has been on BiPAP. The patient will be started on moderate doses of steroids, i.e., Solu-Medrol 40 mg q.6 hours, long- acting bronchodilators, i.e., Brovana q.12 hours, and short-acting bronchodilators, duo nebs q.6 hours. Will prefer patient be covered with Maxipime for Pseudomonas, since she has had prior history of that. May continue with either Zithromax or Levaquin. Repeat ABG in about to 12 hours and again in the a.m., if deemed necessary. cc: Terrie Salguero MD
[2019-08-07 06:21] LABS: URINE SOURCE CLEAN CATCH
[2019-08-07 06:35] LABS: BILIRUBIN URINE NEGATIVE (NEGATIVE); BLOOD URINE SMALL (NEGATIVE); COLOR YELLOW; GLUCOSE URINE NEGATIVE (NEGATIVE); KETONE URINE NEGATIVE (NEGATIVE); LEUKOCYTES URINE NEGATIVE (NEGATIVE); NITRITE URINE NEGATIVE (NEGATIVE); PH URINE 6.5; PROTEIN URINE NEGATIVE (NEGATIVE); TURBIDITY URINE CLEAR (CLEAR); UROBILINOGEN URINE NORMAL (NORMAL)
[2019-08-07 06:47] LABS: UR AMPHETAMINES QUAL NONE DETECTED (NONE DETECT); UR BARBITUATES QUAL NONE DETECTED (NONE DETECT); UR BENZODIAZEPIN QUAL PRESUMPTIVE POSITIVE (NONE DETECT); UR CANNABINOIDS QUAL NONE DETECTED (NONE DETECT); UR COCAINE QUAL NONE DETECTED (NONE DETECT); UR METHADONE QUAL NONE DETECTED (NONE DETECT); UR OPIATES QUAL PRESUMPTIVE POSITIVE (NONE DETECT); UR OXYCODONE QUAL NONE DETECTED (NONE DETECT); UR PCP QUAL NONE DETECTED (NONE DETECT)
[2019-08-07 06:56] LABS: UR EPITHELIAL CELLS <10 /HPF (<10); URINE BACTERIA NEGATIVE /HPF; URINE CASTS NONE SEEN; URINE CRYSTALS NONE SEEN; URINE RBC <10 /HPF (<10); URINE SMALL ROUND CELLS NONE SEEN; URINE WBC <10 /HPF (<10); URINE YEAST NONE SEEN
--- NOTE | 2019-08-07 07:08 | Diag Imaging Result Doc PS360 ---
EXAM: CHEST-PORTABLE 08/07/2019 HISTORY: COPD TECHNIQUE: AP portable at 0339 COMMENT: There are ill-defined opacities present in both upper lobes particularly the right upper lobe. Compared to 03/26/2019 this is worse in the left upper lobe. There is a prominent fat pad on the left obscuring portions of the left heart border. The heart size and primary vascularity are within normal limits. IMPRESSION: Bilateral upper lobe opacities suggestive of previous mycobacterial disease. This may be slightly worse in the left upper lobe than on previous studies and the possibility of active disease cannot be excluded. Electronically signed by Shelton Robbins 08/07/2019 7:05 AM
[2019-08-07] MEDS ORDERED: ZOFRAN IV PRN (08:37)
[2019-08-07 08:40] LABS: ALLEN TEST YES; BE 17.5 mmoll (-3.0-3.0); BLOOD TYPE ARTERIAL; HCO3-(ACT) 38.5 mmoll (20.0-26.0); METHB 1.1 % (0.0-1.5); O2(CT) 15.7 mL/dL (15.0-23.0); PO2(98.6) 84 mmHg (60-100); SAMPLE BLOOD; SAO2 99.2 % (95.0-100.0); THB 11.7 g/dL (11.5-17.4); TVOL 12 mL; pH(98.6) 7.39 (7.35-7.45)
[2019-08-07 08:43] LABS: MODALITY BI PAP; PCO2(98.6) 76 mmHg (35-45)
[2019-08-07] MEDS: BROVANA NEB INH SCH ×2 (09:28→22:00)
[2019-08-07] MEDS: DUONEB (A & A) INH SCH ×4 (09:28→22:00)
[2019-08-07] MEDS: KLONOPIN PO PRN (10:10)
[2019-08-07] MEDS: CYMBALTA PO SCH (10:12)
[2019-08-07] MEDS: LOVENOX SUBQ SCH (10:12)
[2019-08-07] MEDS: LOPRESSOR PO SCH ×2 (10:12→21:29)
[2019-08-07] MEDS: FERROUS SULFATE PO SCH (10:12)
[2019-08-07] MEDS: SOLU-MEDROL IV SCH ×3 (11:28→23:31)
--- NOTE | 2019-08-07 13:24 | HISTORY AND PHYSICAL ---
PRIMARY CARE PROVIDER: SINCERE Staley DATE AND TIME: 08/07/2019 at 0530. CHIEF COMPLAINT: Shortness of breath. HISTORY OF PRESENT ILLNESS: Ms. Mathews is a 74-year-old female who has a history of COPD and chronic hypercapnic and hypoxic respiratory failure. The patient does wear oxygen continuous at home nasal cannula at 2 L. She does wear CPAP at night. The patient states that over the past few days that she has been having progressively worsening shortness of breath and that this morning, just prior to arrival, is when it became its worst. She has also reported that she has been having a productive cough with whitish colored sputum. The patient was admitted to our facility most recently, an January in February 2019 though she states she has not been admitted to the hospital since then and has not had pneumonia since then or taken any antibiotics recently. She denies any dizziness. She denies any chest pain. She denies any abdominal pain, nausea, vomiting, or diarrhea. The patient does have a colostomy though denies any changes in her stool color or consistency. She does report that her stools are dark in color though she does take iron supplement. She denies any dysuria or urinary frequency. She denies any pain, numbness, tingling or swelling in extremities. Upon evaluation in the ER, the patient's initial vital signs were temperature 98.4 degrees, heart rate 110, respirations 24, blood pressure is 103/64, with a MAP of 82. Oxygen saturation was documented to be 98% on room air. The patient does work continue with oxygen at night, I do not know if this was accidentally documented in error. The patient was noted to be tachypneic and dyspneic. Arterial blood gases reveal that she was hypercapnic with a pCO2 of 94. The patient does have acute on chronic hypercapnia, though this he is elevated from her baseline. She also did have mild leukocytosis noted with a white blood cell count of 14,000. She did have crackles noted in bilateral bases. Chest x-ray did show bilateral upper lobe opacities suggestive of previous mycobacterial disease. Though, this may be slightly worse in the left upper lobe than on previous study, the possibility of active disease cannot be excluded. In the ER, the patient had been given nebulizer treatment, IV Solu-Medrol and given antibiotics of Rocephin and azithromycin. Blood cultures were obtained. The patient will be placed on inpatient admission to the medical floor post evaluation of acute respiratory failure, COPD exacerbation and possible pneumonia. REVIEW OF SYSTEMS: A 14 point review of systems was conducted with the patient and all were negative except for pertinent positives mentioned in the HPI. PAST MEDICAL HISTORY: 1. Chronic obstructive pulmonary disease on continuous home oxygen per nasal cannula at 2 L. 2. Sleep apnea. The patient does wear CPAP at night. 3. Chronic respiratory failure. 4. Hypertension. 5. Anxiety. 6. Depression. 7. Osteoarthritis. PAST SURGICAL HISTORY: 1. Hysterectomy. 2. 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 SOCIAL HISTORY: The patient is currently still smoking, though she states she has cut this down at this time. She is smoking reportedly 2 to 3 cigarettes per day. She has no reported alcohol or illicit drug use. She does not require any ambulatory assistance. She does live with family. ALLERGIES: Patient has allergies to Demerol according to a previous history and physical though they did not note this on her allergy list today. HOME MEDICATIONS: 1. Mucomyst 20% nebulizer treatment inhaled twice daily. 2. DuoNeb treatment inhaled q. 4 hours p.r.n. for shortness of breath and wheezing. 3. Klonopin 1 mg p.o. b.i.d. p.r.n. for anxiety. 4. Flexeril 10 mg p.o. q.12 hours p.r.n. for spasms. 5. Cymbalta 30 mg p.o. daily. 6. Ferrous sulfate 325 mg p.o. daily. 7. [place] 7.5 mg 1 p.o. q.6 hours p.r.n. for pain. 8. Metoprolol 25 mg p.o. q.12 hours. 9. NicoDerm patch 14 mg transdermally daily. DIAGNOSTIC DATA/LABORATORY RESULTS: [place] [address], hemoglobin 12.8, hematocrit 42.7, platelet count is 330,000. PT 12.5, INR 0.93, PTT is 29.3. Sodium 138, potassium 4.3, chloride 87, serum bicarbonate is 47, BUN 5, creatinine 0.4 with a GFR greater than 60. Glucose is 120, calcium 9.9. Liver function tests within normal limits. Troponin T- high sensitivity was 18. ProBNP is 401. Plasma lactate was 0.8. Arterial blood gases were obtained on room air with a pH of 7.33, pCO2 of 94, pCO2 of 61, HCO3 of 39.5, base excess of 18.9, oxyhemoglobin 91.8 and O2 saturation of 96.2. Urine drug screen was positive for opiates and benzodiazepines, which she does have prescriptions for both of these. Urinalysis did not show any signs of infection, positive for small amount of blood though was otherwise negative for protein, glucose, ketones, nitrites, leukocytes, white blood cells, or bacteria. EKG showed sinus tachycardia with occasional PVCs at a rate of 101 with a QTc of 420. Chest x-ray showed bilateral upper lobe opacities suggestive of previous mycobacterial disease. Radiologist noted that this may be slightly worse in the left upper lobe found on the previous study and the possibility of active disease could not be excluded. PHYSICAL EXAMINATION: VITAL SIGNS: Heart rate 101, respirations 20, blood pressure 134/73, oxygen saturation is 97% on BiPAP. GENERAL: Ms. Mathews is a female who is resting in the ER stretcher. She was not in any acute distress though did still seem be slightly dyspneic though was able to speak in full sentences with the BiPAP on. HEENT: Head is atraumatic, normocephalic. Pupils are equal, round, reactive to light, 3 mm bilaterally and brisk. Oral mucosa was moist. Oropharynx is clear. NECK: Supple. Trachea midline. CARDIOVASCULAR: Patient has S1-S2 present. No murmurs, gallops, rubs appreciated with a slightly tachycardic rate that is regular. PULMONARY: Patient has symmetrical chest expansion bilaterally. Lung sounds in left upper lung monterroso did have crackles noted. She did have crackles noted in bilateral bases. Right upper lung monterroso were clear to auscultation. ABDOMEN: Soft, nondistended, nontender. Bowel sounds are present in all 4 quadrants, were normoactive. The patient does have a colostomy bag noted in the right lower abdomen. EXTREMITIES: No cyanosis or edema noted. Pulse, motor, and sensory were intact in all extremities. Radial and pedal pulses were 2+ bilaterally. EXTREMITIES: No cyanosis or edema noted. Pulse, motor, and sensory were intact in all extremities. Radial pulses were 2+ bilaterally. INTEGUMENTARY: The patient's skin is pink, warm, and dry. NEUROLOGICAL: Patient is alert and oriented to person, place, time, and situation. She is able to move all extremities. There are no focal neurological deficits noted. ASSESSMENT/PLAN: 1. Acute hypercapnic respiratory failure. Patient does wear continuous oxygen 2 L per nasal cannula at home though she has not been hypoxic. She was hypercapnic though and she is above her baseline at this time. She was in respiratory distress, was dyspneic and tachypneic upon arrival. Since being placed on BiPAP, her respiratory status has improved. We will continue BiPAP at this time. We are going to repeat arterial blood gases later on this afternoon. This could have been exacerbated by her underlying chronic obstructive pulmonary disease as well as possibility of pneumonia. Blood culture and sputum culture have been ordered. We will place the patient with antibiotics of Maxipime and azithromycin. We will do scheduled DuoNeb treatments as well as a long-acting bronchodilator of Brovana. We will give her intravenous Solu-Medrol. We will perform aggressive pulmonary toilet and incentive spirometry. We will continue to monitor her respiratory status closely. 2. Chronic obstructive pulmonary disease. We will continue treatment as mentioned above in #1. We will continue her BiPAP as well as nebulizer treatments and intravenous Solu-Medrol. 3. Possible pneumonia. We will continue treatment as mentioned above #1 with a sputum culture, blood culture and intravenous antibiotics. 4. Hypertension. We will continue her metoprolol. 5. History of anxiety and depression. We will continue her Klonopin p.r.n. and her Cymbalta. 6. Nicotine dependence. We did discuss the importance of smoking cessation with the patient. We will continue to do throughout her admission and upon discharge. The patient has cut back on her number of cigarettes per day reportedly. We have placed orders for nicotine patch. 7. Deep vein thrombosis prophylaxis provided with Lovenox 40 mg q.24 hours. The patient was placed on the medical floor telemetry and continuous pulse oximetry. She will have vital signs q.4 hours. We will do strict intake and output, incentive spirometry. We will repeat arterial blood gases later on this afternoon as well as tomorrow morning. Further orders and recommendations pending hospital course, diagnostic studies, and physician evaluation. Dictated by SINCERE Avila for Terrie Salguero MD cc: Terrie Salguero MD MTDD
[2019-08-07] MEDS: MAXIPIME 2 GM/NS 2 GM/100 ML IVPB IV SCH (17:42)
[2019-08-07] MEDS: TYLENOL PO PRN (23:31)
[2019-08-08] MEDS ORDERED: NICODERM PATCH TD PRN (03:50)
[2019-08-08] MEDS: DUONEB (A & A) INH SCH ×4 (04:00→23:30)
[2019-08-08] MEDS ORDERED: ZITHROMAX 500 MG/NS 500 MG/250 ML IVPB IV SCH (05:15)
[2019-08-08] MEDS: ZITHROMAX 500 MG/NS 500 MG/250 ML IVPB IV SCH (05:42)
[2019-08-08] MEDS: SOLU-MEDROL IV SCH ×3 (05:43→21:28)
[2019-08-08] MEDS: MAXIPIME 2 GM/NS 2 GM/100 ML IVPB IV SCH ×2 (05:43→18:26)
[2019-08-08 05:55] LABS: HEMOGLOBIN 12.1 g/dL (12.0-16.0); LYMPH# 1.02 X1000 (1.2-3.4); MCH 26.7 PG (27-31); MCV 86.1 FL (81-99); MONO# 0.18 X1000 (0.11-0.59); MONO% 3.2 % (1.7-9.3); MPV 9.4 FL (7.4-10.4); NEUT# 4.47 X1000 (1.4-6.5); NEUT% 78.8 % (42.2-75.2); PLT 378 X1000 (130-400); RBC 4.53 XMIL (4.2-5.4); RDW 14.6 % (11.5-14.5); WBC 5.67 X1000 (4.8-10.8)
[2019-08-08 06:24] LABS: AGAP 13; BUN 12 mg/dL (8-22); CALCIUM 9.7 mg/dL (8.8-10.2); CHLORIDE 90 mmol/L (98-107); COSMO 274; CREATININE 0.3 mg/dL (0.5-0.9); ESTIMATED GFR > 60; GLUCOSE 113 mg/dL (70-104); POTASSIUM 3.9 mmol/L (3.5-5.1); SODIUM 137 mmol/L (136-145); TCO2 34 mmol/L (25-35)
[2019-08-08 06:44] LABS: ALLEN TEST YES; BE 12.9 mmoll (-3.0-3.0); BLOOD TYPE ARTERIAL; O2(CT) 11.5 mL/dL (15.0-23.0); O2HB 95.4 % (95.0-99.0); PO2(98.6) 77 mmHg (60-100); SAMPLE BLOOD; THB 8.5 g/dL (11.5-17.4); pH(98.6) 7.44 (7.35-7.45)
[2019-08-08 06:50] LABS: MODALITY BI PAP; PCO2(98.6) 57 mmHg (35-45)
[2019-08-08] MEDS ORDERED: APRESOLINE IV PRN (08:55)
--- NOTE | 2019-08-08 09:18 | PROGRESS NOTE ---
DATE: 08/08/2019 SUBJECTIVE: The patient seems to be more awake. She is oriented today. Yesterday, she was more lethargic. Her pCO2 is much better today. Initially, it was 94 and now is 57. She is tolerating p.o. She is asking questions. I want this patient to be evaluated by Pulmonary Department. She seems to have an advanced COPD, and she is on a Trilogy machine at home but she is not using it as she is supposed to. OBJECTIVE: Vital Signs: Temperature 98.3 degrees, pulse 105, respiratory rate 20, blood pressure 128/92, oxygen saturation 99 on nasal cannula. HEENT: Head normocephalic. No trauma. PERRLA. Neck: Supple. No JVD. No masses. Central trachea. Chest: Decreased breath sounds globally with prolonged expiratory phase and end faint expiratory wheezing. She is not moving too much air. Abdomen: Soft, nontender, nondistended. No hepatosplenomegaly. Extremities: No edema, no clubbing, no cyanosis. Neurological: The patient is awake and alert. She is oriented x3. She is following commands. She does have some hand tremors. LABORATORY DATA: WBC 5.6, hemoglobin 12.1, hematocrit 39, platelets 378,000. Sodium 137, potassium 3.9, chloride 90, bicarbonate 34, BUN 12, creatinine 0.4, glucose 113, calcium 9.7. ASSESSMENT AND PLAN: 1. Acute on chronic hypoxemic and hypercarbic respiratory failure. This patient is supposed to use a Trilogy machine at home but as per the patient, she is not using it as she is supposed to. We will continue cycling the BiPAP machine and the nasal cannula. Her pCO2 is much better compared with admission. Upon admission, it was around 94 and now is in the 50s. I will decrease a little bit the amount of steroids from 40 mg IV q.6 hours to 40 q.8 hours, and I will decrease that slowly. She is still having some end faint expiratory wheezing, she is still short of breath but much better compared with admission. 2. Chronic obstructive pulmonary disease exacerbation as above. Pulmonary Department has been consulted. 3. Possible pneumonia at the level of the upper lobes. I will continue with broad spectrum antibiotics for now. No fever during this admission. White blood cell count normalized, even though she has been on steroids. 4. Hypertension. She has been placed back on her metoprolol. I will just monitor for now and hydralazine as needed. 5. Anxiety and depression, aware. Continue home medication. 6. Osteoarthritis. Aware. 7. Severe immunoglobulin deficiency. I have requested a new set of immunoglobulin today, pending results. 8. Status post colectomy for colonic perforation. Aware. 9. Physical deconditioning and generalized weakness. I will request physical therapy to evaluate this patient, to start working at least with range of motion. cc: Miguel Angel Andujar MD
[2019-08-08] MEDS: CYMBALTA PO SCH (09:51)
[2019-08-08] MEDS: FERROUS SULFATE PO SCH (09:51)
[2019-08-08] MEDS: LOVENOX SUBQ SCH (09:51)
[2019-08-08] MEDS: LOPRESSOR PO SCH ×2 (09:51→21:27)
[2019-08-08] MEDS: KLONOPIN PO PRN (10:01)
[2019-08-08] MEDS: NORCO-7.5 PO PRN ×3 (10:01→22:08)
[2019-08-08] MEDS: NICODERM PATCH TD SCH (10:02)
[2019-08-08] MEDS: BROVANA NEB INH SCH ×2 (10:10→23:25)
[2019-08-08] MEDS: MUCOMYST 20% INH SCH (23:30)
[2019-08-09] MEDS: KLONOPIN PO PRN ×2 (01:56→13:45)
[2019-08-09] MEDS: DUONEB (A & A) INH SCH ×4 (03:35→21:20)
[2019-08-09] MEDS: ZITHROMAX 500 MG/NS 500 MG/250 ML IVPB IV SCH (04:54)
[2019-08-09] MEDS: SOLU-MEDROL IV SCH (05:15)
[2019-08-09 05:21] LABS: HEMATOCRIT 36.5 % (37.0-47.0); HEMOGLOBIN 11.4 g/dL (12.0-16.0); LYMPH# 0.74 X1000 (1.2-3.4); LYMPH% 15.9 % (20.5-51.1); MCH 26.6 PG (27-31); MCHC 31.2 g/dL (33-37); MCV 85.1 FL (81-99); MONO# 0.14 X1000 (0.11-0.59); MPV 9.6 FL (7.4-10.4); NEUT# 3.76 X1000 (1.4-6.5); NEUT% 81.1 % (42.2-75.2); PLT 379 X1000 (130-400); RBC 4.29 XMIL (4.2-5.4); RDW 14.4 % (11.5-14.5); WBC 4.64 X1000 (4.8-10.8)
[2019-08-09 05:43] LABS: ALLEN TEST YES; BE 8.8 mmoll (-3.0-3.0); BLOOD TYPE ARTERIAL; HCO3-(ACT) 31.8 mmoll (20.0-26.0); METHB 1.1 % (0.0-1.5); O2(CT) 15.8 mL/dL (15.0-23.0); O2HB 97.1 % (95.0-99.0); PO2(98.6) 143 mmHg (60-100); SAMPLE BLOOD; SAO2 99.6 % (95.0-100.0); THB 11.4 g/dL (11.5-17.4); pH(98.6) 7.43 (7.35-7.45)
[2019-08-09 05:44] LABS: AGAP 9; BUN 11 mg/dL (8-22); CALCIUM 9.2 mg/dL (8.8-10.2); CHLORIDE 90 mmol/L (98-107); COSMO 263; CREATININE 0.3 mg/dL (0.5-0.9); ESTIMATED GFR > 60; GLUCOSE 110 mg/dL (70-104); POTASSIUM 4.3 mmol/L (3.5-5.1); SODIUM 131 mmol/L (136-145); TCO2 32 mmol/L (25-35)
[2019-08-09 05:47] LABS: MODALITY CANNULA; PCO2(98.6) 52 mmHg (35-45)
--- NOTE | 2019-08-09 06:44 | Diag Imaging Result Doc PS360 ---
CHEST-PORTABLE - 08/09/2019 INDICATION: dyspnea COMPARISON: 08/07/2019 FINDINGS: There is perhaps slight improvement in the faint right upper lobe infiltrate. No new infiltrates. Heart size remains top normal. IMPRESSION: Slight improvement from prior. Electronically signed by Nelson Chavez 08/09/2019 6:42 AM
--- NOTE | 2019-08-09 07:49 | PROGRESS NOTE ---
DATE: 08/09/2019 Ms. Mathews says she is breathing better and she had a good night. She is hoping she gets to go home soon. In asking about her past medical history she says she never really understood what she had a colostomy, so I told her I would look through her records and see. I think Dr. Collins in January of last year did a colon resection and she has a colostomy bag. OBJECTIVE: Vital Signs: She remains afebrile, temperature 98.6 degrees, pulse 76, respirations 18, blood pressure 134/63. HEENT: Pupils are equal and round. Lungs: Are clear in all lung monterroso. Cardiovascular: Regular rhythm and rate without murmur or S3. Urine output is 900 mL. Chest x-ray: Slight improvement from yesterday. There is perhaps slight improvement in the faint right upper lobe infiltrate. No new infiltrates. Heart size remains top normal. ASSESSMENT AND PLAN: 1. Acute on chronic hypoxemic hypercarbic respiratory failure. The patient is supposed to use Trelegy at home and she has not been using it. 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 Continue cycling BiPAP machine and nasal cannula. Her pCO2 is much better compared to admission and she seems to be making improvement. On admission her pCO2 was 94, now it is in the 50s and steroids have been reduced to 40 mg IV q.6 down to 40 mg q.8 and will continue to reduce those. 2. Chronic obstructive pulmonary disease exacerbation. 3. Possible pneumonia, radiographically improved, clinically improved. Continue broad-spectrum antibiotics, bronchodilators, supplementary O2. 4. Hypertension. She is placed back on metoprolol. 5. Anxiety and depression. Aware. 6. Osteoarthritis. 7. Severe immunoglobulin deficiency and so getting a new set of immunoglobulin levels. 8. Status post colectomy for colonic perforation. 9. Physical deconditioning and general weakness. Continue physical therapy. REVIEW OF ORDERS: Patient on hydrocodone 7.5 mg q.6 hours p.r.n., acetylcysteine 20% with 3 mL inhaler b.i.d., arformoterol nebulizer 15 mcg inhalation. I think that is q.12 hours. She is on Cymbalta 30 mg a day, Klonopin 1 mg p.o. q.12 hours p.r.n., azithromycin and on cefepime 2 g IV q.12, metoprolol 25 mg p.o. q.12, nicotine patch 14 mg daily. cc: Elvis Aj MD
[2019-08-09] MEDS: FERROUS SULFATE PO SCH (08:12)
[2019-08-09] MEDS: NICODERM PATCH TD SCH (08:12)
[2019-08-09] MEDS: LOVENOX SUBQ SCH (08:12)
[2019-08-09] MEDS: LOPRESSOR PO SCH ×2 (08:12→20:50)
[2019-08-09] MEDS: CYMBALTA PO SCH (08:12)
--- NOTE | 2019-08-09 08:29 | PULMONOLOGY CONSULTATION ---
DATE: 08/08/2019 REQUESTING CLINICIAN: Dr. Flores. REASON FOR CONSULTATION: Pneumonia with hypoxemic respiratory failure. HISTORY OF PRESENT ILLNESS: Ms. Mathews is a 74-year-old white female with severe COPD with chronic hypoxemic and chronic hypercapnic respiratory failure, who was previously prescribed a Trilogy device. She presented to the emergency room yesterday with increasing shortness of breath/air hunger with increased cough and sputum production. She denies fevers or chills or recent sick contacts. Despite having a Trilogy at home, she does not wear this device. The patient was admitted to the hospital last February with bilateral pneumonia and severe reduction in her immunoglobulin level. PAST MEDICAL HISTORY: 1. Severe COPD. FEV1 on 09/29/2018 was 0.52 L or 27% of predicted. 2. Severe immunoglobulin deficiency identified on prior admission to the hospital. 3. Hypertension. 4. Anxiety disorder. 5. History of perforated cecum requiring colectomy and ileostomy. SOCIAL HISTORY: Continues to intermittently smoke. She has mild elevation of carbon monoxide on admission. No alcohol use. PHYSICAL EXAMINATION: General: Reveals a frail, chronically ill-appearing female who appears older than her stated age. Vital signs: Blood pressure 135/62, heart rate 84, respiratory rate 24, oxygen saturation 100% on 3 L per nasal cannula. HEENT: Pupils are equal and reactive. Oropharynx is clear. Neck: Supple. Chest: Reveals rhonchi bilaterally. Cardiac Exam: S1, S2. Abdomen: Soft. Extremities: Reveal trace edema. LABORATORY DATA: Arterial blood gas on presentation, pH 7.33, pCO2 of 94, PO2 of 61 with a carboxyhemoglobin of 3.9. Arterial blood gas this morning, pH 7.44, pCO2 of 57, pO2 of 77 on BiPAP. Chest x-ray reveals nonspecific infiltrates in both upper lobes. White blood count on admission 14.57. White blood count today 5.67. IMPRESSION: A 74-year-old with: 1. Severe chronic obstructive pulmonary disease. 2. Acute on chronic hypercapnic respiratory failure. 3. Acute on chronic hypoxemic respiratory failure. 4. Bilateral upper lobe pneumonia. Although the radiologist indicates this is due to atypical mycobacterial disease, she did not have any infiltrates on her CT scan of the thorax 02/24/2019, so it is not clear that the abnormalities identified in the upper lobes recommend atypical mycobacterium. These could simply represent recurrent pneumonia as she did not have a chest x-ray to clear radiographically. The patient was admitted to the hospital on her last admission and her immunoglobulin level was extremely low. This was in the face of a peritonitis. Sputum cultures at that time were growing Pseudomonas aeruginosa. RECOMMENDATIONS: 1. Continue current bronchodilators. 2. Continue current antibiotic regimen which will target of atypical organisms, community- acquired pneumonia, and pseudomonal pneumonia which is suspected. 3. Encourage patient to use her Trilogy device. 4. Encourage patient to stop smoking. 5. Recommend 7 to 10 days of cefepime followed by CT scan of the thorax. cc: Phillip Puentes MD
[2019-08-09] MEDS: BROVANA NEB INH SCH ×2 (09:43→21:20)
[2019-08-09] MEDS: MUCOMYST 20% INH SCH ×2 (09:43→21:20)
[2019-08-09] MEDS: LEVAQUIN PO SCH (10:06)
[2019-08-09] MEDS ORDERED: ZOFRAN PO SCH (13:45)
[2019-08-09] MEDS ORDERED: ZOFRAN PO PRN ×2 (14:16→14:18)
[2019-08-09] MEDS: NORCO-7.5 PO PRN (15:46)
[2019-08-10] MEDS: DUONEB (A & A) INH SCH ×4 (04:02→22:25)
--- NOTE | 2019-08-10 07:11 | PULMONOLOGY PROGRESS NOTE ---
DATE: 08/09/2019 SUBJECTIVE: The patient is awake, alert, and conversant. She reports she is feeling well and has had a good day. OBJECTIVE: Vital Signs: Blood pressure 126/86, heart rate 93, respiratory rate 19, oxygen saturation 99%. HEENT: Pupils are equal and reactive. Oropharynx appears clear. Neck: Supple. Chest: Reveals good air entry bilaterally with minimal rhonchi. Cardiac: S1-S2. Abdomen: Soft. Extremities: Without edema. LABORATORIES: Chest x-ray reveals mild decrease in faint right upper lobe infiltrate. White blood count 4.64, hemoglobin 11.4, platelet count 379,000. Arterial blood gas reveals pH 7.43, pCO2 of 52, PO2 of 143. Sodium 131, potassium 4.3, chloride 90, bicarbonate 32, BUN 11, creatinine 0.3. IMPRESSION: A 74-year-old with: 1. Severe chronic obstructive pulmonary disease. 2. Acute on chronic hypercapnic respiratory failure. 3. Acute on chronic hypoxemic respiratory failure. 4. Mild bilateral pneumonia. Radiographically, she appears to be improving. Previously, she has grown Pseudomonas aeruginosa and this is her most likely pathogen. The radiologist indicates it may be an atypical mycobacterium, but with improvement, this would be less likely. RECOMMENDATIONS: 1. Continue bronchodilators. 2. Continue current antibiotic regimen. Clinically, she is improving. 3. Encourage the patient to use Trilogy device at home. 4. Encourage smoking cessation. 5. Consider discharge home soon. She has rapidly improved. At the time of discharge, would continue Levaquin 500 mg a day for 10 to 14 days. cc: Phillip Puentes MD
[2019-08-10] MEDS: LEVAQUIN PO SCH (08:06)
[2019-08-10] MEDS: LOPRESSOR PO SCH ×2 (08:06→22:17)
[2019-08-10] MEDS: NICODERM PATCH TD SCH (08:06)
[2019-08-10] MEDS: LOVENOX SUBQ SCH (08:06)
[2019-08-10] MEDS: CYMBALTA PO SCH (08:06)
[2019-08-10] MEDS: FERROUS SULFATE PO SCH (08:06)
[2019-08-10] MEDS: NORCO-7.5 PO PRN ×2 (08:21→15:37)
[2019-08-10] MEDS: MUCOMYST 20% INH SCH ×2 (09:54→22:25)
[2019-08-10] MEDS: BROVANA NEB INH SCH ×2 (09:54→22:25)
--- NOTE | 2019-08-10 13:46 | PROGRESS NOTE ---
DATE: 08/10/2019 SUBJECTIVE: Ms. Mathews is breathing much more comfortably. She feels stronger. She is eating well. OBJECTIVE: She remains afebrile. Temperature 97.8 degrees, pulse 84, respirations 18, blood pressure 95/64. Pupils are equal and round. Lungs are clear in all lung monterroso. Cardiovascular Examination: Regular rhythm and rate without murmur or S3. Abdomen is soft. Skin is warm and dry. Urine output yesterday was about 400 mL recorded. ASSESSMENT AND PLAN: 1. Severe chronic obstructive pulmonary disease. 2. Acute on chronic hypercapnic respiratory failure. 3. Acute on chronic hypoxemic respiratory failure. 4. Mild bilateral pneumonia. She is improving both radiographically and clinically. Previously, she had grown out Pseudomonas aeruginosa and this is the most likely pathogen. The radiologist indicates she may have an atypical mycobacterium but with improvement, this is less likely, so hoping we can get her home on Thursday. Continue her present bronchodilators, antibiotics, and cyclic CPAP. She apparently has Venturi nasal cannula high flow at home and hopefully we can get that set up for her too. 5. History of hypertension. 6. History of anxiety and depression. 7. History of osteoarthritis. 8. She has severe immunoglobulin deficiency. 9. Status post colectomy for colonic perforation. She had a colostomy. 10. Continue physical therapy. cc: Elvis Aj MD
[2019-08-10] MEDS: KLONOPIN PO PRN (15:37)
[2019-08-11] MEDS: NORCO-7.5 PO PRN ×4 (02:34→20:44)
[2019-08-11] MEDS: DUONEB (A & A) INH SCH ×4 (03:35→22:43)
--- NOTE | 2019-08-11 08:01 | PULMONOLOGY PROGRESS NOTE ---
DATE: 08/10/2019 SUBJECTIVE: The patient is arousable to alert. She was sleeping upon arrival. She reports her day has improved. Her cough and sputum production have diminished. OBJECTIVE: Vital Signs: She has been afebrile for the last 24 hours. Blood pressure 110/53, heart rate 84, respiratory rate 18, oxygen saturation 98% on 3 L per nasal cannula. HEENT: Pupils are equal and reactive. Oropharynx appears clear. Neck: Supple. Chest: Reveals occasional rhonchi bilaterally. Cardiac: S1-S2. Abdomen: Soft without hepatosplenomegaly. Extremities: Without edema. LABORATORY DATA: No new chemistries, CBC, or chest x-ray today. IMPRESSION: A 74-year-old with 1. Severe chronic obstructive pulmonary disease. 2. Acute on chronic hypercapnic respiratory failure. 3. Acute on chronic hypoxemic respiratory failure. 4. Bilateral pneumonia with radiographic and clinical improvement. 5. Ongoing tobacco use. PLAN: 1. Continue bronchodilators. 2. Continue current antibiotic regimen. 3. Continue nocturnal BiPAP. 4. Encourage smoking cessation. 5. At the time of discharge, would recommend Levaquin 500 mg for 10 to 14 days. cc: Phillip Puentes MD
[2019-08-11] MEDS: FERROUS SULFATE PO SCH (08:33)
[2019-08-11] MEDS: LEVAQUIN PO SCH (08:34)
[2019-08-11] MEDS: CYMBALTA PO SCH (08:34)
[2019-08-11] MEDS: LOPRESSOR PO SCH ×2 (08:35→20:44)
[2019-08-11] MEDS: LOVENOX SUBQ SCH (08:38)
[2019-08-11] MEDS: NICODERM PATCH TD SCH (08:41)
[2019-08-11] MEDS: BROVANA NEB INH SCH ×2 (10:16→22:44)
[2019-08-11] MEDS: MUCOMYST 20% INH SCH ×2 (10:17→22:44)
--- NOTE | 2019-08-11 15:33 | PROGRESS NOTE ---
DATE: 08/11/2019 SUBJECTIVE: Ms. Mathews is breathing better, feeling better. She is a lot stronger. Eating well. Her bowels are moving well and she would like to go home in the morning. I think will be ready. Continue physical therapy. OBJECTIVE: Temperature 97.6 degrees, pulse 87, respirations 22, blood pressure 117/43. Pupils are equal and round. Lungs are clear in all lung monterroso. Cardiovascular Examination: Regular rhythm and rate without murmur or S3. Abdomen is soft. Skin is warm and dry. ASSESSMENT AND PLAN: 1. Severe chronic obstructive pulmonary disease. 2. Acute on chronic hypercapnic respiratory failure. 3. Acute on chronic hypoxemic respiratory failure. 4. Bilateral pneumonia, radiographic and clinical improvement. 5. Ongoing tobacco use. 6. Going to continue bronchodilators and current antibiotics. I think she can probably go home tomorrow. She has high nasal flow at home, she can use as needed. Encouraged smoking cessation. We are going to discharge her tomorrow with Levaquin 500 mg for 14 days by mouth in addition to her other medications. REVIEW OF HER ORDERS: I do not see any change. Actually, last lab was on the . Electrolytes and creatinine looked good. cc: Elvis Aj MD
--- NOTE | 2019-08-11 21:57 | PULMONOLOGY PROGRESS NOTE ---
DATE: 08/11/2019 SUBJECTIVE: The patient is awake, alert, and conversant. She reports she feels significantly better. She is ready to go home. She will use her BiPAP at night and will not resume smoking. OBJECTIVE: Vital Signs: The patient has been afebrile for the last 24 hours. Blood pressure 128/61, heart rate 92, respiratory rate 19, oxygen saturation 98% on 3 L per nasal cannula. HEENT: Pupils are equal and reactive. Oropharynx appears clear. Neck: Supple. Chest: Reveals occasional rhonchi with decreased breath sounds bilaterally. Cardiac: S1-S2. Abdomen: Soft. Extremities: Without edema. IMPRESSION: A 74-year-old with: 1. Severe chronic obstructive pulmonary disease. 2. Acute on chronic hypercapnic respiratory failure. 3. Acute on chronic hypoxemic respiratory failure. 4. Ongoing tobacco use. 5. Bilateral pneumonia. PLAN: 1. Continue bronchodilators. 2. Chest x-ray tomorrow to document continued improvement. 3. Continue Trilogy at the time of discharge. 4. Encourage smoking cessation. 5. Recommend outpatient course of Levaquin at the time of discharge. cc: Phillip Puentes MD
[2019-08-12] MEDS: DUONEB (A & A) INH SCH ×3 (03:45→15:26)
[2019-08-12] MEDS: NORCO-7.5 PO PRN (06:32)
[2019-08-12] MEDS: BROVANA NEB INH SCH (08:22)
[2019-08-12] MEDS: MUCOMYST 20% INH SCH (08:22)
--- NOTE | 2019-08-12 09:28 | Diag Imaging Result Doc PS360 ---
EXAM: CHEST-2 VIEWS HISTORY: abnormal exam TECHNIQUE: Three views COMPARISON: 08/09/2019 FINDINGS: The lungs are hyperexpanded the heart is not enlarged. The vessels are small. There are minimal increased markings in the upper right lung. No pleural effusions. IMPRESSION: Continued improvement Electronically signed by Ross Ha 08/12/2019 9:26 AM
[2019-08-12] MEDS: NICODERM PATCH TD SCH (09:36)
[2019-08-12] MEDS: LOPRESSOR PO SCH (09:36)
[2019-08-12] MEDS: LEVAQUIN PO SCH (09:36)
[2019-08-12] MEDS: FERROUS SULFATE PO SCH (09:36)
[2019-08-12] MEDS: LOVENOX SUBQ SCH (09:36)
[2019-08-12] MEDS: CYMBALTA PO SCH (09:36)
[2019-08-12 11:55] VITALS: BP 145/65
--- NOTE | 2019-08-12 14:06 | DISCHARGE SUMMARY ---
ADMISSION DATE: 08/07/2019 DISCHARGE DATE: 08/12/2019 PHYSICIAN: Her doctor is SINCERE Reyna. HOSPITAL COURSE: This is a 74-year-old female with a history of COPD, chronic hypercapnic hypoxemic respiratory failure. Patient wears oxygen continuous at home nasal cannula 2 L. Wears CPAP at night. The patient states that over the past few days she has been having progressive worsening shortness of breath, and just before arrival became much worse. Reported she had productive cough and whitish-colored sputum. Admitted to our facility recently in February 2019. States she has not been admitted to the hospital since that time. Denies any chest pain. PAST MEDICAL HISTORY: 1. Chronic obstructive pulmonary disease on continuous home O2 nasal cannula 2 L per nasal cannula. 2. Sleep apnea. Wears CPAP at night. 3. Chronic respiratory failure. 4. Hypertension. 5. Anxiety. 6. Depression. 7. Osteoarthritis. PAST SURGICAL HISTORY: 1. Hysterectomy. 2. Status post open total colectomy and ileostomy in February with perforated cecum. PRELIMINARY DIAGNOSES: 1. Acute hypercapnic respiratory failure. She does have home oxygen at 2 liters and she was hypoxic and she was hypercapnic above her baseline, so put her on BiPAP and some bronchodilators. Start her on some empiric antibiotics. Obtain cultures. 2. Chronic obstructive pulmonary disease exacerbation. Continued as above. 3. Possible pneumonia. 4. Hypertension. 5. History of anxiety and depression. 6. History of nicotine dependence. She was counseled on staying away from tobacco. She had a Pulmonary consultation. ADMISSION DIAGNOSES: 1. She had severe chronic obstructive pulmonary disease. 2. Acute on chronic hypercapnic respiratory failure. 3. Acute on chronic hypoxemic respiratory failure. 4. Bilateral upper lobe pneumonia. She did not have any infiltrates on her CT scan of the thorax on 02/24/2019, so it did not feel like this was representing atypical Mycobacterium; could simply represent recurrent pneumonia. So, continue bronchodilators and antibiotics. She showed steady improvement and repeat x-ray on 08/12 with continued improvement. Lungs hyperexpanded. No sign of infiltrates. She is breathing better. Apparently, she has Venturi nasal cannula at home and felt she could go home. I will put her on Levaquin 750 mg a day, once a day for 7 days. DISCHARGE DIAGNOSES: 1. Severe chronic obstructive pulmonary disease. 2. Acute on chronic hypercapnic respiratory failure. 3. Acute on chronic hypoxemic respiratory failure. 4. Ongoing tobacco use. 5. Bilateral pneumonia. DISCHARGE MEDICATIONS: She will be on Tylenol as needed, Mucomyst inhaler and DuoNebs at home, Klonopin 1 mg p.o. b.i.d. p.r.n., Flexeril 10 mg q. 12 hours p.r.n., Cymbalta 30 mg a day, Feosol 325 mg a day. She takes [place] 7.5 mg one q. 6 hours p.r.n., Lopressor 25 mg q. 12 hours, NicoDerm patch 14 mg daily, and I will have her on Levaquin 750 mg once a day for 10 days. cc: Elvis Aj MD
[2019-08-12] MEDS ORDERED: FLU VACCINE IM ONE (14:20)
[2019-08-12] MEDS: TYLENOL PO PRN (16:03)
== END 2019-08-12 17:12 | disposition home health service (06) | DRG 177 ==
LOC: ED 03:18 → 1N 08:15 → SUATTDRO 08:15
PROVIDERS: ATTEND Emergency Medicine